=== PATIENT | male | born 1945 | race Caucasian/White ===

== ENCOUNTER 2016-09-13 19:21 | Inpatient (IN) ==
--- NOTE | 2016-09-13 19:37 | Emergency Department Report ---
General Adult HPI - General Chief complaint: Altered Mental Status Stated complaint: Decreased LOC Source: patient, family, EMS - History of Present Illness HPI narrative: Decreased LOC today. This appears to be consistent with patient's previous UTIs. Patient has an indwelling English catheter, and often gets this way with UTIs. Last visit month ago, patient had similar symptoms, but had UTI with service/ severe sepsis, elevated creatinine at 5.2, elevated troponin at 1.44, and was transferred [facility] with acute renal failure consistent with UTI/ sepsis. Currently patient has no complaints, specifically denies chest pain. Patient had EKG done in route due to decreased LOC, that showed ST segment elevation in V1 through V3, consistent with LVH/early repolarization only. Onset (ago): day(s) - Related Data Home Medications Medication Instructions Recorded Confirmed Multivit-Min/FA/Lycopen/Lutein 1 tab PO DAILY #0 07/22/14 09/13/16 [Centrum Silver Tablet] Nitroglycerin [Nitrostat] 0.4 mg SL Q5M PRN #0 07/22/14 09/13/16 Atorvastatin Calcium 20 mg PO HS #0 08/23/15 09/13/16 Insulin Aspart [Novolog Flexpen] 16 unit SQ WB #0 08/23/15 09/13/16 Insulin Aspart [Novolog Flexpen] 16 unit SQ BIDLS #0 03/16/16 09/13/16 Docusate Sodium 100 mg PO DAILY #0 03/17/16 09/13/16 Darbepoetin [Aranesp] 100 mcg IN 1 WEEK 09/13/16 09/13/16 Insulin Detemir [Levemir Flextouch] 50 units SQ HS 09/13/16 09/13/16 Magnesium Oxide [Magox 400] 400 mg PO BID 09/13/16 09/13/16 Metoclopramide [Reglan] 5 mg PO QID 09/13/16 09/13/16 Vit B2/Niacin/B-6/B-12/D-Panth 50,000 units PO DAILY 09/13/16 09/13/16 Allergies Allergy/AdvReac Type Severity Reaction Status Date / Time hydrocodone bit AdvReac Intermediate Uncoded 09/13/16 20:27 Review of Systems All systems: reviewed and negative except as stated Constitutional: Reports: weakness (with decreased level of consciousness/ confusion) PFS Patient Stated Medical History Cerebrovascular Accident Yes: 2004 Hearing Loss Yes Pulmonary Edema Yes Other Respiratory Yes: sirs 06/2016 Diabetes Mellitus Type 1 Yes Hx Benign Prostatic Yes Hyperplasia Other Yes: 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 Joint: knee Physical Exam - Limitations Limitations: altered mental status - General General appearance: alert, in no apparent distress (patient does appear mildly confused, but is able to contribute to his healthcare with answering one question at a time) - Normal Exams: Head:: Normocephalic without trauma Eyes:: Pupils are PERRLA w/ EOMI, No scleral icterus, irritation, or foreign bodies noted ENMT:: No facial trauma, nasal exudates, pharyngeal erythema, or exudates are noted Neck:: Full range of motion, without adenopathy, JVD, bruits or thyromegaly Chest/Respirations:: Clear all luong, with good airflow, and symmetry bilaterally Cardiovascular:: Regular rate and rhythm, without murmur or gallop, Pulses 2+ all extremities, capillary refill, <2 seconds all extremities Abdomen:: Bowel sounds positive, soft, non-tender, non-distended, no hepatosplenomegaly, masses or bruits noted Lymphatic:: No lymphadenopathy, or lymphedema noted Musculoskeletal:: No tenderness, or deformity noted, good range of motion, all extremities Integumentary:: No rashes, hives, or bruising noted, hair and nails, without abnormality Neurological:: Patient is alert, and oriented, cranial nerves, motor/sensory/ cerebellar, exams w/o gross deficits, to observation - Psychiatric Psychiatric exam: Present: flat affect. Absent: normal affect (lap affect), normal mood Course Course Narrative: Patient given 1 L normal saline IV fluid bolus Vital Signs Temperature 99.9 F 09/13/16 19:45 Temperature 99.9 F 09/13/16 19:45 Pulse Rate 96 09/13/16 20:30 Respiratory Rate 19 09/13/16 20:30 Blood Pressure 188/84 H 09/13/16 20:31 Pulse Oximetry 93 09/13/16 20:00 Medical Decision Making - MDM Narrative Medical decision making narrative: CBC is essentially normal, CMP shows significant abnormalities with BUN/ creatinine elevated, but much lower than previous visit. Minimally elevated at 0.144, much lower than previous admission Urine shows positive leukocyte esterase, red cells and white cells too numerous to count, multiple visible bacteria. Marques is discussed with Dr. Robb Martinez, patient will be for admission for dehydration and urinary tract infection, with no evidence of sepsis or Sirs at this time. Patient does have elevated troponin, this appears to be type II secondary to UTI at this time. - Lab Data Result diagrams: 09/13/16 19:50 09/13/16 19:50 Lab Results 09/13/16 09/13/16 09/13/16 Range/Units 19:50 19:50 19:50 WBC 9.5 (4.5-11.0) T/MM3 RBC 4.67 (4.50-5.90) M/MM3 Hgb 13.5 (13.5-17.5) GM/DL Hct 43.2 (41-53) % MCV 92.5 (80-100) UM3 MCH 28.9 (26-34) UUG MCHC 31.3 (31-37) GM/DL RDW Std Deviation 53.8 H (36.9-50.2) FL Plt Count 358 (130-400) T/MM3 MPV 12.0 (9.4-12.4) UM3 Immature Gran % (Auto) 0.2 (0.0-0.5) % Neut % (Auto) 69.3 H (33-66) % Lymph % (Auto) 19.7 L (23-45) % Hernando % (Auto) 8.7 (0-9.0) % Eos % (Auto) 1.7 (0-4) % Baso % (Auto) 0.4 (0-2) % Neut # 6.6 (1.8-7.7) T/MM3 Lymph # 1.9 (1-4.8) T/MM3 Hernando # 0.8 (0-0.8) T/MM3 Eos # 0.2 (0-0.5) T/MM3 Baso # 0.0 (0-0.2) T/MM3 Abs Immat Gran (auto) 0.02 (0.00-0.03) T/MM3 Turbidity 20 (0-20) Sodium 141 (134-144) MEQ/L Potassium 6.5 H* (3.6-5) MEQ/L Chloride 104 (98-107) MEQ/L Carbon Dioxide 23 (22-30) MEQ/L Anion Gap 14 (5-15) MEQ/L BUN 61.0 H* (9-20) MG/DL Creatinine 2.8 H (0.8-1.5) MG/DL GFR Calculation 22 BUN/Creatinine Ratio 22 (6-26) RATIO Glucose 299 H (75-110) MG/DL Calculated Osmolality 299 H (261-280) MOSM/KG Calcium 9.7 (8.4-10.2) MG/DL Total Bilirubin 0.50 (0.20-1.30) MG/DL Conjugated Bilirubin 0.00 (0.00-0.30) MG/DL Unconjugated Bilirubin 0.20 (0.00-11.10) MG/DL Icterus Index 2 (0-7) AST 20 (17-59) U/L ALT 23 (21-72) U/L Alkaline Phosphatase 123 (38-126) U/L Troponin I 0.147 H (0-0.12) ng/ml Total Protein 8.1 (6.3-8.2) G/DL Albumin 4.2 (3.5-5.0) G/DL Globulin 3.9 H (2.4-3.6) G/DL Albumin/Globulin Ratio 1.1 (1.1-2.2) RATIO Specimen Hemolysis 15 (0-25) Ur Collection Type Urine, english chronic Urine Color Yellow (YELLOW) Urine Clarity Turbid Urine pH 6.0 (5.0-8.0) Ur Specific [place] 1.025 (1.015-1.025) Urine Protein 3+ A (NEGATIVE) Urine Glucose (UA) 2+ A (NEGATIVE) Urine Ketones Negative (NEGATIVE) Urine Occult Blood 3+ A (NEGATIVE) Urine Nitrate Negative (NEGATIVE) Urine Bilirubin Negative (NEGATIVE) Urine Urobilinogen 0.2 (NORMAL) EU/DL Ur Leukocyte Esterase 3+ (NEGATIVE) Urine RBC Tntc (0-3) /HPF Urine WBC Tntc (0-5) /HPF Urine Bacteria 2+ H (NEGATIVE) Ur Culture Indicated? Cancelled Urinalysis Comment Cancelled Disposition Clinical Impression: Urinary tract infection [place] [facility] [place] Condition: Improved Prescriptions: No Action Multivit-Min/FA/Lycopen/Lutein [Centrum Silver Tablet] 1 tab PO DAILY #0 Insulin Aspart [Novolog Flexpen] 16 unit SQ WB #0 Metoclopramide [Reglan] 5 mg PO QID Magnesium Oxide [Magox 400] 400 mg PO BID Vit B2/Niacin/B-6/B-12/D-Panth 50,000 units PO DAILY Nitroglycerin [Nitrostat] 0.4 mg SL Q5M PRN #0 PRN Reason: CHEST TIGHTNESS Atorvastatin Calcium 20 mg PO HS #0 Insulin Aspart [Novolog Flexpen] 16 unit SQ BIDLS #0 Docusate Sodium 100 mg PO DAILY #0 Insulin Detemir [Levemir Flextouch] 50 units SQ HS Darbepoetin [Aranesp] 100 mcg IN 1 WEEK Referrals: Roel العراقي II, MD [Family Provider] - - Seen By: physician
[2016-09-13] MEDS ORDERED: ONDANSETRON 4 MG/2 ML INJECTION IVP PRN (21:13)
[2016-09-13] MEDS ORDERED: HYDROMORPHONE 2 MG/ML INJECTION IVP PRN (21:13)
[2016-09-13] MEDS ORDERED: NS 1,000 ML IV SCH (21:15)
[2016-09-13] MEDS ORDERED: NITROGLYCERIN 0.4 MG SUBLINGUAL TABLET SL PRN (21:29)
[2016-09-13] MEDS: NS 1,000 ML IV SCH (21:32)
[2016-09-13] MEDS ORDERED: CALCIUM GLUCONATE 1,000mg/10ml INJECTION IVP ONE (21:42)
[2016-09-13] MEDS ORDERED: SODIUM POLYSTYRENE SULFONATE 15 GM/60 ML BOTTLE PO ONE (23:18)
--- NOTE | 2016-09-13 23:24 | History & Physical Report ---
History of Present Illness Date: Chief complaint: weakness HPI: This is a 71 y/o chronically ill male who was recently evaluated in our ED and found to have acute kidney failure and UTI with severe sepsis. Due to the degree of renal failure the pateint was sent to [place] and spent time in their ICU and then in rehab hospital and then in a skilled setting and was just discharged home 2 weeks ago. Since discharge the pateint has had increasing weakness. He has been seen by agency x 3. The patient was noted to have a NSTEMI at the same time of initial presentation. The patient today was trying to get up to go to the bathroom and was unable to ambulate to the bathroom. The patient is brought to the ED where he is found to have hyperkalemia, acute kidney injury and a recurrent UTI. The pateint is a full code. The pateint is to be admitted for treatment of metabolic disorders and UTI. Review of Systems Review of systems: patient is unable to provide information an dasked his son to provide information, increased weakness, no fever, chills or sweats, no sore throat, no cough, no congestion, no chest pain, is short of breath chronically but maybe worse recently, no abdomen pain, no nausea or vomitng, no increased edema to legs. no new neurological deficits. This is the limit of information that can be provided at this time. PFSH CVA, CAD, dm2, cervical spine stenosis, ckd 4, bph Surgical History: Cardiac: cardiac bypass. Joint: knee. hand and foot. lumbar disc surgery Family History: unkown Smoking status: Never smoker Alcohol intake: never Housing: house Household members: family Current occupational status: retired Current occupational exposures/hazards: Yes Does patient use chewing tobacco?: No Medications Home Medications Medication Instructions Recorded Confirmed Type Multivit-Min/FA/Lycopen/Lutein 1 tab PO DAILY #0 07/22/14 09/13/16 History [Centrum Silver Tablet] Nitroglycerin [Nitrostat] 0.4 mg SL Q5M PRN #0 07/22/14 09/13/16 History Atorvastatin Calcium 20 mg PO HS #0 08/23/15 09/13/16 History Insulin Aspart [Novolog Flexpen] 16 unit SQ WB #0 08/23/15 09/13/16 History Insulin Aspart [Novolog Flexpen] 16 unit SQ BIDLS #0 03/16/16 09/13/16 History Docusate Sodium 100 mg PO DAILY #0 03/17/16 09/13/16 History Darbepoetin [Aranesp] 100 mcg IN 1 WEEK 09/13/16 09/13/16 History Insulin Detemir [Levemir Flextouch] 50 units SQ HS 09/13/16 09/13/16 History Magnesium Oxide [Magox 400] 400 mg PO BID 09/13/16 09/13/16 History Metoclopramide [Reglan] 5 mg PO QID 09/13/16 09/13/16 History Vit B2/Niacin/B-6/B-12/D-Panth 50,000 units PO DAILY 09/13/16 09/13/16 History Allergies Allergy/AdvReac Type Severity Reaction Status Date / Time hydrocodone bit AdvReac Intermediate Uncoded 09/13/16 20:27 Exam Vital Signs: Temp Pulse Resp BP Pulse Ox 99.5 F 86 20 146/71 H 96 09/13/16 22:57 09/13/16 22:57 09/13/16 22:57 09/13/16 22:57 09/13/16 22:57 Telemetry Rhythm: Sinus Rhythm Height: 1.85 m Weight: 127 kg Comments: well developed well nourished white male in mild distress alert but slow to respond to question, mild distress - Constitutional Present: mild distress, well nourished, well developed - Routine HEENT Exam Head: Present: normocephalic, atraumatic Eye: Present: EOMI, conjunctivae pink. Absent: scleral injection ENT: Present: mucous membranes dry - Routine Neck Exam Present: supple, full ROM - Routine Chest/Breast/Axilla Exam Chest wall: Absent: tenderness - Routine Respiratory Exam Present: CTA bilaterally. Absent: rales, rhonchi, stridor, wheezes - Routine Cardiovascular Exam Present: RRR. Absent: murmur - Routine Abdominal Exam Present: soft, normoactive bowel sounds, non tender, distended. Absent: tenderness Comments: per nursing - Routine Extremities Exam Present: edema, full ROM. Absent: cyanosis - Routine Skin Exam Present: intact, dry - Routine Neurological Exam Present: alert. Absent: oriented X3 - Routine Psychiatric Exam Present: cooperative. Absent: normal affect, normal thought process, good insight, good judgment Results - Labs CBC & Chem 7: 09/13/16 19:50 09/13/16 22:45 Labs: BMP 09/13/16 22:45 Sodium 140 Potassium 5.7 H Chloride 106 Carbon Dioxide 22 Creatinine 2.8 H Glucose 265 H Calcium 9.5 Assessment and Plan (1) Urinary tract infection Current visit: Yes Status: Acute This patient with recurrent UTI. need to access records and determine what has grown out in the past. rocephin overnight. Patient with chronic indwelling catheter. If recurrent might need to consider suprapubic catheter (2) Metabolic encephalopathy Current visit: Yes Status: Acute patient with increased confusion / weakness per son. patient chronically ill, patient with dehydration, patient with acute infection. no indicatino for PATIENT [employer]CIER[employer] infection at thist vladimir. IVF, Rocephin and reassess. No indication for acute neuroimaging tonight should improve with treatment provided. (3) Acute renal failure Current visit: Yes Status: Acute This pateint has worsening renal function again. Will hydrate and follow. urine sedament concerning for ATN. Patient is at risk and careful managment of fluids needed. (4) Elevated troponin Current visit: Yes Status: Acute patient with known history of CAD. previous had a NSTEMI when tx to [place]. no chest pain. ekg is quiet. cycle enzymes. possible that renal ds is ppt incrased troponin (5) Hyperkalemia Current visit: Yes Status: Acute pateint is signficantly hyperkalemic on presentation ivf, hco3 gtt, kayexylate , serial bmp. most likely reflection of kidney injury (6) DM type 2 (diabetes mellitus, type 2) Current visit: Yes Status: Acute correctional plan and adjust meds as indicated. with kidney disease must be careful, especially if any oral agents DVT Prophylaxis: SCD's Sepsis Assessment - Focused Exam Vital Signs Temp Pulse Resp BP Pulse Ox 09/13/16 22:57 99.5 F 86 20 146/71 H 96 09/13/16 22:35 82 16 164/74 H 95 09/13/16 22:00 162/74 H 09/13/16 21:45 92 19 09/13/16 21:31 147/70 H 09/13/16 21:30 94 12 94 09/13/16 21:15 96 32 H Hospital Course Summary Disclaimer: The visit summary below is not to be considered part of the above Progress Note.
[2016-09-13] MEDS: SODIUM BICARBONATE 100 MEQ in D5W 1,000 ML IV SCH (23:27)
[2016-09-13] MEDS: INSULIN REGULAR, HUMAN 100 UNIT/ML INJECTION SQ PRN (23:52)
[2016-09-14] MEDS: CEFTRIAXONE 1 G in NS 100 ML IV SCH ×2 (00:46→23:17)
[2016-09-14] MEDS: INSULIN REGULAR, HUMAN 100 UNIT/ML INJECTION SQ PRN ×4 (07:19→21:06)
[2016-09-14] MEDS: SODIUM BICARBONATE 100 MEQ in D5W 1,000 ML IV SCH (11:33)
[2016-09-14] MEDS: DOCUSATE SODIUM 100 MG CAPSULE PO SCH (11:34)
[2016-09-14] MEDS: INSULIN ASPART 100unit/ml INJECTION SQ SCH ×2 (13:05→17:10)
--- NOTE | 2016-09-14 14:49 | Progress Note ---
Subjective: Pt is alert but not a great hx and not able to provide much hx. Denies any cp, sob, n/v/d, f/c. Objective Vital signs: Temp Pulse Resp BP Pulse Ox 96.8 F 79 18 176/82 H 96 09/14/16 08:00 09/14/16 09:00 09/14/16 08:00 09/14/16 08:00 09/13/16 22:57 Weight: 124 kg - Constitutional Present: no acute distress, well nourished, well developed - Routine HEENT Exam Eye: Absent: conjunctival icterus, scleral injection - Routine Respiratory Exam Present: CTA bilaterally. Absent: wheezes - Routine Cardiovascular Exam Present: RRR, no murmur - Routine Abdominal Exam Present: soft, non tender - Routine Extremities Exam Absent: cyanosis, clubbing, edema - Routine Skin Exam Present: intact, dry - Routine Neurological Exam Present: alert Results - Labs CBC & Chem 7: 09/14/16 04:51 09/14/16 16:08 Labs: Short CBC 09/14/16 Range/Units 04:51 WBC 6.3 (4.5-11.0) T/MM3 Hgb 12.2 L (13.5-17.5) GM/DL Hct 40.4 L (41-53) % Plt Count 239 (130-400) T/MM3 BMP 09/13/16 09/14/16 22:45 04:51 Sodium 140 144 Potassium 5.7 H 4.5 D Chloride 106 104 Carbon Dioxide 22 24 BUN 59.0 H* 56.0 H* Creatinine 2.8 H 2.6 H D Glucose 265 H 296 H Calcium 9.5 9.0 Cardiac Enzymes 09/13/16 09/14/16 Range/Units 22:45 04:51 Troponin I 0.206 H 0.268 H (0-0.12) ng/ml Liver Function 09/14/16 Range/Units 04:51 Total Bilirubin 0.30 (0.20-1.30) MG/DL AST 16 L (17-59) U/L ALT 25 (21-72) U/L Alkaline Phosphatase 99 (38-126) U/L Albumin 3.5 (3.5-5.0) G/DL Assessment and Plan (1) Urinary tract infection Current visit: Yes Status: Acute (2) Acute renal failure Current visit: Yes Status: Acute (3) Metabolic encephalopathy Current visit: Yes Status: Acute (4) Elevated troponin Current visit: Yes Status: Acute (5) Hyperkalemia Current visit: Yes Status: Acute (6) DM type 2 (diabetes mellitus, type 2) Current visit: Yes Status: Acute Assessment and Plan: UTI? -Pt has chronic english and hx of UTI/pyelo and hx of ESBL per [facility] records -Unclear if UA taken appropriately from english as clinically pt doesn't seem to have signs of infection -While UA shows signs of infection, pt has no WBC count, no fever, vitals unremarkable other then HTN -On rocephin D2, but really should be on meropenem if concern for ESBL, since not high suspicion of infection will get clean catch UA and then decide on abx CHLOE on CKD -Per review [facility] notes, seems like baseline Cr around 2-2.2 -Currently Cr 2.6, CHLOE likely pre-renal 2/2 poor intake -Cont. IV fluids, will get renal US Hyperkalemia -Resolved -Likely 2/2 CHLOE on CKD Chronic Urinary Retention -Has chronic english -Will also change english since unclear how long before last change -Will try to figure out which urologist pt follows with Cognitive Impairment -Pt has hx of CVA and cognitive impairment afterwards -Unclear how close to baseline, will monitor DM -Home dose-->50u levemir qhs, 16U novolog TIDWM -Current reduced dose-->20U levemir qhs, 8U TIDWM Ppx - Sepsis Assessment - Evaluation Sepsis screening result: No Definite Risk - Focused Exam Vital Signs Temp Pulse Resp BP 09/14/16 09:00 79 09/14/16 08:00 96.8 F 74 18 176/82 H Respiratory exam: Present: CTA bilaterally. Absent: rales, rhonchi, stridor, wheezes Cardiovascular exam: Present: RRR. Absent: murmur Hospital Course Summary Disclaimer: The visit summary below is not to be considered part of the above Progress Note.
[2016-09-14] MEDS: INSULIN DETEMIR 100unit/ml INJECTION SQ SCH ×2 (15:04→21:09)
[2016-09-14] MEDS: NS 1,000 ML IV SCH ×4 (15:07→22:13)
--- NOTE | 2016-09-14 17:06 | Ultrasound Report ---
Indication: jelani PROCEDURE: US renal BI: Encounter: Initial Comparison: Renal ultrasound dated June 02, 2016 Technique: Grayscale and color Doppler sonographic imaging of both kidneys was performed. FINDINGS: Both kidneys are present with normal cortical thickness and echogenicity. No evidence for collecting system dilatation, contour deforming mass, nephrolithiasis, or abnormal perinephric fluid collection. The right kidney measures 13.7 cm in length, and the left kidney measures 13 cm in length. IMPRESSION: Normal renal sonogram. .
[2016-09-14] MEDS: MAGNESIUM OXIDE 400 MG TABLET PO SCH (21:04)
[2016-09-14] MEDS: ATORVASTATIN 20 MG TABLET PO SCH (21:04)
[2016-09-15] MEDS: NS 1,000 ML IV SCH ×4 (05:08→22:23)
[2016-09-15] MEDS: INSULIN REGULAR, HUMAN 100 UNIT/ML INJECTION SQ PRN ×3 (05:11→21:41)
[2016-09-15] MEDS: INSULIN ASPART 100unit/ml INJECTION SQ SCH ×3 (08:07→17:08)
[2016-09-15] MEDS: DOCUSATE SODIUM 100 MG CAPSULE PO SCH (08:08)
[2016-09-15] MEDS: MAGNESIUM OXIDE 400 MG TABLET PO SCH ×2 (08:08→22:17)
--- NOTE | 2016-09-15 10:35 | Progress Note ---
Subjective: Milan is laying in bed watching TV this morning. States that he is ready to go home. He has no c/o this morning. Is feeling good. Denies any SOA, n /v/, fever/chills, abdominal pain, or chest pain. <Tracie Sow - 09/15/16 10:47> Objective Vital signs: Temp Pulse Resp BP Pulse Ox 97.8 F 69 22 205/94 H 96 09/15/16 07:39 09/15/16 09:00 09/15/16 07:39 09/15/16 07:39 09/15/16 07:39 <Raquel Ramirez L - 09/15/16 15:07> Temp Pulse Resp BP Pulse Ox 97.8 F 69 22 205/94 H 96 09/15/16 07:39 09/15/16 09:00 09/15/16 07:39 09/15/16 07:39 09/15/16 07:39 <Tracie Sow Georgina - 09/15/16 10:47> Weight: 125.2 kg <Tracie Sow 09/15/16 10:47> - Constitutional Present: no acute distress, well nourished, well developed, obese <Tracie Sow 09/15/16 10:47> - Routine HEENT Exam Eye: Present: EOMI, PERRL <Tracie Sow 09/15/16 10:47> ENT: Present: mucous membranes moist, oropharynx clear, dentition normal, external ear normal <Tracie Sow 09/15/16 10:47> - Routine Respiratory Exam Present: CTA bilaterally <Tracie Sow 09/15/16 10:47> - Routine Cardiovascular Exam Present: RRR, S1, S2 <Tracie Sow 09/15/16 10:47> - Routine Abdominal Exam Present: soft, normoactive bowel sounds, non distended. Absent: tenderness < Tracie Sow 09/15/16 10:47> - Routine Extremities Exam Present: no edema, non tender, full ROM, pulses intact, normal capillary refill <Tracie Sow 09/15/16 10:47> - Routine Skin Exam Present: intact, dry, warm. Absent: rash <Tracie Sow - 09/15/16 10:47> - Routine Neurological Exam Present: alert, oriented X3 <Tracie Sow - 09/15/16 10:47> - Routine Lymphatic Exam Lymphatic: Absent: adenopathy <Tracie Sow - 09/15/16 10:47> - Routine Psychiatric Exam Present: normal affect <Tracie Sow - 09/15/16 10:47> Results - Labs CBC & Chem 7: 09/15/16 04:24 09/15/16 04:24 <Raquel Ramirez - 09/15/16 15:07> Labs: Short CBC 09/15/16 Range/Units 04:24 WBC 6.7 (4.5-11.0) T/MM3 Hgb 11.7 L (13.5-17.5) GM/DL Hct 38.8 L (41-53) % Plt Count 239 (130-400) T/MM3 BMP 09/14/16 09/15/16 16:08 04:24 Sodium 141 143 Potassium 4.3 4.4 Chloride 102 106 Carbon Dioxide 28 26 BUN 52.0 H* 44.0 H Creatinine 2.4 H D 2.2 H D Glucose 260 H 205 H Calcium 8.8 8.7 Cardiac Enzymes 09/14/16 Range/Units 16:08 Troponin I 0.213 H (0-0.12) ng/ml Liver Function 09/14/16 09/15/16 Range/Units 16:08 04:24 Albumin 3.6 3.5 (3.5-5.0) G/DL Urine 09/14/16 Range/Units 15:37 Urine Color Yellow (YELLOW) Urine Clarity Cloudy Urine pH 7.0 (5.0-8.0) Ur Specific [place] 1.010 L (1.015-1.025) Urine Protein 3+ A (NEGATIVE) Urine Glucose (UA) 3+ A (NEGATIVE) <Raquel Ramirez - 09/15/16 15:07> Short CBC 09/15/16 Range/Units 04:24 WBC 6.7 (4.5-11.0) T/MM3 Hgb 11.7 L (13.5-17.5) GM/DL Hct 38.8 L (41-53) % Plt Count 239 (130-400) T/MM3 BMP 09/14/16 09/15/16 16:08 04:24 Sodium 141 143 Potassium 4.3 4.4 Chloride 102 106 Carbon Dioxide 28 26 BUN 52.0 H* 44.0 H Creatinine 2.4 H D 2.2 H D Glucose 260 H 205 H Calcium 8.8 8.7 Cardiac Enzymes 09/14/16 Range/Units 16:08 Troponin I 0.213 H (0-0.12) ng/ml Liver Function 09/14/16 09/15/16 Range/Units 16:08 04:24 Albumin 3.6 3.5 (3.5-5.0) G/DL Urine 09/14/16 Range/Units 15:37 Urine Color Yellow (YELLOW) Urine Clarity Cloudy Urine pH 7.0 (5.0-8.0) Ur Specific [place] 1.010 L (1.015-1.025) Urine Protein 3+ A (NEGATIVE) Urine Glucose (UA) 3+ A (NEGATIVE) <Tracie Sow - 09/15/16 10:47> Assessment and Plan (1) Urinary tract infection Current visit: Yes Status: Ruled-out (2) Acute renal failure Current visit: Yes Status: Chronic (3) Metabolic encephalopathy Current visit: Yes Status: Resolved (4) Elevated troponin Current visit: Yes Status: Acute (5) Hyperkalemia Current visit: Yes Status: Resolved (6) DM type 2 (diabetes mellitus, type 2) Current visit: Yes Status: Chronic (7) CKD (chronic kidney disease) stage 4, GFR 15-29 ml/min Current visit: Yes Status: Acute 09/15/16 15:04 stage 3-4 (8) HTN (hypertension) Current visit: Yes Status: Acute <Raquel Ramirez - 09/15/16 15:07> (1) Urinary tract infection Current visit: Yes Status: Acute (2) Acute renal failure Current visit: Yes Status: Chronic (3) Metabolic encephalopathy Current visit: Yes Status: Resolved (4) Elevated troponin Current visit: Yes Status: Acute (5) Hyperkalemia Current visit: Yes Status: Resolved (6) DM type 2 (diabetes mellitus, type 2) Current visit: Yes Status: Chronic <Tracie Sow - 09/15/16 10:28> Assessment and Plan: I have independently evaluated and examined this patient. I reviewed the chart, the patient's history, and the [employer]'s documented findings as above. We discussed and formulated the assessment and plan as above with additions as below: Please note that assessment/plan appearing above the date of 09/15 carried over from yesterday. Mr. Padilla reports that he feels well today and wants to go home. The SCDs are bothering his legs which are hypersensitive. He denied impaired oral intake, nausea, or diarrhea prior to hospitalization and reports that he is eating and drinking well now. IV fluids continue 150 mL per hour. The patient is alert, abdomen is benign, respirations are nonlabored with clear breath sounds although breath sounds are diminished throughout. Potassium has normalized and creatinine is approaching baseline (2.0-2.1). PT evaluation obtained and reports patient is unsafe and recommended IRU. Will discuss further with patient/son. Discontinue Rocephin-data does not support active UTI (above should read UTI- ruled out) and patient is clinically stable without treatment of the organism identified. Urine is colonized but treatment will only lead to further antibiotic resistance. Decrease rate of IV fluids. Increase insulin slightly-30 units Levemir, 10 units 3 times a day NovoLog. Blood pressure elevated recent days and this a.m., metoprolol resumed yesterday evening and blood pressure improved this afternoon with reading of 133/85. Discussed with nursing, case management, and Dr. العراقي. Laboratory data and cultures reviewed. <Raquel Ramirez - 09/15/16 15:07> UTI? -Pt has chronic english and hx of UTI/pyelo and hx of ESBL per [facility] records -Unclear if UA taken appropriately from english as clinically pt doesn't seem to have signs of infection -While UA shows signs of infection, pt has no WBC count, no fever, vitals unremarkable other then HTN -On rocephin D2, but really should be on meropenem if concern for ESBL, since not high suspicion of infection will get clean catch UA and then decide on abx CHLOE on CKD -Per review [facility] notes, seems like baseline Cr around 2-2.2 -Currently Cr 2.6, CHLOE likely pre-renal 2/2 poor intake -Cont. IV fluids, will get renal US Hyperkalemia -Resolved -Likely 2/2 CHLOE on CKD Chronic Urinary Retention -Has chronic english -Will also change english since unclear how long before last change -Will try to figure out which urologist pt follows with Cognitive Impairment -Pt has hx of CVA and cognitive impairment afterwards -Unclear how close to baseline, will monitor DM -Home dose-->50u levemir qhs, 16U novolog TIDWM -Current reduced dose-->20U levemir qhs, 8U TIDWM Ppx - 09/15 UTI: culture report does show E. Coli. Has been on Rocephin IV (today is day 3) but sensitivities do now show as sensitive to Rocephin. Remain afebrile, clinically does not appear to be ill, and WBC is stable. This may be colonization vs UTI. CHLOE on CKD: Cr continues to improve, down to 2.2 today. Is very close to baseline Cr of 2.0. Continue to monitor and cont. IVF. Renal US was normal, no acute findings noted. Hyperkalemia: continues to be stable, K+ today is 4.4. DM: Continue with Levemir. Blood glucose are in low 200s. <Tracie Sow - 09/15/16 10:47> Sepsis Assessment - Evaluation Sepsis screening result: No Definite Risk <Tracie Sow - 09/15/16 10:47> - Focused Exam Vital Signs Temp Pulse Resp BP Pulse Ox 09/15/16 09:00 69 09/15/16 07:39 97.8 F 78 22 205/94 H 96 <Raquel Ramirez - 09/15/16 15:07> Vital Signs Temp Pulse Resp BP Pulse Ox 09/15/16 09:00 69 09/15/16 07:39 97.8 F 78 22 205/94 H 96 09/15/16 00:00 70 09/14/16 23:26 99 F 71 20 172/87 H 94 <Tracie Sow - 09/15/16 10:47> Respiratory exam: Present: CTA bilaterally. Absent: rales, rhonchi, stridor, wheezes <Tracie Sow - 09/15/16 10:47> Cardiovascular exam: Present: RRR. Absent: murmur <Tracie Sow - 09/15/16 10:47> Hospital Course Summary Disclaimer: The visit summary below is not to be considered part of the above Progress Note. <Raquel Ramirez - 09/15/16 15:07> The visit summary below is not to be considered part of the above Progress Note. <Tracie Sow - 09/15/16 10:47> Hospital Course: 09/15 UTI: culture report does show E. Coli. Has been on Rocephin IV (today is day 3) but sensitivities do now show as sensitive to Rocephin. Remain afebrile, clinically does not appear to be ill, and WBC is stable. This may be colonization vs UTI. CHLOE on CKD: Cr continues to improve, down to 2.2 today. Is very close to baseline Cr of 2.0. Continue to monitor and cont. IVF. Renal US was normal, no acute findings noted. Hyperkalemia: continues to be stable, K+ today is 4.4. DM: Continue with Levemir. Blood glucose are in low 200s. <Tracie Sow - 09/15/16 10:47>
[2016-09-15] MEDS ORDERED: INSULIN DETEMIR 100unit/ml INJECTION SQ SCH (14:46)
[2016-09-15] MEDS: HEPARIN SUB-Q 5,000 UNITS/0.5 ML INJECTION SQ SCH (17:08)
[2016-09-15] MEDS: ATORVASTATIN 20 MG TABLET PO SCH (22:17)
[2016-09-16] MEDS: HEPARIN SUB-Q 5,000 UNITS/0.5 ML INJECTION SQ SCH ×2 (01:08→09:10)
[2016-09-16] MEDS: INSULIN REGULAR, HUMAN 100 UNIT/ML INJECTION SQ PRN ×3 (06:08→15:44)
--- NOTE | 2016-09-16 08:42 | XRay Report ---
Indication: Left knee pain PROCEDURE: XR knee LT 3V: Encounter: Initial Comparison: None Findings: There is no acute fracture, dislocation or malalignment identified. Moderate medial compartment joint space narrowing. Small tricompartmental osteophytes. Old Kvng-Schlatter's disease noted. Arterial vascular calcifications. Possible small joint effusion. Impression: No acute osseous abnormality. Mild to moderate osteoarthritis. .
[2016-09-16] MEDS: INSULIN ASPART 100unit/ml INJECTION SQ SCH ×2 (09:09→12:22)
[2016-09-16] MEDS: DOCUSATE SODIUM 100 MG CAPSULE PO SCH (09:10)
[2016-09-16] MEDS: MAGNESIUM OXIDE 400 MG TABLET PO SCH (09:10)
[2016-09-16] MEDS: NS 1,000 ML IV SCH ×2 (09:11→12:05)
--- NOTE | 2016-09-16 14:47 | Discharge Summary ---
Discharge Plan - Med Rec/Dispo Referrals/Follow Up: Roel العراقي II, MD [Family Provider] - Estevan Walters MD [Physician] - Prescriptions: New Heparin [Heparin Sq] 5,000 units SQ Q8HR vial Insulin Detemir [Levemir] 30 unit SQ HS vial Metoprolol Tartrate [Lopressor] 50 mg PO BIDWM Ondansetron Inj [Zofran] 4 mg IVP Q6H PRN vial PRN Reason: Nausea &/Or Vomiting Insulin Aspart [NovoLOG] 10 unit SQ TIDWM vial Insulin Regular, Human [NovoLIN R] 0 unit SQ SS PRN vial PRN Reason: Hyperglycemia Continue Multivit-Min/FA/Lycopen/Lutein [Centrum Silver Tablet] 1 tab PO DAILY #0 Magnesium Oxide [Magox 400] 400 mg PO BID Vit B2/Niacin/B-6/B-12/D-Panth 50,000 units PO DAILY Nitroglycerin [Nitrostat] 0.4 mg SL Q5M PRN #0 PRN Reason: CHEST TIGHTNESS Atorvastatin Calcium 20 mg PO HS #0 Docusate Sodium 100 mg PO DAILY #0 Darbepoetin [Aranesp] 100 mcg IN 1 WEEK Discontinued Insulin Aspart [Novolog Flexpen] 16 unit SQ WB #0 Metoclopramide [Reglan] 5 mg PO QID Insulin Aspart [Novolog Flexpen] 16 unit SQ BIDLS #0 Insulin Detemir [Levemir Flextouch] 50 units SQ HS Metoprolol Tartrate [Lopressor] 25 mg PO BIDWM - Disposition 62 To [facility] [place] Re[place]
--- NOTE | 2016-09-16 15:14 | Discharge Summary ---
Discharge Information Date of admission: 09/13/16 21:13 Anticipated date of discharge: 09/16/16 Attending Physician: Raquel Ramirez MD Primary care physician: Roel العراقي II, MD Consults: 09/15/16 IRU Screening [Inpatient Rehab Screening] [CONS] Routine - Discharge Diagnosis (1) Acute renal failure Qualifiers: Acute renal failure type: unspecified Qualified Code(s): N17.9 - Acute kidney failure, unspecified Problem Details: Dehydration Status: Acute (2) Hyperkalemia Status: Resolved (3) Metabolic encephalopathy Status: Chronic (4) CKD (chronic kidney disease) stage 4, GFR 15-29 ml/min Problem Details: Stage 3-4 Status: Chronic (5) Elevated troponin Problem Details: Consistent with renal failure Status: Acute (6) DM type 2 (diabetes mellitus, type 2) Qualifiers: Diabetes mellitus complication status: with kidney complications Diabetes mellitus complication detail: with chronic kidney disease 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 Potassium 6.5, BUN 61, creatinine 2.8. Initial troponin 0.147 with peak troponin early the next morning at 0.268. Procalcitonin lactic acid 2.0 on admission. Urinalysis-+3 protein, +2 glucose, +3 occult blood, +2 bacteria, too numerous to count red cells/white cells - Microbiology 09/13/16 urine culture > 100,000 colonies ESBL Escherichia coli Microbiology 09/14/16 15:37 Urine, Clean Catch/Voided Urine Culture - Final Mixed Bacterial Saniya - Radiology Radiology: 3 views of the left knee on 09/15/16 demonstrated changes of old Kvng-Schlatter' s disease, arterial vascular calcifications, small joint effusion, mild- moderate osteoarthritis, but no acute abnormalities. History of Present Illness HPI: This is a 71 y/o chronically ill male who was recently evaluated in our ED and found to have acute kidney failure and UTI with severe sepsis. Due to the degree of renal failure the patient was sent to [place] and spent time in their ICU and then in rehab hospital and then in a skilled setting and was just discharged home 2 weeks ago. Since discharge the pateint has had increasing weakness. He has been seen by agency x 3. The patient was thought to have a NSTEMI at the same time of initial presentation. The patient today was trying to get up to go to the bathroom and was unable to ambulate to the bathroom. The patient is brought to the ED where he is found to have hyperkalemia, acute kidney injury and a recurrent UTI. The patient is a full code. The patient is to be admitted for treatment of metabolic disorders and UTI. 09/16/16 15:21 Hospital Course Hospital course: Mr. Padilla was hospitalized with recurrent urinary tract infection and reported increased confusion/weakness. He has had recurrent hospitalizations over the past 3 months with similar presentations. He was initially treated with IV ceftriaxone empirically with IV fluids initiated for worsening renal failure. Troponin elevation was attributed to chronic renal failure. Hyperkalemia was treated with fluids, bicarbonate infusion, Kayexalate. Potassium improved progressively with hydration as did renal function with discharge creatinine of 1.9. Initial urine culture was positive for ESBL Escherichia coli. The patient was clinically improved by the time culture results were known despite inadequate treatment for the identified organism. He's previously been identified as having ESBL in the urine during hospitalizations in [place] during which time he was asymptomatic and was felt decolonized with ESBL. Subsequently antibiotics were discontinued on 09/15 and colonization was felt to be present rather than active UTI. Diabetes management was continued with insulin throughout the hospital course with insulin doses reduced approximately 50% outpatient levels initially. There was persistent hyperglycemia with the initial insulin dosages and dosages were titrated upward on 09/15 and will continue to be titrated to improve control following transfer to IRU. On 09/15 the patient complained of knee pain initially indicating that this was subacute but later reporting that it has been present for prolonged period of time. X-rays demonstrated no acute pathology but some underlying degenerative changes and old Mcdaniel-Schlatter disease. The patient appears to have significant underlying cognitive dysfunction which the patient's son describes as present even prior to the stroke 10 years ago. The patient is unsteady standing and further strengthening was recommended by physical therapy before consideration of discharge home. The patient was stable for transfer to IRU on 09/16 following acceptance the prior day. This time he complains of no dyspnea, pain (other than mild knee pain when directly asked), or dizziness. Respirations are nonlabored with clear breath sounds although air flow is diminished throughout. Cardiac rhythm is regular and abdomen benign. There is mild erythema over bony prominence at the patellar insertion on the left with mild tenderness on palpation although less notable than yesterday. The patient will transfer to IRU for continued strengthening due to generalized debility and history of CVA. Plans have been discussed with his son who indicated his intent to be the patient's primary caregiver at home in the future. The patient will require follow-up with Dr. Walters regarding bladder wall thickening identified at [place] last month and to consider resuming aspirin /Plavix which have been on hold after several episodes of hematuria in recent 3 months (pending Dr. Walters's approval post cystoscopy). Blood pressure has been modestly elevated throughout the current hospitalization prompting increased dose metoprolol but it's noted that during prior hospitalization at [place] the patient was hypotensive on low-dose amlodipine and metoprolol at 100 mg twice a day. The patient will also require follow-up with Dr. Ruthie Healy regarding chronic renal disease post discharge. >30 minutes spent on patient care and discharge care coordination today on the date of discharge. -- DVT Prophylaxis: SQ Heparin Discharge Plan - Med Rec/Dispo Referrals/Follow Up: Roel العراقي II, MD [Family Provider] - Estevan Walters MD [Physician] - Prescriptions: New Heparin [Heparin Sq] 5,000 units SQ Q8HR vial Insulin Detemir [Levemir] 30 unit SQ HS vial Metoprolol Tartrate [Lopressor] 50 mg PO BIDWM Ondansetron Inj [Zofran] 4 mg IVP Q6H PRN vial PRN Reason: Nausea &/Or Vomiting Insulin Aspart [NovoLOG] 10 unit SQ TIDWM vial Insulin Regular, Human [NovoLIN R] 0 unit SQ SS PRN vial PRN Reason: Hyperglycemia Continue Multivit-Min/FA/Lycopen/Lutein [Centrum Silver Tablet] 1 tab PO DAILY #0 Magnesium Oxide [Magox 400] 400 mg PO BID Vit B2/Niacin/B-6/B-12/D-Panth 50,000 units PO DAILY Nitroglycerin [Nitrostat] 0.4 mg SL Q5M PRN #0 PRN Reason: CHEST TIGHTNESS Atorvastatin Calcium 20 mg PO HS #0 Docusate Sodium 100 mg PO DAILY #0 Darbepoetin [Aranesp] 100 mcg IN 1 WEEK Discontinued Insulin Aspart [Novolog Flexpen] 16 unit SQ WB #0 Metoclopramide [Reglan] 5 mg PO QID Insulin Aspart [Novolog Flexpen] 16 unit SQ BIDLS #0 Insulin Detemir [Levemir Flextouch] 50 units SQ HS Metoprolol Tartrate [Lopressor] 25 mg PO BIDWM - Disposition 62 To [facility] [place] [facility]
== END 2016-09-16 17:00 | DRG 682 ==
LOC: ED 19:21 → MED 21:13
PROVIDERS: ADMIT Internal Medicine; ATTEND Internal Medicine

== ENCOUNTER 2016-09-16 17:05 | Inpatient (IN) ==
[2016-09-16] MEDS ORDERED: ONDANSETRON 4 MG/2 ML INJECTION IVP PRN ×2 (18:18→21:16)
[2016-09-16] MEDS ORDERED: NITROGLYCERIN 0.4 MG SUBLINGUAL TABLET SL PRN ×2 (18:18→21:16)
[2016-09-16] MEDS ORDERED: INSULIN REGULAR, HUMAN 100 UNIT/ML INJECTION SQ PRN ×2 (18:18→21:16)
[2016-09-16] MEDS ORDERED: MAGNESIUM OXIDE 400 MG TABLET PO SCH (21:00)
[2016-09-16] MEDS ORDERED: ATORVASTATIN 20 MG TABLET PO SCH (22:00)
[2016-09-16] MEDS ORDERED: INSULIN DETEMIR 100unit/ml INJECTION SQ SCH (22:00)
[2016-09-16] MEDS: ATORVASTATIN 20 MG TABLET PO SCH (22:19)
[2016-09-16] MEDS: MAGNESIUM OXIDE 400 MG TABLET PO SCH (22:20)
[2016-09-16] MEDS: INSULIN DETEMIR 100unit/ml INJECTION SQ SCH (22:25)
[2016-09-17] MEDS ORDERED: HEPARIN SUB-Q 5,000 UNITS/0.5 ML INJECTION SQ SCH (01:00)
[2016-09-17] MEDS: HEPARIN SUB-Q 5,000 UNITS/0.5 ML INJECTION SQ SCH ×3 (02:03→17:42)
[2016-09-17] MEDS ORDERED: INSULIN ASPART 100unit/ml INJECTION SQ SCH ×2 (08:00)
[2016-09-17] MEDS: MAGNESIUM OXIDE 400 MG TABLET PO SCH ×2 (08:41→21:36)
[2016-09-17] MEDS ORDERED: DOCUSATE SODIUM 100 MG CAPSULE PO SCH (09:00)
--- NOTE | 2016-09-17 09:19 | Consult Note ---
<Ramya Cesar Lucrecia - Last Filed: 09/17/16 13:07> Consult Information - Data of Consult Patient: known to practice within the last 3 years Requesting Physician: Clive Hoffman MD Primary Care Provider: Roel العراقي II, MD Family Provider: Roel العراقي II, MD - Consult Narrative Reason for consult: CHLOE, encephalopathy History of present illness: Milan Padilla is a 71 y/o male seen in consultation from Dr. Hoffman for medical management of recent UTI, hyperkalemia, elevated troponin, and metabolic encephalopathy. He has had recurrent hospitalizations over the last 3 months, with similar acute medical conditions. He was admitted at [facility] on 09/13/16 and treated with IV Rocephin for UTI plus was given IV fluids for worsening renal failure (Creatinine was 2.8 on admission). His troponin was mildly elevated, but this was thought secondary to chronic renal failure. With IV fluids, bicarbonate infusion and Kayexalate, his hyperkalemia was reversed. By day of discharge, his creatinine had also improved to 1.9. Urine culture grew out ESBL positive Escherichia coli, but was asymptomatic, and therefore antibiotics were discontinued on 09/15/16. He has had ESBL positive Escherichia coli infections in the past, and this is more likely to be colonization rather than true infection. During his hospitalization, he exhibited cognitive dysfunction, which has been present for several years. Physical and occupational therapy worked with him, and ongoing strengthening was recommended for his weakness and acute myopathy. Therapy staff did not feel he was safe to go back home. After his 3 night stay on the medical unit, he was able to be transferred to IRU in stable medical condition. The patient was seen while working with therapy. His goal is to be able to return home. 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 Milan denies any new concerns or issues. Milan is motivated and eager to return home. Review of Systems All systems: reviewed and no additional remarkable complaints except as stated - Constitutional Constitutional: Absent: chills, headache(s) - EENMT Eyes: Absent: change in vision Mouth/Throat: Absent: sore throat - Cardiovascular Cardiovascular: Absent: chest pain Vascular: Present: pedal edema - Respiratory Respiratory: Absent: cough, dyspnea - Gastrointestinal Gastrointestinal: Absent: abdominal pain, constipation, diarrhea, vomiting - Musculoskeletal Musculoskeletal: Present: muscle weakness - Integumentary/Breasts Integumentary: Present: wounds (legs) - Neurological Neurological: Present: abnormal gait, memory loss, weakness - Psychiatric Psychiatric: Absent: depression - Hematologic/Lymphatic Hematologic/Lymphatic: Present: easy bruising PFS History of stroke (2004), with residual cognitive dysfunction. Coronary artery disease. Hypertension. Type 2 diabetes, insulin-dependent. Cervical spine stenosis. Chronic kidney disease stage IV. Baseline creatinine around 2-2.2. BPH. Chronic English with history of UTI and pyelonephritis, history of ESBL. Osteoarthritis. Surgical History: 07/01/15: Cystoscopy May and SP tube placement with cystoscopy and cystogram, Dr. Walters. Cholecystectomy. CABG. knee surgery. hand and foot. lumbar disc surgery Family History: Mother had a heart attack. Father of leukemia. Brother of CHF. 2 sisters, both . He's uncertain of their chronic conditions. - Social History Smoking status: Never smoker Substance use type: does not use Alcohol intake frequency: does not drink Current residence: Apartment/Private Home Medications Home Medications Medication Instructions Recorded Confirmed Type Multivit-Min/FA/Lycopen/Lutein 1 tab PO DAILY #0 07/22/14 09/16/16 History [Centrum Silver Tablet] Nitroglycerin [Nitrostat] 0.4 mg SL Q5M PRN #0 07/22/14 09/16/16 History Atorvastatin Calcium 20 mg PO HS #0 08/23/15 09/16/16 History Docusate Sodium 100 mg PO DAILY #0 03/17/16 09/16/16 History Darbepoetin [Aranesp] 100 mcg IN 1 WEEK 09/13/16 09/16/16 History Magnesium Oxide [Magox 400] 400 mg PO BID 09/13/16 09/16/16 History Vit B2/Niacin/B-6/B-12/D-Panth 50,000 units PO DAILY 09/13/16 09/16/16 History Allergies Allergy/AdvReac Type Severity Reaction Status Date / Time hydrocodone AdvReac Intermediate Verified 09/14/16 06:21 Exam Vital Signs: Temp Pulse Resp BP Pulse Ox 98.0 F 65 24 160/81 H 96 09/16/16 21:00 09/17/16 02:18 09/16/16 21:00 09/16/16 21:00 09/16/16 21:00 Height: 1.85 m Weight: 127.3 kg Body Mass Index: 37.0 - Constitutional Present: no acute distress, well nourished, well developed, morbidly obese - Routine HEENT Exam Eye: Present: PERRL. Absent: conjunctival icterus, scleral injection ENT: Present: mucous membranes moist - Routine Neck Exam Present: supple. Absent: lymphadenopathy, thyromegaly - Routine Respiratory Exam Present: CTA bilaterally - Routine Cardiovascular Exam Present: S1, S2 - Routine Abdominal Exam Present: soft, normoactive bowel sounds, non distended, non tender - Routine Extremities Exam Present: edema (1+ BLE), pulses intact, joint swelling (swelling and erythema over left tibial tuberosity - chronic per son) - Routine Skin Exam Present: warm, lesions (multiple abrasions to BLE) - Routine Neurological Exam Present: alert, oriented X3 Assessment and Plan (1) Metabolic encephalopathy Current visit: No Status: Acute (2) CKD (chronic kidney disease) stage 4, GFR 15-29 ml/min Problem details: Stage 3-4 Current visit: No Status: Chronic (3) DM type 2 (diabetes mellitus, type 2) Current visit: No Status: Chronic (4) HTN (hypertension) Current visit: No Status: Chronic Assessment and Plan: Generalized weakness and debility: agree with orders per Dr. Hoffman. HTN: Monitor blood pressure. He did have elevated blood pressure during his acute stay, which improved with resumption of metoprolol. May need to re- introduce amlodipine, which he's previously taken. Type 2 diabetes: Insulin was reduced during his acute stay and corresponding acute kidney injury. By time of discharge, he was receiving 30 units of Levemir and NovoLog 10 units 3 times a day. His baseline insulin is NovoLog 16 units with meals and Levemir 50 units HS. He has had some hyperglycemia so will increase mealtime insulin to 12 units. Continue routine SSI - at home he adds 2 units of insulin per 50 points above 150. Urinary retention and bladder wall thickening - will need to f/u with Dr. Walters; ASA/Plavix are on hold d/t hematuria over the last few months CKD stage IV: will need f/u with Dr. 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 Hospital Course: 09/17/16 13:22 Generalized weakness and debility: agree with orders per Dr. Hoffman. HTN: Monitor blood pressure. He did have elevated blood pressure during his acute stay, which improved with resumption of metoprolol. May need to re- introduce amlodipine, which he's previously taken. Type 2 diabetes: Insulin was reduced during his acute stay and corresponding acute kidney injury. By time of discharge, he was receiving 30 units of Levemir and NovoLog 10 units 3 times a day. His baseline insulin is NovoLog 16 units with meals and Levemir 50 units HS. He has had some hyperglycemia so will increase mealtime insulin to 12 units. Continue routine SSI - at home he adds 2 units of insulin per 50 points above 150. Urinary retention and bladder wall thickening - will need to f/u with Dr. Walters; ASA/Plavix are on hold d/t hematuria over the last few months CKD stage IV: will need f/u with Dr. 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 Sepsis Assessment - Evaluation Sepsis screening result: No Definite Risk - Focused Exam Vital Signs Pulse 09/17/16 02:18 65 <Raquel Ramirez - Last Filed: 09/17/16 23:30> Consult Information - Data of Consult Requesting Physician: Clive Hoffman MD Primary Care Provider: Roel العراقي II, MD Family Provider: Roel العراقي II, MD [facility] Patient Stated Medical History Cerebrovascular Accident Yes: 2004 Hearing Loss Yes Heart Murmur Yes: 2015 Isaac Hypertension Yes: TAKES MEDS Pulmonary Edema Yes Other Respiratory Yes: sirs 06/2016 Diabetes Mellitus Type 1 Yes Diabetes Mellitus Type 2 Yes Constipation No Hx Benign Prostatic Yes Hyperplasia Hx Incontinence No Hx Urinary Tract Infection Yes Other Yes: 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; chronic english use Osteoarthritis Yes: knees ankles hands Other Musculoskeletal Yes: 2016 neck stenosis; Sepsis Yes: sirs 06/2016 Other Behavioral Health Yes Exam Vital Signs: Temp Pulse Resp BP Pulse Ox 98.2 F 65 14 161/72 H 94 09/17/16 21:46 09/17/16 21:46 09/17/16 21:46 09/17/16 21:46 09/17/16 21:46 Height: 1.85 m Weight: 127.3 kg Assessment and Plan (1) Weakness generalized Current visit: Yes Status: Acute (2) History of stroke Current visit: Yes Status: Chronic (3) DM type 2 (diabetes mellitus, type 2) Current visit: No Status: Chronic (4) HTN (hypertension) Current visit: No Status: Chronic (5) CKD (chronic kidney disease) stage 4, GFR 15-29 ml/min Problem details: Stage 3-4 Current visit: No Status: Chronic 09/17/16 23:17 Stage 3-4 (6) PVD (peripheral vascular disease) Current visit: Yes Status: Acute 09/17/16 23:27 Stent right lower extremity, approximately April 2016 (7) Foot drop, right Current visit: Yes Status: Acute (8) Spinal stenosis in cervical region Current visit: Yes Status: Acute (9) Urinary retention Current visit: Yes Status: Chronic Assessment and Plan: I have independently evaluated and examined this patient. I reviewed the chart, the patient's history, and the [facility] PICKER's documented findings as above. We discussed and formulated the assessment and plan as above with additions as below: Patient known from recent acute hospital stay. When seen earlier this evening he reported walking with therapy earlier today and that he was worn out. He denied dyspnea or pain and did not mention left knee pain. Blood pressure remains modestly elevated with low-grade tachycardia and blood sugars modestly elevated although fasting was 152 this morning. On examination the patient is an obese male who was drowsy when seen. Respirations are nonlabored with decreased breath sounds throughout but no focal pulmonary findings. Cardiac exam regular. Abdomen soft and nontender. Metoprolol dose increased yesterday-monitor for 1-2 additional days before further modification. Previously hypotensive during [facility] hospitalization on 100 mg metoprolol twice a day and amlodipine 2.5 mg daily. Resume ASA-stent placed earlier this year right lower extremity per outpatient records. Last A1c March 2016-recheck. Hospital Course Summary Disclaimer: The visit summary below is not to be considered part of the above Progress Note. Sepsis Assessment - Focused Exam Vital Signs Temp Pulse Resp BP Pulse Ox 09/17/16 21:46 98.2 F 65 14 161/72 H 94 09/17/16 16:34 98.6 F 68 24 160/92 H 99
[2016-09-17] MEDS: DOCUSATE SODIUM 100 MG CAPSULE PO SCH (10:25)
[2016-09-17] MEDS: MULTI-VIT + MINERAL (Opti-gen) TABLET PO SCH (10:25)
[2016-09-17] MEDS: MULTI-VITAMIN + MINERAL TABLET PO SCH (10:26)
[2016-09-17] MEDS: INSULIN ASPART 100unit/ml INJECTION SQ SCH ×2 (12:39→17:42)
[2016-09-17] MEDS: INSULIN REGULAR, HUMAN 100 UNIT/ML INJECTION SQ PRN ×3 (12:43→21:45)
--- NOTE | 2016-09-17 15:21 | Wound Care Progress Note ---
Wound Management - Patient Status Premedicated Prior to Dressing Change: No - Wound Right Lateral Ankle Wound Type: Pressure Injury Wound Present on Admission?: Yes Wound Staging: Unstageable Length: 1 Width: 1 Depth: 0.1 Wound Bed Appearance: Necrotic Yue Wound Appearance: Shiny, Taut Tunneling: No Undermining: No Drainage Description: Serous Drainage Amount: Scant Drainage Odor: No Odor Dressing Status: Changed Primary Dressing: Silver Dressing Secondary Dressing: Foam Dressing Dressing Change Date: 09/17/16 Dressing Change Time: 15:00 Left Lateral Toe - 5th Digit Wound Type: Diabetic Foot Ulcer (5th lateral met head) Wound Present on Admission?: Yes Wound Staging: Unstageable Length: 0.4 Width: 0.4 Depth: 0.1 Wound Bed Appearance: Necrotic Yue Wound Appearance: Shiny, Taut Tunneling: No Undermining: No Drainage Description: Serous Drainage Amount: Scant Drainage Odor: No Odor Dressing Status: Changed Primary Dressing: Silver Dressing Secondary Dressing: Foam Dressing Dressing Change Date: 09/17/16 Dressing Change Time: 15:00 Dressing Change Patient Tolerance: Tolerated Well Left Lateral Ankle Wound Type: Pressure Injury (Left lateral malleolus) Wound Present on Admission?: Yes Wound Staging: Stage II Length: 5.5 Width: 7 Depth: 0.1 Wound Bed Appearance: [place], Shiny Yue Wound Appearance: Bright Red, Taut Tunneling: No Undermining: No Drainage Description: Serous Drainage Amount: Scant Drainage Odor: No Odor Dressing Status: Changed Secondary Dressing: Foam Dressing (Foam Mepliex for protection, also order Kathy boots bilaterally)
--- NOTE | 2016-09-17 16:58 | IRU History & Physical Report ---
[facility] IRU Date: [id number] yo male with hx off UTI and acute renal failure. He has had severall UTI and was most recently admitted on 09/13 for UTI with ARF and cret of 2.8. IVF and Rocephin were given during admission. He has improved to the point that PT and OT are ready to work more intensely with him, However destiny is still not stable for outpatient therapy due to continued elevation of creatinine nd weakness. He has beeen treated for hyperkalemia as well. He is unable to manage ADL adn is admitted to IRU. Chief complaint: weakness, uti Review of Systems All systems: reviewed and no additional remarkable complaints except as stated - Constitutional Constitutional: Absent: chills, headache(s) - EENMT Eyes: Absent: change in vision Mouth/Throat: Absent: sore throat - Cardiovascular Cardiovascular: Absent: chest pain Vascular: Present: pedal edema - Respiratory Respiratory: Absent: cough, dyspnea - Gastrointestinal Gastrointestinal: Absent: abdominal pain, constipation, diarrhea, vomiting - Musculoskeletal Musculoskeletal: Present: muscle weakness - Integumentary/Breasts Integumentary: Present: wounds (legs) - Neurological Neurological: Present: abnormal gait, memory loss, weakness - Psychiatric Psychiatric: Absent: depression - Hematologic/Lymphatic Hematologic/Lymphatic: Present: easy bruising PFSH Patient Stated Medical History Cerebrovascular Accident Yes: 2004 Hearing Loss Yes Heart Murmur Yes: 2015 Isaac Hypertension Yes: TAKES MEDS Pulmonary Edema Yes Other Respiratory Yes: sirs 06/2016 Diabetes Mellitus Type 1 Yes Diabetes Mellitus Type 2 Yes Constipation No Hx Benign Prostatic Yes Hyperplasia Hx Incontinence No Hx Urinary Tract Infection Yes Other Yes: 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 Walters. Cholecystectomy. CABG. knee surgery. hand and foot. lumbar disc surgery - Social History Current residence: Apartment/Private Home Medications Home Medications Medication Instructions Recorded Confirmed Type Multivit-Min/FA/Lycopen/Lutein 1 tab PO DAILY #0 07/22/14 09/16/16 History [Centrum Silver Tablet] Nitroglycerin [Nitrostat] 0.4 mg SL Q5M PRN #0 07/22/14 09/16/16 History Atorvastatin Calcium 20 mg PO HS #0 08/23/15 09/16/16 History Docusate Sodium 100 mg PO DAILY #0 03/17/16 09/16/16 History Darbepoetin [Aranesp] 100 mcg IN 1 WEEK 09/13/16 09/16/16 History Magnesium Oxide [Magox 400] 400 mg PO BID 09/13/16 09/16/16 History Vit B2/Niacin/B-6/B-12/D-Panth 50,000 units PO DAILY 09/13/16 09/16/16 History Allergies Allergy/AdvReac Type Severity Reaction Status Date / Time hydrocodone AdvReac Intermediate Verified 09/14/16 06:21 Results IRU - Labs Labs: Laboratory Results - last 24 hr 09/16/16 09/17/16 09/17/16 21:04 05:59 10:20 Glucometer 248 152 212 09/17/16 14:03 Glucometer 211 Exam Vital Signs: Temp Pulse Resp BP Pulse Ox 98.6 F 68 24 160/92 H 99 09/17/16 16:34 09/17/16 16:34 09/17/16 16:34 09/17/16 16:34 09/17/16 16:34 Height: 1.85 m Weight: 127.3 kg Body Mass Index: 37.0 - Constitutional Present: no acute distress, well nourished, well developed, morbidly obese - Routine Respiratory Exam Present: CTA bilaterally - Routine Cardiovascular Exam Present: RRR, no murmur - Routine Abdominal Exam Present: soft, non distended, non tender - Routine Extremities Exam Absent: cyanosis, clubbing, edema Sepsis Assessment - Evaluation Sepsis screening result: No Definite Risk - Focused Exam Vital Signs Temp Pulse Resp BP Pulse Ox 09/17/16 16:34 98.6 F 68 24 160/92 H 99 09/17/16 08:00 79 09/17/16 05:00 98.3 F 63 16 156/83 H 98 Respiratory exam: Present: CTA bilaterally Cardiovascular exam: Present: S1, S2 IRU A/P (1) Urinary tract infection Problem details: Chronic colonization Current visit: No Status: Ruled-out managed by medical (2) Acute renal failure Qualifiers: Acute renal failure type: unspecified Qualified Code(s): N17.9 - Acute kidney failure, unspecified Problem details: Dehydration Current visit: No Status: Acute Responding to IVF. Continued management by medical. (3) Metabolic encephalopathy Current visit: No Status: Acute PT and OT consulted for strengthening and improvement of stamina and coordination. May require speech (4) Hyperkalemia Current visit: No Status: Resolved Managed by medical. - Course Hospital Course: Clive Hoffman MD: - Interventions to Obtain Goals PT Treatment Plan: Functional Activities, Gait Training, Patient/Family Education, Therapeutic Exercise OT Treatment Plan: ADL (Basic Care), Balance Training, Pt./Family Education, Ther. Exercise for ADL, UE Functional Training
--- NOTE | 2016-09-17 17:03 | IRU 24Hr Post Admit Eval ---
24 Hr Post Admission Physical - Relevant Changes Reviewed: I have reviewed the patient's information and concur with the finding and results of the pre-admission screen. Certification: I certify the patient for rehabilitation. - Patient Condition (1) Urinary tract infection Status: Ruled-out Code(s): N39.0 - Urinary tract infection, site not specified (2) Acute renal failure Status: Acute Qualifiers: Acute renal failure type: unspecified Qualified Code(s): N17.9 - Acute kidney failure, unspecified Code(s): N17.9 - Acute kidney failure, unspecified (3) Metabolic encephalopathy Status: Acute Code(s): G93.41 - Metabolic encephalopathy (4) Hyperkalemia Status: Resolved Code(s): E87.5 - Hyperkalemia - Prior Functional Status Lives With: Alone Residence Type: Apartment/Private Home Assitive Devices: None Prior Functional Status: Indep. at home or school - Current Functional Status Failed Alternative Therapy: Arrived from Acute Care Patient Requirements: The patient requires oversight by rehabilitation physician to manage their rehabilitation treatment plan and multidisciplinary approach to care that can only be provided in an IRF and requires a multidisciplinary approach to care, provided by professional PTs, OTs, STs, dieticians, RTs, rehabilitation nurses and is not available in lesser levels of care. Limitiations Req: Mobility Impairment, ADL Impairment, Cognitive Impairment Speech Therapy Minutes: 90 Physical Therapy Minutes: 90 Therapy: The patient is to receive therapy at least 5 days a week. - Complications/Comorbidities Impact on Functional Outcomes: Delayed improvement due to weakness and encephalopathy. Barriers to Discharge: Weakness, Balance, Endurance, Comprehension - Plan to Avoid Complications Plan to Avoid Complications: The patient cannot receive this care in a lesser intensive setting such as Halfway or Outpatient Therapy due to the patient requiring the following direct nursing and medical supervision due to encephalopathy, uUTI, and ARF.
[2016-09-17] MEDS: ATORVASTATIN 20 MG TABLET PO SCH (21:36)
[2016-09-17] MEDS: INSULIN DETEMIR 100unit/ml INJECTION SQ SCH (21:37)
[2016-09-18] MEDS: HEPARIN SUB-Q 5,000 UNITS/0.5 ML INJECTION SQ SCH ×3 (01:07→17:12)
[2016-09-18] MEDS: INSULIN REGULAR, HUMAN 100 UNIT/ML INJECTION SQ PRN ×4 (06:06→21:32)
[2016-09-18] MEDS: INSULIN ASPART 100unit/ml INJECTION SQ SCH ×3 (08:00→17:28)
[2016-09-18] MEDS: MULTI-VIT + MINERAL (Opti-gen) TABLET PO SCH (08:18)
[2016-09-18] MEDS: ASPIRIN 81 MG CHEWABLE TABLET PO SCH (08:18)
[2016-09-18] MEDS: DOCUSATE SODIUM 100 MG CAPSULE PO SCH (08:18)
[2016-09-18] MEDS: MULTI-VITAMIN + MINERAL TABLET PO SCH (08:18)
[2016-09-18] MEDS: MAGNESIUM OXIDE 400 MG TABLET PO SCH ×2 (08:19→21:34)
[2016-09-18] MEDS: POLYETHYL GLYCOL 3350 17gm PACKET PO SCH (15:49)
[2016-09-18] MEDS: DARBEPOETIN ALFA 100 MCG/0.5 ML SQ SCH (15:49)
[2016-09-18] MEDS: INSULIN DETEMIR 100unit/ml INJECTION SQ SCH (21:33)
[2016-09-18] MEDS: ATORVASTATIN 20 MG TABLET PO SCH (21:34)
[2016-09-19] MEDS: HEPARIN SUB-Q 5,000 UNITS/0.5 ML INJECTION SQ SCH ×2 (01:45→10:43)
[2016-09-19] MEDS: INSULIN ASPART 100unit/ml INJECTION SQ SCH ×3 (08:16→17:57)
[2016-09-19] MEDS: ASPIRIN 81 MG CHEWABLE TABLET PO SCH (08:24)
[2016-09-19] MEDS: MULTI-VIT + MINERAL (Opti-gen) TABLET PO SCH (08:25)
[2016-09-19] MEDS: DOCUSATE SODIUM 100 MG CAPSULE PO SCH (08:25)
[2016-09-19] MEDS: MULTI-VITAMIN + MINERAL TABLET PO SCH (08:25)
[2016-09-19] MEDS: MAGNESIUM OXIDE 400 MG TABLET PO SCH ×2 (08:25→21:36)
[2016-09-19] MEDS: POLYETHYL GLYCOL 3350 17gm PACKET PO SCH (08:26)
[2016-09-19] MEDS: INSULIN REGULAR, HUMAN 100 UNIT/ML INJECTION SQ PRN ×3 (10:44→21:37)
[2016-09-19] MEDS: MICONAZOLE 2% POWDER 45gm TP SCH ×4 (10:44→21:38)
--- NOTE | 2016-09-19 11:17 | Progress Note ---
<Ramya Cesar - Last Filed: 09/19/16 11:14> Subjective: Milan was seen at the breakfast table. His only complaint is that he has been receiving frequent subcutaneous injections. He is still on heparin 3 times a day , including a dose at 1 AM for heparin injection. He denies any chest pain or shortness of breath, abdominal pain or GI complaints. Fasting blood sugar this morning was 120 per RN. Objective Vital signs: Temp Pulse Resp BP Pulse Ox 97.2 F 74 20 183/87 H 95 09/19/16 08:00 09/19/16 08:00 09/19/16 08:00 09/19/16 08:00 09/19/16 08:00 Body Mass Index: 37.0 - Constitutional Present: no acute distress, well nourished, well developed, morbidly obese - Routine HEENT Exam Head: Present: normocephalic ENT: Present: oropharynx clear - Routine Respiratory Exam Present: CTA bilaterally - Routine Cardiovascular Exam Present: S1, S2 - Routine Abdominal Exam Present: soft, non distended, non tender - Routine Extremities Exam Present: edema, pulses intact - Routine Musculoskeletal Exam Musculoskeletal: no erythera, joint swelling (swelling and erythema to left tibial tuberosity, unchanged from previous exam) - Routine Skin Exam Present: dry, warm, lesions (multiple abrasions and healing wounds to both lower extremities) - Routine Neurological Exam Present: alert, normal speech - Routine Psychiatric Exam Present: normal affect, normal thought process Results - Labs CBC & Chem 7: 09/18/16 04:46 Assessment and Plan (1) DM type 2 (diabetes mellitus, type 2) Current visit: No Status: Chronic (2) CKD (chronic kidney disease) stage 4, GFR 15-29 ml/min Problem details: Stage 3-4 Current visit: No Status: Chronic 09/17/16 23:17 Stage 3-4 (3) HTN (hypertension) Current visit: No Status: Chronic (4) Weakness generalized Current visit: Yes Status: Acute (5) History of stroke Current visit: Yes Status: Chronic (6) PVD (peripheral vascular disease) Current visit: Yes Status: Acute 09/17/16 23:27 Stent right lower extremity, approximately April 2016 (7) Foot drop, right Current visit: Yes Status: Acute (8) Spinal stenosis in cervical region Current visit: Yes Status: Acute (9) Urinary retention Current visit: Yes Status: Chronic DVT Prophylaxis: Lovenox Assessment and Plan: HTN: Metoprolol was increased but BP is still elevated. HR 60-70s. Will increase Metoprolol to 100 mg BID. DM2: hgb A1c 7%. Accuchecks persistently elevated - will increase mealtime insulin to home dose of 16U. Home dose of Levemir is 50 units - still on 30 here - monitor response to increased short-acting insulin before increasing Levemir CKD stage IV: creatinine 2.2 - baseline Urinary retention and bladder wall thickening - will need to f/u with Dr. Walters; ASA/Plavix are on hold d/t hematuria over the last few months - ASA was resumed. Since he has recent stents to right leg, he should be on Plavix. Will contact Dr. Walters tomorrow to see if it's ok to resume Plavix and to see when he would like to repeat cysto. Discussed with nursing and with Dr. Ramirez. Will stop heparin and start Lovenox 30 mg daily. Sepsis Assessment - Evaluation Sepsis screening result: No Definite Risk - Focused Exam Vital Signs Temp Pulse Resp BP Pulse Ox 09/19/16 08:00 97.2 F 74 20 183/87 H 95 Respiratory exam: Present: CTA bilaterally Cardiovascular exam: Present: S1, S2 Hospital Course Summary Disclaimer: The visit summary below is not to be considered part of the above Progress Note. Hospital Course: 09/17/16 13:22 Generalized weakness and debility: agree with orders per Dr. Hoffman. HTN: Monitor blood pressure. He did have elevated blood pressure during his acute stay, which improved with resumption of metoprolol. May need to re- introduce amlodipine, which he's previously taken. Type 2 diabetes: Insulin was reduced during his acute stay and corresponding acute kidney injury. By time of discharge, he was receiving 30 units of Levemir and NovoLog 10 units 3 times a day. His baseline insulin is NovoLog 16 units with meals and Levemir 50 units HS. He has had some hyperglycemia so will increase mealtime insulin to 12 units. Continue routine SSI - at home he adds 2 units of insulin per 50 points above 150. Urinary retention and bladder wall thickening - will need to f/u with Dr. Walters; ASA/Plavix are on hold d/t hematuria over the last few months CKD stage IV: will need f/u with Dr. 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 HR 60-70s. Will increase Metoprolol to 100 mg BID. DM2: hgb A1c 7%. Accuchecks persistently elevated - will increase mealtime insulin to home dose of 16U. Home dose of Levemir is 50 units - still on 30 here - monitor response to increased short-acting insulin before increasing Levemir CKD stage IV: creatinine 2.2 - baseline Urinary retention and bladder wall thickening - will need to f/u with Dr. Walters; ASA/Plavix are on hold d/t hematuria over the last few months - ASA was resumed. Since he has recent stents to right leg, he should be on Plavix. Will contact Dr. Walters tomorrow to see if it's ok to resume Plavix and to see when he would like to repeat cysto. Discussed with nursing and with Dr. Ramirez. Will stop heparin and start Lovenox 30 mg daily. <Raquel Ramirez - Last Filed: 09/19/16 20:35> Objective Vital signs: Temp Pulse Resp BP Pulse Ox 98.2 F 65 18 182/91 H 100 09/19/16 16:00 09/19/16 16:00 09/19/16 16:00 09/19/16 16:00 09/19/16 16:00 Results - Labs CBC & Chem 7: 09/18/16 04:46 Assessment and Plan (1) Weakness generalized Current visit: Yes Status: Acute (2) History of stroke Current visit: Yes Status: Chronic (3) DM type 2 (diabetes mellitus, type 2) Current visit: No Status: Chronic (4) HTN (hypertension) Current visit: No Status: Chronic (5) CKD (chronic kidney disease) stage 4, GFR 15-29 ml/min Problem details: Stage 3-4 Current visit: No Status: Chronic (6) PVD (peripheral vascular disease) Current visit: Yes Status: Acute (7) Foot drop, right Current visit: Yes Status: Acute (8) Spinal stenosis in cervical region Current visit: Yes Status: Acute (9) Urinary retention Current visit: Yes Status: Chronic Assessment and Plan: I have independently evaluated and examined this patient. I reviewed the chart, the patient's history, and the ASSISTANT PORTFOLIO MANAGER's documented findings as above. We discussed and formulated the assessment and plan as above with additions as below: Milan was seen resting in bed early this evening. He denied chest pain, headache , or other concerns except chronic left knee pain. Patient is in no distress when seen. Respirations are nonlabored Cardiac rhythm is regular with S1, S2, soft systolic murmur. Fasting blood sugar 173 yesterday, not recorded this morning. Suspect we'll need to increase Levemir reassess with changes made earlier today. Agree with further adjustment in metoprolol dose and anticipate resumption of amlodipine in the near future. Continue therapy for strengthening. Sepsis Assessment - Focused Exam Vital Signs Temp Pulse Resp BP Pulse Ox 09/19/16 16:00 98.2 F 65 18 182/91 H 100 Hospital Course Summary Disclaimer: The visit summary below is not to be considered part of the above Progress Note.
[2016-09-19] MEDS ORDERED: INSULIN ASPART 100unit/ml INJECTION SQ SCH (12:00)
[2016-09-19] MEDS: ATORVASTATIN 20 MG TABLET PO SCH (21:36)
[2016-09-19] MEDS: INSULIN DETEMIR 100unit/ml INJECTION SQ SCH (21:36)
[2016-09-19] MEDS: ACETAMINOPHEN 325 MG TABLET PO PRN (21:45)
[2016-09-20] MEDS: INSULIN REGULAR, HUMAN 100 UNIT/ML INJECTION SQ PRN ×3 (06:07→20:45)
[2016-09-20] MEDS: INSULIN ASPART 100unit/ml INJECTION SQ SCH ×3 (08:15→17:26)
[2016-09-20] MEDS: MICONAZOLE 2% POWDER 45gm TP SCH ×4 (08:19→20:27)
[2016-09-20] MEDS: ENOXAPARIN 30 MG/0.3 ML INJECTION SQ SCH (08:20)
[2016-09-20] MEDS: POLYETHYL GLYCOL 3350 17gm PACKET PO SCH (08:20)
[2016-09-20] MEDS: ASPIRIN 81 MG CHEWABLE TABLET PO SCH (08:22)
[2016-09-20] MEDS: MULTI-VITAMIN + MINERAL TABLET PO SCH (08:22)
[2016-09-20] MEDS: MAGNESIUM OXIDE 400 MG TABLET PO SCH ×2 (08:22→20:28)
[2016-09-20] MEDS: DOCUSATE SODIUM 100 MG CAPSULE PO SCH (08:23)
[2016-09-20] MEDS: MULTI-VIT + MINERAL (Opti-gen) TABLET PO SCH (10:20)
--- NOTE | 2016-09-20 17:45 | IRU Progress Note ---
- Subjective/Serverity of Illness Working with PT and OT, does get fatigued, but planning on finishing therapy. Exam Vital Signs: Temp Pulse Resp BP Pulse Ox 97.6 F 58 L 20 148/73 H 99 09/20/16 15:55 09/20/16 15:55 09/20/16 15:55 09/20/16 15:55 09/20/16 15:55 Height: 1.85 m Weight: 127.3 kg Body Mass Index: 37.0 - Constitutional Present: no acute distress, well nourished, well developed, morbidly obese - Routine Chest/Breast/Axilla Exam Chest wall: Absent: tenderness - Routine Respiratory Exam Present: CTA bilaterally. Absent: accessory muscle use - Routine Cardiovascular Exam Present: RRR. Absent: murmur Results - Labs CBC & Chem 7: 09/18/16 04:46 Sepsis Assessment - Evaluation Sepsis screening result: No Definite Risk - Focused Exam Vital Signs Temp Pulse Resp BP Pulse Ox 09/20/16 15:55 97.6 F 58 L 20 148/73 H 99 09/20/16 07:32 97.3 F 59 L 20 146/77 H 97 Respiratory exam: Present: CTA bilaterally Cardiovascular exam: Present: S1, S2 IRU A/P (1) Acute renal failure Qualifiers: Acute renal failure type: unspecified Qualified Code(s): N17.9 - Acute kidney failure, unspecified Problem details: Dehydration Current visit: No Status: Acute Managed by medical. (2) Metabolic encephalopathy Current visit: No Status: Acute PT and OT working with pt to increase strength and stamina as well as coordination. He is cooperating and showing improvement in FIM scores. Cont with current plan DVT Prophylaxis: Lovenox - Course Hospital Course: Clive Hoffman MD: - Interventions to Obtain Goals PT Treatment Plan: Functional Activities, Gait Training, Patient/Family Education, Therapeutic Exercise OT Treatment Plan: ADL (Basic Care), Balance Training, Pt./Family Education, Ther. Exercise for ADL, UE Functional Training
--- NOTE | 2016-09-20 17:50 | IRU Plan of Care ---
IRU Overall Plan of Care - Patient Impairments (1) Acute renal failure Qualifiers: Acute renal failure type: unspecified Qualified Code(s): N17.9 - Acute kidney failure, unspecified Code(s): N17.9 - Acute kidney failure, unspecified Status: Acute (2) Metabolic encephalopathy Code(s): G93.41 - Metabolic encephalopathy Status: Acute - Relevant Changes Relevant Changes: No Reviewed: I have reviewed the patient's information and concur with the finding and results of the pre-admission screen. Certification: I certify the patient for rehabilitation. - Medical Prognosis Medical Prognosis: Fair Vital Signs: Last Vital Signs Temp 97.6 F 09/20/16 15:55 Pulse 58 L 09/20/16 15:55 Resp 20 09/20/16 15:55 BP 148/73 H 09/20/16 15:55 Pulse Ox 99 09/20/16 15:55 Laboratory: Laboratory Results - last 48 hr 09/19/16 09/19/16 09/20/16 10:38 15:16 10:09 Glucometer 234 246 222 - Anticipated Interventions Anticipated Interventions: The patient requires inpatient IRF care for PT, OT, and/or ST for residuals remaining from [] resulting in muscular weakness and strength deficits. ROM Deficit: Right Lower Extremity Strength Deficits: Right Lower Extremity, Left Lower Extremity - FIM Ambulation Distance: 120 Wheelchair Propulsion Distance: 132 Toileting Adaptive Equipment: Raised Toilet Seat, Toilet Rails, Grab Bars Number of Incontinent Voids: 1 - Current Functional Status Failed Alternative Therapy: Yes Patient Requires: The patient requires oversight by rehabilitation physician to manage their rehabilitation treatment plan and multidisciplinary approach to care that can only be provided in an IRF and requires a multidisciplinary approach to care, provided by professional PTs, OTs, STs, dieticians, RTs, rehabilitation nurses and is not available in lesser levels of care. Physical Therapy Minutes: 90 Occupational Therapy Minutes: 90 Therapy: The patient is to receive therapy at least 5 days a week. - Anticipated LOS/Outcomes Anticipated Functional Outcome: return to pre illness status of function Anticipated DC Destination: Home Health Service Home Safety Plan: The patient will be provided with the development of a Home Safety Plan for return to a home or home-like environment and and to ensure safety post discharge. - Plan to Avoid Complications Barriers to Attaining Goals: Weakness, Balance, Endurance Plan to Avoid Complications: The patient cannot receive this care in a lesser intensive setting such as [facility] or Outpatient Therapy due to the patient requiring the following medical supervision due to previous CVA and current Renal Insufficiency/failure..
[2016-09-20] MEDS: ATORVASTATIN 20 MG TABLET PO SCH ×2 (20:45→21:59)
[2016-09-20] MEDS: INSULIN DETEMIR 100unit/ml INJECTION SQ SCH ×2 (20:46→21:57)
[2016-09-21] MEDS: INSULIN REGULAR, HUMAN 100 UNIT/ML INJECTION SQ PRN ×4 (06:01→21:16)
[2016-09-21] MEDS: MAGNESIUM OXIDE 400 MG TABLET PO SCH ×2 (08:47→21:16)
[2016-09-21] MEDS: ASPIRIN 81 MG CHEWABLE TABLET PO SCH (08:47)
[2016-09-21] MEDS: DOCUSATE SODIUM 100 MG CAPSULE PO SCH (08:47)
[2016-09-21] MEDS: MULTI-VITAMIN + MINERAL TABLET PO SCH (08:47)
[2016-09-21] MEDS: MULTI-VIT + MINERAL (Opti-gen) TABLET PO SCH (08:47)
[2016-09-21] MEDS: INSULIN ASPART 100unit/ml INJECTION SQ SCH ×3 (08:48→18:00)
[2016-09-21] MEDS: ENOXAPARIN 30 MG/0.3 ML INJECTION SQ SCH (08:48)
[2016-09-21] MEDS: MICONAZOLE 2% POWDER 45gm TP SCH ×4 (10:24→21:18)
[2016-09-21] MEDS: POLYETHYL GLYCOL 3350 17gm PACKET PO SCH (10:24)
[2016-09-21] MEDS: ATORVASTATIN 20 MG TABLET PO SCH (21:16)
[2016-09-21] MEDS: INSULIN DETEMIR 100unit/ml INJECTION SQ SCH (21:17)
[2016-09-22] MEDS: MICONAZOLE 2% POWDER 45gm TP SCH ×4 (08:26→21:40)
[2016-09-22] MEDS: MAGNESIUM OXIDE 400 MG TABLET PO SCH ×2 (08:27→21:39)
[2016-09-22] MEDS: MULTI-VITAMIN + MINERAL TABLET PO SCH (08:27)
[2016-09-22] MEDS: DOCUSATE SODIUM 100 MG CAPSULE PO SCH (08:27)
[2016-09-22] MEDS: ASPIRIN 81 MG CHEWABLE TABLET PO SCH (08:27)
[2016-09-22] MEDS: MULTI-VIT + MINERAL (Opti-gen) TABLET PO SCH (08:27)
[2016-09-22] MEDS: ENOXAPARIN 30 MG/0.3 ML INJECTION SQ SCH (08:28)
[2016-09-22] MEDS: INSULIN ASPART 100unit/ml INJECTION SQ SCH ×3 (08:28→17:31)
[2016-09-22] MEDS: POLYETHYL GLYCOL 3350 17gm PACKET PO SCH (08:28)
[2016-09-22] MEDS: INSULIN REGULAR, HUMAN 100 UNIT/ML INJECTION SQ PRN ×2 (10:29→14:54)
--- NOTE | 2016-09-22 13:06 | IRU Team Meeting ---
IRU Team Meeting - Nursing Vital Signs: Vital Signs - 24 hr 09/21/16 16:11 09/22/16 00:00 09/22/16 10:00 Temperature 98.5 F 98.7 F 98.1 F Pulse Rate 64 16 L 59 L Respiratory Rate 18 16 18 Blood Pressure 133/60 147/70 H 130/69 Pulse Oximetry 97 91 95 Current Medications: Acetaminophen (Tylenol) 325 - 650 mg PO Q5H PRN PRN Reason: Discomfort Last Admin: 09/19/16 21:45 Dose: 650 mg Aspirin (Asa) 81 mg PO DAILY [facility] Last Admin: 09/22/16 08:27 Dose: 81 mg Atorvastatin Calcium (Lipitor) 20 mg PO HS [facility] Last Admin: 09/21/16 21:16 Dose: 20 mg Darbepoetin Isai (Aranesp) 100 mcg SQ Q7D [facility] Last Admin: 09/18/16 15:49 Dose: 100 mcg Docusate Sodium (Colace) 100 mg PO DAILY [facility] Last Admin: 09/22/16 08:27 Dose: 100 mg Enoxaparin Sodium (Lovenox) 30 mg SQ DAILY [facility] Last Admin: 09/22/16 08:28 Dose: 30 mg Insulin Aspart (Novolog) 16 unit SQ TIDWM [facility] Last Admin: 09/22/16 12:01 Dose: 16 unit Insulin Detemir (Levemir) 35 unit SQ HS [facility] Last Admin: 09/21/16 21:17 Dose: 35 unit Insulin Human Regular (Novolin R) 0 unit SQ SS PRN PRN Reason: Hyperglycemia Last Admin: 09/22/16 10:29 Dose: 4 unit Magnesium Hydroxide (Mom) 30 ml PO DAILY PRN PRN Reason: Constipation Last Admin: 09/17/16 10:24 Dose: 30 ml Magnesium Oxide (Magox) 400 mg PO BID [facility] Last Admin: 09/22/16 08:27 Dose: 400 mg Metoprolol Tartrate (Lopressor) 100 mg PO BIDWM [facility] Last Admin: 09/22/16 08:27 Dose: 100 mg Miconazole Nitrate (Desenex) 1 applic TP QID [facility] Last Admin: 09/22/16 08:26 Dose: 1 applic Multivitamins/Minerals (Vision) 1 tab PO DAILY [facility] Last Admin: 09/22/16 08:27 Dose: 1 tab Multivitamins/Minerals (Therapeutic - M) 1 tab PO DAILY [facility] Last Admin: 09/22/16 08:27 Dose: 1 tab Nitroglycerin (Nitrostat) 0.4 mg SL Q5M PRN PRN Reason: Chest tightness Ondansetron HCl (Zofran) 4 mg IVP Q6H PRN PRN Reason: Nausea &/or vomiting Polyethylene Glycol (Miralax) 17 gm PO DAILY [facility] Last Admin: 09/22/16 08:28 Dose: 17 gm Comments: Requiring increased insulin to control bg. Vasquez cath changed on 09/20 Wound team visiting regardin coccyx and heel decubs. - Physical Therapy Sit to Supine Bed Mobility Ability: Maximal Assistance Sit to Stand Chair Transfer Ability: Maximal Assistance Sliding Board Placement Ability: Moderate Assistance Sliding Board Removal Ability: Maximal Assistance Comments: very inconcistent and requires sig encouragement. Foot drop in right foot. - Occupational Therapy Upper Body Dressing Ability: Contact Guard Assistance Lower Body Dressing Ability: Moderate Assistance Lower Body Dressing Comment: motivation is an issue. Pt at home has not been getting up to bathroom and fouls his pants and waits for someone to come home. - Care Plan Interventions/Goals: Pt is expecting family to care for him when he goes home, may need family meeting to inform him of need to care for self. Family meeting will be discussed with son to decide need for training of family to decrease facilitation of Pt's immobility. Barriers to dc: compliance, strength, safety
[2016-09-22] MEDS: ATORVASTATIN 20 MG TABLET PO SCH (21:38)
[2016-09-22] MEDS: INSULIN DETEMIR 100unit/ml INJECTION SQ SCH (21:39)
[2016-09-23] MEDS: ASPIRIN 81 MG CHEWABLE TABLET PO SCH (08:33)
[2016-09-23] MEDS: INSULIN ASPART 100unit/ml INJECTION SQ SCH ×3 (08:33→17:34)
[2016-09-23] MEDS: ENOXAPARIN 30 MG/0.3 ML INJECTION SQ SCH (08:34)
[2016-09-23] MEDS: MULTI-VIT + MINERAL (Opti-gen) TABLET PO SCH (08:34)
[2016-09-23] MEDS: MAGNESIUM OXIDE 400 MG TABLET PO SCH ×2 (08:34→20:48)
[2016-09-23] MEDS: DOCUSATE SODIUM 100 MG CAPSULE PO SCH (08:34)
[2016-09-23] MEDS: POLYETHYL GLYCOL 3350 17gm PACKET PO SCH (08:36)
--- NOTE | 2016-09-23 09:46 | Progress Note ---
<ArsenioRamya D - Last Filed: 09/23/16 10:59> Subjective: Milan was eating breakfast, and has no new complaints. His left knee is still causing him pain, but this isn't new. He denies any chest pain, dyspnea, abdominal pain or GI complaints. His son will be in later today to review home food choices. Milan states that his son will do all of the food prep. Milan also states that he feels like he's doing very well with therapy and is ready to go home. Objective Vital signs: Temp Pulse Resp BP Pulse Ox 98.4 F 62 20 156/85 H 94 09/23/16 08:00 09/23/16 08:00 09/23/16 08:00 09/23/16 08:00 09/23/16 08:00 Body Mass Index: 37.0 - Constitutional Present: no acute distress, well nourished, well developed, morbidly obese - Routine HEENT Exam ENT: Present: mucous membranes moist - Routine Respiratory Exam Present: CTA bilaterally - Routine Cardiovascular Exam Present: S1, S2, murmur - Routine Abdominal Exam Present: soft, normoactive bowel sounds, non distended, non tender - Routine Exam Comments: Vasquez to DD - urine is very cloudy - Routine Extremities Exam Present: edema (b/l) - Routine Musculoskeletal Exam Musculoskeletal: joint swelling (swelling left knee (over the tibal tuberosity - chronic)) - Routine Skin Exam Present: dry, warm - Routine Neurological Exam Present: alert, oriented X3 - Routine Psychiatric Exam Present: normal affect, normal thought process Results - Labs CBC & Chem 7: 09/18/16 04:46 Assessment and Plan (1) Acute renal failure Problem details: Dehydration Current visit: No Status: Acute (2) Metabolic encephalopathy Current visit: No Status: Acute (3) CKD (chronic kidney disease) stage 4, GFR 15-29 ml/min Problem details: Stage 3-4 Current visit: No Status: Chronic 09/17/16 23:17 Stage 3-4 (4) DM type 2 (diabetes mellitus, type 2) Current visit: No Status: Chronic (5) HTN (hypertension) Current visit: No Status: Chronic Assessment and Plan: DM2 - blood sugars improved since both Levemir and NovoLog were increased. Fasting yesterday and today were 137 and 125. 2 hour PP BGMs are improving. HTN - BP improved since metoprolol was increased. Will also add home Norvasc. CKD - will recheck BMP this am. Urinary retention and bladder wall thickening - discussed with Dr. Walters. He feels that bladder wall thickening is from urinary retention and at this time is not planning a repeat cystoscopy. He would prefer not to restart blood thinners but knows that with the recent stents he needs them. He gave approval to resume Plavix, but if he starts bleeding again we will have to stop it. Will stop Lovenox since he will be on dual-antiplatelet therapy and is at higher risk of bleeding. Sepsis Assessment - Evaluation Sepsis screening result: No Definite Risk - Focused Exam Vital Signs Temp Pulse Resp BP Pulse Ox 09/23/16 08:00 98.4 F 62 20 156/85 H 94 Respiratory exam: Present: CTA bilaterally Cardiovascular exam: Present: S1, S2 Hospital Course Summary Disclaimer: The visit summary below is not to be considered part of the above Progress Note. Hospital Course: 09/17/16 13:22 Generalized weakness and debility: agree with orders per Dr. Hoffman. HTN: Monitor blood pressure. He did have elevated blood pressure during his acute stay, which improved with resumption of metoprolol. May need to re- introduce amlodipine, which he's previously taken. Type 2 diabetes: Insulin was reduced during his acute stay and corresponding acute kidney injury. By time of discharge, he was receiving 30 units of Levemir and NovoLog 10 units 3 times a day. His baseline insulin is NovoLog 16 units with meals and Levemir 50 units HS. He has had some hyperglycemia so will increase mealtime insulin to 12 units. Continue routine SSI - at home he adds 2 units of insulin per 50 points above 150. Urinary retention and bladder wall thickening - will need to f/u with Dr. Walters; ASA/Plavix are on hold d/t hematuria over the last few months CKD stage IV: will need f/u with Dr. 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 HR 60-70s. Will increase Metoprolol to 100 mg BID. DM2: hgb A1c 7%. Accuchecks persistently elevated - will increase mealtime insulin to home dose of 16U. Home dose of Levemir is 50 units - still on 30 here - monitor response to increased short-acting insulin before increasing Levemir CKD stage IV: creatinine 2.2 - baseline Urinary retention and bladder wall thickening - will need to f/u with Dr. Walters; ASA/Plavix are on hold d/t hematuria over the last few months - ASA was resumed. Since he has recent stents to right leg, he should be on Plavix. Will contact Dr. Walters tomorrow to see if it's ok to resume Plavix and to see when he would like to repeat cysto. Discussed with nursing and with Dr. Ramirez. Will stop heparin and start Lovenox 30 mg daily. 09/23/16 11:01 DM2 - blood sugars improved since both Levemir and NovoLog were increased. Fasting yesterday and today were 137 and 125. 2 hour PP BGMs are improving. HTN - BP improved since metoprolol was increased. Will also add home Norvasc. CKD - will recheck BMP this am. Urinary retention and bladder wall thickening - discussed with Dr. Walters. He feels that bladder wall thickening is from urinary retention and at this time is not planning a repeat cystoscopy. He would prefer not to restart blood thinners but knows that with the recent stents he needs them. He gave approval to resume Plavix, but if he starts bleeding again we will have to stop it. Will stop Lovenox since he will be on dual-antiplatelet therapy and is at higher risk of bleeding. <Raquel Ramirez - Last Filed: 09/23/16 17:05> Objective Vital signs: Temp Pulse Resp BP Pulse Ox 98.0 F 69 16 163/77 H 97 09/23/16 16:00 09/23/16 16:00 09/23/16 16:00 09/23/16 16:00 09/23/16 16:00 Results - Labs CBC & Chem 7: 09/23/16 11:22 09/23/16 11:22 Assessment and Plan (1) Acute renal failure Problem details: Dehydration Current visit: No Status: Acute (2) Metabolic encephalopathy Current visit: No Status: Acute (3) DM type 2 (diabetes mellitus, type 2) Current visit: No Status: Chronic (4) CKD (chronic kidney disease) stage 4, GFR 15-29 ml/min Problem details: Stage 3-4 Current visit: No Status: Chronic (5) HTN (hypertension) Current visit: No Status: Chronic Assessment and Plan: I have independently evaluated and examined this patient. I reviewed the chart, the patient's history, and the SENIOR PL SQL DEVELOPER's documented findings as above. We discussed and formulated the assessment and plan as above with additions as below: Milan reports he is walking with a walker and feels steadier than he did prior to hospitalization. He denied dyspnea, nausea, dizziness, or pain. As usual he asked if he could go home. Respirations are nonlabored with clear breath sounds. Regular cardiac rhythm, S1-S2 Abdomen is soft, obese, and nontender. Fasting blood sugars are clearly improving, there tends to be significant jump after breakfast with better control later in the day. Increase NovoLog with breakfast to 18 units, continue 16 units with lunch and dinner. Agree with resumption of amlodipine to improve blood pressure control. Sepsis Assessment - Focused Exam Vital Signs Temp Pulse Resp BP Pulse Ox 09/23/16 16:00 98.0 F 69 16 163/77 H 97 09/23/16 08:00 98.4 F 62 20 156/85 H 94 Hospital Course Summary Disclaimer: The visit summary below is not to be considered part of the above Progress Note.
[2016-09-23] MEDS: MULTI-VITAMIN + MINERAL TABLET PO SCH (09:48)
[2016-09-23] MEDS: INSULIN REGULAR, HUMAN 100 UNIT/ML INJECTION SQ PRN ×3 (10:16→20:48)
[2016-09-23] MEDS: MICONAZOLE 2% POWDER 45gm TP SCH ×3 (11:59→20:48)
[2016-09-23] MEDS: AMLODIPINE 5 MG TABLET PO SCH (12:07)
[2016-09-23] MEDS: ATORVASTATIN 20 MG TABLET PO SCH ×2 (20:49→22:00)
[2016-09-23] MEDS: INSULIN DETEMIR 100unit/ml INJECTION SQ SCH ×2 (20:49→22:00)
[2016-09-24] MEDS: MULTI-VITAMIN + MINERAL TABLET PO SCH (08:24)
[2016-09-24] MEDS: MULTI-VIT + MINERAL (Opti-gen) TABLET PO SCH (08:25)
[2016-09-24] MEDS: AMLODIPINE 5 MG TABLET PO SCH (08:25)
[2016-09-24] MEDS: ASPIRIN 81 MG CHEWABLE TABLET PO SCH (08:25)
[2016-09-24] MEDS: DOCUSATE SODIUM 100 MG CAPSULE PO SCH (08:25)
[2016-09-24] MEDS: MAGNESIUM OXIDE 400 MG TABLET PO SCH ×2 (08:25→21:30)
[2016-09-24] MEDS: CLOPIDOGREL 75 MG TABLET PO SCH (08:25)
[2016-09-24] MEDS: POLYETHYL GLYCOL 3350 17gm PACKET PO SCH ×2 (08:26→09:43)
[2016-09-24] MEDS: INSULIN ASPART 100unit/ml INJECTION SQ SCH ×3 (08:26→17:25)
[2016-09-24] MEDS: INSULIN REGULAR, HUMAN 100 UNIT/ML INJECTION SQ PRN ×3 (11:26→21:29)
[2016-09-24] MEDS: MICONAZOLE 2% POWDER 45gm TP SCH ×5 (13:48→21:28)
[2016-09-24] MEDS: INSULIN DETEMIR 100unit/ml INJECTION SQ SCH (21:29)
[2016-09-24] MEDS: ATORVASTATIN 20 MG TABLET PO SCH (21:29)
[2016-09-25] MEDS: MICONAZOLE 2% POWDER 45gm TP SCH ×4 (09:05→21:03)
[2016-09-25] MEDS: CLOPIDOGREL 75 MG TABLET PO SCH (09:06)
[2016-09-25] MEDS: MAGNESIUM OXIDE 400 MG TABLET PO SCH ×2 (09:06→21:02)
[2016-09-25] MEDS: ASPIRIN 81 MG CHEWABLE TABLET PO SCH (09:06)
[2016-09-25] MEDS: AMLODIPINE 5 MG TABLET PO SCH (09:06)
[2016-09-25] MEDS: INSULIN ASPART 100unit/ml INJECTION SQ SCH ×3 (09:06→17:54)
[2016-09-25] MEDS: DOCUSATE SODIUM 100 MG CAPSULE PO SCH (09:06)
[2016-09-25] MEDS: MULTI-VIT + MINERAL (Opti-gen) TABLET PO SCH (09:06)
[2016-09-25] MEDS: MULTI-VITAMIN + MINERAL TABLET PO SCH (09:06)
[2016-09-25] MEDS: POLYETHYL GLYCOL 3350 17gm PACKET PO SCH (09:08)
[2016-09-25] MEDS: DARBEPOETIN ALFA 100 MCG/0.5 ML SQ SCH (14:23)
[2016-09-25] MEDS: INSULIN REGULAR, HUMAN 100 UNIT/ML INJECTION SQ PRN ×2 (14:23→21:02)
[2016-09-25] MEDS: INSULIN DETEMIR 100unit/ml INJECTION SQ SCH (21:01)
[2016-09-25] MEDS: ATORVASTATIN 20 MG TABLET PO SCH (21:02)
[2016-09-26] MEDS: AMLODIPINE 5 MG TABLET PO SCH ×2 (08:42→21:37)
[2016-09-26] MEDS: ASPIRIN 81 MG CHEWABLE TABLET PO SCH (08:42)
[2016-09-26] MEDS: MULTI-VIT + MINERAL (Opti-gen) TABLET PO SCH (08:42)
[2016-09-26] MEDS: MAGNESIUM OXIDE 400 MG TABLET PO SCH ×2 (08:42→21:37)
[2016-09-26] MEDS: DOCUSATE SODIUM 100 MG CAPSULE PO SCH (08:42)
[2016-09-26] MEDS: MULTI-VITAMIN + MINERAL TABLET PO SCH (08:42)
[2016-09-26] MEDS: INSULIN ASPART 100unit/ml INJECTION SQ SCH ×3 (08:43→17:47)
[2016-09-26] MEDS: CLOPIDOGREL 75 MG TABLET PO SCH (08:44)
[2016-09-26] MEDS: POLYETHYL GLYCOL 3350 17gm PACKET PO SCH (08:44)
[2016-09-26] MEDS: MICONAZOLE 2% POWDER 45gm TP SCH ×4 (08:45→22:03)
--- NOTE | 2016-09-26 13:57 | Progress Note ---
Subjective: Milan is seen today in follow up. Up in dining room. Reports doing well- no c/o. Chart is reviewed for collateral information. Objective Vital signs: Temp Pulse Resp BP Pulse Ox 98.2 F 57 L 16 180/79 H 96 09/26/16 08:12 09/26/16 08:12 09/26/16 08:12 09/26/16 08:12 09/26/16 08:12 Weight: 125.5 kg - Constitutional Present: no acute distress, well nourished, well developed, morbidly obese - Routine HEENT Exam Head: Present: normocephalic, atraumatic Eye: Present: PERRL - Routine Respiratory Exam Present: decreased breath sounds (Bases due to body habitus), CTA bilaterally. Absent: rales, rhonchi, wheezes, crackles - Routine Cardiovascular Exam Present: RRR, S1, S2. Absent: murmur - Routine Abdominal Exam Present: soft, normoactive bowel sounds, non distended - Routine Extremities Exam Present: normal capillary refill. Absent: cyanosis, clubbing - Routine Musculoskeletal Exam Musculoskeletal: moving extremities well, limited range of motion - Routine Skin Exam Present: intact, dry, warm - Routine Neurological Exam Present: alert, oriented X3 - Routine Psychiatric Exam Present: normal affect, normal thought process, good insight, good judgment Results - Labs CBC & Chem 7: 09/23/16 11:22 09/25/16 05:58 Assessment and Plan (1) Acute renal failure Problem details: Dehydration Current visit: No Status: Acute (2) Metabolic encephalopathy Current visit: No Status: Acute (3) DM type 2 (diabetes mellitus, type 2) Current visit: No Status: Chronic (4) CKD (chronic kidney disease) stage 4, GFR 15-29 ml/min Problem details: Stage 3-4 Current visit: No Status: Chronic 09/17/16 23:17 Stage 3-4 (5) HTN (hypertension) Current visit: No Status: Chronic (6) Weakness generalized Current visit: Yes Status: Acute (7) Urinary retention Current visit: Yes Status: Chronic 09/26/16 13:[address] Walters- some concern with bladder thickening. To follow with him as an outpatient. Monitor for bleeding on dual anti-platelet therapy. Assessment and Plan: 09/26/16- *Generalized weakness- Continue current therapy per IRU team. *CKD, baseline ~ 2.2 Continue supportive care. Avoid nephrotoxic agents. To follow up with Dr. Walters re: bladder thickening. Renal sono is fairly unremarkable. *HTN- Continue metoprolol, norvasc. Increase Norvasc to BID. Mildly bradycardic- monitor on beta-rashad. No NILAY/ARB given CKD. *Uncontrolled DM2 with secondary complications- BG is much better controlled. Continue current. Last A1c ~ 10. *CAD- continue plavix/ASA, statin, beta-rashad. Continue supportive care. Repeat labs in AM. Sepsis Assessment - Evaluation Sepsis screening result: No Definite Risk - Focused Exam Vital Signs Temp Pulse Resp BP Pulse Ox 09/26/16 08:12 98.2 F 57 L 16 180/79 H 96 Respiratory exam: Present: CTA bilaterally Cardiovascular exam: Present: S1, S2 Hospital Course Summary Disclaimer: The visit summary below is not to be considered part of the above Progress Note. Hospital Course: 09/17/16 13:22 Generalized weakness and debility: agree with orders per Dr. Hoffman. HTN: Monitor blood pressure. He did have elevated blood pressure during his acute stay, which improved with resumption of metoprolol. May need to re- introduce amlodipine, which he's previously taken. Type 2 diabetes: Insulin was reduced during his acute stay and corresponding acute kidney injury. By time of discharge, he was receiving 30 units of Levemir and NovoLog 10 units 3 times a day. His baseline insulin is NovoLog 16 units with meals and Levemir 50 units HS. He has had some hyperglycemia so will increase mealtime insulin to 12 units. Continue routine SSI - at home he adds 2 units of insulin per 50 points above 150. Urinary retention and bladder wall thickening - will need to f/u with Dr. Walters; ASA/Plavix are on hold d/t hematuria over the last few months CKD stage IV: will need f/u with Dr. 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 HR 60-70s. Will increase Metoprolol to 100 mg BID. DM2: hgb A1c 7%. Accuchecks persistently elevated - will increase mealtime insulin to home dose of 16U. Home dose of Levemir is 50 units - still on 30 here - monitor response to increased short-acting insulin before increasing Levemir CKD stage IV: creatinine 2.2 - baseline Urinary retention and bladder wall thickening - will need to f/u with Dr. Walters; ASA/Plavix are on hold d/t hematuria over the last few months - ASA was resumed. Since he has recent stents to right leg, he should be on Plavix. Will contact Dr. Walters tomorrow to see if it's ok to resume Plavix and to see when he would like to repeat cysto. Discussed with nursing and with Dr. Ramirez. Will stop heparin and start Lovenox 30 mg daily. 09/23/16 11:01 DM2 - blood sugars improved since both Levemir and NovoLog were increased. Fasting yesterday and today were 137 and 125. 2 hour PP BGMs are improving. HTN - BP improved since metoprolol was increased. Will also add home Norvasc. CKD - will recheck BMP this am. Urinary retention and bladder wall thickening - discussed with Dr. Walters. He feels that bladder wall thickening is from urinary retention and at this time is not planning a repeat cystoscopy. He would prefer not to restart blood thinners but knows that with the recent stents he needs them. He gave approval to resume Plavix, but if he starts bleeding again we will have to stop it. Will stop Lovenox since he will be on dual-antiplatelet therapy and is at higher risk of bleeding. 09/26/16 14:02 *Generalized weakness- Continue current therapy per IRU team. *CKD, baseline ~ 2.2 Continue supportive care. Avoid nephrotoxic agents. To follow up with Dr. Walters re: bladder thickening. Renal sono is fairly unremarkable. *HTN- Continue metoprolol, norvasc. Increase Norvasc to BID. Mildly bradycardic- monitor on beta-rashad. No NILAY/ARB given CKD. *Uncontrolled DM2 with secondary complications- BG is much better controlled. Continue current. Last A1c ~ 10. *CAD- continue plavix/ASA, statin, beta-rashad. Continue supportive care. Repeat labs in AM.
[2016-09-26] MEDS: INSULIN REGULAR, HUMAN 100 UNIT/ML INJECTION SQ PRN ×2 (15:02→21:38)
[2016-09-26] MEDS: INSULIN DETEMIR 100unit/ml INJECTION SQ SCH (21:37)
[2016-09-26] MEDS: ATORVASTATIN 20 MG TABLET PO SCH (21:37)
[2016-09-27] MEDS: INSULIN ASPART 100unit/ml INJECTION SQ SCH ×3 (08:48→17:23)
[2016-09-27] MEDS: ASPIRIN 81 MG CHEWABLE TABLET PO SCH (08:48)
[2016-09-27] MEDS: MULTI-VIT + MINERAL (Opti-gen) TABLET PO SCH (08:49)
[2016-09-27] MEDS: MULTI-VITAMIN + MINERAL TABLET PO SCH (08:49)
[2016-09-27] MEDS: CLOPIDOGREL 75 MG TABLET PO SCH (08:49)
[2016-09-27] MEDS: MAGNESIUM OXIDE 400 MG TABLET PO SCH ×2 (08:49→22:02)
[2016-09-27] MEDS: POLYETHYL GLYCOL 3350 17gm PACKET PO SCH (08:50)
[2016-09-27] MEDS: DOCUSATE SODIUM 100 MG CAPSULE PO SCH (08:50)
--- NOTE | 2016-09-27 09:00 | IRU Progress Note ---
- Subjective/Serverity of Illness Pt working with PT adn OT, requiring encouragement. Exam Vital Signs: Temp Pulse Resp BP Pulse Ox 98.7 F 62 16 158/70 H 95 09/27/16 07:19 09/27/16 07:19 09/27/16 07:19 09/27/16 07:19 09/27/16 07:19 Height: 1.85 m Weight: 125.5 kg Body Mass Index: 37.0 - Constitutional Present: no acute distress, well nourished, well developed, morbidly obese - Routine Respiratory Exam Present: CTA bilaterally. Absent: rales, rhonchi - Routine Cardiovascular Exam Present: RRR, no murmur Results - Labs CBC & Chem 7: 09/27/16 04:44 09/27/16 04:44 Sepsis Assessment - Evaluation Sepsis screening result: No Definite Risk - Focused Exam Vital Signs Temp Pulse Resp BP Pulse Ox 09/27/16 07:19 98.7 F 62 16 158/70 H 95 Respiratory exam: Present: CTA bilaterally Cardiovascular exam: Present: S1, S2 IRU A/P (1) Acute renal failure Qualifiers: Acute renal failure type: unspecified Qualified Code(s): N17.9 - Acute kidney failure, unspecified Problem details: Dehydration Current visit: No Status: Acute Medical managing. (2) Metabolic encephalopathy Current visit: No Status: Acute Improvement in status, medical following. Pt is working with staff. PT and OT to continue to work to increase stamina and strength. DVT Prophylaxis: Lovenox - Course Hospital Course: Clive Hoffman MD: - Interventions to Obtain Goals PT Treatment Plan: Functional Activities, Gait Training, Patient/Family Education, Therapeutic Exercise OT Treatment Plan: ADL (Basic Care), Balance Training, Pt./Family Education, Ther. Exercise for ADL, UE Functional Training
[2016-09-27] MEDS: AMLODIPINE 5 MG TABLET PO SCH ×3 (10:13→22:02)
[2016-09-27] MEDS: MICONAZOLE 2% POWDER 45gm TP SCH ×5 (10:15→22:07)
[2016-09-27] MEDS: INSULIN REGULAR, HUMAN 100 UNIT/ML INJECTION SQ PRN ×2 (10:50→22:02)
[2016-09-27] MEDS: ATORVASTATIN 20 MG TABLET PO SCH (22:01)
[2016-09-27] MEDS: INSULIN DETEMIR 100unit/ml INJECTION SQ SCH (22:03)
[2016-09-28] MEDS: MICONAZOLE 2% POWDER 45gm TP SCH ×3 (08:00→22:12)
[2016-09-28] MEDS: ASPIRIN 81 MG CHEWABLE TABLET PO SCH (08:30)
[2016-09-28] MEDS: MULTI-VITAMIN + MINERAL TABLET PO SCH (08:31)
[2016-09-28] MEDS: DOCUSATE SODIUM 100 MG CAPSULE PO SCH (08:32)
[2016-09-28] MEDS: MULTI-VIT + MINERAL (Opti-gen) TABLET PO SCH (08:32)
[2016-09-28] MEDS: AMLODIPINE 5 MG TABLET PO SCH ×3 (08:32→22:12)
[2016-09-28] MEDS: MAGNESIUM OXIDE 400 MG TABLET PO SCH ×2 (08:32→22:12)
[2016-09-28] MEDS: CLOPIDOGREL 75 MG TABLET PO SCH (08:33)
[2016-09-28] MEDS: INSULIN ASPART 100unit/ml INJECTION SQ SCH ×3 (08:33→17:50)
[2016-09-28] MEDS: POLYETHYL GLYCOL 3350 17gm PACKET PO SCH (08:33)
[2016-09-28] MEDS ORDERED: SODIUM POLYSTYRENE SULFONATE 15 GM/60 ML BOTTLE PO ONE (11:45)
[2016-09-28] MEDS ORDERED: NS 1,000 ML IV ONE (11:59)
[2016-09-28] MEDS ORDERED: NS 1,000 ML IV SCH (12:00)
--- NOTE | 2016-09-28 13:09 | IRU Team Meeting ---
IRU Team Meeting - Nursing Vital Signs: Vital Signs - 24 hr 09/27/16 16:00 09/27/16 16:11 09/27/16 19:35 Temperature 97.6 F 98.1 F Pulse Rate 60 57 L Respiratory Rate 20 16 Blood Pressure 143/71 H 143/71 H 128/68 Pulse Oximetry 98 97 09/28/16 08:00 Temperature 98.0 F Pulse Rate 59 L Respiratory Rate 20 Blood Pressure 157/80 H Pulse Oximetry 97 Current Medications: Acetaminophen (Tylenol) 325 - 650 mg PO Q5H PRN PRN Reason: Discomfort Last Admin: 09/19/16 21:45 Dose: 650 mg Amlodipine Besylate (Norvasc) 5 mg PO BID [facility] Last Admin: 09/28/16 08:32 Dose: 5 mg Aspirin (Asa) 81 mg PO DAILY [facility] Last Admin: 09/28/16 08:30 Dose: 81 mg Atorvastatin Calcium (Lipitor) 20 mg PO HS [facility] Last Admin: 09/27/16 22:01 Dose: 20 mg Clopidogrel Bisulfate (Plavix) 75 mg PO DAILY [facility] Last Admin: 09/28/16 08:33 Dose: 75 mg Darbepoetin Isai (Aranesp) 100 mcg SQ Q7D [facility] Last Admin: 09/25/16 14:23 Dose: 100 mcg Docusate Sodium (Colace) 100 mg PO DAILY [facility] Last Admin: 09/28/16 08:32 Dose: 100 mg Sodium Chloride (Normal Saline) 1,000 mls @ 333 mls/hr IV .Q3H1M ONE Stop: 09/28/16 14:59 Insulin Aspart (Novolog) 16 unit SQ BIDLS [facility] Last Admin: 09/28/16 12:22 Dose: 16 unit Insulin Aspart (Novolog) 18 unit SQ WB [facility] Last Admin: 09/28/16 08:33 Dose: 18 unit Insulin Detemir (Levemir) 35 unit SQ HS [facility] Last Admin: 09/27/16 22:03 Dose: 35 unit Insulin Human Regular (Novolin R) 0 unit SQ SS PRN PRN Reason: Hyperglycemia Last Admin: 09/27/16 22:02 Dose: 2 unit Magnesium Hydroxide (Mom) 30 ml PO DAILY PRN PRN Reason: Constipation Last Admin: 09/17/16 10:24 Dose: 30 ml Magnesium Oxide (Magox) 400 mg PO BID [facility] Last Admin: 09/28/16 08:32 Dose: 400 mg Metoprolol Tartrate (Lopressor) 100 mg PO BIDWM [facility] Last Admin: 09/28/16 08:30 Dose: 100 mg Miconazole Nitrate (Desenex) 1 applic TP QID [facility] Last Admin: 09/28/16 08:00 Dose: 1 applic Multivitamins/Minerals (Vision) 1 tab PO DAILY [facility] Last Admin: 09/28/16 08:32 Dose: 1 tab Multivitamins/Minerals (Therapeutic - M) 1 tab PO DAILY [facility] Last Admin: 09/28/16 08:31 Dose: 1 tab Nitroglycerin (Nitrostat) 0.4 mg SL Q5M PRN PRN Reason: Chest tightness Ondansetron HCl (Zofran) 4 mg IVP Q6H PRN PRN Reason: Nausea &/or vomiting Polyethylene Glycol (Miralax) 17 gm PO DAILY [facility] Last Admin: 09/28/16 08:33 Dose: Not Given - Physical Therapy Comments: Mod I to Mod assist. Stairs limited. Car is difficult due to his size and our small sedan. - Occupational Therapy Lower Body Dressing Comment: lower body max assist, others mod to min. - Care Plan Interventions/Goals: D/c Plan home with home health and transported wheel chair. Look to d/c tomorrow. barriers to d/c: weakness, willingness to do activity, inconsistency Goals : successful home d/c, consistency with transfers
[2016-09-28] MEDS: INSULIN REGULAR, HUMAN 100 UNIT/ML INJECTION SQ PRN ×2 (14:40→22:13)
--- NOTE | 2016-09-28 14:46 | Progress Note ---
Subjective: Milan was resting in bed, but awake. He denied any concerns at the moment - no chest pain, dyspnea, weakness, fatigue, dizziness. He hasn't had any abdominal pain or GI complaints. Urine in [place] has been very cloudy and malodorous. Objective Vital signs: Temp Pulse Resp BP Pulse Ox 98.0 F 59 L 20 157/80 H 97 09/28/16 08:00 09/28/16 08:00 09/28/16 08:00 09/28/16 08:00 09/28/16 08:00 Weight: 122.9 kg - Constitutional Present: no acute distress, well nourished, well developed, morbidly obese - Routine HEENT Exam ENT: Present: oropharynx clear - Routine Respiratory Exam Present: CTA bilaterally - Routine Cardiovascular Exam Present: RRR, S1, S2, murmur - Routine Abdominal Exam Present: soft, normoactive bowel sounds, non distended, non tender - Routine Exam Comments: Vasquez to DD - Routine Extremities Exam Present: no edema, pulses intact, normal capillary refill - Routine Musculoskeletal Exam Musculoskeletal: moving extremities well - Routine Skin Exam Present: intact (multiple healing abrasions to legs), dry, warm - Routine Neurological Exam Present: alert - Routine Psychiatric Exam Present: normal affect, normal thought process Results - Labs CBC & Chem 7: 09/27/16 04:44 09/28/16 10:13 Assessment and Plan (1) Acute renal failure Problem details: Dehydration Current visit: No Status: Acute (2) Metabolic encephalopathy Current visit: No Status: Acute (3) DM type 2 (diabetes mellitus, type 2) Current visit: No Status: Chronic (4) CKD (chronic kidney disease) stage 4, GFR 15-29 ml/min Problem details: Stage 3-4 Current visit: No Status: Chronic 09/17/16 23:17 Stage 3-4 (5) HTN (hypertension) Current visit: No Status: Chronic (6) Weakness generalized Current visit: Yes Status: Acute (7) Urinary retention Current visit: Yes Status: Chronic 09/26/16 13:[address] Walters- some concern with bladder thickening. To follow with him as an outpatient. Monitor for bleeding on dual anti-platelet therapy. Assessment and Plan: CHLOE superimposed on CKD stage IV -BUN and creatinine climbing over the last few days - now 42 and 2.6 -hyperkalemia at 5.6, minimally improved to 5.8 -will give 1L NS, repeat labs tonight and tomorrow am Cloudy urine -replace Vasquez and recheck UA -repeat UA was positive for UTI, but he's afebrile and last WBC yesterday was normal. -send for cx and repeat CBC in am. HTN -BP still moderately elevated most of the time -HR slightly bradycardic since BB was increased -Norvasc was increased 2-3 days ago -may need to add another antiHTN DM2 -last 2 days has had elevated readings 2 hours after breakfast and after supper -increase breakfast insulin to 18U -will wait on making further increasing until renal status improves CAD -continue plavix/ASA, statin, beta-rashad. D/W Dr. Tucker. Sepsis Assessment - Evaluation Sepsis screening result: No Definite Risk Hospital Course Summary Disclaimer: The visit summary below is not to be considered part of the above Progress Note. Hospital Course: 09/17/16 13:22 Generalized weakness and debility: agree with orders per Dr. Hoffman. HTN: Monitor blood pressure. He did have elevated blood pressure during his acute stay, which improved with resumption of metoprolol. May need to re- introduce amlodipine, which he's previously taken. Type 2 diabetes: Insulin was reduced during his acute stay and corresponding acute kidney injury. By time of discharge, he was receiving 30 units of Levemir and NovoLog 10 units 3 times a day. His baseline insulin is NovoLog 16 units with meals and Levemir 50 units HS. He has had some hyperglycemia so will increase mealtime insulin to 12 units. Continue routine SSI - at home he adds 2 units of insulin per 50 points above 150. Urinary retention and bladder wall thickening - will need to f/u with Dr. Walters; ASA/Plavix are on hold d/t hematuria over the last few months CKD stage IV: will need f/u with Dr. Ruthie Healy post-IRU discharge Discharge planning: hopeful to return home with his son (Milan Gordon) as primary merchandising consultant 09/19/16 11:36 HTN: Metoprolol was increased but BP is still elevated. HR 60-70s. Will increase Metoprolol to 100 mg BID. DM2: hgb A1c 7%. Accuchecks persistently elevated - will increase mealtime insulin to home dose of 16U. Home dose of Levemir is 50 units - still on 30 here - monitor response to increased short-acting insulin before increasing Levemir CKD stage IV: creatinine 2.2 - baseline Urinary retention and bladder wall thickening - will need to f/u with Dr. Walters; ASA/Plavix are on hold d/t hematuria over the last few months - ASA was resumed. Since he has recent stents to right leg, he should be on Plavix. Will contact Dr. Walters tomorrow to see if it's ok to resume Plavix and to see when he would like to repeat cysto. Discussed with nursing and with Dr. Ramirez. Will stop heparin and start Lovenox 30 mg daily. 09/23/16 11:01 DM2 - blood sugars improved since both Levemir and NovoLog were increased. Fasting yesterday and today were 137 and 125. 2 hour PP BGMs are improving. HTN - BP improved since metoprolol was increased. Will also add home Norvasc. CKD - will recheck BMP this am. Urinary retention and bladder wall thickening - discussed with Dr. Walters. He feels that bladder wall thickening is from urinary retention and at this time is not planning a repeat cystoscopy. He would prefer not to restart blood thinners but knows that with the recent stents he needs them. He gave approval to resume Plavix, but if he starts bleeding again we will have to stop it. Will stop Lovenox since he will be on dual-antiplatelet therapy and is at higher risk of bleeding. 09/26/16 14:02 *Generalized weakness- Continue current therapy per IRU team. *CKD, baseline ~ 2.2 Continue supportive care. Avoid nephrotoxic agents. To follow up with Dr. Walters re: bladder thickening. Renal sono is fairly unremarkable. *HTN- Continue metoprolol, norvasc. Increase Norvasc to BID. Mildly bradycardic- monitor on beta-rashad. No NILAY/ARB given CKD. *Uncontrolled DM2 with secondary complications- BG is much better controlled. Continue current. Last A1c ~ 10. *CAD- continue plavix/ASA, statin, beta-rashad. Continue supportive care. Repeat labs in AM. 09/28/16 15:00 CHLOE superimposed on CKD stage IV -BUN and creatinine climbing over the last few days - now 42 and 2.6 -hyperkalemia at 5.6, minimally improved to 5.8 -will give 1L NS, repeat labs tonight and tomorrow am Cloudy urine -replace Vasquez and recheck UA HTN -BP still moderately elevated most of the time -HR slightly bradycardic since BB was increased -Norvasc was increased 2-3 days ago -may need to add another antiHTN DM2 -last 2 days has had elevated readings 2 hours after breakfast and after supper -increase breakfast insulin to 18U -will wait on making further increasing until renal status improves CAD -continue plavix/ASA, statin, beta-rashad. 09/28/16 16:11 CHLOE superimposed on CKD stage IV -BUN and creatinine climbing over the last few days - now 42 and 2.6 -hyperkalemia at 5.6, minimally improved to 5.8 -will give 1L NS, repeat labs tonight and tomorrow am Cloudy urine -replace Vasquez and recheck UA -repeat UA was positive for UTI, but he's afebrile and last WBC yesterday was normal. -send for cx and repeat CBC in am. HTN -BP still moderately elevated most of the time -HR slightly bradycardic since BB was increased -Norvasc was increased 2-3 days ago -may need to add another antiHTN DM2 -last 2 days has had elevated readings 2 hours after breakfast and after supper -increase breakfast insulin to 18U -will wait on making further increasing until renal status improves CAD -continue plavix/ASA, statin, beta-rashad.
[2016-09-28] MEDS: SALINE FLUSH 10ml SYRINGE IVF PRN ×2 (18:26→22:16)
[2016-09-28] MEDS: ATORVASTATIN 20 MG TABLET PO SCH (22:13)
[2016-09-28] MEDS: INSULIN DETEMIR 100unit/ml INJECTION SQ SCH (22:13)
[2016-09-29] MEDS: INSULIN ASPART 100unit/ml INJECTION SQ SCH ×3 (08:30→17:24)
[2016-09-29] MEDS: ASPIRIN 81 MG CHEWABLE TABLET PO SCH (08:32)
[2016-09-29] MEDS: DOCUSATE SODIUM 100 MG CAPSULE PO SCH (08:32)
[2016-09-29] MEDS: POLYETHYL GLYCOL 3350 17gm PACKET PO SCH (08:33)
[2016-09-29] MEDS: MAGNESIUM OXIDE 400 MG TABLET PO SCH ×2 (08:33→21:30)
[2016-09-29] MEDS: AMLODIPINE 5 MG TABLET PO SCH ×2 (08:34→21:30)
[2016-09-29] MEDS: MULTI-VITAMIN + MINERAL TABLET PO SCH (08:34)
[2016-09-29] MEDS: CLOPIDOGREL 75 MG TABLET PO SCH (08:34)
[2016-09-29] MEDS: MULTI-VIT + MINERAL (Opti-gen) TABLET PO SCH (08:34)
[2016-09-29] MEDS: ACETAMINOPHEN 325 MG TABLET PO PRN ×2 (09:29→21:30)
[2016-09-29] MEDS ORDERED: NS 1,000 ML IV SCH (10:15)
[2016-09-29] MEDS: INSULIN REGULAR, HUMAN 100 UNIT/ML INJECTION SQ PRN (10:16)
[2016-09-29] MEDS: MICONAZOLE 2% POWDER 45gm TP SCH ×3 (11:07→16:07)
[2016-09-29] MEDS: PHENAZOPYRIDINE 95 MG TABLET PO PRN ×2 (12:15→21:32)
--- NOTE | 2016-09-29 13:36 | Progress Note ---
<Gracia Chin V - Last Filed: 09/29/16 13:31> Subjective: Milan is a 71yr old male who is seen in follow up today. He is feeling good and verbalizes that he is hopeful to be discharged soon. His Vasquez catheter was replaced yesterday and he initially has no complaints of dysuria, however, later in the morning. He does report to nursing of having some urethral irritation. He denies abdominal pain, nausea or shortness of breath. He continues to be afebrile. Objective Vital signs: Temp Pulse Resp BP Pulse Ox 98.2 F 57 L 16 135/67 96 09/29/16 07:56 09/29/16 07:56 09/29/16 07:56 09/29/16 07:56 09/29/16 07:56 Weight: 124.8 kg - Constitutional Present: no acute distress, well nourished, well developed, morbidly obese - Routine HEENT Exam Eye: Present: EOMI, PERRL - Routine Respiratory Exam Present: CTA bilaterally - Routine Cardiovascular Exam Present: RRR, S1, S2 - Routine Abdominal Exam Present: soft, normoactive bowel sounds - Routine Exam Comments: Vasquez cath intact - Routine Back/Spine/Pelvis Exam Back/Spine: Present: full ROM - Routine Musculoskeletal Exam Musculoskeletal: no tenderness - Routine Skin Exam Present: intact - Routine Neurological Exam Present: alert, oriented X3, CN II-XII intact - Routine Psychiatric Exam Present: normal affect, normal thought process Results - Labs CBC & Chem 7: 09/29/16 05:28 09/29/16 05:28 Assessment and Plan (1) Acute renal failure Problem details: Dehydration Current visit: No Status: Acute (2) Metabolic encephalopathy Current visit: No Status: Acute (3) DM type 2 (diabetes mellitus, type 2) Current visit: No Status: Chronic (4) CKD (chronic kidney disease) stage 4, GFR 15-29 ml/min Problem details: Stage 3-4 Current visit: No Status: Chronic 09/17/16 23:17 Stage 3-4 (5) HTN (hypertension) Current visit: No Status: Chronic (6) Weakness generalized Current visit: Yes Status: Acute (7) Urinary retention Current visit: Yes Status: Chronic 09/26/16 13:[address] Walters- some concern with bladder thickening. To follow with him as an outpatient. Monitor for bleeding on dual anti-platelet therapy. Assessment and Plan: 09/29/16 CHLOE superimposed on CKD stage IV -BUN and creatinine continue to remain chronically elevated. Continue to monitor. -Continued hyperkalemia, potassium today 5.3 -will give 1L NS now 4 hours, repeat labs tomorrow am Vasquez catheter was replaced yesterday, urinalysis did reveal 2+ protein, trace glucose, 3+ blood, positive nitrates, 5-10 RBC, TNTC WBCs. Patient remains afebrile and white count is normal. At this point will forego antibiotic treatment has culture is pending. Urine culture does reveal gram-negative rods. Bacteria may be secondary to chronic Vasquez. Add Pyridium as needed for bladder spasms HTN -Continue to monitor blood pressure. Well-controlled this morning 135/67. Pulse 57. Will continue to monitor -Norvasc was increased 3 days ago DM2 -. Fasting blood sugar this morning was 102. -NovoLog with breakfast is increased to 18 units, as well as 16 units with lunch and supper. Continue with Levemir 35 units at at bedtime CAD -continue plavix/ASA, statin, beta-rashad. Will reevaluate laboratory studies tomorrow. Did discuss plan of care with attending Dr Hsu as well as Dr Hoffman and CM Hopeful for discharge in the next several days. Sepsis Assessment - Evaluation Sepsis screening result: No Definite Risk Hospital Course Summary Disclaimer: The visit summary below is not to be considered part of the above Progress Note. Hospital Course: 09/17/16 13:22 Generalized weakness and debility: agree with orders per Dr. Hoffman. HTN: Monitor blood pressure. He did have elevated blood pressure during his acute stay, which improved with resumption of metoprolol. May need to re- introduce amlodipine, which he's previously taken. Type 2 diabetes: Insulin was reduced during his acute stay and corresponding acute kidney injury. By time of discharge, he was receiving 30 units of Levemir and NovoLog 10 units 3 times a day. His baseline insulin is NovoLog 16 units with meals and Levemir 50 units HS. He has had some hyperglycemia so will increase mealtime insulin to 12 units. Continue routine SSI - at home he adds 2 units of insulin per 50 points above 150. Urinary retention and bladder wall thickening - will need to f/u with Dr. Walters; ASA/Plavix are on hold d/t hematuria over the last few months CKD stage IV: will need f/u with Dr. 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 HR 60-70s. Will increase Metoprolol to 100 mg BID. DM2: hgb A1c 7%. Accuchecks persistently elevated - will increase mealtime insulin to home dose of 16U. Home dose of Levemir is 50 units - still on 30 here - monitor response to increased short-acting insulin before increasing Levemir CKD stage IV: creatinine 2.2 - baseline Urinary retention and bladder wall thickening - will need to f/u with Dr. Walters; ASA/Plavix are on hold d/t hematuria over the last few months - ASA was resumed. Since he has recent stents to right leg, he should be on Plavix. Will contact Dr. Walters tomorrow to see if it's ok to resume Plavix and to see when he would like to repeat cysto. Discussed with nursing and with Dr. Ramirez. Will stop heparin and start Lovenox 30 mg daily. 09/23/16 11:01 DM2 - blood sugars improved since both Levemir and NovoLog were increased. Fasting yesterday and today were 137 and 125. 2 hour PP BGMs are improving. HTN - BP improved since metoprolol was increased. Will also add home Norvasc. CKD - will recheck BMP this am. Urinary retention and bladder wall thickening - discussed with Dr. Walters. He feels that bladder wall thickening is from urinary retention and at this time is not planning a repeat cystoscopy. He would prefer not to restart blood thinners but knows that with the recent stents he needs them. He gave approval to resume Plavix, but if he starts bleeding again we will have to stop it. Will stop Lovenox since he will be on dual-antiplatelet therapy and is at higher risk of bleeding. 09/26/16 14:02 *Generalized weakness- Continue current therapy per IRU team. *CKD, baseline ~ 2.2 Continue supportive care. Avoid nephrotoxic agents. To follow up with Dr. Cho re: bladder thickening. Renal sono is fairly unremarkable. *HTN- Continue metoprolol, norvasc. Increase Norvasc to BID. Mildly bradycardic- monitor on beta-rashad. No NILAY/ARB given CKD. *Uncontrolled DM2 with secondary complications- BG is much better controlled. Continue current. Last A1c ~ 10. *CAD- continue plavix/ASA, statin, beta-rashad. Continue supportive care. Repeat labs in AM. 09/28/16 15:00 CHLOE superimposed on CKD stage IV -BUN and creatinine climbing over the last few days - now 42 and 2.6 -hyperkalemia at 5.6, minimally improved to 5.8 -will give 1L NS, repeat labs tonight and tomorrow am Cloudy urine -replace Vasquez and recheck UA HTN -BP still moderately elevated most of the time -HR slightly bradycardic since BB was increased -Norvasc was increased 2-3 days ago -may need to add another antiHTN DM2 -last 2 days has had elevated readings 2 hours after breakfast and after supper -increase breakfast insulin to 18U -will wait on making further increasing until renal status improves CAD -continue plavix/ASA, statin, beta-rashad. 09/28/16 16:11 CHLOE superimposed on CKD stage IV -BUN and creatinine climbing over the last few days - now 42 and 2.6 -hyperkalemia at 5.6, minimally improved to 5.8 -will give 1L NS, repeat labs tonight and tomorrow am Cloudy urine -replace Vasquez and recheck UA -repeat UA was positive for UTI, but he's afebrile and last WBC yesterday was normal. -send for cx and repeat CBC in am. HTN -BP still moderately elevated most of the time -HR slightly bradycardic since BB was increased -Norvasc was increased 2-3 days ago -may need to add another antiHTN DM2 -last 2 days has had elevated readings 2 hours after breakfast and after supper -increase breakfast insulin to 18U -will wait on making further increasing until renal status improves CAD -continue plavix/ASA, statin, beta-rashad. <Felix Hsu - Last Filed: 09/29/16 18:07> Objective Vital signs: Temp Pulse Resp BP Pulse Ox 98.2 F 56 L 20 136/69 97 09/29/16 16:00 09/29/16 16:00 09/29/16 16:00 09/29/16 16:00 09/29/16 16:00 Results - Labs CBC & Chem 7: 09/29/16 05:28 09/29/16 05:28 Assessment and Plan (1) Acute renal failure Problem details: Dehydration Current visit: No Status: Acute (2) Metabolic encephalopathy Current visit: No Status: Acute (3) DM type 2 (diabetes mellitus, type 2) Current visit: No Status: Chronic (4) CKD (chronic kidney disease) stage 4, GFR 15-29 ml/min Problem details: Stage 3-4 Current visit: No Status: Chronic (5) HTN (hypertension) Current visit: No Status: Chronic (6) Weakness generalized Current visit: Yes Status: Acute (7) Urinary retention Current visit: Yes Status: Chronic Assessment and Plan: I have seen pt independently and agreed with the above. Pt denies any chills or fevers, or any malaise. Preliminary Urine culture is positive for gram negative organisms but pt has a Vasquez and this could be colonization alone. Will wait for final culture and adress the question if pt needs antibiotics or not ( Probably not as he has no symptoms at present). Hospital Course Summary Disclaimer: The visit summary below is not to be considered part of the above Progress Note. Addendum entered and electronically signed by Gracia Chin APRN 09/29/16 13 :47: Did review acute hospital stay and urine culture was positive for ESBL Escherichia coli due to chronic colonization. Antibiotics were discontinued on
[2016-09-29] MEDS: INSULIN DETEMIR 100unit/ml INJECTION SQ SCH (21:31)
[2016-09-29] MEDS: ATORVASTATIN 20 MG TABLET PO SCH (21:31)
[2016-09-30] MEDS: MICONAZOLE 2% POWDER 45gm TP SCH ×3 (01:24→09:35)
[2016-09-30] MEDS: MAGNESIUM OXIDE 400 MG TABLET PO SCH (08:32)
[2016-09-30] MEDS: AMLODIPINE 5 MG TABLET PO SCH (08:32)
[2016-09-30] MEDS: DOCUSATE SODIUM 100 MG CAPSULE PO SCH (08:32)
[2016-09-30] MEDS: POLYETHYL GLYCOL 3350 17gm PACKET PO SCH (08:32)
[2016-09-30] MEDS: MULTI-VIT + MINERAL (Opti-gen) TABLET PO SCH (08:33)
[2016-09-30] MEDS: CLOPIDOGREL 75 MG TABLET PO SCH (08:33)
[2016-09-30] MEDS: MULTI-VITAMIN + MINERAL TABLET PO SCH (08:33)
[2016-09-30] MEDS: ASPIRIN 81 MG CHEWABLE TABLET PO SCH (08:48)
[2016-09-30] MEDS: INSULIN ASPART 100unit/ml INJECTION SQ SCH ×2 (08:49→12:15)
--- NOTE | 2016-09-30 09:55 | Discharge Summary ---
Discharge Plan - Med Rec/Dispo Referrals/Follow Up: Estevan Walters MD [Physician] - (Urology follow-up on 10/06/16 at 10:15 am. [facility] [address] [place] [address]. .) Roel العراقي II, MD [Family Provider] - (Hosp. follow-up on 10/05/16 at 11: [address] Dela Cruz [address] [place] [address]. . Will Need CBC and BMP at that time.) Additional Instructions: Stop Statin medication at time of discharge to see if this helps weakness All blood counts are stable. Will stop Aranesp injections. Will need to follow up and discuss this further with Dr العراقي. Continue with all other home meds Monitor blood sugars regularly Home health Follow up with Dr العراقي next week and get CBC and BMP Labs at that time. Prescriptions: New Acetaminophen [Tylenol] 325 - 650 mg PO Q5H PRN PRN Reason: Discomfort Metoprolol Tartrate [Lopressor] 100 mg PO BIDWM Insulin Aspart [NovoLOG] 18 unit SQ WB vial Insulin Detemir [Levemir] 35 unit SQ HS vial Ondansetron Inj [Zofran] 4 mg IVP Q6H PRN vial PRN Reason: Nausea &/Or Vomiting Milk of Magnesia [Mom] 30 ml PO DAILY PRN PRN Reason: Constipation Miconazole Nitrate [Desenex] 1 applic TP QID Clopidogrel [Plavix] 75 mg PO DAILY Insulin Aspart [NovoLOG] 16 unit SQ BIDLS vial Multi-Vitamin + Mineral [Therapeutic - M] 1 tab PO DAILY Magnesium Oxide [Magox] 400 mg PO BID Continue Multivit-Min/FA/Lycopen/Lutein [Centrum Silver Tablet] 1 tab PO DAILY #0 Magnesium Oxide [Magox 400] 400 mg PO BID Vit B2/Niacin/B-6/B-12/D-Panth 50,000 units PO DAILY Nitroglycerin [Nitrostat] 0.4 mg SL Q5M PRN #0 PRN Reason: CHEST TIGHTNESS Docusate Sodium 100 mg PO DAILY #0 Discontinued Heparin [Heparin Sq] 5,000 units SQ Q8HR vial Insulin Detemir [Levemir] 30 unit SQ HS vial Metoprolol Tartrate [Lopressor] 50 mg PO BIDWM Ondansetron Inj [Zofran] 4 mg IVP Q6H PRN vial PRN Reason: Nausea &/Or Vomiting Atorvastatin Calcium 20 mg PO HS #0 Darbepoetin [Aranesp] 100 mcg IN 1 WEEK Insulin Aspart [NovoLOG] 10 unit SQ TIDWM vial No Action Insulin Regular, Human [NovoLIN R] 0 unit SQ SS PRN vial PRN Reason: Hyperglycemia - Disposition 01 Discharged Home, Self-Care
--- NOTE | 2016-09-30 10:30 | Discharge Summary ---
Discharge Plan - Med Rec/Dispo Referrals/Follow Up: Roel العراقي II, MD [Family Provider] - (Hosp. follow-up on 10/05/16 at 11: [address] [place] [address]. . Will Need CBC and BMP at that time.) Estevan Walters MD [Physician] - (Urology follow-up on 10/06/16 at 10:15 am. [facility] [address] [place] [address]. .) Additional Instructions: Stop Statin medication at time of discharge to see if this helps weakness All blood counts are stable. Will stop Aranesp injections. Will need to follow up and discuss this further with Dr العراقي. Continue with all other home meds Monitor blood sugars regularly Home health Follow up with Dr العراقي next week and get CBC and BMP Labs at that time. Prescriptions: New Acetaminophen [Tylenol] 325 - 650 mg PO Q5H PRN PRN Reason: Discomfort Metoprolol Tartrate [Lopressor] 100 mg PO BIDWM Insulin Aspart [NovoLOG] 18 unit SQ WB vial Insulin Detemir [Levemir] 35 unit SQ HS vial Ondansetron Inj [Zofran] 4 mg IVP Q6H PRN vial PRN Reason: Nausea &/Or Vomiting Milk of Magnesia [Mom] 30 ml PO DAILY PRN PRN Reason: Constipation Miconazole Nitrate [Desenex] 1 applic TP QID Clopidogrel [Plavix] 75 mg PO DAILY Insulin Aspart [NovoLOG] 16 unit SQ BIDLS vial Multi-Vitamin + Mineral [Therapeutic - M] 1 tab PO DAILY Magnesium Oxide [Magox] 400 mg PO BID Continue Multivit-Min/FA/Lycopen/Lutein [Centrum Silver Tablet] 1 tab PO DAILY #0 Magnesium Oxide [Magox 400] 400 mg PO BID Vit B2/Niacin/B-6/B-12/D-Panth 50,000 units PO DAILY Nitroglycerin [Nitrostat] 0.4 mg SL Q5M PRN #0 PRN Reason: CHEST TIGHTNESS Docusate Sodium 100 mg PO DAILY #0 Discontinued Heparin [Heparin Sq] 5,000 units SQ Q8HR vial Insulin Detemir [Levemir] 30 unit SQ HS vial Metoprolol Tartrate [Lopressor] 50 mg PO BIDWM Ondansetron Inj [Zofran] 4 mg IVP Q6H PRN vial PRN Reason: Nausea &/Or Vomiting Atorvastatin Calcium 20 mg PO HS #0 Darbepoetin [Aranesp] 100 mcg IN 1 WEEK Insulin Aspart [NovoLOG] 10 unit SQ TIDWM vial No Action Insulin Regular, Human [NovoLIN R] 0 unit SQ SS PRN vial PRN Reason: Hyperglycemia Discharge Instructions/Outpatient Orders: Final Provider Discharge Instructions Location: Determined By Patient - Disposition 01 Discharged Home, Self-Care
--- NOTE | 2016-09-30 10:35 | Progress Note ---
Subjective: Milan is seen today in follow up. He is without complaints on examination. Denies having pain, shortness of breath, GI complaints or dysuria. Vasquez catheter is draining without difficulty. He remains afebrile, vital signs normal without leukocytosis. Objective Vital signs: Temp Pulse Resp BP Pulse Ox 98.3 F 61 20 158/83 H 95 09/30/16 08:00 09/30/16 08:00 09/30/16 08:00 09/30/16 08:00 09/30/16 08:00 Weight: 124.8 kg - Constitutional Present: no acute distress, well nourished, well developed, morbidly obese - Routine HEENT Exam Eye: Present: EOMI, PERRL - Routine Respiratory Exam Present: CTA bilaterally - Routine Cardiovascular Exam Present: RRR, S1, S2 - Routine Abdominal Exam Present: soft, normoactive bowel sounds - Routine Skin Exam Present: intact, warm - Routine Neurological Exam Present: alert, oriented X3, CN II-XII intact - Routine Psychiatric Exam Present: normal affect, normal thought process Results - Labs CBC & Chem 7: 09/30/16 04:41 09/30/16 04:41 Assessment and Plan (1) Acute renal failure Problem details: Dehydration Current visit: No Status: Acute (2) Metabolic encephalopathy Current visit: No Status: Acute (3) DM type 2 (diabetes mellitus, type 2) Current visit: No Status: Chronic (4) CKD (chronic kidney disease) stage 4, GFR 15-29 ml/min Problem details: Stage 3-4 Current visit: No Status: Chronic 09/17/16 23:17 Stage 3-4 (5) HTN (hypertension) Current visit: No Status: Chronic (6) Weakness generalized Current visit: Yes Status: Acute (7) Urinary retention Current visit: Yes Status: Chronic 09/26/16 13:[address] Walters- some concern with bladder thickening. To follow with him as an outpatient. Monitor for bleeding on dual anti-platelet therapy. Assessment and Plan: 09/30/16 Medically appears stable. Did check with CK this morning and this was low at 44. Did discuss plan of care with attending, Dr. Tucker Will discontinue statin time of discharge. Her urinary symptoms. Did review urine culture as this is positive for Escherichia coli, however, has been ESBL on previous cultures. Patient is asymptomatic without evidence of acute infectious process. Will forego treatment at this time. All blood counts have remained stable. Will discontinue Aranesp injections. Patient will need to follow with primary care provider, Dr. العراقي. Appointment is set up for Tuesday, 10/05. He will need CBC and BMP at that time. Can discuss if further injections of Aranesp are needed at that time. Discharge orders and plan discussed with Dr Tucker and Dr Hoffman Sepsis Assessment - Evaluation Sepsis screening result: No Definite Risk Hospital Course Summary Disclaimer: The visit summary below is not to be considered part of the above Progress Note. Hospital Course: 09/17/16 13:22 Generalized weakness and debility: agree with orders per Dr. Hoffman. HTN: Monitor blood pressure. He did have elevated blood pressure during his acute stay, which improved with resumption of metoprolol. May need to re- introduce amlodipine, which he's previously taken. Type 2 diabetes: Insulin was reduced during his acute stay and corresponding acute kidney injury. By time of discharge, he was receiving 30 units of Levemir and NovoLog 10 units 3 times a day. His baseline insulin is NovoLog 16 units with meals and Levemir 50 units HS. He has had some hyperglycemia so will increase mealtime insulin to 12 units. Continue routine SSI - at home he adds 2 units of insulin per 50 points above 150. Urinary retention and bladder wall thickening - will need to f/u with Dr. Walters; ASA/Plavix are on hold d/t hematuria over the last few months CKD stage IV: will need f/u with Dr. 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 HR 60-70s. Will increase Metoprolol to 100 mg BID. DM2: hgb A1c 7%. Accuchecks persistently elevated - will increase mealtime insulin to home dose of 16U. Home dose of Levemir is 50 units - still on 30 here - monitor response to increased short-acting insulin before increasing Levemir CKD stage IV: creatinine 2.2 - baseline Urinary retention and bladder wall thickening - will need to f/u with Dr. Walters; ASA/Plavix are on hold d/t hematuria over the last few months - ASA was resumed. Since he has recent stents to right leg, he should be on Plavix. Will contact Dr. Walters tomorrow to see if it's ok to resume Plavix and to see when he would like to repeat cysto. Discussed with nursing and with Dr. Ramirez. Will stop heparin and start Lovenox 30 mg daily. 09/23/16 11:01 DM2 - blood sugars improved since both Levemir and NovoLog were increased. Fasting yesterday and today were 137 and 125. 2 hour PP BGMs are improving. HTN - BP improved since metoprolol was increased. Will also add home Norvasc. CKD - will recheck BMP this am. Urinary retention and bladder wall thickening - discussed with Dr. Walters. He feels that bladder wall thickening is from urinary retention and at this time is not planning a repeat cystoscopy. He would prefer not to restart blood thinners but knows that with the recent stents he needs them. He gave approval to resume Plavix, but if he starts bleeding again we will have to stop it. Will stop Lovenox since he will be on dual-antiplatelet therapy and is at higher risk of bleeding. 09/26/16 14:02 *Generalized weakness- Continue current therapy per IRU team. *CKD, baseline ~ 2.2 Continue supportive care. Avoid nephrotoxic agents. To follow up with Dr. Walters re: bladder thickening. Renal sono is fairly unremarkable. *HTN- Continue metoprolol, norvasc. Increase Norvasc to BID. Mildly bradycardic- monitor on beta-rashad. No NILAY/ARB given CKD. *Uncontrolled DM2 with secondary complications- BG is much better controlled. Continue current. Last A1c ~ 10. *CAD- continue plavix/ASA, statin, beta-rashad. Continue supportive care. Repeat labs in AM. 09/28/16 15:00 CHLOE superimposed on CKD stage IV -BUN and creatinine climbing over the last few days - now 42 and 2.6 -hyperkalemia at 5.6, minimally improved to 5.8 -will give 1L NS, repeat labs tonight and tomorrow am Cloudy urine -replace Vasquez and recheck UA HTN -BP still moderately elevated most of the time -HR slightly bradycardic since BB was increased -Norvasc was increased 2-3 days ago -may need to add another antiHTN DM2 -last 2 days has had elevated readings 2 hours after breakfast and after supper -increase breakfast insulin to 18U -will wait on making further increasing until renal status improves CAD -continue plavix/ASA, statin, beta-rashad. 09/28/16 16:11 CHLOE superimposed on CKD stage IV -BUN and creatinine climbing over the last few days - now 42 and 2.6 -hyperkalemia at 5.6, minimally improved to 5.8 -will give 1L NS, repeat labs tonight and tomorrow am Cloudy urine -replace Vasquez and recheck UA -repeat UA was positive for UTI, but he's afebrile and last WBC yesterday was normal. -send for cx and repeat CBC in am. HTN -BP still moderately elevated most of the time -HR slightly bradycardic since BB was increased -Norvasc was increased 2-3 days ago -may need to add another antiHTN DM2 -last 2 days has had elevated readings 2 hours after breakfast and after supper -increase breakfast insulin to 18U -will wait on making further increasing until renal status improves CAD -continue plavix/ASA, statin, beta-rashad.
[2016-09-30] MEDS: INSULIN REGULAR, HUMAN 100 UNIT/ML INJECTION SQ PRN (12:14)
--- NOTE | 2016-10-02 07:46 | Right on Track Program ---
Right on Track Program Date of Discharge: 09/30/16 Home Medications: Home Medications Medication Instructions Recorded Confirmed Multivit-Min/FA/Lycopen/Lutein 1 tab PO DAILY #0 07/22/14 09/16/16 [Centrum Silver Tablet] Nitroglycerin [Nitrostat] 0.4 mg SL Q5M PRN #0 07/22/14 09/16/16 Docusate Sodium 100 mg PO DAILY #0 03/17/16 09/16/16 Magnesium Oxide [Magox 400] 400 mg PO BID 09/13/16 09/16/16 Vit B2/Niacin/B-6/B-12/D-Panth 50,000 units PO DAILY 09/13/16 09/16/16 Previous Rx's Medication Instructions Recorded Acetaminophen [Tylenol] 325 - 650 mg PO Q5H PRN 09/30/16 Amlodipine [Norvasc] 5 mg PO BID 09/30/16 Aspirin Chewable [ASA] 81 mg PO DAILY 09/30/16 Clopidogrel [Plavix] 75 mg PO DAILY 09/30/16 Insulin Aspart [NovoLOG] 16 unit SQ BIDLS vial 09/30/16 Insulin Aspart [NovoLOG] 18 unit SQ WB vial 09/30/16 Insulin Detemir [Levemir] 35 unit SQ HS vial 09/30/16 Magnesium Oxide [Magox] 400 mg PO BID 09/30/16 Metoprolol Tartrate [Lopressor] 100 mg PO BIDWM 09/30/16 Miconazole Nitrate [Desenex] 1 applic TP QID 09/30/16 Milk of Magnesia [Mom] 30 ml PO DAILY PRN 09/30/16 Multi-Vitamin + Mineral 1 tab PO DAILY 09/30/16 [Therapeutic - M] PEG 3350 17gm PACKET [Miralax] 17 gm PO DAILY packet 09/30/16 - Right on Track Program PHONE CALL #1 Date: 10/06/16 Right on Track Program: 24 Hour Follow-Up Discharge Summary Received: Yes Care Plan Received: Yes Follow Up: Follow Up Appointment Scheduled (WITH DR. DSOUZA AND DR. WALTERS) Education: Diagnosis Education Reviewed, Education Provided To Caregiver Community Paramedicine Fall Intervention: No Referral: Social Work, Primary Care Physician, Home Health Comments: I spoke with Jr. Milan on 10/01/16. Overall, his father is doing well - in fact, when I called he was just getting ready to start exercising on the stationery bike. He denied any questions on the discharge instructions/care plan. He had a question on his med rec (wasn't sure what docusate was) but the home health RN clarified that for him. His blood sugars were 130 and 167 for the day so far. VS were also stable. He was concerned b/c the urine in the Vasquez appeared "milky " - we discussed that his Vasquez was just recently changed out, the idea of bacterial colonization, and s/s of UTI. He didn't have other questions at this time. Discussed With Patient and Caregiver: Yes Recommendations For Follow-up: 1. F/U with Dr. Dsozua and Dr. Walters as planned 2. Home Health 3. [id number] visit on 10/06/16 at 1 pm - he has an appt with Dr. Walters that morning so if he needs to reschedule I gave Milan Knott my contact information at the hospital [id number] VISIT Date: 10/06/16 Right on Track Program: 7-14 Day [id number] Discharge Summary Received: Yes Care Plan Received: Yes Follow Up: Follow Up Appointment Scheduled Education: Diagnosis Education Reviewed Community Paramedicine Fall Intervention: No Referral: Home Health Comments: I visited Milan at his home on 10/06/16. Unfortunately, his son was unable to be there. Further Milan was taking a nap, and I woke him up by knocking on the door. His answers were short and to the point, and he told me he'd like to go back to sleep. He did report that he feels like he's doing fairly well. He denies any pain. He sometimes exercises by riding on the stationary bike. I reviewed his blood sugars: overall, well controlled. His son has been doing all the cooking. He states that home health has been out to visit, and that's going well. He states that he saw Dr. Walters this morning and was told to increase his water intake to "flush out his system". Transportation: his son drives him to and from appointments. Medication reconciliation: Milan does not have a good understanding of his medications but denied any questions. His son organizes his medications for him. Self monitoring: His son checks his blood sugars for him and organizes his medications. Home Health checks vitals. Resources: His son has took a department sales manager instead of a maritime officer job to care for his father. Home Health is involved. Quality of life: He rates as "Excellent". Health Literacy: He relies on his son for reading and interpretation of all healthcare-related materials. PHQ-2: Negative Nutritional screen: he is "at risk for malnutrition" based on recent stress of illness; mobility; and dementia. Fall screen: he scored 6/10 on [facility] 10, indicating that he is at risk of falling. ADLs/IADLs: He is independent in ADLs but requires assistance for IADLs. Exam: Gen: A&O, NAD Lungs: clear CV: 4/6 systolic murmur, RRR Abd: benign Ext: bandage to right knee overlying tibial tuberosity; abrasions are healing to LLE, RLE. No edema. Recommendations For Follow-up: 1. Continue HH; encourage supervised exercise. 2. F/U with PCP - Dr. Dsouza 3. I will call early next week to talk with his son. - Problems (1) Acute renal failure Qualifiers: Acute renal failure type: unspecified Qualified Code(s): N17.9 - Acute kidney failure, unspecified Code(s): N17.9 - Acute kidney failure, unspecified Status: Acute (2) Metabolic encephalopathy Code(s): G93.41 - Metabolic encephalopathy Status: Acute (3) DM type 2 (diabetes mellitus, type 2) Qualifiers: Diabetes mellitus complication status: with kidney complications Diabetes mellitus complication detail: with chronic kidney disease Diabetes mellitus long term care pharmacist insulin use: with snf use Chronic kidney disease stage: stage 3 (moderate) Qualified Code(s): E11.22 - Type 2 diabetes mellitus with diabetic chronic kidney disease; N18.3 - Chronic kidney disease, stage 3 ( moderate); Z79.4 - terminal operations manager (current) use of insulin Code(s): E11.9 - Type 2 diabetes mellitus without complications Status: Chronic (4) CKD (chronic kidney disease) stage 4, GFR 15-29 ml/min Code(s): N18.4 - Chronic kidney disease, stage 4 (severe) Status: Chronic (5) HTN (hypertension) Code(s): I10 - Essential (primary) hypertension Status: Chronic (6) Weakness generalized Code(s): R53.1 - Weakness Status: Acute (7) Urinary retention Code(s): R33.9 - Retention of urine, unspecified Status: Chronic
== END 2016-09-30 16:37 | disposition home health service (06) | DRG 92 ==
PROVIDERS: ADMIT Family Medicine; ATTEND Family Medicine

== ENCOUNTER 2016-10-07 10:39 | Observation (INO) ==
[2016-10-07] MEDS ORDERED: NS 1,000 ML IV ONE (12:21)
[2016-10-07] MEDS ORDERED: CALCIUM GLUCONATE 1,000 MG in NS 50 ML IV ONE (12:22)
[2016-10-07] MEDS ORDERED: SODIUM POLYSTYRENE SULFONATE 15 GM/60 ML BOTTLE PO ONE (12:27)
[2016-10-07] MEDS ORDERED: DEXTROSE 50% INJECTION 50ml VIAL IV ONE (12:30)
--- NOTE | 2016-10-07 14:54 | Emergency Department Report ---
General Adult HPI - General Chief complaint: Urogenital-Male Stated complaint: penile pain Time Seen by Provider: 10/07/16 11:12 - History of Present Illness HPI narrative: 71-year-old gentleman presents with penile pain. He is brought in by EMS. He is home bound and has a English catheter in place, but has been having pain on the tip of his penis. He saw urology yesterday and had the catheter replaced. There are some medications to be placed on the glans, and the pharmacy will have them in stock this afternoon. Patient developed enough pain this morning and his son was unable to get him back and forth to the bathroom due to increased weakness and EMS was called. Patient's son is quit his job and moved in for the short- term to help care for his father and encourage him to ambulate. Yesterday the patient was able to walk in and out of the doctor's office and around the house as needed. This morning attempt to rest stops to get them from his chair to the bedroom. No fever, no vomiting, no diarrhea. - Related Data Home Medications Medication Instructions Recorded Confirmed Multivit-Min/FA/Lycopen/Lutein 1 tab PO DAILY #0 07/22/14 10/07/16 [Centrum Silver Tablet] Nitroglycerin [Nitrostat] 0.4 mg SL Q5M PRN #0 07/22/14 10/07/16 Docusate Sodium 100 mg PO DAILY #0 03/17/16 10/07/16 Magnesium Oxide [Magox 400] 400 mg PO BID 10/07/16 10/07/16 Previous Rx's Medication Instructions Recorded Acetaminophen [Tylenol] 325 - 650 mg PO Q5H PRN 09/30/16 Amlodipine [Norvasc] 5 mg PO BID 09/30/16 Aspirin Chewable [ASA] 81 mg PO DAILY 09/30/16 Clopidogrel [Plavix] 75 mg PO DAILY 09/30/16 Insulin Aspart [NovoLOG] 16 unit SQ BIDLS vial 09/30/16 Insulin Aspart [NovoLOG] 18 unit SQ WB vial 09/30/16 Insulin Detemir [Levemir] 35 unit SQ HS vial 09/30/16 Metoprolol Tartrate [Lopressor] 100 mg PO BIDWM 09/30/16 Miconazole Nitrate [Desenex] 1 applic TP QID 09/30/16 Milk of Magnesia [Mom] 30 ml PO DAILY PRN 09/30/16 Multi-Vitamin + Mineral 1 tab PO DAILY 09/30/16 [Therapeutic - M] PEG 3350 17gm PACKET [Miralax] 17 gm PO DAILY packet 09/30/16 Allergies Allergy/AdvReac Type Severity Reaction Status Date / Time hydrocodone AdvReac Intermediate Verified 09/14/16 06:21 Review of Systems All systems: reviewed and negative except as stated Genitourinary: Reports: as per HPI Musculoskeletal: Reports: as per HPI PFSH Patient Stated Medical History Cerebrovascular Accident Yes: 2004 Hearing Loss Yes Heart Murmur Yes: 2015 Isaac Hypertension Yes: TAKES MEDS Pulmonary Edema Yes Other Respiratory Yes: sirs 06/2016 Diabetes Mellitus Type 1 Yes Diabetes Mellitus Type 2 Yes Constipation No Hx Benign Prostatic Yes Hyperplasia Hx Incontinence No Hx Urinary Tract Infection Yes Other Yes: 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 Walters. Cholecystectomy. CABG. knee surgery. hand and foot. lumbar disc surgery - Social History Smoking status: Never smoker Physical Exam - Limitations Limitations: no limitations - General General appearance: lethargic - Normal Exams: Head:: Normocephalic without trauma Eyes:: Pupils are PERRLA w/ EOMI, No scleral icterus, irritation, or foreign bodies noted Chest/Respirations:: Clear all luong, and symmetry bilaterally (, patient does have somewhat diminished breath sounds.) Cardiovascular:: Regular rate and rhythm, without murmur or gallop, Pulses 2+ all extremities, capillary refill, <2 seconds all extremities Abdomen:: Bowel sounds positive, non-distended (obese) Genitourinary:: Penis without lesions (however patient has significant tenderness at the meatus. Penile exam shows moist skin, no acute cellulitis noted.), testicles normal size, and orientation, without tenderness Course Vital Signs Temperature 98.0 F 10/07/16 10:44 Pulse Rate 56 L 10/07/16 10:44 Respiratory Rate 15 10/07/16 10:44 Blood Pressure 160/73 H 10/07/16 10:44 Pulse Oximetry 98 10/07/16 10:44 Temperature 98.0 F 10/07/16 14:48 Pulse Rate 57 L 10/07/16 14:48 Respiratory Rate 18 10/07/16 14:48 Blood Pressure 147/67 H 10/07/16 14:48 Pulse Oximetry 98 10/07/16 14:48 Medical Decision Making - MDM Narrative Medical decision making narrative: ED plan is to check urine and check labs to make sure that there are no acute abnormalities which need treated and will try to account for the increased weakness. Patient was noted to have elevated potassium of 6.5 and BUNs of 59. Urine has 3+ hemoglobin and 2+ bacteria. This is a catheter specimen from a fresh indwelling catheter. Hyperkalemia was noted and treated with 1 amp of D50, 1 amp of calcium gluconate , 1 L of normal saline and 30 ML's of Kayexalate. Potassium rechecked one hour later and was 5.6. Spoke with Dr. Tse is the hospitalist consumer affairs director. He agreed to admit the patient with dehydration and hyperkalemia. The concern is going to be placement on discharge. We will consult social work for this. - Lab Data Result diagrams: 10/07/16 11:40 10/07/16 14:23 Lab Results 10/07/16 10/07/16 10/07/16 Range/Units 11:32 11:40 11:40 WBC 6.6 (4.5-11.0) T/MM3 RBC 4.57 (4.50-5.90) M/MM3 Hgb 12.6 L (13.5-17.5) GM/DL Hct 42.0 (41-53) % MCV 91.9 (80-100) UM3 MCH 27.6 (26-34) UUG MCHC 30.0 L (31-37) GM/DL RDW Std Deviation 54.3 H (36.9-50.2) FL Plt Count 297 (130-400) T/MM3 MPV 9.8 (9.4-12.4) UM3 Immature Gran % (Auto) 0.2 (0.0-0.5) % Neut % (Auto) 70.2 H (33-66) % Lymph % (Auto) 18.1 L (23-45) % Pender % (Auto) 7.7 (0-9.0) % Eos % (Auto) 3.5 (0-4) % Baso % (Auto) 0.3 (0-2) % Neut # 4.7 (1.8-7.7) T/MM3 Lymph # 1.2 (1-4.8) T/MM3 Pender # 0.5 (0-0.8) T/MM3 Eos # 0.2 (0-0.5) T/MM3 Baso # 0.0 (0-0.2) T/MM3 Abs Immat Gran (auto) 0.01 (0.00-0.03) T/MM3 Turbidity < 20 (0-20) Sodium 137 (134-144) MEQ/L Potassium 6.4 H* (3.6-5) MEQ/L Chloride 105 (98-107) MEQ/L Carbon Dioxide 23 (22-30) MEQ/L Anion Gap 9 (5-15) MEQ/L BUN 59.0 H* (9-20) MG/DL Creatinine 2.4 H (0.8-1.5) MG/DL GFR Calculation 27 BUN/Creatinine Ratio 25 (6-26) RATIO Glucose 188 H (75-110) MG/DL Calculated Osmolality 286 H (261-280) MOSM/KG Calcium 10.0 (8.4-10.2) MG/DL Total Bilirubin 0.40 (0.20-1.30) MG/DL Icterus Index < 2 (0-7) AST 21 (17-59) U/L ALT 38 (21-72) U/L Alkaline Phosphatase 112 (38-126) U/L Total Protein 7.9 (6.3-8.2) G/DL Albumin 4.0 (3.5-5.0) G/DL Globulin 3.9 H (2.4-3.6) G/DL Albumin/Globulin Ratio 1.0 L (1.1-2.2) RATIO Specimen Hemolysis < 15 (0-25) Ur Collection Type Urine, english chronic Urine Color Yellow (YELLOW) Urine Clarity Cloudy Urine pH 6.0 (5.0-8.0) Ur Specific [place] 1.020 (1.015-1.025) Urine Protein 2+ A (NEGATIVE) Urine Glucose (UA) Trace A (NEGATIVE) Urine Ketones Negative (NEGATIVE) Urine Occult Blood 3+ A (NEGATIVE) Urine Nitrate Negative (NEGATIVE) Urine Bilirubin Negative (NEGATIVE) Urine Urobilinogen 0.2 (NORMAL) EU/DL Ur Leukocyte Esterase 3+ (NEGATIVE) Urine RBC Tntc (0-3) /HPF Urine WBC Tntc (0-5) /HPF Urine Bacteria 2+ H (NEGATIVE) Ur Culture Indicated? Cult reflexed &setup 10/07/16 Range/Units 14:23 WBC (4.5-11.0) T/MM3 RBC (4.50-5.90) M/MM3 Hgb (13.5-17.5) GM/DL Hct (41-53) % MCV (80-100) UM3 MCH (26-34) UUG MCHC (31-37) GM/DL RDW Std Deviation (36.9-50.2) FL Plt Count (130-400) T/MM3 MPV (9.4-12.4) UM3 Immature Gran % (Auto) (0.0-0.5) % Neut % (Auto) (33-66) % Lymph % (Auto) (23-45) % Pender % (Auto) (0-9.0) % Eos % (Auto) (0-4) % Baso % (Auto) (0-2) % Neut # (1.8-7.7) T/MM3 Lymph # (1-4.8) T/MM3 Pender # (0-0.8) T/MM3 Eos # (0-0.5) T/MM3 Baso # (0-0.2) T/MM3 Abs Immat Gran (auto) (0.00-0.03) T/MM3 Turbidity < 20 (0-20) Sodium 138 (134-144) MEQ/L Potassium 5.6 H (3.6-5) MEQ/L Chloride 108 H (98-107) MEQ/L Carbon Dioxide 22 (22-30) MEQ/L Anion Gap 8 (5-15) MEQ/L BUN 56.0 H* (9-20) MG/DL Creatinine 2.3 H (0.8-1.5) MG/DL GFR Calculation 28 BUN/Creatinine Ratio 24 (6-26) RATIO Glucose 217 H (75-110) MG/DL Calculated Osmolality 289 H (261-280) MOSM/KG Calcium 9.6 (8.4-10.2) MG/DL Total Bilirubin 0.30 (0.20-1.30) MG/DL Icterus Index < 2 (0-7) AST 19 (17-59) U/L ALT 29 (21-72) U/L Alkaline Phosphatase 104 (38-126) U/L Total Protein 7.4 (6.3-8.2) G/DL Albumin 3.8 (3.5-5.0) G/DL Globulin 3.6 (2.4-3.6) G/DL Albumin/Globulin Ratio 1.1 (1.1-2.2) RATIO Specimen Hemolysis < 15 (0-25) Ur Collection Type Urine Color (YELLOW) Urine Clarity Urine pH (5.0-8.0) Ur Specific [place] (1.015-1.025) Urine Protein (NEGATIVE) Urine Glucose (UA) (NEGATIVE) Urine Ketones (NEGATIVE) Urine Occult Blood (NEGATIVE) Urine Nitrate (NEGATIVE) Urine Bilirubin (NEGATIVE) Urine Urobilinogen (NORMAL) EU/DL Ur Leukocyte Esterase (NEGATIVE) Urine RBC (0-3) /HPF Urine WBC (0-5) /HPF Urine Bacteria (NEGATIVE) Ur Culture Indicated? Disposition Clinical Impression: Hyperkalemia, Dehydration Disposition: 02 To OBS [facility] [place] Condition: Stable Prescriptions: No Action Multivit-Min/FA/Lycopen/Lutein [Centrum Silver Tablet] 1 tab PO DAILY #0 Acetaminophen [Tylenol] 325 - 650 mg PO Q5H PRN PRN Reason: Discomfort Metoprolol Tartrate [Lopressor] 100 mg PO BIDWM Insulin Aspart [NovoLOG] 18 unit SQ WB vial Insulin Detemir [Levemir] 35 unit SQ HS vial Milk of Magnesia [Mom] 30 ml PO DAILY PRN PRN Reason: Constipation Miconazole Nitrate [Desenex] 1 applic TP QID Amlodipine [Norvasc] 5 mg PO BID PEG 3350 17gm PACKET [Miralax] 17 gm PO DAILY packet Nitroglycerin [Nitrostat] 0.4 mg SL Q5M PRN #0 PRN Reason: CHEST TIGHTNESS Docusate Sodium 100 mg PO DAILY #0 Clopidogrel [Plavix] 75 mg PO DAILY Insulin Aspart [NovoLOG] 16 unit SQ BIDLS vial Multi-Vitamin + Mineral [Therapeutic - M] 1 tab PO DAILY Aspirin Chewable [ASA] 81 mg PO DAILY Magnesium Oxide [Magox 400] 400 mg PO BID Referrals: Roel العراقي II, MD [Family Provider] - Time of Disposition: 15:01 - Seen By: physician
--- NOTE | 2016-10-07 16:05 | History & Physical Report ---
<Corina Gibbs - Last Filed: 10/07/16 16:00> History of Present Illness Date: 10/07/16 Chief complaint: hyperkalemia, weakness HPI: Milan Padilla is a 71 y/o male who presented to [facility] today, 10/07/16, for evaluation of progressive weakness. He has had recurrent hospitalizations over the last 3 months, with similar acute medical conditions. He was admitted at [facility] on 09/13/16 and treated with IV Rocephin for UTI plus was given IV fluids for worsening renal failure (Creatinine was 2.8 on admission). His troponin was mildly elevated, but this was thought to be secondary to chronic renal failure. With IV fluids, bicarbonate infusion and Kayexalate, his hyperkalemia was reversed. By day of discharge to IRU, his creatinine had also improved to 1.9. Urine culture grew out ESBL positive Escherichia coli, but was asymptomatic, and therefore antibiotics were discontinued on 09/15/16. He has had ESBL positive Escherichia coli infections in the past, and this is more likely to be colonization rather than true infection. During his hospitalization, he exhibited cognitive dysfunction, which has been present for several years. Physical and occupational therapy worked with him, and ongoing strengthening was recommended for his weakness and acute myopathy. Therapy staff did not feel he was safe to go back home. After his 3 night stay on the medical unit, he was able to be transferred to IRU in stable medical condition. He was discharged home with his son from IRU on 10/01/16. After returning home, he appeared to be doing well. Ramya Cesar with [facility] [employer], followed up with him and his son on 10/01 via phone and had a [id number] visit with him in his home on 10/06. During his visit with Ramya yesterday, he explained that he had seen Dr. Walters in the morning and had his English catheter replaced and felt he was doing well. He also stated that he had continued to exercise periodically on the stationary bike. Blood sugar log was reviewed and found his sugars well controlled. He had been receiving home health and felt it was going well. Unfortunately, today , Mr. Padilla developed increasing pain to the tip of his penis. His son also reports that he was unable to ambulate with assistance back and forth from the bathroom due to increasing weakness. EMS was called and the patient was transported to [facility] for further evaluation. He denies any recent fevers, vomiting, diarrhea, chest pain or shortness of breath. Upon arrival in the ED, Mr. Padilla was noted to be afebrile at 98.0, bradycardic at 56, respiratory rate 15, blood pressure 160/73 and pulse ox 98% on room air. Labs were obtained and revealed WBC 6.6, anemia with hemoglobin at 12.6, platelets 297, sodium 138, hyperkalemia with potassium 6.4, elevated BUN 59 and SCr 2.4. Hyperglycemia with glucose 188. He has a known history of renal insufficiency and diabetes. UA showed TNTC RBC and WBC and 2+ bacteria with culture pending. He was given D50 1 amp, Calcium gluconate 1 amp, 1L NS and 30 ml of kayexalte. Recheck BMP showed improved labs with sodium 138, potassium 5.6, BUN 56 and SCr 2.3. Due to his progressive weakness, hyperkalemia and renal failure, Dr. Tse was consulted and he was admitted into observation status for further evaluation, close cardiac and renal monitoring, IV hydration and electrolyte correction. Review of Systems All systems: reviewed and no additional remarkable complaints except as stated Review of systems: limited due to patient being poor historian. - Constitutional Constitutional: Present: weakness. Absent: chills, fever(s), increased appetite - EEWVT Eyes: Absent: blurry vision, change in vision Nose: Absent: nosebleeds Mouth/Throat: Present: dry mouth - Cardiovascular Cardiovascular: Present: heart murmur. Absent: chest pain, palpitations, syncope Vascular: Absent: pallor of an extermity - Respiratory Respiratory: Absent: cough, dyspnea, wheezing, pain on inspiration - Gastrointestinal Gastrointestinal: Present: constipation. Absent: abdominal pain, diarrhea, nausea, vomiting - Genitourinary Genitourinary: Present: genital pain - Musculoskeletal Musculoskeletal: Present: muscle weakness - Integumentary/Breasts Integumentary: Absent: erythema, jaundice - Neurological Neurological: Present: memory loss, weakness. Absent: convulsions, dizziness - Psychiatric Psychiatric: Absent: behavioral changes, depression - Endocrine Endocrine: Absent: excessive sweating, palpitations - Hematologic/Lymphatic Hematologic/Lymphatic: Absent: easy bleeding PFSH Diabetes, type 2. Chronic kidney disease, stage 4. Hypertension. Generalized weakness. Recurrent UTI, history of ESBL. Urinary retention secondary to atonic bladder. History of CVA - 2004. BPH. Osteoarthritis. Surgical History: Cystoscopy and SP tube placement; cystogram - Dr. Walters. Cholecystectomy. CABG. Knee surgery. Hand and foot. Lumbar disc surgery - Social History Smoking status: Never smoker Substance use type: does not use Alcohol intake frequency: does not drink Housing: house Household members: family Does patient use chewing tobacco?: No Current residence: Apartment/Private Home Social history: PCP - Dr. العراقي. Medications Home Medications Medication Instructions Recorded Confirmed Type Multivit-Min/FA/Lycopen/Lutein 1 tab PO DAILY #0 07/22/14 10/07/16 History [Centrum Silver Tablet] Nitroglycerin [Nitrostat] 0.4 mg SL Q5M PRN #0 07/22/14 10/07/16 History Docusate Sodium 100 mg PO DAILY #0 03/17/16 10/07/16 History Magnesium Oxide [Magox 400] 400 mg PO BID 10/07/16 10/07/16 History Allergies Allergy/AdvReac Type Severity Reaction Status Date / Time hydrocodone AdvReac Intermediate Verified 09/14/16 06:21 Exam Vital Signs: Temperature 96.2 F L 10/07/16 15:53 Pulse Rate 63 10/07/16 15:53 Respiratory Rate 18 10/07/16 15:53 Blood Pressure 159/77 H 10/07/16 15:53 Pulse Oximetry 98 10/07/16 15:53 Oxygen Delivery Method Room Air Height: 6 ft 1 in Weight: 267 lb 10.259 oz Body Mass Index: 35.3 - Constitutional Present: no acute distress, well nourished, well developed, cooperative - Routine HEENT Exam Head: Present: normocephalic, atraumatic Eye: Absent: conjunctival icterus, scleral injection ENT: Present: mucous membranes dry - Routine Neck Exam Present: supple, trachea midline - Routine Chest/Breast/Axilla Exam Chest wall: Absent: tenderness - Routine Respiratory Exam Present: CTA bilaterally. Absent: accessory muscle use, dyspnea, rales, respiratory distress, rhonchi, stridor, wheezes - Routine Cardiovascular Exam Present: RRR, S1, S2, murmur, bradycardia - Routine Abdominal Exam Present: soft, normoactive bowel sounds, non tender. Absent: rebound, guarding , firm - Routine Exam Comments: english present. No obvious discharge or lesion noted to glans. English actively draining cloudy, yellow-white urine. - Routine Extremities Exam Present: pulses intact. Absent: cyanosis, calf tenderness Comments: foot drop - left. SCDs in place. - Routine Back/Spine/Pelvis Exam Back/Spine: Absent: vertebral tenderness, erythema - Routine Skin Exam Present: intact, dry, warm. Absent: erythema, jaundice - Routine Neurological Exam Present: alert, hearing grossly intact, normal speech - Routine Psychiatric Exam Present: cooperative Results - Labs CBC & Chem 7: 10/07/16 11:40 10/07/16 14:23 Assessment and Plan (1) Acute renal failure Problem details: Dehydration Current visit: No Status: Acute (2) Hyperkalemia Current visit: No Status: Acute (3) Weakness generalized Current visit: No Status: Acute (4) DM type 2 (diabetes mellitus, type 2) Current visit: No Status: Chronic (5) CKD (chronic kidney disease) stage 4, GFR 15-29 ml/min Problem details: Stage 3-4 Current visit: No Status: Chronic (6) HTN (hypertension) Current visit: No Status: Chronic (7) PVD (peripheral vascular disease) Current visit: No Status: Acute (8) Urinary retention Current visit: No Status: Chronic DVT Prophylaxis: SCD's Assessment and Plan: -Acute Kidney Injury with history of chronic kidney disease (stage 4). .Admit to observation status under the care of hospitalist service and Dr. Tse. .While in ED, patient received 1L NS. Continue IVF with NS at 100cc/hr. Monitor closely for fluid overload and check daily weights. .Consult case management for discharge planning. .Incentive spironmetry for pulmonary toileting. -Hyperkalemia, acute. .While in the ED, patient received kayexalate, glucogon and bicarb. Potassium improved slightly from 6.6 to 5.6. Continue to monitor closely with repeat labs. .Monitor cardiac function closely on telemetry. .Continue NS at 100cc/hr. -Progressive, generalized weakness, acute on chronic. .Consult PT/OT for evaluation and treatment recommendations. -Diabetes, type II, chronic. .Monitor BGMs closely. Continue home insulin regimen. -Hypertension, chronic. .Continue home Norvasc, ASA, Plavix and metoprolol. Monitor blood pressure closely. .Monitor closely for fluid overload. -Urinary retention with English placement. .Bladder scan as needed. .English changed as outpatient by Dr. Walters on 10/06. Consider consultation to Dr. Walters. .UA on admission showed TNTC WBC and RBC with 2+ bacteria. History of ESBL pyuria believed to be secondary to colonzation. Cultures pending. Will discuss antibiotic treatment with Dr. Tse. Upon discharge, patient's care will be returned to his PCP, Dr. العراقي. Sepsis Assessment - Evaluation Sepsis screening result: No Definite Risk Hospital Course Summary Disclaimer: The visit summary below is not to be considered part of the above Progress Note. Hospital Course: 10/07/16 16:44 -Acute Kidney Injury with history of chronic kidney disease (stage 4). .Admit to observation status under the care of hospitalist service and Dr. Tse. .While in ED, patient received 1L NS. Continue IVF with NS at 100cc/hr. Monitor closely for fluid overload and check daily weights. .Consult case management for discharge planning. .Incentive spironmetry for pulmonary toileting. -Hyperkalemia, acute. .While in the ED, patient received kayexalate, glucogon and bicarb. Potassium improved slightly from 6.6 to 5.6. Continue to monitor closely with repeat labs. .Monitor cardiac function closely on telemetry. .Continue NS at 100cc/hr. -Progressive, generalized weakness, acute on chronic. .Consult PT/OT for evaluation and treatment recommendations. -Diabetes, type II, chronic. .Monitor BGMs closely. Continue home insulin regimen. -Hypertension, chronic. .Continue home Norvasc, ASA, Plavix and metoprolol. Monitor blood pressure closely. .Monitor closely for fluid overload. -Urinary retention with English placement. .Bladder scan as needed. .English changed as outpatient by Dr. Walters on 10/06. Consider consultation to Dr. Walters. .UA on admission showed TNTC WBC and RBC with 2+ bacteria. History of ESBL pyuria believed to be secondary to colonzation. Cultures pending. Will discuss antibiotic treatment with Dr. Tse. Upon discharge, patient's care will be returned to his PCP, Dr. العراقي. <Jun Tse D - Last Filed: 10/07/16 18:55> History of Present Illness Date: 10/07/16 [facility] Patient Stated Medical History Cerebrovascular Accident Yes: 2004 Hypertension Yes: TAKES MEDS Pulmonary Edema Yes Other Respiratory Yes: sirs 06/2016 Diabetes Mellitus Type 2 Yes Hx Benign Prostatic Yes Hyperplasia Hx Incontinence No Hx Urinary Tract Infection Yes Other Yes: 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; chronic english use Other Musculoskeletal Yes: 2016 neck stenosis; Sepsis Yes: sirs 06/2016 Other Behavioral Health Yes Exam Vital Signs: Temperature 96.2 F L 10/07/16 15:53 Pulse Rate 63 10/07/16 16:26 Respiratory Rate 18 10/07/16 15:53 Blood Pressure 159/77 H 10/07/16 15:53 Pulse Oximetry 98 10/07/16 15:53 Oxygen Delivery Method Room Air Height: 1.85 m Weight: 121.4 kg Results - Labs CBC & Chem 7: 10/07/16 11:40 10/07/16 14:23 Assessment and Plan (1) Hyperkalemia Problem details: POA Current visit: No Status: Acute (2) Acute renal failure Problem details: Dehydration Current visit: No Status: Acute (3) CKD (chronic kidney disease) stage 4, GFR 15-29 ml/min Problem details: Stage 3-4 Current visit: No Status: Chronic (4) DM type 2 (diabetes mellitus, type 2) Current visit: No Status: Chronic (5) HTN (hypertension) Current visit: No Status: Chronic (6) Weakness generalized Current visit: No Status: Acute (7) PVD (peripheral vascular disease) Current visit: No Status: Acute (8) Urinary retention Current visit: No Status: Chronic Assessment and Plan: Have independently interviewed and examined pt. Chart reviewed. Case discussed with ED physician,CM, and my PA. Care plan developed with my supervision; agree with above. Presents to ED due to Penile pain and weakness. Had english changed yesterday by Dr WALTERS-penile sore since. Burning discomfort. Very bothersome. With the pain he has become much more weak today. Since discharge from IRU has been doing well at home with his sons help (has found this very beneficial). Denies other acute problems. Breathing well-no SOA, cough or congestion. Not having chest pressure or pain. Appetite stable. No nausea or ab pain. Stools stable. No f/c. Lungs; decreased, no distress CV: regular AB; soft nt/nd MSE: awake alert Plan: OBS due to hyperkalemia. IVF. Hold magnesium as mag level elevated (not surprising with CKD). PT/OT to help weakness. Suspect bladder colonized with urine-not seeing systemic indications of infection. Recheck BMP and CBC in am. Hospital Course Summary Disclaimer: The visit summary below is not to be considered part of the above Progress Note.
[2016-10-07] MEDS ORDERED: NITROGLYCERIN 0.4 MG SUBLINGUAL TABLET SL PRN ×2 (16:07→16:34)
[2016-10-07] MEDS ORDERED: ONDANSETRON 4 MG/2 ML INJECTION IVP PRN (16:32)
[2016-10-07] MEDS ORDERED: ACETAMINOPHEN 325 MG TABLET PO PRN (16:34)
[2016-10-07] MEDS: NS 1,000 ML IV SCH (17:26)
[2016-10-07] MEDS: MICONAZOLE 2% POWDER 45gm TP SCH ×2 (17:35→21:18)
[2016-10-07] MEDS: INSULIN ASPART 100unit/ml INJECTION SQ SCH (17:36)
[2016-10-07] MEDS ORDERED: AMLODIPINE 5 MG TABLET PO SCH (21:00)
[2016-10-07] MEDS ORDERED: MAGNESIUM OXIDE 400 MG TABLET PO SCH (21:00)
[2016-10-07] MEDS: AMLODIPINE 5 MG TABLET PO SCH (21:17)
[2016-10-07] MEDS ORDERED: INSULIN DETEMIR 100unit/ml INJECTION SQ SCH ×2 (22:00)
[2016-10-08] MEDS: NS 1,000 ML IV SCH ×2 (02:58→13:16)
[2016-10-08] MEDS ORDERED: INSULIN ASPART 100unit/ml INJECTION SQ SCH (08:00)
[2016-10-08] MEDS ORDERED: POLYETHYL GLYCOL 3350 17gm PACKET PO SCH ×2 (09:00)
[2016-10-08] MEDS ORDERED: MULTI-VITAMIN + MINERAL TABLET PO SCH (09:00)
[2016-10-08] MEDS ORDERED: CLOPIDOGREL 75 MG TABLET PO SCH ×2 (09:00)
[2016-10-08] MEDS ORDERED: DOCUSATE SODIUM 100 MG CAPSULE PO SCH ×2 (09:00)
[2016-10-08] MEDS ORDERED: ASPIRIN 81 MG CHEWABLE TABLET PO SCH ×2 (09:00)
[2016-10-08] MEDS: AMLODIPINE 5 MG TABLET PO SCH (09:03)
[2016-10-08] MEDS: MICONAZOLE 2% POWDER 45gm TP SCH ×3 (09:03→16:48)
[2016-10-08] MEDS: INSULIN ASPART 100unit/ml INJECTION SQ SCH ×2 (12:35→17:43)
[2016-10-08 12:44] VITALS: BMI 35.1
--- NOTE | 2016-10-08 15:25 | Wound Care Progress Note ---
Wound Management - Patient Status Premedicated Prior to Dressing Change: No - Wound Left Foot Wound Type: Diabetic Foot Ulcer (Left foot 5th met head) Wound Present on Admission?: Yes Length: 0.5 Width: 0.4 Depth: 0.1 Wound Bed Appearance: Eschar Yue Wound Appearance: Edges Rolled Tunneling: No Undermining: No Drainage Description: Serous Drainage Amount: None Drainage Odor: No Odor Dressing Status: Dry & Intact, Changed Primary Dressing: Mepilex (Spoke with egg caser to have pt call [facility] on Tuesday for an appointment) Dressing Change Date: 10/08/16 Dressing Change Time: 15:24 Dressing Change Patient Tolerance: Tolerated Well
--- NOTE | 2016-10-08 15:26 | Wound Care Progress Note ---
Wound Management - Patient Status Premedicated Prior to Dressing Change: No - Wound Right Ankle Wound Type: Pressure Injury (Right lateral Malleolus) Wound Present on Admission?: Yes Length: 0.8 Width: 0.8 Depth: 0.1 Wound Bed Appearance: Slough, Necrotic Yue Wound Appearance: Bright Red Tunneling: No Undermining: No Drainage Description: Sanguineous Drainage Amount: Small Drainage Odor: No Odor Dressing Status: Changed Primary Dressing: Silver Dressing Secondary Dressing: Foam Dressing Dressing Change Date: 10/08/16 Dressing Change Time: 15:26 Dressing Change Patient Tolerance: Tolerated Well
[2016-10-08 15:31] VITALS: BP 139/73; PULSE 65; RESP 18; TEMP 99; O2SAT 95
[2016-10-08] MEDS ORDERED: NEOMYCIN/POLYMYXIN/BACITRACIN OINT PACKET TP ONE (16:19)
--- NOTE | 2016-10-08 16:21 | Discharge Summary ---
Discharge Information Date of admission: 10/07/16 15:30 Anticipated date of discharge: 10/08/16 Attending Physician: Jun Tse MD Primary care physician: Roel العراقي II, MD Consults: 10/07/16 16:37 Case Management Consult [CONS] Routine Reason For Exam: discharge planning 10/08/16 15:03 [facility] Consult [CONS] Routine - Discharge Diagnosis (1) Hyperkalemia Problem Details: POA Status: Resolved (2) Acute renal failure Qualifiers: Acute renal failure type: unspecified Qualified Code(s): N17.9 - Acute kidney failure, unspecified Problem Details: Dehydration Status: Resolved (3) CKD (chronic kidney disease) stage 4, GFR 15-29 ml/min Problem Details: Stage 3-4 Status: Chronic (4) DM type 2 (diabetes mellitus, type 2) Qualifiers: Diabetes mellitus complication status: with kidney complications Diabetes mellitus complication detail: with chronic kidney disease 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 Chronic kidney disease stage: stage 3 (moderate) Qualified Code(s): E11.22 - Type 2 diabetes mellitus with diabetic chronic kidney disease; N18.3 - Chronic kidney disease, stage 3 ( moderate); Z79.4 - intermediate (current) use of insulin Status: Chronic (5) HTN (hypertension) Qualifiers: Hypertension type: essential hypertension Qualified Code(s): I10 - Essential (primary) hypertension Status: Chronic (6) Weakness generalized Status: Acute (7) PVD (peripheral vascular disease) Status: Chronic (8) Urinary retention Status: Chronic - Laboratory Labs: 10/08/16 04:17 10/08/16 04:17 History of Present Illness HPI: Milan Padilla is a 71 y/o male who presented to [facility] today, 10/07/16, for evaluation of progressive weakness. He has had recurrent hospitalizations over the last 3 months, with similar acute medical conditions. He was admitted at [facility] on 09/13/16 and treated with IV Rocephin for UTI plus was given IV fluids for worsening renal failure (Creatinine was 2.8 on admission). His troponin was mildly elevated, but this was thought to be secondary to chronic renal failure. With IV fluids, bicarbonate infusion and Kayexalate, his hyperkalemia was reversed. By day of discharge to IRU, his creatinine had also improved to 1.9. Urine culture grew out ESBL positive Escherichia coli, but was asymptomatic, and therefore antibiotics were discontinued on 09/15/16. He has had ESBL positive Escherichia coli infections in the past, and this is more likely to be colonization rather than true infection. During his hospitalization, he exhibited cognitive dysfunction, which has been present for several years. Physical and occupational therapy worked with him, and ongoing strengthening was recommended for his weakness and acute myopathy. Therapy staff did not feel he was safe to go back home. After his 3 night stay on the medical unit, he was able to be transferred to IRU in stable medical condition. He was discharged home with his son from IRU on 10/01/16. After returning home, he appeared to be doing well. Ramya Arsenio with [facility] [employer], followed up with him and his son on 10/01 via phone and had a [id number] visit with him in his home on 10/06. During his visit with Ramya yesterday, he explained that he had seen Dr. Walters in the morning and had his Vasquez catheter replaced and felt he was doing well. He also stated that he had continued to exercise periodically on the stationary bike. Blood sugar log was reviewed and found his sugars well controlled. He had been receiving home health and felt it was going well. Unfortunately, today , Mr. Padilla developed increasing pain to the tip of his penis. His son also reports that he was unable to ambulate with assistance back and forth from the bathroom due to increasing weakness. EMS was called and the patient was transported to [facility] for further evaluation. He denies any recent fevers, vomiting, diarrhea, chest pain or shortness of breath. Upon arrival in the ED, Mr. Padilla was noted to be afebrile at 98.0, bradycardic at 56, respiratory rate 15, blood pressure 160/73 and pulse ox 98% on room air. Labs were obtained and revealed WBC 6.6, anemia with hemoglobin at 12.6, platelets 297, sodium 138, hyperkalemia with potassium 6.4, elevated BUN 59 and SCr 2.4. Hyperglycemia with glucose 188. He has a known history of renal insufficiency and diabetes. UA showed TNTC RBC and WBC and 2+ bacteria with culture pending. He was given D50 1 amp, Calcium gluconate 1 amp, 1L NS and 30 ml of kayexalte. Recheck BMP showed improved labs with sodium 138, potassium 5.6, BUN 56 and SCr 2.3. Due to his progressive weakness, hyperkalemia and renal failure, Dr. Tse was consulted and he was admitted into observation status for further evaluation, close cardiac and renal monitoring, IV hydration and electrolyte correction. For complete details of the H&P refer to the medical records. Objective Vital signs: Temperature 99.0 F 10/08/16 15:30 Pulse Rate 65 10/08/16 15:30 Respiratory Rate 18 10/08/16 15:30 Blood Pressure 139/73 10/08/16 15:30 Pulse Oximetry 95 10/08/16 15:30 Oxygen Delivery Method Room Air Height: 1.85 m Weight: 120.656 kg Body Mass Index: 35.1 - Constitutional Present: no acute distress, obese - Routine HEENT Exam Head: Present: normocephalic, atraumatic Eye: Present: EOMI, PERRL ENT: Present: mucous membranes moist - Routine Respiratory Exam Present: distant breath sounds, diminished air movement. Absent: accessory muscle use, respiratory distress, wheezes - Routine Cardiovascular Exam Present: RRR - Routine Abdominal Exam Present: soft, normoactive bowel sounds, non distended, non tender - Routine Exam Comments: Vasquez present. - Routine Extremities Exam Present: edema (Trace ). Absent: cyanosis, clubbing - Routine Musculoskeletal Exam Musculoskeletal: Present: no clubbing or cyanosis - Routine Skin Exam Present: dry, warm - Routine Neurological Exam Present: alert, CN II-XII intact, vision grossly intact, hearing grossly intact. Absent: motor deficit - Routine Psychiatric Exam Present: normal affect. Absent: anxious, agitated Hospital Course This is a general summary of the patient's hospital course. For more details refer to the complete medical record. Hospital course: 10/07/16 -Acute Kidney Injury with history of chronic kidney disease (stage 4). .Admit to observation status under the care of hospitalist service and Dr. Tse. .While in ED, patient received 1L NS. Continue IVF with NS at 100cc/hr. Monitor closely for fluid overload and check daily weights. .Consult case management for discharge planning. .Incentive spironmetry for pulmonary toileting. -Hyperkalemia, acute. .While in the ED, patient received kayexalate, glucogon and bicarb. Potassium improved slightly from 6.6 to 5.6. Continue to monitor closely with repeat labs. .Monitor cardiac function closely on telemetry. .Continue NS at 100cc/hr. -Progressive, generalized weakness, acute on chronic. .Consult PT/OT for evaluation and treatment recommendations. -Diabetes, type II, chronic. .Monitor BGMs closely. Continue home insulin regimen. -Hypertension, chronic. .Continue home Norvasc, ASA, Plavix and metoprolol. Monitor blood pressure closely. .Monitor closely for fluid overload. -Urinary retention with Vasquez placement. .Bladder scan as needed. .Vasquez changed as outpatient by Dr. Walters on 10/06. Consider consultation to Dr. Walters. .UA on admission showed TNTC WBC and RBC with 2+ bacteria. History of ESBL pyuria believed to be secondary to colonzation. Cultures pending. Most likely colonization - no systemic indication of infection. Upon discharge, patient's care will be returned to his PCP, Dr. العراقي. 10/08/16 Doing well this afternoon. Less penile pain. Breathing doing well-not feeling increased SOA or congested. No chest pain. Eating well without nausea. Lab improved: Potassium decreased to 4.8. Creatinine 2.2. WBC normal. No signs of systemic infection. Pt feeling ready for discharge to home with the help of his son. Son agreeable. Will discharge to home in stable condition. Encourage fluid intake. Avoid potassium. Pt to f/u with Dr العراقي on October 18 as scheduled post discharge from IRU. Check BMP and Mg at that time. Magnesium stopped due to hypermagnesemia and CKD. Continue home health care. See orders for details. Time spent with patient: 25 - 35 minutes DVT Prophylaxis: SCD's Discharge Plan - Med Rec/Dispo Referrals/Follow Up: Roel العراقي II, MD [Family Provider] - (October 18 as scheduled previously. Check BMP) Estevan Walters MD [Physician] - (as needed/previously scheduled for urological care.) Prescriptions: Continue Multivit-Min/FA/Lycopen/Lutein [Centrum Silver Tablet] 1 tab PO DAILY #0 Acetaminophen [Tylenol] 325 - 650 mg PO Q5H PRN PRN Reason: Discomfort Metoprolol Tartrate [Lopressor] 100 mg PO BIDWM Insulin Aspart [NovoLOG] 18 unit SQ WB vial Insulin Detemir [Levemir] 35 unit SQ HS vial Milk of Magnesia [Mom] 30 ml PO DAILY PRN PRN Reason: Constipation Miconazole Nitrate [Desenex] 1 applic TP QID Amlodipine [Norvasc] 5 mg PO BID PEG 3350 17gm PACKET [Miralax] 17 gm PO DAILY packet Nitroglycerin [Nitrostat] 0.4 mg SL Q5M PRN #0 PRN Reason: CHEST TIGHTNESS Docusate Sodium 100 mg PO DAILY #0 Clopidogrel [Plavix] 75 mg PO DAILY Insulin Aspart [NovoLOG] 16 unit SQ BIDLS vial Multi-Vitamin + Mineral [Therapeutic - M] 1 tab PO DAILY Aspirin Chewable [ASA] 81 mg PO DAILY Discontinued Magnesium Oxide [Magox 400] 400 mg PO BID Discharge Instructions/Outpatient Orders: Final Provider Discharge Instructions Location: Determined By Patient - Disposition 01 Discharged Home, Self-Care
== END 2016-10-08 17:55 | disposition home health service (06) ==
LOC: MED 10:39 → ED 10:39 → MED 12:19
PROVIDERS: ADMIT Hospitalist; ATTEND Hospitalist

== ENCOUNTER 2017-01-17 19:23 | Inpatient (IN) ==
[2017-01-17] MEDS ORDERED: LIDOCAINE 2% JELLY (Urojet) 20ml MM ONE (19:39)
--- NOTE | 2017-01-17 19:41 | Emergency Department Report ---
Male Urogenital HPI - General Stated complaint: pain with cath- no output Time Seen by Provider: 01/17/17 19:35 Source: patient Mode of arrival: ambulatory Limitations: no limitations - History of Present Illness HPI Narrative: Patient has an indwelling English catheter, and after doctor's visit today he has not had any drainage from the catheter. Catheter was placed greater than 30 days ago. - Related Data Home Medications Medication Instructions Recorded Confirmed Methylcellulose (with Sugar) 1 dose PO BID 10/23/16 01/17/17 [Fiber Therapy Powder] Multivitamin [One Daily 1 tab PO DAILY 10/23/16 01/17/17 Multivitamin] Amlodipine [Norvasc] 2.5 mg PO BID 10/29/16 01/17/17 Insulin Aspart [NovoLOG] 10 - 20 unit SQ TIDWM 10/29/16 01/17/17 Insulin Detemir [Levemir Flextouch] 40 unit SQ HS 01/17/17 01/17/17 Previous Rx's Medication Instructions Recorded Aspirin Chewable [ASA] 81 mg PO DAILY 09/30/16 Clopidogrel [Plavix] 75 mg PO DAILY 09/30/16 Metoprolol Tartrate [Lopressor] 100 mg PO BIDWM 09/30/16 Allergies Allergy/AdvReac Type Severity Reaction Status Date / Time hydrocodone AdvReac Intermediate Verified 01/17/17 20:11 Review of Systems All systems: reviewed and negative except as stated PFSH Patient Stated Medical History Cerebrovascular Accident Yes: 2004 Hearing Loss Yes Heart Murmur Yes: 2015 Hypertension Yes: TAKES MEDS Pulmonary Edema Yes Other Respiratory Yes: sirs 06/2016 Diabetes Mellitus Type 1 Yes Diabetes Mellitus Type 2 Yes Constipation No Hx Benign Prostatic Yes Hyperplasia Hx Incontinence No Hx Renal Disease Yes Hx Urinary Tract Infection Yes Other Yes: 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 Walters. Cholecystectomy. CABG. Knee surgery. Hand and foot. Lumbar disc surgery - Social History Smoking status: Never smoker Substance use type: does not use Alcohol intake frequency: does not drink Physical Exam - Limitations Limitations: no limitations - General General appearance: alert - Normal Exams: Head:: Normocephalic without trauma Eyes:: Pupils are PERRLA w/ EOMI, No scleral icterus, irritation, or foreign bodies noted ENMT:: No facial trauma, nasal exudates, pharyngeal erythema, or exudates are noted Neck:: Full range of motion, without adenopathy, JVD, bruits or thyromegaly Chest/Respirations:: Clear all luong, with good airflow, and symmetry bilaterally Cardiovascular:: Regular rate and rhythm, without murmur or gallop, Pulses 2+ all extremities, capillary refill, <2 seconds all extremities Lymphatic:: No lymphadenopathy, or lymphedema noted Musculoskeletal:: No tenderness, or deformity noted, good range of motion, all extremities Integumentary:: No rashes, hives, or bruising noted, hair and nails, without abnormality Neurological:: Patient is alert, and oriented, cranial nerves, motor/sensory/ cerebellar, exams w/o gross deficits, to observation Psychiatric:: Patient exhibits, appropriate attention, emotion and affect - Abdominal Exam Abdominal exam: Present: soft, distention (distended suprapubic, bladder scanner shows greater than 800 cc in the bladder), tenderness. Absent: guarding , rebound, trauma, incision, psoas sign, obturator sign, Velez's sign, Rovsing' s sign, tenderness at McBurney's Point, mass, bruit, pulsatile mass, hernia Course Vital Signs Temperature 98.7 F 01/17/17 19:23 Pulse Rate 72 01/17/17 19:23 Respiratory Rate 19 01/17/17 19:23 Blood Pressure 187/85 H 01/17/17 19:23 Pulse Oximetry 95 01/17/17 19:23 Temperature 98.4 F 01/17/17 21:57 Pulse Rate 74 01/17/17 21:00 Respiratory Rate 18 01/17/17 21:00 Blood Pressure 213/92 H 01/17/17 21:00 Pulse Oximetry 98 01/17/17 21:00 Urogenital-Male - MDM Narrative Medical decision making narrative: Using [employer], patient had English catheter exchanged and replaced -English replaced , but immediately clotted off from blood. English number to replaced with three- way catheter, and CBI 2 L with persistent significant bleeding from the bladder. Discussed with Dr. Zarco, who would like the patient admitted to the hospitalist, kept nothing by mouth, for OR for cystoscopy with probable ablation in the morning, requested basic lab and CT of the abdomen/pelvis be done through the ER so that he may review them first thing in the morning. Case discussed with Dr. Martinez - Will admit - Lab Data Lab Results 01/17/17 Range/Units 21:02 Ur Collection Type Urine, english chronic Urine Color Brown (YELLOW) Urine Clarity Turbid Urine pH 6.5 (5.0-8.0) Ur Specific [place] 1.020 (1.015-1.025) Urine Protein 3+ A (NEGATIVE) Urine Glucose (UA) 1+ A (NEGATIVE) Urine Ketones Negative (NEGATIVE) Urine Occult Blood 3+ A (NEGATIVE) Urine Nitrate Positive A (NEGATIVE) Urine Bilirubin Negative (NEGATIVE) Urine Urobilinogen 0.2 (NORMAL) EU/DL Ur Leukocyte Esterase Trace A (NEGATIVE) Urine RBC Tntc (0-3) /HPF Urine WBC 1-3 (0-5) /HPF Ur Squamous Epith Cells None seen Urine Bacteria Trace H (NEGATIVE) Ur Culture Indicated? Cult reflexed &setup Disposition Clinical Impression: Hematuria Qualifiers: Hematuria type: gross Qualified Code(s): R31.0 - Gross hematuria Disposition: 02 To [facility] Acute Care Condition: Stable Prescriptions: No Action Metoprolol Tartrate [Lopressor] 100 mg PO BIDWM Methylcellulose (with Sugar) [Fiber Therapy Powder] 1 dose PO BID Multivitamin [One Daily Multivitamin] 1 tab PO DAILY Insulin Aspart [NovoLOG] 10 - 20 unit SQ TIDWM Amlodipine [Norvasc] 2.5 mg PO BID Insulin Detemir [Levemir Flextouch] 40 unit SQ HS Clopidogrel [Plavix] 75 mg PO DAILY Aspirin Chewable [ASA] 81 mg PO DAILY Referrals: Roel العراقي II, MD [Family Provider] - - Seen By: physician
[2017-01-17] MEDS ORDERED: LEVOFLOXACIN 500 MG TABLET PO ONE (21:35)
[2017-01-17] MEDS ORDERED: SALINE FLUSH 10ml SYRINGE IVF PRN (22:12)
[2017-01-17] MEDS ORDERED: MORPHINE SULFATE 4mg INJECTION IVP PRN (23:47)
[2017-01-17] MEDS ORDERED: HYDROCODONE/APAP 7.5 MG/325 MG TABLET PO PRN (23:47)
[2017-01-18 00:08] VITALS: BMI 35.4
[2017-01-18] MEDS: NS 1,000 ML IV SCH ×2 (00:24→10:57)
--- NOTE | 2017-01-18 00:24 | History & Physical Report ---
<Robb Martinez - Last Filed: 01/18/17 00:20> History of Present Illness Date: 01/18/17 Chief complaint: hematuria and pain at end of penis HPI: This is a 71 y/o male with a history of chronic bladder outlet obstruction with chronic indwelling english catheter. The patient has a history of recurrent bladder infections. He is scheduled to see urology for the first time in 2 weeks to evaluate for suprapubic catheter. The patient had onset of hematuria todaywith pain at the end of his penis . He presents to the ED and ultimately a 3 way catheter is placed with CBI initiated. Urology is contacted and r/c admissio and npo and he will be seen in the am for a probable cystoscopy. He is on plavix and asa for previous CAD. Review of Systems Review of systems: no headache, no change in vision, no hearing troubles, no difficulty swallowing , no fever, chills or sweats, no cough, no congestion, no heart palpitations, no chest pain, no pnd, no orthopena, patient with no abdomen pain, gu complaints as noted above, no focal neuro complaints, no edema, no skin changes 12 point ROS otherwise neg x for outlined above. 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 Walters. Cholecystectomy. CABG. Knee surgery. Hand and foot. Lumbar disc surgery - Social History Smoking status: Never smoker Medications Home Medications Medication Instructions Recorded Confirmed Type Methylcellulose (with Sugar) 1 dose PO BID 10/23/16 01/17/17 History [Fiber Therapy Powder] Multivitamin [One Daily 1 tab PO DAILY 10/23/16 01/17/17 History Multivitamin] Amlodipine [Norvasc] 2.5 mg PO BID 10/29/16 01/17/17 History Insulin Aspart [NovoLOG] 10 - 20 unit SQ TIDWM 10/29/16 01/17/17 History Insulin Detemir [Levemir Flextouch] 40 unit SQ HS 01/17/17 01/17/17 History Allergies Allergy/AdvReac Type Severity Reaction Status Date / Time hydrocodone AdvReac Intermediate Verified 01/17/17 20:11 Exam Vital Signs: Temperature 98.4 F 01/17/17 21:57 Pulse Rate 74 01/17/17 21:00 Respiratory Rate 18 01/17/17 21:00 Blood Pressure 213/92 H 01/17/17 21:00 Pulse Oximetry 98 01/17/17 21:00 Height/Weight/BMI: Height 1.85 m Weight 122 kg Body Mass Index 35.4 - Constitutional Present: mild distress, well nourished, obese, cooperative - Routine HEENT Exam Head: Present: normocephalic, atraumatic Eye: Present: PERRL, conjunctivae pink ENT: Present: mucous membranes moist - Routine Neck Exam Present: supple, full ROM - Routine Respiratory Exam Present: CTA bilaterally - Routine Cardiovascular Exam Comments: rrr no obvious s3, severino 2/6 - Routine Abdominal Exam Present: soft, normoactive bowel sounds, non distended, non tender - Routine Rectal Exam Comments: catheter in penis - Routine Back/Spine/Pelvis Exam Back/Spine: Present: full ROM - Routine Skin Exam Present: intact, dry - Routine Neurological Exam Present: alert, oriented X3, CN II-XII intact. Absent: sensory deficit, motor deficit - Routine Psychiatric Exam Present: normal affect Results - Labs CBC & Chem 7: 01/17/17 22:54 01/17/17 22:54 - Imaging and Cardiology CT scan - abdomen Additional comments: official report pending, no obvious hydronephrosis, no stones, stranding fat padd around both kidneys, english in bladder Assessment and Plan (1) Hematuria Current visit: Yes Status: Acute 01/18/17 00:27 patient presents with hematuria. not a usual problem for patient. CT non concerning. (await radiology read). CBI with [address] cath. urology to see in am. npo for possible cystoscopy, hold plavix and aspirin overnight. only way to reverse would be platelets and absolutely not indicated currently. obviously need to exclude tumor or other process in bladder ppt bleeding. patient with mild UTI so could be hemorrhagic cystitis. Followup lab in the am. (2) Cystitis Current visit: Yes Status: Acute 01/18/17 00:29 either colonized or active infection. cover with levaquin per r/c of urology, adjust based on culture results (3) DM type 2 (diabetes mellitus, type 2) Current visit: No Status: Chronic 01/18/17 00:30 correctional plan. (4) Coronary artery disease Current visit: Yes Status: Acute 01/18/17 00:31 patient with previous stents. on cardiac meds currently, continue. patient was scheduled for nuc stress tomorrow. will need to be rescheduled. currently no chest pain, acute cardiac workup not indicated, as far as surgery tomorrow recommend b rashad pre op DVT Prophylaxis: SCD's Resuscitation Status: Full Code Hospital Course Summary Disclaimer: The visit summary below is not to be considered part of the above Progress Note. <Raquel Ramirez - Last Filed: 01/18/17 11:50> History of Present Illness Date: 01/18/17 Exam Vital Signs: Temperature 97.8 F 01/18/17 07:44 Pulse Rate 74 01/18/17 07:44 Respiratory Rate 16 01/18/17 07:44 Blood Pressure 147/77 H 01/18/17 07:44 Pulse Oximetry 95 01/18/17 07:44 Height/Weight/BMI: Height 1.85 m Weight 122 kg Body Mass Index 35.4 Results - Labs CBC & Chem 7: 01/18/17 04:10 01/18/17 04:10 Assessment and Plan (1) Hematuria Current visit: Yes Status: Acute (2) Cystitis Current visit: Yes Status: Acute (3) Coronary artery disease Current visit: Yes Status: Acute Assessment and Plan: Dr. Martinez's note reviewed. Mr. Padilla interviewed and examined. CC: Hematuria HPI: Mr. Padilla is a 71 y/o male with a history of chronic bladder outlet obstruction with chronic indwelling english catheter. The patient has a history of recurrent bladder infections with ESBL Escherichia coli. He is scheduled to see urology for the first time in 2 weeks to evaluate for suprapubic catheter. The patient had onset of hematuria yesterday pain at the end of his penis. He presents to the ED and ultimately a 3 way catheter is placed with CBI initiated. Patient denies fevers, chills, flank/groin pain, or feeling ill. Urology was contacted and requested admission and that patient be npo indicating plans for a probable cystoscopy. He is on plavix and asa for previous CAD. Patient has a long-term English catheter for years for atonic bladder. PH/SH/FH: agree with that recorded above with additions of known coronary artery disease with prior CABG and stent, right TKA, hand surgery was for Dupuytren's contracture release, and foot surgery was for calluses on his heel he believes. Family history notable for mother dying of coronary disease and father dying of leukemia. He had 3 siblings all of whom are although he is unsure of what. PCP is Dr. Kevin العراقي, patient is a full code, and his son Milan Padilla Jr is his alternate decision maker. ROS: 10 point review as reported by Dr. Martinez EXAM: General-NAD, alert, fluent speech HEENT-PERRL, EOMI without nystagmus, conjunctiva clear, sclera anicteric, conjugate gaze, facial structures symmetric, oropharynx clear, neck supple and without adenopathy Lungs-respirations nonlabored, good airflow, breath sounds clear Cardiac-regular rhythm, S1-S2, 2/6 systolic ejection murmur greatest at the upper sternal borders Abd-soft, nontender, obese, diminished bowel sounds Ext-without edema Skin-without rash or evidence of wounds Neuro-cranial nerves 3-12 intact, patient describes recognition of light touch 4 extremities, power grossly intact, no drift of the upper extremities Psych-calm, cooperative DATA: White count on admission 11.3 dropping to 9.0 this morning, hemoglobin 13.8, INR 0.95. Electrolytes unremarkable, BUN/creatinine 40/2.3-baseline. UA +3 protein, +1 ketones, +3 occult blood, positive nitrate, trace leukocyte esterase, TNTC RBC, 1-3 WBC. Urine culture pending. Renal CT reviewed by myself demonstrating bladder wall thickening and bilateral hydroureter/mild hydronephrosis reported by radiology to be improved from prior study in October. Slight perinephric stranding bilaterally. No kidney stones reported. A/P: Hematuria Cystitis versus chronic colonization with ESBL Escherichia coli Diabetes mellitus, A1c 7.0 on 09/18/16 CKD, stage IV, long-term insulin use Diabetic nephropathy Hypertension CAD History CVA Cystoscopy planned earlier this afternoon by Dr. Renae. Continue IV fluids and continuous bladder irrigation. Multiple recent urine cultures reviewed. Patient received one dose of Levaquin last night in the emergency room but urine cultures over the past 4 months consistently resistant to Levaquin and sensitive to ertapenem. Single dose of ertapenem to be given preoperatively. Postoperatively will resume usual antihypertensive regimen and home diabetes regimen when diet resumed. Metoprolol continued overnight for cardiac protection. Old records reviewed. Full code, will return to the care of Dr. العراقي following hospitalization. Hospital Course Summary Disclaimer: The visit summary below is not to be considered part of the above Progress Note. Hospital Course: 01/18/17 Admitted with hematuria and mild penile discomfort. Chronic indwelling English catheter due to atonic bladder. Cystoscopy planned earlier this afternoon by Dr. Renae. Continue IV fluids and continuous bladder irrigation. Multiple recent urine cultures reviewed. Patient received one dose of Levaquin last night in the emergency room but urine cultures over the past 4 months consistently resistant to Levaquin and sensitive to ertapenem. Single dose of ertapenem to be given preoperatively. Postoperatively will resume usual antihypertensive regimen and home diabetes regimen when diet resumed. Metoprolol continued overnight for cardiac protection. Will return to the care of Dr. العراقي following hospitalization.
[2017-01-18] MEDS ORDERED: BELLADONNA-OPIUM 16.2 MG/60 MG SUPPOSITORY PR ONE ×2 (05:04→08:03)
[2017-01-18] MEDS: INSULIN REGULAR, HUMAN 100 UNIT/ML INJECTION SQ PRN ×2 (05:46→10:39)
--- NOTE | 2017-01-18 08:07 | CT Scan Report ---
Indication: persistent hematuria PROCEDURE: CT renal wo con (stone aditya): Encounter: Initial Comparison: October 23, 2016 Technique: Axial CT images were performed through the abdomen and pelvis without intravenous contrast. Coronal and sagittal two-dimensional reformats. Automated Exposure Control and Iterative Reconstruction dose reducing techniques were utilized. Findings: Chronic right pleural effusion with pleural calcifications and lower lobe scarring. The unenhanced contours of the liver are unremarkable. Gallbladder is surgically absent. The spleen, pancreas and adrenal glands are within normal limits. Slight perinephric stranding on both kidneys, similar to the prior study. Persistent left hydronephrosis and hydroureter seen to the level of the bladder without obstructing stone. Thick-walled reconstructed bladder which is decompressed by a Vasquez catheter and contains gas. Moderate right hydroureter as well. Prostate and rectum are unremarkable. No free fluid or free air. No evidence of a bowel obstruction. Bone windows show no acute findings. Impression: Persistent neobladder thickening with bilateral hydroureter and mild hydronephrosis which is overall improved since October 23. There is a preliminary report by [facility]. .
[2017-01-18] MEDS: AMLODIPINE 5 MG TABLET PO SCH ×2 (09:06→20:56)
[2017-01-18] MEDS: LR 1,000 ML IV SCH ×2 (10:56→11:46)
[2017-01-18] MEDS ORDERED: INSULIN ASPART 100unit/ml INJECTION SQ PRN (11:53)
--- NOTE | 2017-01-18 12:27 | Anesthesia Preoperative Report ---
Anesthesia Preoperative Record - Date and Time Date: 01/18/17 Preoperative Diagnosis: hematuria Proposed Procedure: cystoscopy evacuation of blood clots NPO Since Date: 01/17/17 NPO Since Time: 22:00 Allergies/Adverse Reactions: Allergies Allergy/AdvReac Type Severity Reaction Status Date / Time hydrocodone AdvReac Intermediate Verified 01/17/17 20:11 - Vital Signs Vital Signs: Temperature 97.8 F 01/18/17 11:46 Pulse Rate 55 L 01/18/17 11:46 Respiratory Rate 14 01/18/17 11:46 Blood Pressure 138/70 01/18/17 11:46 Pulse Oximetry 96 01/18/17 11:46 Height and Weight: Height 1.85 m Weight 122 kg Body Mass Index 35.4 - Medications Inpatient Medications: Current Medications Hydrocodone Bitart/Acetaminophen ([place] 7.5/325) 1 tab PO Q6H PRN PRN Reason: Pain Amlodipine Besylate (Norvasc) 2.5 mg PO BID [facility] Last Admin: 01/18/17 09:06 Dose: 2.5 mg Sodium Chloride (Normal Saline) 1,000 mls @ 100 mls/hr IV .Q10H [facility] Last Infusion: 01/18/17 10:57 Dose: Infused Lactated Ringer's (Lactated Ringers) 1,000 mls @ 100 mls/hr IV .Q10H [facility] Last Admin: 01/18/17 11:46 Dose: 100 mls/hr Ertapenem 1 g/ Sodium Chloride 100 mls @ 200 mls/hr IV DAILY [facility] Insulin Aspart (Novolog) 0 unit SQ SS PRN; Protocol PRN Reason: Hyperglycemia Metoprolol Tartrate (Lopressor) 100 mg PO BIDWM [facility] Last Admin: 01/18/17 08:57 Dose: 100 mg Morphine Sulfate (Morphine Sulfate Inj) 2 - 4 mg IVP Q2H PRN PRN Reason: Pain Sodium Chloride (Iv Flush) 10 - 80 ml IVF PRN PRN PRN Reason: [place] Home Medications: Home Medications Medication Instructions Recorded Confirmed Type Methylcellulose (with Sugar) 1 dose PO BID 10/23/16 01/17/17 History [Fiber Therapy Powder] Multivitamin [One Daily 1 tab PO DAILY 10/23/16 01/17/17 History Multivitamin] Amlodipine [Norvasc] 2.5 mg PO BID 10/29/16 01/17/17 History Insulin Aspart [NovoLOG] 10 - 20 unit SQ TIDWM 10/29/16 01/17/17 History Insulin Detemir [Levemir Flextouch] 40 unit SQ HS 01/17/17 01/17/17 History Is Patient on Beta Ngozi?: No - Medical History Respiratory: Reports: Sleep Apnea Cardiovascular: Reports: Abnormal EKG, Arrhythmia, Congestive Heart Failure, Coronary Artery Disease, Heart Murmur, Hypertension, Myocardial Infarction, Valvular Heart Disease Renal/Endocrine: Reports: Diabetes Mellitus Type 1, Renal Failure - Surgical History Cardiac Surgeries/Treatments: Reports: Cardiac Catheterization (w/ stent in 2014 ), Coronary Artery Bypass Graft (x3 in 2005) Respiratory Surgery/Treatments: Reports: Chest Surgery (bypass) GI Surgery/Treatments: Reports: Cholecystectomy Musculoskeletal Surgery/Tx: Reports: Orthopedic Surgery (BACK-DISCECTOMY), Total Knee Replacement (RT knee), Other (RT hand per history) - Social History Smoking Status: Never smoker Substance Use Type: does not use Alcohol Intake Frequency: does not drink - Pertinent Findings Laboratory: CBC and BMP 01/18/17 04:10 01/18/17 04:10 BMP 01/18/17 04:10 Sodium 145 H Potassium 4.5 Chloride 111 H Carbon Dioxide 24 BUN 40.0 H Creatinine 2.3 H Glucose 198 H Calcium 9.0 EKG: Sinus Rhythm - Physical Exam Respiratory Exam: Present: lungs clear Cardiovascular Exam: Present: regular rate and rhythm, systolic murmur - Airway Assessment Mallampati Score: II TMD: 3 Fingerbreadths Neck Extension: good Teeth: chipped teeth/crowns Overall Assessment: may be difficult mask vent - ASA ASA Score: 3 - Plan Anesthesia: General TIVA - Discussion Discussion: Discussed risks/options/alternatives of anesthesia and questions answered. Patient consents. Nursing pain assessment noted. Present for Discussion: family member Attestation Statement: Prior to the delivery of any anesthetic medication, I examined the patient, developed the plan, obtained the patient's consent and discussed the risk and benefits of the procedure with the patient/guardian. - Additional Information Seen by Anesthesia: Yes
[2017-01-18] MEDS ORDERED: PROPOFOL 500 MG/50 ML VIAL IV ONE (12:40)
[2017-01-18] MEDS ORDERED: LIDOCAINE 2% JELLY Tube 30ml ONE (12:42)
[2017-01-18] MEDS ORDERED: EPHEDRINE 50mg/ml INJECTION ONE (12:43)
[2017-01-18] MEDS ORDERED: SALINE FLUSH 10ml SYRINGE ONE (12:43)
[2017-01-18] MEDS ORDERED: ROCURONIUM 50 MG/5 ML INJECTION IVP ONE (12:44)
[2017-01-18] MEDS ORDERED: SUGAMMADEX 200mg/2ml INJECTION IVP ONE (12:59)
[2017-01-18] MEDS ORDERED: FentaNYL 100 MCG/2 ML INJECTION ONE (13:08)
[2017-01-18] MEDS ORDERED: PROPOFOL 20 ML ONE (13:13)
[2017-01-18] MEDS: ERTAPENEM 1 G in NS 100 ML IV SCH (13:36)
--- NOTE | 2017-01-18 13:59 | Anesthesia Postoperative Note ---
- Date and Time Date: 01/18/17 Time: 13:59 - Status Patient Participated in Evaluation: Patient Participated in Person Vital Signs: Temperature 97.8 F 01/18/17 11:46 Pulse Rate 55 L 01/18/17 11:46 Respiratory Rate 14 01/18/17 11:46 Blood Pressure 138/70 01/18/17 11:46 Pulse Oximetry 96 01/18/17 11:46 Respiratory Function: Airway Patent Cardiovascular Function: Regular Pulse EKG: Sinus Rhythm Mental Status: Alert and Oriented Pain Intensity: 2 Hydration: IV Infusing Complications During Recover: None Apparent - Follow-Up Instructions Instructions: Per Surgeon
--- NOTE | 2017-01-18 19:15 | Operative Note ---
DATE OF SURGERY 01/18/2017 PREOPERATIVE DIAGNOSES 1. Hematuria with clot retention. 2. Atonic bladder. POSTOPERATIVE DIAGNOSIS 1. Hematuria with clot retention. 2. Atonic bladder. PROCEDURES PERFORMED 1. Cystoscopy with clot evacuation. 2. Fulguration of bladder and prostate. PRIMARY SURGEON Dru Renae MD COMPLICATIONS None. DRAINS 24-Fr 3-way hematuria catheter. FINDINGS Large organized clot in the bladder. Bleeding was coming from the prostatic urethra and trigone of the bladder. No suspicious lesions noted. INDICATIONS FOR PROCEDURE This is a 71-year-old male with history of atonic bladder and chronic urinary retention managed with an indwelling Vasquez catheter. The patient was seen at the urology clinic and was scheduled to undergo suprapubic tube placement because of urethral erosion caused by the chronic Vasquez. However, in the interim he developed hematuria with clot retention. This required admission to the hospital last night and he was started on CBI. His urine remained bloody despite CBI. CT scan was done and showed a large organized clot in the bladder. After discussion of the options he elected to go to the OR for clot evacuation and fulguration. DESCRIPTION OF PROCEDURE The patient was identified in the preoperative holding area. The procedure was explained to him and he agreed to proceed. He was taken back to the operating room where he was placed supine on the operating table. General anesthesia was induced. He was then placed in dorsal lithotomy position. His genitalia were prepped and draped in the usual fashion. His old catheter was removed. At this time a formal timeout was done - all persons in the room were in agreement. We started the procedure by introducing a resectoscope inside the bladder. The patient had some bleeding coming from his prostatic urethra and a small blood clot in his prostate. He had an obstructing prostate with a high bladder neck. In the bladder the patient had a large organized clot. The two UO's were identified and were static in position. The patient had large-size urethral orifices probably secondary to chronic reflux. Using an Tor evacuator, I evacuated the blood clot from the bladder, actually breaking it into several small pieces. Once all the blood clots were removed I introduced my resecting loop and fulgurated the bleeding areas in the prostatic urethra. I then turned my attention to the bladder. In the area of the trigone the patient had some erythema and oozing. This was also fulgurated with a resecting loop. Once adequate hemostasis was achieved I removed the resectoscope and placed a 24-Fr 3 -way hematuria catheter and started CBI. Urine was clear on CBI. The balloon was inflated to 20 cc of water. This concluded the procedure. The patient was awakened from anesthesia. DISPOSITION The patient will be transferred back to his room. He can probably discharge home tomorrow if his urine is clear off CBI. We will plan on placement of suprapubic tube next week if the urine remains clear and if he is still off Plavix. Also, will double-check with his chili maker that he is cleared for the procedure. ALEYDA
[2017-01-18] MEDS: PSYLLIUM PACKET PO SCH (20:56)
[2017-01-18] MEDS ORDERED: INSULIN DETEMIR 100unit/ml INJECTION SQ SCH (21:00)
[2017-01-18] MEDS: INSULIN ASPART 100unit/ml INJECTION SQ SCH (22:55)
[2017-01-19] MEDS: LR 1,000 ML IV SCH ×2 (02:59→08:36)
[2017-01-19 07:54] VITALS: PULSE 57
[2017-01-19] MEDS: AMLODIPINE 5 MG TABLET PO SCH (09:11)
[2017-01-19] MEDS: INSULIN ASPART 100unit/ml INJECTION SQ SCH ×2 (09:11→12:53)
[2017-01-19] MEDS: ERTAPENEM 1 G in NS 100 ML IV SCH (09:12)
[2017-01-19] MEDS: PSYLLIUM PACKET PO SCH (09:12)
--- NOTE | 2017-01-19 10:40 | Discharge Summary ---
<ArsenioRamya venegas Lucrecia - Last Filed: 01/19/17 13:02> Discharge Information Date of admission: 01/17/17 23:35 Anticipated date of discharge: 01/19/17 Attending Physician: Raquel Ramirez MD Primary care physician: Roel العراقي II, MD Consults: Dr. Dru Renae - Discharge Diagnosis (1) Hematuria Status: Acute (2) Cystitis Status: Acute - Procedures Procedures: 01/18/17 1. Cystoscopy with clot evacuation. 2. Fulguration of bladder and prostate. - Laboratory Labs: 01/19/17 03:59 01/19/17 03:59 - Radiology Radiology: 01/17/[address] Findings: Chronic right pleural effusion with pleural calcifications and lower lobe scarring. The unenhanced contours of the liver are unremarkable. Gallbladder is surgically absent. The spleen, pancreas and adrenal glands are within normal limits. Slight perinephric stranding on both kidneys, similar to the prior study. Persistent left hydronephrosis and hydroureter seen to the level of the bladder without obstructing stone. Thick-walled reconstructed bladder which is decompressed by a Vasquez catheter and contains gas. Moderate right hydroureter as well. Prostate and rectum are unremarkable. No free fluid or free air. No evidence of a bowel obstruction. Bone windows show no acute findings. Impression: Persistent neobladder thickening with bilateral hydroureter and mild hydronephrosis which is overall improved since October 23. 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 The patient has a history of recurrent bladder infections. He is scheduled to see urology for the first time in 2 weeks to evaluate for suprapubic catheter. The patient had onset of hematuria today with pain at the end of his penis. He presents to the ED and ultimately a 3 way catheter is placed with CBI initiated. Dr. Renae was contacted and recommended admission and npo and probable cystoscopy. He is on Plavix and ASA for previous CAD. He received 1 dose of Levaquin in the ED which was dc'd on admit because of of consistently resistant organisms on recent urine cultures. Objective Vital signs: Temperature 97.7 F 01/19/17 07:53 Pulse Rate 57 L 01/19/17 07:53 Respiratory Rate 16 01/19/17 07:53 Blood Pressure 151/71 H 01/19/17 07:53 Pulse Oximetry 95 01/19/17 07:53 Height/Weight/BMI: Height 1.85 m Weight 122 kg Body Mass Index 35.4 - Constitutional Present: no acute distress, well nourished, well developed - Routine HEENT Exam ENT: Present: mucous membranes moist - Routine Respiratory Exam Present: CTA bilaterally - Routine Cardiovascular Exam Present: RRR, S1, S2, murmur (harsh 4/6 systolic murmur) - Routine Abdominal Exam Present: soft, normoactive bowel sounds, non tender - Routine Exam Comments: Vasquez to DD - Routine Skin Exam Present: intact, dry, warm - Routine Neurological Exam Present: alert, oriented X3 - Routine Psychiatric Exam Present: normal affect, normal thought process Hospital Course This is a general summary of the patient's hospital course. For more details refer to the complete medical record. 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 CBI was initiated. He underwent cystoscopy with fulguration of bladder and prostate by Dr. Renae on 01/18/17. After 1 dose of Levaquin he received preop ertapenem due to long- standing hx of Levaquin-resistant organisms. Hs hematuria significantly improved postop and he remained medically stable. CBI was discontinued in the morning of discharge without any evidence of further hematuria. BG remained under good control. Hgb was 11.6 on discharge & chemistries were stable. He will have a suprapubic catheter placed next week, so Plavix will be held (ASA continued). He will also need clearance from cardiology (Dr. Gray) before surgery. Recommend F/U with Dr. العراقي before suprapubic catheter placement - check BMP and CBC on 01/24/17. Discharge Plan - Med Rec/Dispo Referrals/Follow Up: Kevin Gray MD [Physician] - 3 Days Dru Renae MD [Physician] - 1 Week Roel العراقي II, MD [Family Provider] - 3 Days Drake [place] [facility] [place] TURBT and TURP Additional Instructions: HOLD PLAVIX due to upcoming surgery. Ask Dr. Renae about when to stop ASPIRIN and when to restart Plavix and Aspirin. Have CBC and BMP rechecked on 01/24/17 to f/u on hgb levels (D64.9) and renal function preop (N18). Prescriptions: Continue Metoprolol Tartrate [Lopressor] 100 mg PO BIDWM Methylcellulose (with Sugar) [Fiber Therapy Powder] 1 dose PO BID Multivitamin [One Daily Multivitamin] 1 tab PO DAILY Insulin Aspart [NovoLOG] 10 - 20 unit SQ TIDWM Amlodipine [Norvasc] 2.5 mg PO BID Insulin Detemir [Levemir Flextouch] 40 unit SQ HS Aspirin Chewable [ASA] 81 mg PO DAILY Discontinued Clopidogrel [Plavix] 75 mg PO DAILY Discharge Instructions/Outpatient Orders: BMP - Basic Metabolic [place] [facility] [place] Determined By Patient CBC w Auto [id number]-[id number] Time Frame: 5 Days, Location: Determined By Patient - Disposition 01 Discharged Home, Self-Care <Raquel Ramirez - Last Filed: 01/19/17 16:07> Discharge Information - Discharge Diagnosis (1) Hematuria Status: Acute (2) Cystitis Status: Acute - Laboratory Labs: 01/19/17 03:59 01/19/17 03:59 Objective Vital signs: Temperature 97.3 F 01/19/17 12:00 Pulse Rate 57 L 01/19/17 12:00 Respiratory Rate 18 01/19/17 12:00 Blood Pressure 149/74 H 01/19/17 12:00 Pulse Oximetry 99 01/19/17 12:00 Height/Weight/BMI: Height 1.85 m Weight 122 kg Body Mass Index 35.4 Hospital Course This is a general summary of the patient's hospital course. For more details refer to the complete medical record. Hospital course: I have independently evaluated and examined this patient. I reviewed the chart, the patient's history, and the [employer]/PA's documented findings as above. We discussed and formulated the assessment and plan as above with additions as below: Mr. Padilla was doing well today indicating no abdominal discomfort or dyspnea. He reports that his appetite is good. Bladder irrigation was discontinued and urine remained clear several hours later. Case was reviewed with Dr. Renae who requested that patient remain off Plavix and see him next week for suprapubic Vasquez placement. He is otherwise stable for discharge at this time. On examination the patient is alert, in no distress, respirations are nonlabored and abdomen is benign. Creatinine is stable, minor drop in hemoglobin. Follow-up plans as noted above. Time spent with patient: discharge greater than 30 minutes
[2017-01-19 12:01] VITALS: BP 149/74; RESP 18; TEMP 97.3; O2SAT 99
== END 2017-01-19 13:43 | disposition home or self-care (01) | DRG 663 ==
LOC: ED 19:23 → SRG 23:35
PROVIDERS: ADMIT Emergency Medicine; ATTEND Internal Medicine

== ENCOUNTER 2017-06-30 11:30 | Observation (INO) ==
[2017-06-30] MEDS ORDERED: SALINE FLUSH 10ml SYRINGE IVF PRN (12:07)
--- NOTE | 2017-06-30 12:09 | Emergency Department Report ---
General Adult HPI - General Chief complaint: Syncope Stated complaint: syncope Time Seen by Provider: 06/30/17 12:07 Source: patient, family, EMS Mode of arrival: EMS Limitations: no limitations - History of Present Illness HPI narrative: 72-year-old male presents to the emergency department with a chief complaint of a syncopal episode while on the toilet attempting to have a bowel movement. Patient states that he was straining when the incident occurred. He did not suffer any injury or trauma and remained on the toilet during the episode. The episode was fleeting. Denies any pain or discomfort. He has no complaints upon arrival to the emergency department. He was noted to be hypotensive by EMS upon their arrival. Incident occurred at home. Symptoms have been improving since onset. - Related Data Home Medications Medication Instructions Recorded Confirmed Multivitamin [One Daily 1 tab PO DAILY 10/23/16 06/30/17 Multivitamin] Amlodipine [Norvasc] 5 mg PO DAILY 10/29/16 06/30/17 Insulin Aspart [NovoLOG] 5 - 15 unit SQ TIDWM 10/29/16 06/30/17 Insulin Detemir [Levemir Flextouch] 40 unit SQ HS 01/17/17 06/30/17 Allopurinol [Zyloprim] 100 mg PO DAILY 01/26/17 06/30/17 Clopidogrel Bisulfate [Clopidogrel] 75 mg PO DAILY 06/30/17 06/30/17 Docusate Sodium [Stool Softener] 200 mg PO DAILY 06/30/17 06/30/17 Magnesium Hydroxide [Milk of 30 ml PO DAILY PRN 06/30/17 06/30/17 Magnesia] Metoprolol Tartrate [Lopressor] 25 mg PO BID 06/30/17 06/30/17 Rosuvastatin Calcium [Rosuvastatin 40 mg PO HS 06/30/17 06/30/17 Calcium] Previous Rx's Medication Instructions Recorded Aspirin Chewable [ASA] 81 mg PO DAILY 09/30/16 Allergies Allergy/AdvReac Type Severity Reaction Status Date / Time hydrocodone AdvReac Intermediate Verified 06/30/17 11:37 Review of Systems Constitutional: Denies: fever, chills Eyes: Denies: eye pain, vision change ENT: Denies: ear pain, throat pain Cardiovascular: Denies: chest pain, palpitations Respiratory: Denies: cough, dyspnea Gastrointestinal: Denies: abdominal pain, nausea, vomiting, diarrhea Genitourinary: Denies: urgency, dysuria Musculoskeletal: Denies: back pain, arthralgia Integumentary: Denies: erythema, rash Neurological: Denies: headache, numbness, paresthesias Psychiatric: Denies: anxiety, depression Endocrine: Denies: polydipsia, polyuria Hematological/Lymphatic: Denies: easy bruising, lymphadenopathy Allergic/Immunologic: Denies: facial swelling, urticaria PFSH Patient Stated Medical History Cerebrovascular Accident Yes: loss memory Hearing Loss Yes Cardiac Arrhythmia Yes Congestive Heart Failure Yes Coronary Artery Disease Yes Heart Murmur Yes Hypertension Yes Myocardial Infarction Yes: s/p CABG x 3 Valvular Heart Disease Yes Pulmonary Edema Yes Sleep Apnea No Other Respiratory Yes: sirs 06/2016 Diabetes Mellitus Type 1 Yes Diabetes Mellitus Type 2 Yes Constipation No Hx Benign Prostatic Yes Hyperplasia Hx Incontinence No Hx Renal Disease Yes Hx Urinary Tract Infection Yes Other Yes: 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; chronic english use Anemia Yes: NO LONGER A PROBLEM Osteoarthritis Yes: knees ankles hands Other Musculoskeletal Yes: 2017 neck stenosis; gout Cellulitis Yes: rt leg Sepsis Yes: sirs 06/2016 Other Behavioral Health Yes Surgical History: Cystoscopy and SP tube placement; cystogram - Dr. Walters. Cholecystectomy. CABG. Knee surgery. Hand and foot. Lumbar disc surgery Family History: Reviewed and Noncontributory. - Social History Smoking status: Never smoker second hand exposure: No Substance use type: does not use Alcohol intake: never Alcohol intake frequency: does not drink Housing: house Household members: family Current occupational status: retired Current occupational exposures/hazards: Yes Does patient use chewing tobacco?: No Current residence: Apartment/Private Home Physical Exam - Limitations Limitations: no limitations - General General appearance: alert, in no apparent distress - Normal Exams: Head:: Normocephalic without trauma Eyes:: Pupils are PERRLA w/ EOMI, No scleral icterus, irritation, or foreign bodies noted ENMT:: No facial trauma, nasal exudates, pharyngeal erythema, or exudates are noted Dental: No fractured, loose, or missing teeth noted Neck:: Full range of motion, without adenopathy, JVD, bruits or thyromegaly Chest/Respirations:: Clear all luong, with good airflow, and symmetry bilaterally Cardiovascular:: Regular rate and rhythm, without murmur or gallop, Pulses 2+ all extremities, capillary refill, <2 seconds all extremities Abdomen:: Bowel sounds positive, soft, non-tender, non-distended, no hepatosplenomegaly, masses or bruits noted Lymphatic:: No lymphadenopathy, or lymphedema noted Musculoskeletal:: No tenderness, or deformity noted, good range of motion, all extremities Integumentary:: No rashes, hives, or bruising noted, hair and nails, without abnormality Neurological:: Patient is alert, and oriented, cranial nerves, motor/sensory/ cerebellar, exams w/o gross deficits, to observation Psychiatric:: Patient exhibits, appropriate attention, emotion and affect Course Vital Signs Temperature 97.9 F 06/30/17 11:37 Pulse Rate 81 06/30/17 11:37 Respiratory Rate 19 06/30/17 11:37 Blood Pressure 125/75 06/30/17 11:37 Pulse Oximetry 96 06/30/17 11:37 Temperature 98.2 F 07/01/17 07:00 Pulse Rate 81 07/01/17 07:00 Respiratory Rate 18 07/01/17 07:00 Blood Pressure 144/75 H 07/01/17 07:00 Pulse Oximetry 95 07/01/17 07:00 Medical Decision Making - MDM Narrative Medical decision making narrative: Labs / imaging were discussed in detail with the patient and questions are answered. Patient is discussed with his cost accountant Dr. Jamin Gray who is in the emergency department, his EKG is unchanged from prior. The patient has significant comorbidities including severe aortic stenosis and cardiovascular disease. Dr. Gray recommendation is to keep the patient for observation overnight. Patient is given gentle IV hydration. He is admitted to the service of the hospitalist Dr. Welch in improved condition for further evaluation and treatment. Patient and family are in agreement with the current plan of management. No further orders from accepting or consulting physicians who were in agreement with the current plan of management. There was a delay in obtaining the patient's laboratory results due to the patient being a difficult stick as well as a malfunction with laboratory equipment. - Differential Diagnosis syncope, dehydration, UTI, metabolic process - Lab Data Result diagrams: 07/01/17 04:19 07/01/17 04:19 Lab Results 06/30/17 06/30/17 Range/Units 13:26 13:26 WBC 16.3 H (4.5-11.0) T/MM3 RBC 5.92 H (4.50-5.90) M/MM3 Hgb 16.5 (13.5-17.5) GM/DL Hct 50.6 (41-53) % MCV 85.5 (80-100) UM3 MCH 27.9 (26-34) UUG MCHC 32.6 (31-37) GM/DL RDW Std Deviation 48.8 (36.9-50.2) FL Plt Count 202 (130-400) T/MM3 MPV 11.3 (9.4-12.4) UM3 Immature Gran % (Auto) Not performed Neut % (Auto) Not performed Lymph % (Auto) Not performed Murray % (Auto) Not performed Eos % (Auto) Not performed Baso % (Auto) Not performed Neut # (Auto) Not performed Lymph # (Auto) Not performed Murray # (Auto) Not performed Eos # (Auto) Not performed Baso # (Auto) Not performed Abs Immat Gran (auto) Not performed Neutrophils % (Manual) 82.0 H (33-66) % Band Neutrophils % 2.0 (0-6) % Lymphocytes % (Manual) 7.0 L (23-45) % Monocytes % (Manual) 8.0 (0-9.0) % Basophils % (Manual) 1.0 (0-2) % Neutrophils # (Manual) 13.4 H (1.8-7.7) T/MM3 Band Neutrophils # 0.3 T/MM3 Lymphocytes # (Manual) 1.1 (1-4.8) T/MM3 Monocytes # (Manual) 1.3 H (0-0.8) T/MM3 Basophils # (Manual) 0.2 (0-0.2) T/MM3 RBC Morph Comment Normal Turbidity (0-20) Sodium 142 (134-144) MEQ/L Potassium 5.4 H (3.6-5) MEQ/L Chloride 104 (98-107) MEQ/L Carbon Dioxide 25 (22-30) MEQ/L Anion Gap 13 (5-15) MEQ/L BUN 42.0 H (9-20) MG/DL Creatinine 2.5 H (0.8-1.5) mg/dL GFR Calculation 26 BUN/Creatinine Ratio 17 (6-26) RATIO Glucose 296 H (75-110) MG/DL Calculated Osmolality 295 H (261-280) MOSM/KG Calcium 9.4 (8.4-10.2) MG/DL Total Bilirubin 0.40 (0.20-1.30) MG/DL Icterus Index (0-7) AST 20 (17-59) U/L ALT 18 (1-50) U/L Alkaline Phosphatase 139 H (38-126) U/L Troponin I 0.031 (0-0.12) ng/ml Total Protein 7.8 (6.3-8.2) g/dL Albumin 3.9 (3.5-5.0) g/dL Globulin 3.9 H (2.4-3.6) G/DL Albumin/Globulin Ratio 1.0 L (1.1-2.2) RATIO Specimen Hemolysis (0-25) - Radiology Data CXR - No acute processes. - EKG Data EKG #1 EKG results narrative: Sinus rhythm. 81 bpm. No STEMI. Unchanged from 06/23/16. Disposition Clinical Impression: Vasovagal syncope Disposition: 02 To [facility] [place] Acute Care Condition: Stable Time of Disposition: 14:45 (admit. dr. brown) - Seen By: physician
--- NOTE | 2017-06-30 12:40 | XRay Report ---
Indication: syncope PROCEDURE: XR chest 1V: Encounter: Initial Comparison: October 23, 2016 Findings: The lungs are stable in appearance without new focal airspace consolidation. There is no pleural effusion or pneumothorax. The heart size, pulmonary vascularity and mediastinal contours are unchanged. Prior sternotomy. IMPRESSION: Stable appearance of the chest without acute cardiopulmonary disease. .
--- NOTE | 2017-06-30 17:13 | Cardiology Consult Note ---
History of Present Illness Consult reason: known to you, aortic stenosis History of present illness: Mr. Padilla is a complex 72-year-old male well-known to me he was brought in emergency room today by his son after calling 911 for a near syncopal episode. Evaluation in ER showed elevated BUN and creatinine and white count .Due to his complex cardiovascular and general medical disease was decided to admit him. Milan has known coronary artery disease, ischemic cardiomyopathy congestive heart failure previous CABG and significant aortic valve stenosis previously poorly healing chronic diabetic ulcer. His cardiac disease has been managed conservatively being a poor operative candidate with chronic active infection. Fairly recently underwent a PUMP TECHNICIAN and stent of the right lower extremity by Dr. Mike Candelaria which helped healing his diabetic ankle ulcer according to son. Milan was trying to have a bowel movements and tolerated today he had a near syncopal episode he has no recollection of the episode. His son found him poorly responsive and was unable to get him off the toilet so decided to call 911. Said he had to get disimpacted rectally multiple times in the past. He's been doing very well recently without any chest pain dyspnea lower extremity edema palpitations no syncope today but he had lost consciousness in the past with similar episodes. They tend to happen while sitting on the toilet after straining. He typically goes 3-4 days without having bowel movements and they tend to be hard. He is a taking a stool softener 2 tablets every morning. His appetite has been very good lately . Denies fever chills or night sweats and symptoms no nausea vomiting or diarrhea. He has an indwelling suprapubic catheter placed last year for atonic neurogenic bladder. Patient has a poor functional capacity due to sequela of an old stroke. He has a severe weakness in the right leg gets tired from standing. He can walk up to 1 -200 feet using his walker according the son who is his also his caregiver. Last time he did that was over a week ago going to doctors appointment from the parking lot to the office. I Have requested office records regarding his previous cardiac testing and they' re pending at this time. He has had an abnormal stress nuclear scan the past 12 months without angina or change in clinical status and an echocardiogram that showed significant .In discussion with the patient and his son, his cardiac disease has been treated medically due to multiple comorbidities ,especially elevated creatinine ,chronic infection and poor functional status putting him at increased risk of acute renal failure and other complications. His symptoms had remained stable cardiac-le without any angina or change in his chronic CHF. This past November he did have an elevated troponin treated as a non-STEMI/type II AK in setting of urosepsis and respiratory and multiorgan failure and was critically ill for quite some time at [facility], and has done well on medical therapy for my cardiac standpoint, and subsequently pulled out his critical illness at that time.That was the reason for his subsequent stress nuclear scan. Patient denies any exertional dizziness and lightheadedness or exertional syncope. Review of Systems All systems PM: 10-point ROS was reviewed, no additional remarkable complaints except PFSH Patient Stated Medical History Cerebrovascular Accident Yes: loss memory Cardiac Arrhythmia Yes Congestive Heart Failure Yes Coronary Artery Disease Yes Heart Murmur Yes Hypertension Yes Myocardial Infarction Yes: s/p CABG x 3 Valvular Heart Disease Yes Pulmonary Edema Yes Other Respiratory Yes: sirs 06/2016 Diabetes Mellitus Type 1 Yes Diabetes Mellitus Type 2 Yes Hx Benign Prostatic Yes Hyperplasia Hx Renal Disease Yes Hx Urinary Tract Infection Yes Other Yes: 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; chronic english use Anemia Yes: NO LONGER A PROBLEM Osteoarthritis Yes: knees ankles hands Other Musculoskeletal Yes: 2017 neck stenosis; gout Cellulitis Yes: rt leg Sepsis Yes: sirs 06/2016 Other Behavioral Health Yes AK Pulmonary edema Surgical History: Cystoscopy and SP tube placement; cystogram - Dr. Walters. Cholecystectomy. CABG. Coronary stent in setting of acute inferior AK [address] [facility]. Knee surgery. Hand and foot. Lumbar disc surgery Family History: reviewed - Social History Smoking status: Never smoker second hand exposure: No Substance use type: does not use Alcohol intake: never Alcohol intake frequency: does not drink Housing: house Household members: family Current occupational status: retired Current occupational exposures/hazards: Yes Does patient use chewing tobacco?: No Current residence: Apartment/Private Home (lives with son) Medications Home Medications Medication Instructions Recorded Confirmed Type Aspirin Chewable [ASA] 81 mg PO DAILY 09/30/16 06/30/17 Rx Multivitamin [One Daily 1 tab PO DAILY 10/23/16 06/30/17 History Multivitamin] Amlodipine [Norvasc] 5 mg PO DAILY 10/29/16 06/30/17 History Insulin Aspart [NovoLOG] 5 - 15 unit SQ TIDWM 10/29/16 06/30/17 History Insulin Detemir [Levemir Flextouch] 40 unit SQ HS 01/17/17 06/30/17 History Allopurinol [Zyloprim] 100 mg PO DAILY 01/26/17 06/30/17 History Clopidogrel Bisulfate [Clopidogrel] 75 mg PO DAILY 06/30/17 06/30/17 History Docusate Sodium [Stool Softener] 200 mg PO DAILY 06/30/17 06/30/17 History Metoprolol Tartrate [Lopressor] 25 mg PO BID 06/30/17 06/30/17 History Rosuvastatin Calcium 40 mg PO HS 06/30/17 06/30/17 History Lactulose Oral Liq [Lactulose] 20 gm PO BID PRN #300 solution 07/01/17 Rx PEG 3350 17gm PACKET [Miralax] 17 gm PO DAILY #1 bottle 07/01/17 Rx Sennosides [Senna Lax] 17.2 mg PO HS tab 07/01/17 Rx Allergies Allergy/AdvReac Type Severity Reaction Status Date / Time hydrocodone AdvReac Intermediate Verified 06/30/17 11:37 Exam Vital signs: Temperature 97.8 F 06/30/17 16:25 Pulse Rate 84 06/30/17 16:25 Respiratory Rate 16 06/30/17 16:25 Blood Pressure 152/80 H 06/30/17 16:25 Pulse Oximetry 95 06/30/17 16:25 - Constitutional no acute distress, well developed, obese, other (a chronically ill) - Routine HEENT Exam Head: Present: normocephalic, atraumatic Eye: Present: EOMI, PERRL. Absent: nystagmus ENT: Present: mucous membranes moist Nose: moist mucous membranes - Routine Neck Exam Present: supple, normal carotid upstroke. Absent: JVD, carotid bruit, lymphadenopathy, thyromegaly - Routine Respiratory Exam Present: CTA bilaterally - Routine Cardiovascular Exam Present: RRR, murmur (3/6 murmur with audible A2). Absent: bradycardia, tachycardia, JVD - Routine Abdominal Exam Present: soft, non distended, non tender. Absent: normoactive bowel sounds ( decreased but audible) - Routine Extremities Exam Present: no edema, extremity cold to touch (right foot relatively cool to touch compared to the left capillary refill is sluggish and relatively pale no acute signs of ischemia). Absent: cyanosis, clubbing, pulses intact (decreased pedal pulses bilaterally right worse than left), normal capillary refill - Routine Skin Exam Present: dry, pallor, lesions (slight superficial ulcer over the right ankle). Absent: cyanosis, erythema - Routine Neurological Exam Present: alert, oriented X3, CN II-XII intact, motor deficit (right lower extremity very weak minimal movement against gravity. 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 Old inferior AK LVH with a repolarization abnormality and no acute ST depression or elevation) Assessment and Plan - Assessment and Plan Recurrent Syncope/presyncope likely vasovagal associated with constipation and straining, no exertional dizziness or syncope to incriminate his aortic stenosis. Significant aortic stenosis Coronary artery disease status post CABG and status post old AK and coronary stent Congestive heart failure diastolic and systolic chronic compensated Chronic kidney disease PAD status post recent PUMP TECHNICIAN of the right lower extremity Old stroke significant sequela/residual poor functional capacity Diabetes mellitus type 2 Overall I think it is reasonable to admit the patient for 23 hour observation to rule out arrhythmia ,rule out AK , monitor signs and repeat labs. Increase or add a stool softener/stimulant as his constipation appears to be a neurogenic problem in association with neurogenic bladder . moderate increase of his water and fiber intake, adequately treat his constipation may help him avoid straining that may prevent syncope. plan on seeing the patient office for follow-up . please contact me should arrhythmia or cardiac concerns arise this admission. Would resume his usual cardiac meds I discussed with Dr. Raiza Welch hospitalist. Thank you for consultation Hospital Course Summary Disclaimer: The visit summary below is not to be considered part of the above Progress Note.
--- NOTE | 2017-06-30 17:30 | History & Physical Report ---
History of Present Illness Date: 06/30/17 Chief complaint: Pre-syncopal episode while straining on toilet. Constipation. HPI: Patient is a 72-year-old male who presents to the emergency room by EMS due to a presyncopal episode that occurred while on the toilet at home while he was straining with a bowel movement. His son gives most of the history and reports patient has had this happen in the past. Patient does have a history of aortic valve stenosis and sees Dr. Gray for this. Son thinks this was truly just a vasovagal episode and is not concerned about that, but wanted him to come in to get his constipation taking care of. He's gone about 10 days without a bowel movement. It is not uncommon for him to go 4-5 days without a bowel movement. His son gave him some MiraLAX last night. He's had some smearing in his shorts this morning and on admission, but no actual bowel movement. He starting have some discomfort in his abdomen, but no nausea or vomiting. He complains of pain in the rectal area because he feels like he needs to have a bowel movement. His son has been treating a "sore" near the rectum, but this appears to be healing. Son reports overall patient has been doing well up until this episode. Patient lives with his son. Son reports that he does have to help him with dressing and makes food for him. He is able to get around the house with a walker. Son has to wipe him after bowel movements. Reminds him to take his medicines and checks his blood sugars. Reports he had significant weakness in the right leg today which is worse than it ever has been in the past. No change in cognition. Son reports he typically doesn't know what time or what day it is without checking his phone. Patient does not wander off and is always oriented to self and family. He has a suprapubic catheter due to a "distended bladder" per son. He had recurrent UTI with Vasquez catheter, thus, suprapubic catheter has been placed. Son reports he thinks it has pulled out some b/c the tube is much longer than it normally is. Review of Systems All systems PM: 10-point ROS was reviewed, no additional remarkable complaints except (abdominal fullness, constipation, rectal pain) Past Medical History Medical History History of CVA CHF Aortic stenosis Coronary artery disease Hypertension Diabetes type 2 Diabetic nephropathy BPH Cervical stenosis Gout Chronic kidney disease (stage IV) Surgical History: SP tube placement - January 2017. Cholecystectomy. CABG. Coronary stent in setting of acute inferior [place] [facility]. Knee surgery. Hand and foot. Lumbar disc surgery Family History: Father- of leukemia Mother- of coronary artery disease Family History Updates: updated - Social History Smoking status: Never smoker Substance use type: does not use Alcohol intake frequency: does not drink Household members: children (son and son's nephew) Current occupational status: retired Does patient use chewing tobacco?: No Current residence: Apartment/Private Home (lives with son) Social history: PCP-Dr. 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 Gray Surgical Specialist-Dr. Healy Medications Home Medications Medication Instructions Recorded Confirmed Type Aspirin Chewable [ASA] 81 mg PO DAILY 09/30/16 06/30/17 Rx Multivitamin [One Daily 1 tab PO DAILY 10/23/16 06/30/17 History Multivitamin] Amlodipine [Norvasc] 5 mg PO DAILY 10/29/16 06/30/17 History Insulin Aspart [NovoLOG] 5 - 15 unit SQ TIDWM 10/29/16 06/30/17 History Insulin Detemir [Levemir Flextouch] 40 unit SQ HS 01/17/17 06/30/17 History Allopurinol [Zyloprim] 100 mg PO DAILY 01/26/17 06/30/17 History Clopidogrel Bisulfate [Clopidogrel] 75 mg PO DAILY 06/30/17 06/30/17 History Docusate Sodium [Stool Softener] 200 mg PO DAILY 06/30/17 06/30/17 History Magnesium Hydroxide [Milk of 30 ml PO DAILY PRN 06/30/17 06/30/17 History Magnesia] Metoprolol Tartrate [Lopressor] 25 mg PO BID 06/30/17 06/30/17 History Rosuvastatin Calcium [Rosuvastatin 40 mg PO HS 06/30/17 06/30/17 History Calcium] Allergies Allergy/AdvReac Type Severity Reaction Status Date / Time hydrocodone AdvReac Intermediate Verified 06/30/17 11:37 Exam Vital Signs: Temperature 97.8 F 06/30/17 16:25 Pulse Rate 84 03/22/18 16:25 Respiratory Rate 16 06/30/17 16:25 Blood Pressure 152/80 H 06/30/17 16:25 Pulse Oximetry 95 06/30/17 16:25 Height/Weight/BMI: Height 1.85 m Weight 117.9 kg Body Mass Index 34.2 - Constitutional Present: no acute distress, well nourished, well developed, obese - Routine HEENT Exam Head: Present: normocephalic, atraumatic Eye: Present: EOMI, PERRL ENT: Present: mucous membranes moist, oropharynx clear - Routine Neck Exam Present: supple. Absent: lymphadenopathy, thyromegaly - Routine Respiratory Exam Present: CTA bilaterally. Absent: wheezes - Routine Cardiovascular Exam Present: RRR, murmur (3/6) - Routine Abdominal Exam Present: normoactive bowel sounds, non tender, firm. Absent: rebound, guarding , mass Comments: SP catheter - Routine Extremities Exam Present: no edema, pallor, extremity cold to touch Comments: scaling/calloused skin on feet - Routine Skin Exam Present: dry - Routine Neurological Exam Present: alert, moving all extremities, normal speech. Absent: altered mental status RLE weakness. R recycler slightly decreased compared to L - Routine Psychiatric Exam Present: normal affect, cooperative Results - Labs CBC & Chem 7: 06/30/17 13:26 06/30/17 13:26 Labs: Laboratory Tests 06/30/17 13:26 AST 20 ALT 18 Alkaline Phosphatase 139 H Troponin I 0.031 - Imaging and Cardiology Chest x-ray Additional comments: Date of Exam: 06/30/17 Indication: syncope PROCEDURE: XR chest 1V: Findings: The lungs are stable in appearance without new focal airspace consolidation. There is no pleural effusion or pneumothorax. The heart size, pulmonary vascularity and mediastinal contours are unchanged. Prior sternotomy. IMPRESSION: Stable appearance of the chest without acute cardiopulmonary disease. Assessment and Plan (1) Vasovagal syncope Current visit: Yes Status: Acute Assessment and Plan: Assessment Presyncope- vasovagal Constipation Hyperkalemia - POA Leukocytosis - POA Chronic/Associated Conditions History of CVA CHF PAD - s/p stent RLE (Dr. Candelaria) Aortic stenosis Coronary artery disease Hypertension Diabetes type 2 Diabetic nephropathy BPH Cervical stenosis Gout Chronic kidney disease (stage IV) Plan Admit, OBS KUB shows no obstruction. Start lactulose, give enema, senna and Miralax. Repeat BMP in am. Cardiology consult - Dr. Gray recommends Telemetry and serial troponins. Spoke with Dr. Bowles who okayed changing out his SP tube. Check UA. Accuchecks AC & HS. Continue home meds. SCD's for DVT PPx. Code status: DNR Care to return to Dr. العراقي on DC. Case discussed with Dr. Jarvis. DVT Prophylaxis: SCD's Resuscitation Status: Do Not Resuscitate - Physician Narrative Narrative: Date: 06/30/17 Time: 1718 I have independently evaluated and examined this patient. I reviewed the chart, the patient's history, and the SENIOR BUSINESS BROKER/PA's documented findings as above. We discussed and formulated the assessment and plan as above with additions as below. The patient reports his last colonoscopy was in [address] Faith. At that time he had polyps. The son is not sure when he needs a repeat colonoscopy, but will follow up. Discussed with Dr. Rosales, Will observe overnight and check serial troponins as well monitor on telemetry. We'll try to come up with a outpatient bowel regimen to treat his constipation which seems to be the trigger for what sounds like a vasovagal response. In general, the patient is alert and oriented 3, cooperative with exam, and in no respiratory distress. HEENT: Head is atraumatic, normocephalic, no conjunctival petechiae, no oral thrush, mucous membranes are moist and pink. Lungs: Clear to auscultation without wheezes, crackles or rhonchi CV: Regular rate and rhythm 3/6 murmur Abdomen: Soft, nontender, bowel sounds are present, there is no guarding no rebound. Suprapubic catheter is present was recently changed. Extremities: No clubbing, no cyanosis, no edema. Multiple excoriations from trauma Skin: Warm and dry, no sign of rash Neuro: Patient is alert, is noted to have right-sided weakness right leg more than right arm Hospital Course Summary Disclaimer: The visit summary below is not to be considered part of the above Progress Note. Hospital Course: 06/30/17 Admit, OBS KUB shows no obstruction. Start lactulose, give enema, senna and Miralax. Repeat BMP in am. Cardiology consult - Dr. Gray recommends Telemetry and serial troponins. Spoke with Dr. Bowles who okayed changing out his SP tube. Check UA. Accuchecks AC & HS. Continue home meds. SCD's for DVT PPx. Code status: DNR Care to return to Dr. العراقي on DC. Case discussed with Dr. Jarvis.
[2017-06-30] MEDS ORDERED: ACETAMINOPHEN 325 MG TABLET PO PRN (18:36)
[2017-06-30] MEDS: LACTULOSE 20 GM/30 ML ORAL LIQUID PO SCH (20:40)
[2017-06-30] MEDS ORDERED: ROSUVASTATIN 20 MG PO SCH (21:00)
[2017-06-30] MEDS ORDERED: SENNOSIDES 8.6 MG TABLET PO SCH (21:00)
[2017-07-01 05:10] VITALS: RESP 18
[2017-07-01 07:39] VITALS: O2SAT 95
[2017-07-01] MEDS ORDERED: METOPROLOL TARTRATE 25mg TAB - PT OWN PO SCH (08:00)
[2017-07-01] MEDS: LACTULOSE 20 GM/30 ML ORAL LIQUID PO SCH (08:26)
[2017-07-01] MEDS: INSULIN ASPART 100 UNIT/ML SQ SCH ×2 (08:33→12:28)
--- NOTE | 2017-07-01 08:47 | XRay Report ---
Indication: CONSTIPATION PROCEDURE: XR KUB: Encounter: Initial Comparison: Renal CT dated January 17, 2017 Findings: The visualized lung bases are clear. There is no free air on the upright view. The bowel gas pattern is nonobstructive and nonspecific. Gas is seen in nondilated small and large bowel to the level of the rectum. Minimal stool is seen in the colon. Cholecystectomy clips. Multiple overlying leads. Impression: Nonobstructive nonspecific bowel gas pattern. Minimal colonic stool burden. .
[2017-07-01] MEDS ORDERED: AMLODIPINE 5 MG TAB - PT OWN PO SCH (09:00)
[2017-07-01] MEDS ORDERED: CLOPIDOGREL 75 MG PO SCH (09:00)
[2017-07-01] MEDS ORDERED: MULTI VITAMIN PLAIN PO SCH (09:00)
[2017-07-01] MEDS ORDERED: ALLOPURINOL 100 MG PO SCH (09:00)
[2017-07-01] MEDS ORDERED: ASPIRIN 81 MG PO SCH (09:00)
[2017-07-01] MEDS ORDERED: DOCUSATE SODIUM 100 MG CAP - PT OWN PO SCH (09:00)
[2017-07-01] MEDS ORDERED: POLYETHYL GLYCOL 3350 17gm PACKET PO SCH (09:00)
--- NOTE | 2017-07-01 15:07 | Wound Care Progress Note ---
Wound Center Progress Note: Pt seen for wound consultation r/t intergluteal buttock wound. Pt lying in bed, rates buttock pain 5/10. Reports his bottom has been hurting for about a week. Intergluteal cleft: fissure associated with moisture, denudation, no drainage on brief. Periwound: blanchable, dark purple. Wound dressings: barrier cream daily and PRN. Off load with regular repositioning.
--- NOTE | 2017-07-01 15:14 | Progress Note ---
- Date 07/01/17 Subjective: F/U: Presyncope- vasovagal, constipation Doing okay today. Bowel function greatly increased-passing multiple stools. Nursing reports starting to move hard/solid stool. Denies ab pain or nausea. Breathing well. No chest pressure or pain. Not feeling dizzy/unsteady with positional changes. Feels strength at baseline. Objective Vital signs: Temperature 98.2 F 07/01/17 07:00 Pulse Rate 81 07/01/17 07:00 Respiratory Rate 18 07/01/17 07:00 Blood Pressure 144/75 H 07/01/17 07:00 Pulse Oximetry 95 07/01/17 07:00 Height/Weight/BMI: Height 1.85 m Weight 120.1 kg Body Mass Index 34.2 - Constitutional Present: well nourished, well developed, obese, cooperative - Routine HEENT Exam Head: Present: normocephalic, atraumatic Eye: Present: EOMI, PERRL ENT: Present: mucous membranes moist - Routine Respiratory Exam Present: CTA bilaterally. Absent: rales, respiratory distress, rhonchi, wheezes , crackles - Routine Cardiovascular Exam Present: RRR, murmur - Routine Abdominal Exam Present: soft, normoactive bowel sounds, non distended, non tender. Absent: guarding - Routine Extremities Exam Present: no edema, pulses intact. Absent: cyanosis, clubbing - Routine Musculoskeletal Exam Musculoskeletal: Present: no clubbing or cyanosis - Routine Neurological Exam Present: alert, CN II-XII intact, moving all extremities, vision grossly intact , hearing grossly intact, normal speech. Absent: motor deficit, altered mental status - Routine Psychiatric Exam Present: normal affect, normal thought process, cooperative Results - Labs CBC & Chem 7: 07/01/17 04:19 07/01/17 04:19 Microbiology Results: Microbiology 06/30/17 18:11 Urine, Suprapubic Urine Culture - Preliminary Assessment and Plan (1) Vasovagal syncope Current visit: Yes Status: Acute Assessment and Plan: Assessment Presyncope- vasovagal Constipation Hyperkalemia - POA Leukocytosis - POA Chronic/Associated Conditions History of CVA CHF PAD - S/P stent RLE (Dr. Candelaria) Aortic stenosis Coronary artery disease Hypertension Diabetes type 2 Diabetic nephropathy BPH Cervical stenosis Gout Chronic kidney disease (stage IV) Plan No further syncopal events. Bowel function improving. Breathing stable. Troponin without elevation. No cardiopulmonary symptoms. Will discharge to home. Continue with routine Miralax daily with Senna at night. Lactulose if not having sufficient stool after [address] Gray would like patient to f/u in clinic in 1 month secondary to his . F/U with العراقي in 1 week. See orders for details. Case discussed with CM and Dr Gray. Time spent with patient care and discharge greater than 30 minutes. DVT Prophylaxis: SCD's Resuscitation Status: Do Not Resuscitate - Physician Narrative Physician: Jun Tse MD Narrative: Date: 07/01/17 Time: 1511 Hospital Course Summary Disclaimer: The visit summary below is not to be considered part of the above Progress Note. Hospital Course: 06/30/17 Admit, OBS KUB shows no obstruction. Start lactulose, give enema, senna and Miralax. Repeat BMP in am. Cardiology consult - Dr. Gray recommends Telemetry and serial troponins. Spoke with Dr. Bowles who okayed changing out his SP tube. Check UA. Accuchecks AC & HS. Continue home meds. SCD's for DVT PPx. Code status: DNR Care to return to Dr. العراقي on DC. 07/01/17 No further syncopal events. Bowel function improving. Breathing stable. Troponin without elevation. No cardiopulmonary symptoms. Will discharge to home. Continue with routine Miralax daily with Senna at night. Lactulose if not having sufficient stool after [address] Gray would like patient to f/u in clinic in 1 month secondary to his . F/U with العراقي in 1 week. See orders for details.
--- NOTE | 2017-07-01 15:42 | Discharge Summary ---
Discharge Information Date of admission: 06/30/17 15:37 Anticipated date of discharge: 07/01/17 Attending Physician: Jun Tse MD Primary care physician: Roel العراقي II, MD Consults: [facility] Consult Reason for consultation: BUTTOCK SORE, HEALING RIGHT ANKLE ULCER. Physician Consult: Kevin Gray Reason For Exam: syncope - Discharge Diagnosis (1) Vasovagal syncope Status: Acute Discharge diagnosis Presyncope- vasovagal Associated conditions and complications Constipation Hyperkalemia - POA Leukocytosis - POA History of CVA CHF PAD - S/P stent RLE (Dr. Candelaria) Aortic stenosis Coronary artery disease Hypertension Diabetes type 2 Diabetic nephropathy BPH Cervical stenosis Gout Chronic kidney disease (stage IV) Obesity with BMI 34.9 - Laboratory Labs: Admit Lab 06/30/17 13:26 WBC 16.3 H Hgb 16.5 Hct 50.6 MCV 85.5 Plt Count 202 Neutrophils % (Manual) 82.0 H Band Neutrophils % 2.0 Lymphocytes % (Manual) 7.0 L Monocytes % (Manual) 8.0 Basophils % (Manual) 1.0 Admit Lab 06/30/17 13:26 Sodium 142 Potassium 5.4 H Chloride 104 Carbon Dioxide 25 Anion Gap 13 BUN 42.0 H Creatinine 2.5 H GFR Calculation 26 BUN/Creatinine Ratio 17 Glucose 296 H Calculated Osmolality 295 H Calcium 9.4 Total Bilirubin 0.40 AST 20 ALT 18 Alkaline Phosphatase 139 H Troponin I 0.031 Total Protein 7.8 Albumin 3.9 Globulin 3.9 H Albumin/Globulin Ratio 1.0 L Admit UA Tests 06/30/17 18:11 Ur Collection Type Urine, suprapubic Urine Color Yellow Urine Clarity Cloudy Urine pH 6.0 Ur Specific [place] 1.025 Urine Protein 3+ A Urine Glucose (UA) 3+ A Urine Ketones Negative Urine Occult Blood 3+ A Urine Nitrate Negative Urine Bilirubin Negative Urine Urobilinogen 0.2 Ur Leukocyte Esterase 1+ A Urine RBC 30-50 H Urine WBC 20-30 H Amorphous Sediment Few Urine Bacteria 2+ H 07/01/17 04:19 07/01/17 04:19 - Microbiology Microbiology 06/30/17 18:11 Urine, Suprapubic Urine Culture - Preliminary - Radiology Radiology: Date of Exam: 06/30/17 Type of Exam: XR chest 1V Findings: The lungs are stable in appearance without new focal airspace consolidation. There is no pleural effusion or pneumothorax. The heart size, pulmonary vascularity and mediastinal contours are unchanged. Prior sternotomy. IMPRESSION: Stable appearance of the chest without acute cardiopulmonary disease. ------ Date of Exam: 06/30/17 Type of Exam: XR KUB Findings: The visualized lung bases are clear. There is no free air on the upright view. The bowel gas pattern is nonobstructive and nonspecific. Gas is seen in nondilated small and large bowel to the level of the rectum. Minimal stool is seen in the colon. Cholecystectomy clips. Multiple overlying leads. Impression: Nonobstructive nonspecific bowel gas pattern. Minimal colonic stool burden. History of Present Illness HPI: Patient is a 72-year-old male who presents to the emergency room by EMS due to a presyncopal episode that occurred while on the toilet at home while he was straining with a bowel movement. His son gives most of the history and reports patient has had this happen in the past. Patient does have a history of aortic valve stenosis and sees Dr. Gray for this. Son thinks this was truly just a vasovagal episode and is not concerned about that, but wanted him to come in to get his constipation taking care of. He's gone about 10 days without a bowel movement. It is not uncommon for him to go 4-5 days without a bowel movement. His son gave him some MiraLAX last night. He's had some smearing in his shorts this morning and on admission, but no actual bowel movement. He starting have some discomfort in his abdomen, but no nausea or vomiting. He complains of pain in the rectal area because he feels like he needs to have a bowel movement. His son has been treating a "sore" near the rectum, but this appears to be healing. Son reports overall patient has been doing well up until this episode. Patient lives with his son. Son reports that he does have to help him with dressing and makes food for him. He is able to get around the house with a walker. Son has to wipe him after bowel movements. Reminds him to take his medicines and checks his blood sugars. Reports he had significant weakness in the right leg today which is worse than it ever has been in the past. No change in cognition. Son reports he typically doesn't know what time or what day it is without checking his phone. Patient does not wander off and is always oriented to self and family. He has a suprapubic catheter due to a "distended bladder" per son. He had recurrent UTI with Vasquez catheter, thus, suprapubic catheter has been placed. Son reports he thinks it has pulled out some b/c the tube is much longer than it normally is. For complete details of the H&P refer to that document. Objective Vital signs: Temperature 98.2 F 07/01/17 07:00 Pulse Rate 81 07/01/17 07:00 Respiratory Rate 18 07/01/17 07:00 Blood Pressure 144/75 H 07/01/17 07:00 Pulse Oximetry 95 07/01/17 07:00 Height/Weight/BMI: Height 1.85 m Weight 120.1 kg Body Mass Index 34.2 Hospital Course This is a general summary of the patient's hospital course. For more details refer to the complete medical record. Hospital course: 06/30/17 Admit, OBS KUB shows no obstruction. Start lactulose, give enema, senna and Miralax. Repeat BMP in am. Cardiology consult - Dr. Gray recommends Telemetry and serial troponins. Spoke with Dr. Bowles who okayed changing out his SP tube. Check UA. Accuchecks AC & HS. Continue home meds. SCD's for DVT PPx. Code status: DNR Care to return to Dr. العراقي on DC. 07/01/17 No further syncopal events. Bowel function improving. Breathing stable. Troponin without elevation. No cardiopulmonary symptoms. Will discharge to home. Continue with routine Miralax daily with Senna at night. Lactulose if not having sufficient stool after 3 days. Will have patient stop Milk of Magnesia (MOM) secondary to his stage 4 CKD to decrease risk of hypermagnesemia. Dr Gray would like patient to f/u in clinic in 1 month secondary to his . F/U with Dulce Maria in 1 week. See orders for details. Time spent with patient: discharge greater than 30 minutes Resuscitation Status: Do Not Resuscitate Discharge Plan - Discharge Disposition Discharge Date: 07/01/17 Disposition: 01 Discharged Home, Self-Care *Condition: Stable Reason For Visit (Visit label in EMR): syncope - Discharge Medications *Discharge Medications: New PEG 3350 17gm PACKET [Miralax] 17 gm PO DAILY #1 bottle Sennosides [Senna Lax] 17.2 mg PO HS tab Lactulose Oral Liq [Lactulose] 20 gm PO BID PRN #300 solution PRN Reason: Constipation Continue Multivitamin [One Daily Multivitamin] 1 tab PO DAILY Insulin Aspart [NovoLOG] 5 - 15 unit SQ TIDWM Amlodipine [Norvasc] 5 mg PO DAILY Insulin Detemir [Levemir Flextouch] 40 unit SQ HS Allopurinol [Zyloprim] 100 mg PO DAILY Metoprolol Tartrate [Lopressor] 25 mg PO BID Clopidogrel Bisulfate [Clopidogrel] 75 mg PO DAILY Docusate Sodium [Stool Softener] 200 mg PO DAILY Aspirin Chewable [ASA] 81 mg PO DAILY Rosuvastatin Calcium 40 mg PO HS Discontinued Magnesium Hydroxide [Milk of Magnesia] 30 ml PO DAILY PRN PRN Reason: Constipation - Discharge Packet/Instructions *Diet: 2000 KCAL ADA low sodium *Activity: As tolerated *Pain Management/Treatment: Continue prior home pain medications *Wound Care: Intergluteal buttock wound: Use barrier cream daily and PRN. Off load with regular repositioning. Additional Instructions: Milk of Magnesia (MOM) should be stopped secondary to your kidney status. *Expected Signs/Symptoms: Inprovement of bowel funciton. *Notify Physician if: Temp >100.4. Chest pain/heaviness. Difficulty with bowel function. *During Business Hours Contact: Dr العراقي *After Business Hours Contact: Call [facility] and have your car provider contacted. *Pending Lab/Results: Follow up w/your PCP (Urine culture pending at time of discharge.) - Referrals/Follow Up *Referrals/Follow Up: Kevin Gray MD [Physician] - 1 Month (Hospital follow up for . ) Roel العراقي II, MD [Family Provider] - 1 Week (Hospital follow up for syncope and constipation. ) - Patient Handouts Patient Handouts: Syncope (GEN) - Dismissal Complete Discharge Instructions are:: Complete Physician Narrative - Narrative Physician: Jun Tse MD Attestation Narrative: Date: 07/01/17 Time: 1533 I have independently interviewed and examined patient prior to discharge. See my progress noted from today for details. Medically stable for discharge to home.
[2017-07-01 15:52] VITALS: BP 151/70; PULSE 90; TEMP 99.1
[2017-07-01 15:58] VITALS: BMI 34.9
== END 2017-07-01 18:35 | disposition home health service (06) ==
LOC: ED 11:30 → MED 11:30 → SUATTDRO 15:37 → MED 16:14
PROVIDERS: ADMIT Internal Medicine Infectious Disease; ATTEND Hospitalist

== ENCOUNTER 2017-10-27 08:33 | Inpatient (IN) ==
[2017-10-27] MEDS ORDERED: CEFTRIAXONE (ER USE ONLY) 1 GM in NS 100 ML IV ONE (08:39)
[2017-10-27] MEDS ORDERED: NS 1,000 ML IV ONE (08:39)
--- NOTE | 2017-10-27 08:44 | Emergency Department Report ---
Fever HPI - General Chief Complaint: Fever Stated Complaint: DECREASE LOC, UNCONTROLLABLE SHAKING, FEVER Time Seen by Provider: 10/27/17 08:39 - History of Present Illness HPI Narrative: 72-year-old male presents with fever, chills, confusion. He is brought in by EMS. Patient has history of urinary retention, spinal stenosis, poorly managed diabetes type 2 and renal insufficiency. He is currently receiving daptomycin every other day through the infusion services for an infected toe. He recently developed cellulitis on the left arm at the site of the PICC line insertion. He developed a fever this morning of 100.8 at home, EMS also verified that temperature when they picked him up. IV fluids were started and he received 300 cc during transport. He has been nauseated, began vomiting on arrival to the ED. He is reported to have had confusion at home with decreased level of consciousness. - Related Data Home Medications Medication Instructions Recorded Confirmed Multivitamin [One Daily 1 tab PO DAILY 10/23/16 10/27/17 Multivitamin] Amlodipine [Norvasc] 5 mg PO DAILY 10/29/16 10/27/17 Insulin Aspart [NovoLOG] 10 unit SQ TIDWM 10/29/16 10/27/17 Insulin Detemir [Levemir Flextouch] 40 unit SQ HS 01/17/17 10/27/17 Allopurinol [Zyloprim] 100 mg PO DAILY 01/26/17 10/27/17 Clopidogrel Bisulfate [Clopidogrel] 75 mg PO DAILY 06/30/17 10/27/17 Docusate Sodium [Stool Softener] 200 mg PO DAILY 06/30/17 10/27/17 Metoprolol Tartrate [Lopressor] 25 mg PO BID 06/30/17 10/27/17 Chlorthalidone 12.5 - 25 mg PO DAILY 10/09/17 10/27/17 Cholecalciferol (Vitamin D3) 1,000 unit PO DAILY 10/27/17 10/27/17 [Vitamin D3] Cyanocobalamin (Vitamin B-12) 1,500 mcg PO DAILY 10/27/17 10/27/17 [B-12] Insulin Aspart [Novolog] 20 unit SQ AM 10/27/17 10/27/17 Previous Rx's Medication Instructions Recorded Aspirin Chewable [ASA] 81 mg PO DAILY 09/30/16 Allergies Allergy/AdvReac Type Severity Reaction Status Date / Time hydrocodone AdvReac Intermediate Verified 10/27/17 09:25 Review of Systems All systems: reviewed and negative except as stated PFSH Patient Stated Medical History Cerebrovascular Accident Yes: loss memory Hearing Loss Yes Cardiac Arrhythmia Yes Congestive Heart Failure Yes Coronary Artery Disease Yes Heart Murmur Yes Hypertension Yes Myocardial Infarction Yes: s/p CABG x 3 Valvular Heart Disease Yes Pulmonary Edema Yes Sleep Apnea No Other Respiratory Yes: sirs 06/2016 Diabetes Mellitus Type 1 Yes Diabetes Mellitus Type 2 Yes Constipation No Hx Benign Prostatic Yes Hyperplasia Hx Incontinence No Hx Renal Disease Yes Hx Urinary Tract Infection Yes Other Yes: 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 Walters. Cholecystectomy. CABG. Knee surgery. Hand and foot. Lumbar disc surgery Family History Updates: updated - Social History Smoking status: Never smoker second hand exposure: No Substance use type: does not use Alcohol intake: never Alcohol intake frequency: does not drink Housing: house Household members: family Current occupational status: retired Current occupational exposures/hazards: Yes Does patient use chewing tobacco?: No Current residence: Apartment/Private Home (lives with son) Physical Exam - Limitations Limitations: no limitations - Normal Exams: Head:: Normocephalic without trauma Chest/Respirations:: Clear all luong, with good airflow, and symmetry bilaterally Cardiovascular:: Regular rate and rhythm, without murmur or gallop, Pulses 2+ all extremities, capillary refill, <2 seconds all extremities Abdomen:: Bowel sounds positive, soft, non-tender, non-distended, no hepatosplenomegaly, masses or bruits noted Neurological:: Patient is alert, and oriented, cranial nerves - Skin Skin exam: Present: other (right first toe bandaged with open ulceration. Left forearm has red rash with some necrotic center.) - Neurological Exam Neurological exam: Present: alert, oriented X3, CN II-XII intact. Absent: normal gait Course Vital Signs Temperature 99.9 F 10/27/17 08:31 Pulse Rate 105 H 10/27/17 08:31 Respiratory Rate 22 10/27/17 08:31 Blood Pressure 146/71 H 10/27/17 08:31 Pulse Oximetry 97 07/19/18 08:31 Temperature 99.9 F 10/27/17 08:31 Pulse Rate 101 H 10/27/17 10:30 Respiratory Rate 22 10/27/17 08:31 Blood Pressure 147/75 H 10/27/17 11:00 Pulse Oximetry 93 10/27/17 10:30 Fever - MDM Narrative Medical decision making narrative: Peripheral IV placed with 1 L normal saline bolus. Patient met sepsis criteria based on heart rate, temperature and history of wound with antibiotic treatment. White count greater than 18 with lactate 3.2. Patient does have elevated temperature as well. Initial confusion improved with IV fluids. CT head was obtained and was negative. Lung x-ray is negative. UA is still pending. Patient does have indwelling catheter with likely colonization. Blood cultures and urine cultures ordered, IV Rocephin given 1. Hospitalist consult for sepsis and patient admitted inpatient with continued IV antibiotics. Patient is have chronic renal insufficiency and hospitalist is aware. - Medical Records Attestation: I reviewed the patient's medical records. - Lab Data Attestation: I reviewed the patient's lab results. Result diagrams: 10/27/17 09:07 10/27/17 09:07 Lab Results 10/27/17 10/27/17 Range/Units 09:07 09:07 WBC 18.6 H (4.5-11.0) T/MM3 RBC 5.51 (4.50-5.90) M/MM3 Hgb 15.5 (13.5-17.5) GM/DL Hct 48.7 (41-53) % MCV 88.4 (80-100) UM3 MCH 28.1 (26-34) UUG MCHC 31.8 (31-37) GM/DL RDW Std Deviation 49.4 (36.9-50.2) FL Plt Count 186 (130-400) T/MM3 MPV 11.4 (9.4-12.4) UM3 Immature Gran % (Auto) Not performed Neut % (Auto) Not performed Lymph % (Auto) Not performed [place] % (Auto) Not performed Eos % (Auto) Not performed Baso % (Auto) Not performed Neut # (Auto) Not performed Lymph # (Auto) Not performed [place] # (Auto) Not performed Eos # (Auto) Not performed Baso # (Auto) Not performed Abs Immat Gran (auto) Not performed Neutrophils % (Manual) 77.0 H (33-66) % Band Neutrophils % 7.0 H (0-6) % Lymphocytes % (Manual) 12.0 L (23-45) % Monocytes % (Manual) 4.0 (0-9.0) % Neutrophils # (Manual) 14.3 H (1.8-7.7) T/MM3 Band Neutrophils # 1.3 T/MM3 Lymphocytes # (Manual) 2.2 (1-4.8) T/MM3 Monocytes # (Manual) 0.7 (0-0.8) T/MM3 RBC Morph Comment Normal Turbidity < 20 (0-20) Sodium 144 (136-146) MEQ/L Potassium 4.4 (3.6-5) MEQ/L Chloride 106 (98-107) MEQ/L Carbon Dioxide 25 (22-30) MEQ/L Anion Gap 13 (5-15) meq/L BUN 48.0 H (9-20) MG/DL Creatinine 3.2 H (0.8-1.5) mg/dL GFR Calculation 19 BUN/Creatinine Ratio 15 (6-26) RATIO Glucose 266 H (75-110) MG/DL Calculated Osmolality 299 H (261-280) MOSM/KG Calcium 9.7 (8.4-10.2) MG/DL Total Bilirubin 0.70 (0.20-1.30) MG/DL Icterus Index < 2 (0-7) AST 21 (17-59) U/L ALT 24 (1-50) U/L Alkaline Phosphatase 122 (38-126) U/L C-Reactive Protein 88.4 H D (0-9) mg/L Total Protein 7.8 (6.3-8.2) g/dL Albumin 4.3 (3.5-5.0) g/dL Globulin 3.5 (2.4-3.6) G/DL Albumin/Globulin Ratio 1.2 (1.1-2.2) RATIO Plasma Lactate 3.2 H (0.6-2.2) MMOL/L Specimen Hemolysis < 15 (0-25) - Radiology Data Attestation: I reviewed the patient's radiology results. Disposition Clinical Impression: Sepsis Condition: Stable Prescriptions: No Action Multivitamin [One Daily Multivitamin] 1 tab PO DAILY Insulin Aspart [NovoLOG] 10 unit SQ TIDWM Amlodipine [Norvasc] 5 mg PO DAILY Insulin Detemir [Levemir Flextouch] 40 unit SQ HS Allopurinol [Zyloprim] 100 mg PO DAILY Metoprolol Tartrate [Lopressor] 25 mg PO BID Clopidogrel Bisulfate [Clopidogrel] 75 mg PO DAILY Docusate Sodium [Stool Softener] 200 mg PO DAILY Chlorthalidone 12.5 - 25 mg PO DAILY Insulin Aspart [Novolog] 20 unit SQ AM Cyanocobalamin (Vitamin B-12) [B-12] 1,500 mcg PO DAILY Cholecalciferol (Vitamin D3) [Vitamin D3] 1,000 unit PO DAILY Aspirin Chewable [ASA] 81 mg PO DAILY Referrals: Roel العراقي II, MD [Primary Care Provider] - Time of Disposition: 11:37 - Seen By: physician
--- OUTSIDE RECORDS SUMMARY | 2017-10-27 08:46 | External Medical Summary | Referral Summary ---
:1945 Author Organization [facility] Address [address] [place] [address] Care Team Providers Name Role Phone Roel العراقي II Primary Care Physician Encounter [facility] [id number] Date(s): 03/07/17 - 03/07/17 [facility] [address] [place] [address] Discharge Disposition: 01-Home or Self Care Attending Physician: Mike Candelaria MD Problem List Condition Effective Dates Status Health Status Informant Acute pain(Confirmed) Active Coronary artery disease(Confirmed) Active patient At risk of pressure sore(Confirmed) Active Beta lactam resistant bacterial Active infection(Confirmed)1 Bowel dysfunction(Confirmed)2 Active Chronic kidney disease(Confirmed) Active patient Diabetes mellitus(Confirmed) Active patient Dyslipidemia(Confirmed) Active patient ESBL(Confirmed)3, 4 Active Hypertension(Confirmed) Active patient Impaired mobility(Confirmed)5 07/02/16 Active Impaired skin integrity(Confirmed)6 Active Benign prostatic Active patient hypertrophy(Confirmed) Self -care deficit(Confirmed)7 Active Urinary retention(Confirmed)8 Active 1Urine from NOT FOUND collected 07/11/16 16:11:00 [id number] added automatically by system based on initiation of Bowel Dysfunction Plan of [id number] from NOT FOUND collected 07/21/16 5:03:00 [id number] from NOT FOUND collected 07/11/16 16:11:00 [id number] added by Discern [id number] added automatically by system based on initiation of Impaired Skin Integrity Plan of [id number] added automatically by system based on initiation of Self Care Deficit Plan of [id number] added automatically by system based on initiation of Urinary Retention Plan of Care Allergies, Adverse Reactions, Alerts Substance Reaction Severity Status acetaminophen didn't respond Severe Active HYDROcodone didn't respond Severe Active HYDROcodone Bitartrate1 Active 1didn't respond Medications acetaminophen 325 mg oral tablet 650 mg 2 tabs, Oral, q4hr, as needed for pain, 0 Refill(s) Start Date: 07/21/16 Status: Orderedatorvastatin 20 mg oral tablet 20 mg 1 tabs, Oral, Bedtime (once a day), # 30 tabs, 0 Refill(s) Start Date: 07/02/16 Status: Orderedbisacodyl 10 mg rectal suppository 10 mg 1 supp, Rectal, Daily, Constipation, 0 Refill(s) Start Date: 07/16/16 Status: Ordereddocusate sodium 100 mg oral capsule 100 mg 1 caps, Oral, Daily, # 20 caps, 0 Refill(s) Start Date: 07/02/16 Status: OrderedGlutose 15 oral gel 15 g, Oral, Once, BLOOD SUGAR, 0 Refill(s) Start Date: 07/21/16 Status: OrderedLevemir 100 units/mL subcutaneous solution 35 units, SubCutaneous, Bedtime (once a day), # 10 mL, 0 Refill(s), other reason (Rx) Start Date: 07/26/16 Status: Orderedmagnesium oxide 400 mg (241.3 mg elemental magnesium) oral tablet 400 mg 1 tabs, Oral, BID, 0 Refill(s) Start Date: 07/16/16 Status: OrderedMetamucil [place] Smooth Texture Sugar Free 3.4 g/5.8 g oral powder for reconstitution 3.4 g, Oral, BID, # 300 g, 0 Refill(s) Start Date: 07/02/16 Status: Orderedmiconazole 2% topical powder 1 enrique, Topical, BID, 0 Refill(s) Start Date: 07/16/16 Status: OrderedMilk of Magnesia 30 mL, Oral, Daily, as needed for constipation, 0 Refill(s) Start Date: 07/02/16 Status: Orderednitroglycerin 0.4 mg sublingual tablet 0.4 mg 1 tabs, SubLingual, q5min, as needed for chest pain, # 100 tabs, 0 Refill (s) Start Date: 07/02/16 Status: OrderedNovoLOG 100 units/mL subcutaneous solution 11 units, SubCutaneous, TIDAC, not new medication, only dose change, # 10 mL, 0 Refill(s), other reason (Rx) Start Date: 07/26/16 Status: OrderedoxyCODONE-acetaminophen 5 mg-325 mg oral tablet 2 tabs, Oral, q6hr, as needed for pain, 1-2, 0 Refill(s) Start Date: 07/02/16 Status: Orderedpolyethylene glycol 3350 oral powder for reconstitution 17 g, Oral, Daily, dissolve in water before taking, # 255 g, 0 Refill(s) Start Date: 07/02/16 Status: OrderedThera M 1 tabs, Oral, Daily, 0 Refill(s) Start Date: 07/21/16 Status: OrderedTums 500 mg oral tablet, chewable 500 mg 1 tabs, Oral, q4hr, GERD/Heartburn, 0 Refill(s) Start Date: 07/16/16 Status: OrderedZofran 4 mg oral tablet 4 mg 1 tabs, Oral, q6hr, Nausea, 0 Refill(s) Start Date: 07/16/16 Status: Ordered Procedures Procedure Date Related Diagnosis Body Site Stented coronary artery1 07/02/14 Arthroplasty of knee Arthroscopic knee operation2 CABG - Coronary artery bypass graft Cholecystectomy Foot joint operations3 Hand surgery service 1Stents placed in 2014 Not sure of the exact month and [id number] foot Social History Social History Type Response Smoking Status Never smoker entered on: 01/30/16
--- OUTSIDE RECORDS SUMMARY | 2017-10-27 08:46 | External Medical Summary | Referral Summary ---
:1945 Author Organization [facility] Address [address] [place] [address] Care Team Providers Name Role Phone Roel العراقي II Primary Care Physician Encounter VC Date(s): 03/18/17 - 03/19/17 [facility] [address] [place] [address] [place] [phone] Discharge Disposition: 01-Home or Self Care Attending Physician: Mike Candelaria MD Admitting Physician: Mike Candelaria MD Vital Signs Most recent to oldest [Reference Range]: 1 Temperature Oral [35.8-37.3 degC] 36.4 degC (03/19/17 4:04 PM) Temperature Skin [36-37 degC] 35.9 degC *LOW* (03/18/17 9:00 AM) Temperature Temporal Artery [36.3-37.8 degC] 36.5 degC (03/18/17 1:45 PM) Peripheral Pulse Rate [60-100 bpm] 66 bpm (03/19/17 4:04 PM) Heart Rate Monitored [60-100 bpm] 66 bpm (03/18/17 3:45 PM) Respiratory Rate [14-20 br/min] 18 br/min (03/19/17 4:04 PM) Blood Pressure [90-140/60-90 mmHg] 164/83 mmHg *HI* (03/19/17 4:04 PM) Mean Arterial Pressure, Cuff 91 mmHg (03/19/17 4:29 AM) SpO2 95 % (03/19/17 4:04 PM) Problem List Condition Effective Dates Status Health Status Informant Acute pain(Confirmed) Resolved Coronary artery disease(Confirmed) Active patient At risk of pressure sore(Confirmed) Resolved Beta lactam resistant bacterial Active infection(Confirmed)1 Bowel dysfunction(Confirmed)2 Active Chronic kidney disease(Confirmed) Active patient Diabetes mellitus(Confirmed) Active patient Dyslipidemia(Confirmed) Active patient ESBL(Confirmed)3, 4 Active Hypertension(Confirmed) Active patient Impaired mobility(Confirmed)5 07/02/16 Resolved Impaired skin integrity(Confirmed)6 Resolved Benign prostatic Active patient hypertrophy(Confirmed) Self -care deficit(Confirmed)7 Resolved Tissue perfusion Resolved alteration(Confirmed)8 Urinary retention(Confirmed)9 Resolved 1Urine from NOT FOUND collected 07/11/16 16:11:00 [id number] added automatically by system based on initiation of Bowel Dysfunction Plan of [id number] from NOT FOUND collected 07/21/16 5:03:00 [id number] from NOT FOUND collected 07/11/16 16:11:00 [id number] added by Discern [id number] added automatically by system based on initiation of Impaired Skin Integrity Plan of Wayi0Hshtrul added automatically by system based on initiation of Self Care Deficit Plan of [id number] added automatically by system based on initiation of Tissue Perfusion Cerebral Plan of [id number] added automatically by system based on initiation of Urinary Retention Plan of Care Allergies, Adverse Reactions, Alerts Substance Reaction Severity Status acetaminophen didn't respond Severe Active HYDROcodone didn't respond Severe Active HYDROcodone Bitartrate1 Active 1didn't respond Medications allopurinol 100 mg oral tablet 100 mg 1 tabs, Oral, Daily, 0 Refill(s) Start Date: 03/18/17 Status: OrderedamLODIPine 5 mg oral tablet 5 mg 1 tabs, Oral, Daily, 0 Refill(s) Start Date: 03/18/17 Status: Orderedbisacodyl 10 mg rectal suppository 10 mg 1 supp, Rectal, Daily, Constipation, 0 Refill(s) Start Date: 07/16/16 Status: Ordereddocusate sodium 100 mg oral capsule 200 mg 2 caps, Oral, Daily, # 20 caps, 0 Refill(s) Start Date: 07/02/16 Status: OrderedLevemir 100 units/mL subcutaneous solution 40 units, SubCutaneous, Bedtime (once a day), 0 Refill(s) Start Date: 03/18/17 Status: OrderedMetamucil [place] Smooth Texture Sugar Free 3.4 g/5.8 g oral powder for reconstitution 3.4 g, Oral, BID, # 300 g, 0 Refill(s) Start Date: 07/02/16 Status: OrderedMetoprolol Tartrate 25 mg, Oral, BID, 0 Refill(s) Start Date: 03/18/17 Status: Orderedmiconazole 2% topical powder 1 enrique, Topical, BID, 0 Refill(s) Start Date: 07/16/16 Status: OrderedNovoLOG 100 units/mL subcutaneous solution 11 units, SubCutaneous, TIDAC, not new medication, only dose change, # 10 mL, 0 Refill(s), other reason (Rx) Start Date: 07/26/16 Status: OrderedPlavix 75 mg oral tablet 75 mg 1 tabs, Oral, Daily, 0 Refill(s) Start Date: 03/18/17 Status: Orderedrosuvastatin 40 mg oral tablet 40 mg 1 tabs, Oral, Bedtime (once a day), 0 Refill(s) Start Date: 03/18/17 Status: OrderedThera M 1 tabs, Oral, Daily, 0 Refill(s) Start Date: 07/21/16 Status: Ordered Results Hematology Most recent to oldest [Reference Range]: 1 WBC [4.8-10.8 10*3/uL] 6.3 10*3/uL (03/19/17 7:06 AM) RBC [4.60-6.20] 4.44 *LOW* (03/19/17 7:06 AM) Hgb [14.0-18.0 gm/dL] 12.5 gm/dL *LOW* (03/19/17 7:06 AM) Hct [42.0-52.0 %] 38.2 % *LOW* (03/19/17 7:06 AM) MCV [82.0-99.0 fL] 86.0 fL (03/19/17 7:06 AM) MCH [27.0-32.0 pg] 28.2 pg (03/19/17 7:06 AM) MCHC [32.0-36.0 gm/dL] 32.7 gm/dL (03/19/17 7:06 AM) RDW [11.5-14.5 %] 15.9 % *HI* (03/19/17 7:06 AM) Platelet [150-400 10*3/uL] 182 10*3/uL (03/19/17 7:06 AM) MPV [9.4-12.3 fL] 10.5 fL (03/19/17:06 AM) Immature Granulocytes [0.0-1.0 %] 0.2 % (03/19/17 7:06 AM) Neutrophils [51-75 %] 73 % (03/19/17 7:06 AM) Lymphocytes [20-46 %] 13 % *LOW* (03/19/17 AM) Monocytes [4-11 %] 8 % (03/19/17 7:06 AM) Eosinophils [0-4 %] 6 % *HI* (03/19/17 AM) Basophils [0-2 %] 0 % (03/19/17: AM) Neutro Absolute [1.90-7.00] 4.61 (03/19/17:06 AM) Lymph Absolute [0.80-3.30] 0.79 *LOW* (03/19/17: AM) [place] Absolute [0.30-1.00] 0.53 (03/19/17 7:06 AM) Eos Absolute [0.00-0.50] 0.36 (03/19/17 7:06 AM) Baso Absolute [0.00-0.20] 0.02 (03/19/17: AM) Nucleated RBC Automated [0 /100 WBC] 0.0 /100 WBC (03/19/17:06 AM) Chemistry Most recent to oldest [Reference Range]: 1 Sodium Lvl [136-144 mEq/L] 139 mEq/L (03/19/17 7:06 AM) Potassium Lvl [3.6-5.1 mEq/L] 4.5 mEq/L (03/19/17 7:06 AM) Chloride [99-109 mEq/L] 104 mEq/L (03/19/17 7:06 AM) CO2 [22-32 mEq/L] 23 mEq/L (03/19/17:06 AM) AGAP [3-20 mEq/L] 12 mEq/L (03/19/17 7:06 AM) BUN [4-20 mg/dL] 39 mg/dL *HI* (03/19/17 AM) Glucose Lvl [70-100 mg/dL] 157 mg/dL *HI* (03/19/17 7:06 AM) Creatinine Lvl [0.64-1.27 mg/dL] 2.53 mg/dL *HI* (03/19/17 7:06 AM) eGFR [>60 mL/min] 25 mL/min 1 *ABN* (03/19/17 7:06 AM) Calcium Lvl [8.6-10.0 mg/dL] 8.5 mg/dL *LOW* (03/19/17 7:06 AM) Magnesium Lvl [1.8-2.5 mg/dL] 1.8 mg/dL (03/19/17 7:06 AM) Blood Glucose, Capillary [70-100 mg/dL] 173 mg/dL *HI* (03/19/17 12:47 PM) 1Result Comment: Multiply eGFR results by 1.21 for race. Procedures Procedure Date Related Diagnosis Body Site Angiogram Peripheral1 03/18/17 Stented coronary artery2 07/02/14 Arthroplasty of knee Arthroscopic knee operation3 CABG - Coronary artery bypass graft Cholecystectomy Discectomy Foot joint operations4 Hand surgery service 1auto-populated from documented surgical [id number] placed in 2014 Not sure of the exact month and [id number] [id number] foot Social History Social History Type Response Smoking Status Never smoker entered on: 01/30/16
--- OUTSIDE RECORDS SUMMARY | 2017-10-27 08:47 | External Medical Summary | Referral Summary ---
:1945 Author Organization [facility] Address [address] [place] [address] Care Team Providers Name Role Phone Roel العراقي II Primary Care Physician Encounter [facility] [id number] Date(s): 07/21/16 - 07/26/16 [facility] [address] [place] [address] [phone] Discharge Disposition: 03-[facility] Facility Attending Physician: Eloina Piña MD Admitting Physician: Serena Reyes MD Vital Signs Most recent to oldest [Reference Range]: 1 Temperature Oral [35.8-37.3 degC] 37.1 degC (07/26/16 1:08 PM) Temperature Temporal Artery [36.3-37.8 degC] 36.5 degC (07/25/16 1:00 PM) Peripheral Pulse Rate [60-100 bpm] 89 bpm (07/26/16 1:08 PM) Heart Rate Monitored [60-100 bpm] 82 bpm (07/25/16 3:00 PM) Respiratory Rate [14-20 br/min] 20 br/min (07/26/16 1:08 PM) Blood Pressure [90-140/60-90 mmHg] 137/76 mmHg (07/26/16 1:08 PM) Mean Arterial Pressure, Cuff 83 mmHg (07/25/16 3:00 PM) SpO2 95 % (07/26/16 1:08 PM) Remote Telemetry Ongoing (07/26/16 8:00 AM) Problem List Condition Effective Dates Status Health [...] 1Urine from NOT FOUND collected 07/11/16 16:11:00 [id number] added automatically by system based on initiation of Bowel Dysfunction Plan of [id number] from NOT FOUND collected 07/21/16 5:03:00 [id number] from NOT FOUND collected 07/11/16 16:11:00 [id number] added by Discern [id number] added automatically by system based on initiation of Impaired Skin Integrity Plan of [id number] added automatically by system based on initiation of Self Care Deficit Plan of Tnuc2Vpkrpfo added automatically by system based on initiation [...] Constipation, 0 Refill(s) Start Date: 07/16/16 Status: Ordereddarbepoetin new 100 mcg/0.5 mL injectable solution 100 mcg 0.5 mL, SubCutaneous, q7day, # 4 Each, 0 Refill(s), other reason (Rx) Start Date: 07/26/16 Stop Date: 08/23/16 Status: Ordereddocusate sodium 100 mg oral capsule [...] BID, 0 Refill(s) Start Date: 07/16/16 Status: OrderedMerrem 500 mg intravenous injection 500 mg, IV, q12hr, stop on 07/29/16., X 3 days, # 6 Each, 0 Refill(s), other reason (Rx) Start Date: 07/26/16 Stop Date: 07/29/16 Status: OrderedMetamucil [place] Smooth Texture Sugar Free 3.4 g/5.8 g [...] g, 0 Refill(s) Start Date: 07/02/16 Status: OrderedReglan 5 mg oral tablet 5 mg 1 tabs, Oral, QIDACHS, # 120 tabs, 0 Refill(s), other reason (Rx) Start Date: 07/26/16 Stop Date: 08/16/16 Status: OrderedThera M 1 tabs, Oral, Daily, 0 Refill(s) Start Date: 07/21/16 Status: OrderedTums 500 mg oral tablet, chewable 500 mg 1 tabs, Oral, q4hr, GERD/Heartburn, 0 Refill(s) Start Date: 07/16/16 Status: OrderedZofran 4 mg oral tablet 4 mg 1 tabs, Oral, q6hr, Nausea, 0 Refill(s) Start Date: 07/16/16 Status: Ordered Results Blood Gases Most recent to oldest [Reference Range]: 1 pH [7.35-7.45] 7.44 (07/24/16 9:16 PM) pCO2 Art [35-45 mmHg] 42 mmHg (07/24/16 9:16 PM) Bicarbonate [22-26 mEq/L] 28 mEq/L *HI* (07/24/16 9:16 PM) Base Excess Art [0-2] 4 *HI* (07/24/16 9:16 PM) O2 Sat Art [90.0-97.0 %] 93.4 % (07/24/16 9:16 PM) pO2 Art [80-100 mmHg] 64 mmHg *LOW* (07/24/16 9:16 PM) O2 Panel RA 21% (07/24/16 9:16 PM) Spec Site A. radialis r. (07/24/16 9:16 PM) Hematology Most recent to oldest [Reference Range]: 1 WBC [4.8-10.8 10*3/uL] 6.5 10*3/uL (07/26/16 5:49 AM) RBC [4.60-6.20] 3.10 *LOW* (07/26/16 5:49 AM) Hgb [14.0-18.0 gm/dL] 8.6 gm/dL *LOW* (07/26/16 5:49 AM) Hct [42.0-52.0 %] 28.4 % *LOW* (07/26/16 5:49 AM) MCV [82.0-99.0 fL] 91.6 fL (07/26/16 5:49 AM) MCH [27.0-32.0 pg] 27.7 pg (07/26/16 5:49 AM) MCHC [32.0-36.0 gm/dL] 30.3 gm/dL *LOW* (07/26/16 5:49 AM) RDW [11.5-14.5 %] 15.3 % *HI* (07/26/16 5:49 AM) Platelet [150-400 10*3/uL] 281 10*3/uL (07/26/16 5:49 AM) MPV [9.4-12.3 fL] 9.1 fL *LOW* (07/26/16 5:49 AM) Immature Granulocytes [0.0-1.0 %] 1.4 % *HI* (07/26/16 5:49 AM) Neutrophils [51-75 %] 65 % (07/26/16 5:49 AM) Lymphocytes [20-46 %] 16 % *LOW* (07/26/16 5:49 AM) Monocytes [4-11 %] 10 % (07/26/16 5:49 AM) Eosinophils [0-4 %] 7 % *HI* (07/26/16 5:49 AM) Basophils [0-2 %] 1 % (07/26/16 5:49 AM) Neutro Absolute [1.90-7.00] 4.20 (07/26/16 5:49 AM) Lymph Absolute [0.80-3.30] 1.05 (07/26/16 5:49 AM) [place] Absolute [0.30-1.00] 0.67 (07/26/16 5:49 AM) Eos Absolute [0.00-0.50] 0.46 (07/26/16 5:49 AM) Baso Absolute [0.00-0.20] 0.03 (07/26/16 5:49 AM) Nucleated RBC Automated [0 /100 WBC] 0.0 /100 WBC (07/26/16 5:49 AM) Reticulocyte [0.6-2.5 %] 2.4 % (07/23/16 3:44 AM) Coagulation Most recent to oldest [Reference Range]: 1 INR [0.9-1.2] 1.0 (07/21/16 5:03 AM) PTT [25.0-35.0 seconds] 29.1 seconds (07/21/16 5:03 AM) Chemistry Most recent to oldest [Reference Range]: 1 Sodium Lvl [136-144 mEq/L] 140 mEq/L (07/26/16 5:49 AM) Potassium Lvl [3.6-5.1 mEq/L] 4.6 mEq/L (07/26/16 5:49 AM) Chloride [99-109 mEq/L] 103 mEq/L (07/26/16 5:49 AM) CO2 [22-32 mEq/L] 28 mEq/L (07/26/16 5:49 AM) AGAP [3-20 mEq/L] 9 mEq/L (07/26/16 5:49 AM) BUN [4-20 mg/dL] 23 mg/dL *HI* (07/26/16 5:49 AM) Glucose Lvl [70-100 mg/dL] 101 mg/dL *HI* (07/26/16 5:49 AM) Creatinine Lvl [0.64-1.27 mg/dL] 1.97 mg/dL *HI* (07/26/16 5:49 AM) eGFR [>60 mL/min] 34 mL/min 1 *ABN* (07/26/16 5:49 AM) Calcium Lvl [8.6-10.0 mg/dL] 8.7 mg/dL (07/26/16 5:49 AM) Albumin Lvl [3.5-4.8 gm/dL] 2.1 gm/dL *LOW* (07/26/16 5:49 AM) Total Protein [6.1-7.9 gm/dL] 6.7 gm/dL (07/22/16 3:50 PM) Iron [65-175 mcg/dL] 20 mcg/dL *LOW* (07/23/16 3:44 AM) TIBC [268-490 mcg/dL] 137 mcg/dL *LOW* (07/23/16 3:44 AM) Iron Sat [11-46 %] 15 % (07/23/16 3:44 AM) Transferrin [180-329 mg/dL] 92 mg/dL *LOW* (07/23/16 3:44 AM) Ferritin Lvl [24-340 ng/mL] 462 ng/mL *HI* (07/23/16 3:44 AM) Magnesium Lvl [1.8-2.5 mg/dL] 1.7 mg/dL *LOW* (07/26/16 5:49 AM) Uric Acid [4.8-8.7 mg/dL] 6.9 mg/dL (07/21/16 5:03 AM) Phosphorus [2.4-4.7 mg/dL] 3.1 mg/dL 2 (07/26/16 5:49 AM) Calcium Ionized [1.19-1.41 mmol/L] 1.23 mmol/L (07/26/16 5:49 AM) Total CK [49-397 U/L] 44 U/L *LOW* (07/21/16 5:03 AM) Vitamin B12 Lvl [213-816 pg/mL] 841 pg/mL *HI* (07/23/16 3:44 AM) Folate Lvl [7.0-31.4 ng/mL] 7.0 ng/mL (07/23/16 3:44 AM) Blood Glucose, Capillary [70-100 mg/dL] 138 mg/dL *HI* (07/26/16 10:56 AM) Hep A IgM Negative (07/22/16 3:50 PM) Hep Bs Ag Negative (07/22/16 3:50 PM) Hep C Ab Negative (07/22/16 3:50 PM) Hep B Core IgM Negative (07/22/16 3:50 PM) [place] Light Chains-Linch 18.4 mg/dL 3 *HI* (07/22/16 3:50 PM) Lambda FLC-Linch 8.04 mg/dL 4 *HI* (07/22/16 3:50 PM) Elena/Cha Ratio-Linch 2.29 5 *HI* (07/22/16 3:50 PM) 1Result Comment: Multiply eGFR results by 1.21 for race.2Result Comment: High dosages of liposomal Amphotericin B (AmBisome) therapy or other drug preparations that use a liposomal envelope to facilitate drug delivery may cause falsely elevated results for phosphorus.3Result Comment: Reference Range: 0.3300-1.944Result Comment: Reference Range: 0.5700-2.635Result Comment: Reference Range: 0.2600-1.65 Test Performed by: [facility] [address] [id number] Most recent to oldest [Reference Range]: 1 UA Color Blue (07/21/16 5:03 AM) UA Appear Turbid *ABN* (07/21/16 5:03 AM) UA pH [5.0-8.0] 7.0 (07/21/16 5:03 AM) UA Leuk Est [Negative] Trace *ABN* (07/21/16 5:03 AM) UA Nitrite [Negative] Negative (07/21/16 5:03 AM) UA Protein [Negative] Pos 2+ *ABN* (07/21/16 5:03 AM) UA Glucose [Negative] Pos 1+ *ABN* (07/21/16 5:03 AM) UA Ketones [Negative] Negative (07/21/16 5:03 AM) UA Urobilinogen [<1.0] Negative (07/21/16 5:03 AM) UA Bili [Negative] Negative (07/21/16 5:03 AM) UA Blood [Negative] Pos 3+ *ABN* (07/21/16 5:03 AM) UA Spec Grav [1.003-1.030] 1.015 (07/21/16 5:03 AM) Type Clean Catch (07/21/16 5:03 AM) UA WBC [0-4] 10-20 *ABN* (07/21/16 5:03 AM) UA RBC [0-2 /HPF] >50 /HPF *ABN* (07/21/16 5:03 AM) Epithelial Cells None Seen (07/21/16 5:03 AM) UA Bacteria Rare (07/21/16 5:03 AM) Microbiology Reports TEST:Urine Culture STATUS:Auth (Verified) BODY SITE: SOURCE:Urine COLLECTED DATE/TIME:07/21/16 5:03 AMUrine Culture- - - - - - - Positive urine culture (even if >100,000 cfu/ml) without presence of symptoms does not require antibiotic treatment unless the patient is or undergoing urinary surgery. Please document as bacteriuria. Escherichia coli 50-100,000 cfu/ml This strain produces extended spectrum beta lactamase (ESBL). This is a multidrug-resistant organism (MDRO), consider seeking ID Pharmacist or ID Physician evaluation. ORGANISM:Escherichia coli Immunizations No data available for this section Procedures Procedure Date Related Diagnosis Body Site Arterial puncture, withdrawal of blood for 07/24/16 diagnosis Arterial puncture, withdrawal of blood for 07/21/16 diagnosis Insertion of temporary indwelling bladder 07/21/16 catheter; simple (eg, Vasquez).. Stented coronary artery1 07/02/14 Arthroplasty of knee Arthroscopic knee operation2 CABG - Coronary artery bypass graft Cholecystectomy Foot joint operations3 Hand surgery service 1Stents placed in 2014 Not sure of the exact month and gdt2Ptnm ulje2Foeno foot Social History Social History Type Response Smoking Status Never smoker Assessment and Plan No data available for this section
--- OUTSIDE RECORDS SUMMARY | 2017-10-27 08:47 | External Medical Summary | Summary of Care ---
:1945 Author Name Estevan Walters M.D. Address [address] [place] [address] [place] [address] Care Team Providers Name Role Phone Estevan Walters M.D. Unavailable Unavailable Roel العراقي II Unavailable Unavailable Unavailable Unavailable Unavailable Functional Status Functional Status Health Issues Name Dates Details Functional status health issues are not documented Status: Cognitive Status Health Issues Name Dates Details Cognitive status health issues are not documented Status: Problems Name Dates Details Urinary catheter (Vasquez) change required (V53.6, Z46.6) Status: Active Urine retention (788.20, R33.9) Status: Active Presence of indwelling urinary catheter (V45.89, Z96.0) Status: Active Catheter cystitis (996.64, T83.511A) Status: Active Atonic bladder (596.4, N31.2) Status: Active Medications Name Dates Details NovoLOG Mix 70/30 (70-30) 100 UNIT/ML Subcutaneous Suspension Refills: 0 Start 24-Jan-2015 Active Nitrostat 0.4 MG Sublingual Tablet Sublingual Refills: 0 Start 24-Jan-2015 Active Multiple Vitamin TABS TAKE 1 TABLET DAILY. Refills: 0 Start 24-Jan-2015 Active Lantus 100 UNIT/ML Subcutaneous Solution INJECT SUBCUTANEOUSLY DIRECTED. Refills: 0 Start 24-Jan-2015 Active Atorvastatin Calcium 40 MG Oral Tablet TAKE 1 TABLET DAILY. Refills: 0 Start 24-Jan-2015 Active Aspirin 81 MG TABS TAKE 1 TABLET DAILY. Refills: 0 Start 24-Jan-2015 Active FLUoxetine HCl - 10 MG Oral Tablet TAKE 1 TABLET DAILY. Refills: 0 Start 24-Jan-2015 Active Norvasc 5 MG Oral Tablet TAKE 1 TABLET DAILY. Refills: 0 Start 24-Jan-2015 Active Metoprolol Succinate ER 100 MG Oral Tablet Extended Release 24 Hour Refills: 0 Start 24-Jan-2015 Active HydroCHLOROthiazide 25 MG Oral Tablet Refills: 0 Start 24-Jan-2015 Active Plavix 75 MG Oral Tablet TAKE 1 TABLET DAILY. Refills: 0 Start 24-Jan-2015 Active Colestid 1 GM Oral Tablet TAKE 1 TABLET TWICE DAILY. Refills: 0 Start 24-Jan-2015 Active Chlorthalidone 25 MG Oral Tablet TAKE 1 TABLET DAILY. Refills: 0 Start 24-Jan-2015 Active Lisinopril 40 MG Oral Tablet TAKE 1 TABLET DAILY. Refills: 0 Estevan Walters M.D. Start 13-Aug-2015 Active Metoprolol Tartrate 100 MG Oral Tablet TAKE 1 TABLET TWICE DAILY. Refills: 0 Start 13-Aug-2015 Active SM Cran-Max Super Strength CAPS TAKE DIRECTED. Refills: 0 Start 13-Aug-2015 Active Colace 100 MG Oral Capsule TAKE 1 CAPSULE DAILY. Refills: 0 Start 13-Aug-2015 Active Allergies and Adverse Reactions Name Dates Details hydrocodone (Allergy) Status: Active Past Medical History Name Dates Details History of BPH (benign prostatic hyperplasia) (600.00, N40.0) Status: Resolved History of Chronic renal insufficiency (585.9, N18.9) Status: Resolved History of Coronary artery disease (414.00, I25.10) Status: Resolved History of diabetes mellitus (V12.29, Z86.39) Status: Resolved History of Dyslipidemia (272.4, E78.5) Status: Resolved History of Encounter for care or replacement of suprapubic tube (V55.5, Z43.5) Status: Resolved History of Encounter for postoperative care (V58.49, Z48.89) Status: Resolved History of hypertension (V12.59, Z86.79) Status: Resolved History of pulmonary edema (V12.69, Z87.09) Status: Resolved History of shortness of breath (V13.89, Z87.898) Status: Resolved History of urinary tract infection (V13.02, Z87.440) Status: Resolved Procedures Procedure Dates Details History of CABG History of Knee Surgery History of Cholecystectomy Laparoscopic Procedures not documented Immunization Name Dates Details Immunizations not documented Family History Unknown Family Member Name Dates Details Family history of CAD (coronary artery disease) (414.00, I25.10) Comments: Family History Status: Active Mother Name Dates Details No pertinent family history Status: Active Social History Name Dates Details - Status: Smoking Status Name Dates Details Never smoker Vital Signs Date Test Result Details No Known Vitals to report Results Date Description Value Details Results not documented Plan of Care Name Dates Details Planned Observations Planned Goals not documented Instructions Name Dates Details Instructions not documented Encounters Appointment; Estevan Walters M.D. On 28-Jul-2016 Encounter Diagnosis: Problem not documented 13:45 Appointment; Estevan Walters M.D. On 02-Jun-2016 Encounter Diagnosis: Problem not documented 15:00 Appointment; Estevan Walters M.D. On 28-Apr-2016 Encounter Diagnosis: Problem not documented 15:30 Appointment; Estevan Walters M.D. On 25-Feb-2016 Encounter Diagnosis: Problem not documented 10:45 Appointment; Estevan Walters M.D. On 26-Nov-2015 Encounter Diagnosis: Problem not documented 11:00 Appointment; Estevan Walters M.D. On Encounter Diagnosis: Problem not documented 09:00 Appointment; Estevan Walters M.D. On Encounter Diagnosis: Problem not documented 10:30 Appointment; Estevan Walters M.D. On 27-Aug-2015 Encounter Diagnosis: Problem not documented 10:00 Appointment; Estevan Walters M.D. On 13-Aug-2015 Encounter Diagnosis: Problem not documented 13:00 Appointment; Estevan Walters M.D. On 11-Jul-2015 Encounter Diagnosis: Problem not documented 10:15 Appointment; Estevan Walters M.D. On 02-Jul-2015 Encounter Diagnosis: Problem not documented 15:00 Appointment; Estevan Walters M.D. On 30-May-2015 Encounter Diagnosis: Problem not documented 13:15 Appointment; Estevan Walters M.D. On 25-Apr-2015 Encounter Diagnosis: Problem not documented 16:15 Appointment; Estevan Walters M.D. On 19-Mar-2015 Encounter Diagnosis: Problem not documented 14:45 Appointment; Estevan Walters M.D. On 12-Mar-2015 Encounter Diagnosis: Problem not documented 14:30 Appointment; Estevan Walters M.D. On 05-Feb-2015 Encounter Diagnosis: Problem not documented 14:30
--- OUTSIDE RECORDS SUMMARY | 2017-10-27 08:47 | External Medical Summary | Summary of Care ---
:1945 Author Name Estevan Walters M.D. Address [address] [place] [address] [place] [address] Care Team Providers Name Role Phone Estevan Walters M.D. Unavailable Unavailable Roel العراقي II Unavailable Unavailable Unavailable Unavailable Unavailable Functional Status Functional Status Health Issues Name Dates Details Functional status health issues are not documented Status: Cognitive Status Health Issues Name Dates Details Cognitive status health issues are not documented Status: Problems Name Dates Details Catheter cystitis (996.64, T83.511A) Status: Active Atonic bladder (596.4, N31.2) Status: Active Penile pain (607.9, N48.89) Status: Active Urine retention (788.20, R33.9) Status: Active Presence of indwelling urinary catheter (V45.89, Z96.0) Status: Active Urinary catheter (Vasquez) change required (V53.6, Z46.6) Status: Active Medications Name Dates Details NovoLOG [...] TABLET DAILY. Refills: 0 Start 24-Jan-2015 Active HydroCHLOROthiazide 25 [...] CAPSULE DAILY. Refills: 0 Start 13-Aug-2015 Active Lidocaine-Prilocaine 2.5-2.5 % External Cream APPLY HOURLY NEEDED FOR PENILE PAIN Quantity: 45 Refills: 0 Estevan Walters M.D. Start Active Acetic Acid 0.25 % Irrigation Solution ONCE DAILY, INSTILL 50-60ML INTO THE BLADDER THROUGH THE CATHETER, CLAMP CATHETER TUBING FOR 30 MINUTES THEN DRAIN. Quantity: 2000 Refills: 11 Estevan Walters M.D. Start Active Syringes 60 mL catheter tip syringe. Use one daily for acetic acid flushes Quantity: 30 Refills: 11 Romeo Garner, Estevan Start Active Allergies and Adverse Reactions Name Dates [...] Details Planned Observations Planned Goals not documented Interventions Provided Medication ChangesAcetic Acid 0.25 % Irrigation Solution - StartSyringes - Start Instructions Name Dates Details Instructions not documented Encounters Appointment; Estevan Walters M.D. On 08-Sep-2016 Encounter Diagnosis: Problem not documented 07:45 Appointment; Estevan Walters M.D. On 03-Aug-2016 Encounter Diagnosis: Problem not documented 13:15 Appointment; Estevan Walters M.D. On 28-Jul-2016 Encounter [...]
[2017-10-27] MEDS ORDERED: PROCHLORPERAZINE 10 MG/2 ML INJECTION IVP ONE (08:53)
[2017-10-27] MEDS ORDERED: ONDANSETRON 4 MG/2 ML INJECTION IVP ONE (08:53)
[2017-10-27] MEDS: SALINE FLUSH 10ml SYRINGE IVF PRN (09:00)
--- NOTE | 2017-10-27 10:22 | CT Scan Report ---
Indication: fell down flight of stairs PROCEDURE: CT head/brain wo con: Encounter: Initial Comparison: June 23, 2016 Technique: Axial CT images through the head were performed without contrast. Iterative Reconstruction dose reducing technique was utilized. FINDINGS: Mild atrophy. Small old right occipital lobe infarct. The ventricles are stable. There is no evidence of acute intracranial hemorrhage, midline displacement, or mass effect. There are scattered areas of low attenuation in the white matter which most likely represent changes of chronic microvascular ischemia. The CT attenuation of the brain parenchyma is otherwise normal within the cerebellum, brain stem, and cerebral hemispheres. The tympanic cavities and mastoid air cells are free of appreciable disease. There are no definite fractures of the skull base, calvarium, or visualized portion of the midface. IMPRESSION: No CT evidence of acute traumatic intracranial injury. .
--- NOTE | 2017-10-27 10:25 | XRay Report ---
INDICATION: fever PROCEDURE: CHEST 2-VIEWS UPRIGHT (PA & LAT) Encounter: Initial Comparison: June 30, 2017 Findings: Patient is rotated towards the right. The lungs are stable in appearance without new focal airspace consolidation. There is no pleural effusion or pneumothorax. The heart size, pulmonary vascularity and mediastinal contours are unchanged. Prior CABG. Old left clavicular fracture. IMPRESSION: Stable appearance of the chest without acute cardiopulmonary disease. .
--- NOTE | 2017-10-27 11:42 | History & Physical Report ---
History of Present Illness Date: 10/27/17 Chief complaint: AMS, shaking/chills HPI: Patient is a 72-year-old male who presents to ED with shaking chills and altered mental status which started this morning at 4 AM. Patient lives with his son and his son reports that last night when he gave his medications at 11 PM, patient was in his normal state of health. Patient's son does note that when he emptied his dad's catheter bag there was pus and" brown chunks" that isn 't typical for him. He states he previously had recurrent urinary tract infections, but since placement of the suprapubic catheter this has not been an issue. Patient does have dementia at baseline, but this morning was more confused. He is currently on outpatient daptomycin IV 700 mg every 48 hours for osteomyelitis of the left fourth toe. The patient is following with Dr. Fox through wound clinic. He most recently underwent debridement on for a Preciado grade 3 ulceration on the left lateral fifth metatarsal head, Preciado grade 3 ulcer located on the right distal second toe, and Preciado grade 3 ulcer on the left fourth dorsal toe. Patient is due to see Dr. Zarate in follow- up on 11/02/17. Patient had most recent dapto infusion yesterday. Son reports he was having a rash/redness around the site of the midline, so this was removed and a PICC line was placed further up on the L arm. Patient admitted to hospitalist service, IP status. Stay expected to exceed two midnights given pt's sepsis (elevated WBC, tachycardia - probably urinary source of infection) and comorbidities. Review of Systems ROS unobtainable: due to mental status All systems PM: 10-point ROS was reviewed, no additional remarkable complaints except (pt's son reports shaking chills, AMS, change in urine (pus/sediment)) Past Medical History Medical History Updates: History of CVA. CHF. Aortic stenosis. Coronary artery disease. Hypertension. Diabetes type 2. Diabetic nephropathy. BPH. Cervical stenosis. Gout. Chronic kidney disease (stage IV) Surgical History: Cystoscopy and SP tube placement; cystogram - Dr. Walters. Cholecystectomy. CABG - (coronary stent placed in setting of acute inferior GA at [facility]). Knee surgery. Hand and foot. 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 Mike Simon. Lumbar disc surgery Family History: Father- of leukemia Mother- of coronary artery disease Family History: As Above - Social History Smoking status: Never smoker Substance use type: does not use Alcohol intake frequency: does not drink Household members: children (lives with his son. His son provides full care of the patient.) Current occupational status: retired Does patient use chewing tobacco?: No Current residence: Apartment/Private Home (lives with son) Social history: PCP-Dr. 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 Bowles Book Reviewer-Dr. Gray Machine Technician-Dr. Healy Medications Home Medications Medication Instructions Recorded Confirmed Type Aspirin Chewable [ASA] 81 mg PO DAILY 09/30/16 10/27/17 Rx Multivitamin [One Daily 1 tab PO DAILY 10/23/16 10/27/17 History Multivitamin] Amlodipine [Norvasc] 5 mg PO DAILY 10/29/16 10/27/17 History Insulin Aspart [NovoLOG] 10 unit SQ TIDWM 10/29/16 10/27/17 History Insulin Detemir [Levemir Flextouch] 40 unit SQ HS 01/17/17 10/27/17 History Allopurinol [Zyloprim] 100 mg PO DAILY 01/26/17 10/27/17 History Clopidogrel Bisulfate [Clopidogrel] 75 mg PO DAILY 06/30/17 10/27/17 History Docusate Sodium [Stool Softener] 200 mg PO DAILY 06/30/17 10/27/17 History Metoprolol Tartrate [Lopressor] 25 mg PO BID 06/30/17 10/27/17 History Chlorthalidone 12.5 - 25 mg PO DAILY 10/09/17 10/27/17 History Cholecalciferol (Vitamin D3) 1,000 unit PO DAILY 10/27/17 10/27/17 History [Vitamin D3] Cyanocobalamin (Vitamin B-12) 1,500 mcg PO DAILY 10/27/17 10/27/17 History [B-12] Insulin Aspart [Novolog] 20 unit SQ AM 10/27/17 10/27/17 History Allergies Allergy/AdvReac Type Severity Reaction Status Date / Time hydrocodone AdvReac Intermediate Verified 10/27/17 09:25 Exam Vital Signs: Temperature 99.9 F 10/27/17 08:31 Pulse Rate 101 H 10/27/17 10:30 Respiratory Rate 22 10/27/17 08:31 Blood Pressure 147/75 H 10/27/17 11:00 Pulse Oximetry 93 10/27/17 10:30 Height/Weight/BMI: Height 1.85 m Weight 120.6 kg - Constitutional Present: no acute distress, well nourished, well developed, obese - Routine HEENT Exam Head: Present: normocephalic, atraumatic Eye: Present: PERRL ENT: Present: mucous membranes moist, oropharynx clear - Routine Neck Exam Present: supple. Absent: lymphadenopathy, thyromegaly - Routine Respiratory Exam Present: decreased breath sounds, CTA bilaterally (auscultated anteriorly). Absent: wheezes - Routine Cardiovascular Exam Present: RRR, murmur (grade 3/6) - Routine Abdominal Exam Present: soft, normoactive bowel sounds. Absent: tenderness, distended Comments: Has some diffuse areas of induration likely related to chronic insulin injections Suprapubic catheter - Routine Extremities Exam Present: edema (trace pitting edema right ankle (chronic patient)), no edema, normal capillary refill - Routine Skin Exam Present: dry, warm Comments: Area of erythema with honey colored crusting centrally to the left mid forearm location of previous midline. No evidence of a significant cellulitis, but consistent with impetigo. He currently has dressings on the right second toe, left fourth toe and the lateral aspect of the fifth metatarsal head. Will evaluate these at time of nursing evaluation. - Routine Neurological Exam Present: altered mental status. Absent: alert, oriented X3 (patient is unable to tell me why he is here. At baseline, patient's son reports he typically does not know what day it is and has very poor short-term memory.) - Routine Psychiatric Exam Present: cooperative, unable to assess Results - Labs CBC & Chem 7: 10/27/17 09:07 10/27/17 09:07 Microbiology Results: Microbiology 10/27/17 09:12 Peripheral/Iv Start Blood Culture - Preliminary Culture Initiated - Results Pending 10/27/17 09:05 Peripheral/Iv Start Blood Culture - Preliminary Culture Initiated - Results Pending - Imaging and Cardiology Chest x-ray Additional comments: Findings: Patient is rotated towards the right. The lungs are stable in appearance without new focal airspace consolidation. There is no pleural effusion or pneumothorax. The heart size, pulmonary vascularity and mediastinal contours are unchanged. Prior CABG. Old left clavicular fracture. IMPRESSION: Stable appearance of the chest without acute cardiopulmonary disease. CT scan - head Additional comments: FINDINGS: Mild atrophy. Small old right occipital lobe infarct. The ventricles are stable. There is no evidence of acute intracranial hemorrhage, midline displacement, or mass effect. There are scattered areas of low attenuation in the white matter which most likely represent changes of chronic microvascular ischemia. The CT attenuation of the brain parenchyma is otherwise normal within the cerebellum, brain stem, and cerebral hemispheres. The tympanic cavities and mastoid air cells are free of appreciable disease. There are no definite fractures of the skull base, calvarium, or visualized portion of the midface. IMPRESSION: No CT evidence of acute traumatic intracranial injury. Assessment and Plan Assessment and Plan: Assessment Severe sepsis (SIRS: leukocytosis, tachycardia. Source: suspect urinary - UA not yet collected on admission. Lactate >2) Acute encephalopathy CHLOE - creatinine 3.2 on admission History of CVA CHF PAD - s/p stent RLE (Dr. Candelaria) Aortic stenosis Coronary artery disease Hypertension Diabetes type 2 (A1C 7.0 on 09/18/16) Diabetic nephropathy Chronic kidney disease (stage IV) BPH Cervical stenosis Gout - on chronic allopurinol Plan Admit, IP Ceftriaxone and 1L NS given in ER. Labs and imaging reviewed. Neg head CT and reviewed. Repeat lactate ordered. Zosyn for presumed UTI at this point. Previous urine cultures reviewed showing sensitivity to Zosyn consistently. Will narrow atbx once urine culture is resulted. Pharm to renal dose Zosyn. Continue dapto for osteomyelitis. Accuchecks. Continue home insulin. Adjust insulin PRN. Continue IVF's at 100/hr for CHLOE - watch for fluid overload given his CHF and aortic stenosis. Hold home chlorthalidone given CHLOE. Nursing unable to obtain urine for specimen. Recommend bladder scan and change out the suprapubic catheter. Wound consult for his chronic foot ulcerations. Repeat CBC anc BMP in a.m. to follow leukocytosis and renal function. Check magnesium with repeat lactate. SCDs and Lovenox for VTE prophylaxis. Full code. Dr. العراقي-PCP. DVT Prophylaxis: SCD's Resuscitation Status: Full Code - Physician Narrative Physician: Raquel Ramirez MD Narrative: Date: 10/27/17 Time: 1949 I have independently evaluated and examined this patient. I reviewed the chart, the patient's history, and the DIRECTOR HEDIS/PA's documented findings as above. We discussed and formulated the assessment and plan as above with additions as below: Mr. Padilla was seen earlier this afternoon at which time he was sleeping and did not arouse to voice or exam. History as described above and per report of emergency room. Patient did occasionally mumble but did not provide coherent information. Respirations nonlabored, breath sounds clear posteriorly and upper anterior luong Abdomen soft, mild tenderness to palpation in the upper abdomen without guarding , diminished bowel sounds Patch of erythema on the left forearm as described above; small wound under the fifth metatarsal head with slough but no surrounding erythema or drainage, small wound over the left fourth PIP with slough but no erythema or drainage either. WBC 18.6 with left shift, CRP 88.4 compared to 12.2 on 10/21, lactic acid 3.2- 2.2. Creatinine 3.2 versus 3. although it appears a sinus closer to 2.8 in recent months. Chest x-ray reviewed by myself-lungs clear, cardiomegaly present. CT head without acute pathology. Sepsis due to UTI likely-wounds on his foot do not appear to be acutely inflamed and forearm inflammation is localized and unlikely to be source of sepsis. Abdomen is moderately tender-if persists will require CT imaging without contrast. Continue daptomycin 700 mg every 48 hours for lower extremity osteomyelitis- left fourth toe; Zosyn initiated for urosepsis based on prior cultures. Discussed with Dr. Hoffman prior to admission; old records reviewed. Dr. Sims' s certified ophthalmic surgical assistant appreciated. Hospital Course Summary Disclaimer: The visit summary below is not to be considered part of the above Progress Note. Hospital Course: 10/27/17 Admit, IP Ceftriaxone and 1L NS given in ER. Labs reviewed. Repeat lactate ordered. Zosyn for presumed UTI at this point. Previous urine cultures reviewed showing sensitivity to Zosyn consistently. Will narrow atbx once urine culture is resulted. Pharm to renal dose Zosyn. Continue dapto for osteomyelitis. Accuchecks. Continue home insulin. Adjust insulin PRN. Continue IVF's at 100/hr for CHLOE - watch for fluid overload given his CHF and aortic stenosis. Hold home chlorthalidone given CHLOE. Nursing unable to obtain urine for specimen. Recommend bladder scan and change out the suprapubic catheter. Wound consult for his chronic foot ulcerations. Repeat CBC anc BMP in a.m. to follow leukocytosis and renal function. Check magnesium with repeat lactate. SCDs and Lovenox for VTE prophylaxis. Full code. Dr. العراقي-PCP. Addendum entered and electronically signed by ESTHER Webb 10/27/17 16:36 : Wounds evaluated with wound team. Grade 3 ulcerations to R 5th metatarsal head and R 4th toe. Scabbing to distal R 2nd toe but no ulceration. Small fissure in gluteal crease.
[2017-10-27] MEDS ORDERED: PIPERACILLIN/TAZOBACTAM 2.25 GM in NS 100 ML IV SCH (12:30)
[2017-10-27] MEDS ORDERED: INSULIN ASPART 100unit/ml INJECTION SQ SCH (13:00)
[2017-10-27] MEDS: NS 1,000 ML IV SCH (15:11)
--- NOTE | 2017-10-27 15:40 | Wound Care Progress Note ---
Wound Center Progress Note: Pt seen for wound consultation r/t multiple DM FU to bilateral toes. Pt is regularly seen at [facility] by Dr. Fox. Pt was last seen at the clinic 10/19/17 for wound debridement. TX plan for DM FU at clinic is Sara to wound base, covered with Mepilex, and changed q 3 days. Pt is lying in bed asleep, no complaints of pain. Nursing staff reports a new wound to L medial buttock/intergluteal cleft. Intergluteal cleft: Fissure -associated with moisture. No active drainage. Periwound: blanchable erythema, macerated. L medial buttock: blanchable erythema, moisture associated skin damage, no drainage, skin is moist and flaky. L 4th dorsal toe: DM FU. Wound bed has 50% slough 50% pink non-granulating tissue, no drainage. Periwound: blanchable erythema. L lateral 5th met head: DM FU. Wound bed has 50% slough 50% pink non- granulating tissue. Periwound: blanchable erythema. R distal 2nd toe: DM FU: Wound bed has dried bloody crust, no drainage. Periwound: blanchable erythema. Pt was seen in the infusion center earlier this week to consult for a rash on pt 's L forearm at the site of the midline. Pt's son states the area has been getting red and sweaty. Upon assessment L forearm rash appears to be associated with moisture with perhaps an element of obed. Pt reports the area has been pruritic. Midline removed by nursing staff, advised to keep area EVP STRATEGY and apply antifungal cream PRN. On todays assessment, L forearm is improved-area is dried and flaky. Wound tx plan: To DM FU L 4th dorsal toe/L lateral 5th met head/R distal 2nd toe - Apply saline moistened Sara to wound bed, cover with Mepilex, change dressing q 3 days. To intergluteal fissure/L buttock: Apply barrier cream daily and PRN, off load with regular repositioning. To L forearm: Apply A&D ointment daily and PRN.
[2017-10-27] MEDS: INSULIN ASPART 100unit/ml INJECTION SQ SCH (18:33)
[2017-10-27] MEDS: INSULIN DETEMIR 100unit/ml INJECTION SQ SCH (21:22)
[2017-10-27] MEDS: PIPERACILLIN/TAZOBACTAM 2.25 GM in NS 100 ML IV SCH (21:23)
[2017-10-27] MEDS: DAPTOMYCIN IVP SCH (22:07)
[2017-10-27] MEDS: NS IVP SCH (22:07)
[2017-10-28] MEDS: NS 1,000 ML IV SCH ×2 (02:05→13:01)
[2017-10-28] MEDS: SALINE FLUSH 10ml SYRINGE IVF PRN ×3 (02:07→21:50)
[2017-10-28] MEDS: PIPERACILLIN/TAZOBACTAM 2.25 GM in NS 100 ML IV SCH ×4 (03:46→21:48)
[2017-10-28] MEDS ORDERED: DOCUSATE SODIUM 100 MG CAPSULE PO SCH (09:00)
[2017-10-28] MEDS: ASPIRIN 81 MG CHEWABLE TABLET PO SCH (09:16)
[2017-10-28] MEDS: CLOPIDOGREL 75 MG TABLET PO SCH (09:17)
[2017-10-28] MEDS: ALLOPURINOL 100 MG TABLET PO SCH (09:17)
[2017-10-28] MEDS: AMLODIPINE 5 MG TABLET PO SCH (09:17)
[2017-10-28] MEDS: INSULIN ASPART 100unit/ml INJECTION SQ SCH ×3 (09:18→18:03)
[2017-10-28] MEDS: ENOXAPARIN 30 MG/0.3 ML INJECTION SQ SCH (09:18)
[2017-10-28] MEDS ORDERED: Bisacodyl EC TAB 5 MG TABLET PO ONE (13:59)
[2017-10-28] MEDS: SENNA + DOCUSATE TABLET PO SCH ×2 (14:42→21:49)
--- NOTE | 2017-10-28 16:29 | Progress Note ---
- Date 10/28/17 Subjective: Patient seen this afternoon napping. He arouses to his name. He reports he is doing well, is just tired. No pain. No fever, SOA. Needs to have a BM, just took laxative prior to my visit. Denies abd pain. Objective Vital signs: Temperature 98.1 F 10/28/17 15:09 Pulse Rate 84 10/28/17 15:09 Respiratory Rate 18 10/28/17 15:09 Blood Pressure 135/66 10/28/17 15:09 Pulse Oximetry 96 10/28/17 15:09 Height/Weight/BMI: Height 1.85 m Weight 124 kg - Constitutional Present: no acute distress, well nourished, well developed - Routine HEENT Exam Head: Present: normocephalic, atraumatic - Routine Respiratory Exam Present: decreased breath sounds, CTA bilaterally. Absent: wheezes - Routine Cardiovascular Exam Present: RRR, murmur - Routine Abdominal Exam Present: soft, non distended, non tender - Routine Extremities Exam Present: edema (RLE (chronic for pt)), no edema, normal capillary refill - Routine Skin Exam Present: dry, warm - Routine Neurological Exam Present: normal speech answers questions appropriately. - Routine Lymphatic Exam Lymphatic: Absent: adenopathy - Routine Psychiatric Exam Present: normal affect, cooperative Results - Labs CBC & Chem 7: 10/28/17 04:37 10/28/17 04:37 Microbiology Results: Microbiology 10/27/17 09:05 Peripheral/Iv Start Blood Culture - Preliminary No Growth After 1 Day 10/27/17 09:12 Peripheral/Iv Start Blood Culture - Preliminary No Growth After 1 Day 10/27/17 13:10 Urine, Cath Vasquez, Chronic Urine Culture - Final Mixed Bacterial Lukasz Assessment and Plan (1) Sepsis Current visit: Yes Status: Acute Assessment and Plan: Assessment Severe sepsis (SIRS: leukocytosis, tachycardia. Source: suspect urinary - UA not yet collected on admission. Lactate >2) Acute encephalopathy CHLOE - creatinine 3.2 on admission Osteomyelitis - 4th L toe - currently on Daptomycin. History of CVA CHF PAD - s/p stent RLE (Dr. Candelaria) Aortic stenosis Coronary artery disease Hypertension Diabetes type 2 (A1C 7.0 on 09/18/16) Diabetic nephropathy Chronic kidney disease (stage IV) BPH Cervical stenosis Gout - on chronic allopurinol Plan Urine culture showed mixed bacterial lukasz >100,000cfu/ml. Have asked micro to please perform ID and sensitivities as the urine is the most likely cause of his sepsis. WBC remains elevated 18.6-->17.6. Repeat CBC in am. Continue Zosyn (Day2) and ongoing daptomycin for osteomyelitis. Pt is eating well. Wt up 4 kg since admission. DC IV fluids. Repeat BMP in am to follow creatinine. Is on renal dosing for atbx. DVT Prophylaxis: Lovenox Resuscitation Status: Full Code - Physician Narrative Physician: Raquel Ramirez MD Narrative: Date: 10/28/17 Time: 2099 I have independently evaluated and examined this patient. I reviewed the chart, the patient's history, and the COLD ROLLING MACHINE SETTER/PA's documented findings as above. We discussed and formulated the assessment and plan as above with additions as below: Mr. Padilla was much more alert when seen today. His only concern was of constipation; he denied any urinary symptoms or leakage around his suprapubic catheter prior to hospitalization. He denied bladder spasms or abdominal pain. NAD, alert although seems to have some degree of confusion which I suspect is chronic Respirations nonlabored, good airflow, breath sounds clear Abdomen soft, obese, completely nontender today White count slightly improved but persistent left shift with 19% bands Results of urine culture noted-greater than 100,000 colonies mixed bacterial lukasz Patient is clearly improved following addition of Zosyn due to clinical suspicion of urosepsis; urine clearing. Continue same. MiraLAX/Senokot scheduled; Dulcolax tablet given earlier today for constipation without relief. Lactulose can be added if needed. MOM should be avoided due to CKD. Blood sugars 202-338 today; basal insulin increased slightly, corrective insulin added-adjust meal insulins after pattern established if hyperglycemia persists with additional treatment of infection. A1C with morning labs Hospital Course Summary Disclaimer: The visit summary below is not to be considered part of the above Progress Note. Hospital Course: 10/27/17 Admit, IP Ceftriaxone and 1L NS given in ER. Labs reviewed. Repeat lactate ordered. Zosyn for presumed UTI at this point. Previous urine cultures reviewed showing sensitivity to Zosyn consistently. Will narrow atbx once urine culture is resulted. Pharm to renal dose Zosyn. Continue dapto for osteomyelitis. Accuchecks. Continue home insulin. Adjust insulin PRN. Continue IVF's at 100/hr for CHLOE - watch for fluid overload given his CHF and aortic stenosis. Hold home chlorthalidone given CHLOE. Nursing unable to obtain urine for specimen. Recommend bladder scan and change out the suprapubic catheter. Wound consult for his chronic foot ulcerations. Repeat CBC anc BMP in a.m. to follow leukocytosis and renal function. Check magnesium with repeat lactate. SCDs and Lovenox for VTE prophylaxis. Full code. Dr. العراقي-PCP. 10/28/17 Urine culture showed mixed bacterial lukasz >100,000cfu/ml. Have asked micro to please perform ID and sensitivities as the urine is the most likely cause of his sepsis. WBC remains elevated 18.6-->17.6. Repeat CBC in am. Continue Zosyn (Day2) and ongoing daptomycin for osteomyelitis. Pt is eating well. Wt up 4 kg since admission. DC IV fluids. Repeat BMP in am to follow creatinine. Is on renal dosing for atbx.
[2017-10-28] MEDS ORDERED: BISACODYL 10 MG SUPPOSITORY RECTALLY PRN (18:32)
[2017-10-28] MEDS ORDERED: LACTULOSE 20 GM/30 ML ORAL LIQUID PO PRN (21:06)
[2017-10-28] MEDS: INSULIN ASPART 100unit/ml INJECTION SQ PRN (21:48)
[2017-10-29] MEDS: PIPERACILLIN/TAZOBACTAM 2.25 GM in NS 100 ML IV SCH ×4 (06:02→22:22)
[2017-10-29] MEDS: INSULIN ASPART 100unit/ml INJECTION SQ PRN ×3 (06:43→22:30)
[2017-10-29] MEDS: INSULIN DETEMIR 100unit/ml INJECTION SQ SCH ×2 (06:58→22:23)
[2017-10-29] MEDS: POLYETHYL GLYCOL 3350 17gm PACKET PO SCH (08:45)
[2017-10-29] MEDS: ENOXAPARIN 30 MG/0.3 ML INJECTION SQ SCH (08:45)
[2017-10-29] MEDS: SENNA + DOCUSATE TABLET PO SCH ×2 (08:46→22:24)
[2017-10-29] MEDS: AMLODIPINE 5 MG TABLET PO SCH (08:46)
[2017-10-29] MEDS: ALLOPURINOL 100 MG TABLET PO SCH (08:46)
[2017-10-29] MEDS: CLOPIDOGREL 75 MG TABLET PO SCH (08:46)
[2017-10-29] MEDS: ASPIRIN 81 MG CHEWABLE TABLET PO SCH (08:46)
[2017-10-29] MEDS: INSULIN ASPART 100unit/ml INJECTION SQ SCH ×3 (08:46→17:34)
[2017-10-29] MEDS ORDERED: NS FLUSH BAG 500ml IV PRN (08:50)
[2017-10-29] MEDS: SALINE FLUSH 10ml SYRINGE IVF PRN ×2 (08:52→12:42)
--- NOTE | 2017-10-29 12:09 | Progress Note ---
- Date 10/29/17 Subjective: Patient was seen this morning sitting up in his chair. He is much more alert today and, in general, looks much better. He is conversant and the nurse tells me that he remembered her from yesterday by name. He asks when he can go home. He reports he has been eating well. No chest pain or shortness of breath. No nausea or vomiting. No chills or fever. Objective Vital signs: Temperature 96.4 F L 10/29/17 07:43 Pulse Rate 72 10/29/17 07:43 Respiratory Rate 16 10/29/17 07:43 Blood Pressure 135/85 10/29/17 07:43 Pulse Oximetry 96 10/29/17 07:43 Height/Weight/BMI: Height 1.85 m Weight 125.3 kg - Constitutional Present: no acute distress, well nourished, well developed - Routine HEENT Exam Head: Present: normocephalic, atraumatic - Routine Respiratory Exam Present: CTA bilaterally. Absent: wheezes - Routine Cardiovascular Exam Present: RRR, murmur - Routine Abdominal Exam Present: soft, non distended, non tender Comments: Suprapubic catheter - Routine Extremities Exam Present: no edema, normal capillary refill - Routine Skin Exam Present: dry, warm - Routine Neurological Exam Present: alert Remembers nurses name from yesterday, aware he is in [facility] - Routine Lymphatic Exam Lymphatic: Absent: adenopathy - Routine Psychiatric Exam Present: normal affect, cooperative Results - Labs CBC & Chem 7: 10/29/17 04:24 10/29/17 04:24 Microbiology Results: Microbiology 10/27/17 13:10 Urine, Cath Vasquez, Chronic Urine Culture - Final Mixed Bacterial Lukasz 10/27/17 09:05 Peripheral/Iv Start Blood Culture - Preliminary No Growth After 2 Days 10/27/17 09:12 Peripheral/Iv Start Blood Culture - Preliminary No Growth After 2 Days Assessment and Plan (1) Sepsis Current visit: Yes Status: Acute Assessment and Plan: Assessment Severe sepsis (SIRS: leukocytosis, tachycardia. Source: suspect urinary - UA not yet collected on admission. Lactate >2) Acute encephalopathy HCLOE - creatinine 3.2 on admission Osteomyelitis - 4th L toe - currently on Daptomycin. History of CVA CHF PAD - s/p stent RLE (Dr. Candelaria) Aortic stenosis Coronary artery disease Hypertension Diabetes type 2 (A1C 7.0 on 09/18/16) Diabetic nephropathy Chronic kidney disease (stage IV) BPH Cervical stenosis Gout - on chronic allopurinol Plan White count continues to improve. Creatinine worsening 3.2--3.5--4.0. Check urine sodium and creatinine. Start NS at 125cc/hr. Urine culture showed mixed bacterial lukasz >100,000cfu/ml. Have asked micro to please perform ID and sensitivities as the urine is the most likely cause of his sepsis. Continue Zosyn (Day 3) and ongoing daptomycin for osteomyelitis. DVT Prophylaxis: Lovenox Resuscitation Status: Full Code - Physician Narrative Physician: Raquel Ramirez MD Narrative: Date: 10/29/17 Time: 2039 I have independently evaluated and examined this patient. I reviewed the chart, the patient's history, and the OIL G[employer] PIPE TESTER/PA's documented findings as above. We discussed and formulated the assessment and plan as above with additions as below: Milan was resting comfortably when seen. He denied dyspnea or pain. Nursing reports no concerns. Zosyn dose was adjusted for renal function earlier today by pharmacy. NAD, alert, respirations nonlabored with good airflow Abdomen soft, nontender. Clinically improving although no organism identified in the urine and may not be. May be left treating empirically for 5 days. Recheck procalcitonin in AM. Urine sodium 65, urine creatinine 65.7, fractional excretion sodium 2.85-may have component of ATN associated with presenting sepsis. Hospital Course Summary Disclaimer: The visit summary below is not to be considered part of the above Progress Note. Hospital Course: 10/27/17 Admit, IP Ceftriaxone and 1L NS given in ER. Labs reviewed. Repeat lactate ordered. Zosyn for presumed UTI at this point. Previous urine cultures reviewed showing sensitivity to Zosyn consistently. Will narrow atbx once urine culture is resulted. Pharm to renal dose Zosyn. Continue dapto for osteomyelitis. Accuchecks. Continue home insulin. Adjust insulin PRN. Continue IVF's at 100/hr for CHLOE - watch for fluid overload given his CHF and aortic stenosis. Hold home chlorthalidone given CHLOE. Nursing unable to obtain urine for specimen. Recommend bladder scan and change out the suprapubic catheter. Wound consult for his chronic foot ulcerations. Repeat CBC anc BMP in a.m. to follow leukocytosis and renal function. Check magnesium with repeat lactate. SCDs and Lovenox for VTE prophylaxis. Full code. Dr. العراقي-PCP. 10/28/17 Urine culture showed mixed bacterial lukasz >100,000cfu/ml. Have asked micro to please perform ID and sensitivities as the urine is the most likely cause of his sepsis. WBC remains elevated 18.6-->17.6. Repeat CBC in am. Continue Zosyn (Day2) and ongoing daptomycin for osteomyelitis. Pt is eating well. Wt up 4 kg since admission. DC IV fluids. Repeat BMP in am to follow creatinine. Is on renal dosing for atbx. 10/29/17 White count continues to improve. Creatinine worsening 3.2--3.5--4.0. Check urine sodium and creatinine. Start NS at 125cc/hr. Urine sodium 65, urine creatinine 65.7, fractional excretion sodium 2.85-may have component of ATN associated with presenting sepsis. Urine culture showed mixed bacterial lukasz >100,000cfu/ml. Have asked micro to please perform ID and sensitivities as the urine is the most likely cause of his sepsis. Continue Zosyn (Day 3) and ongoing daptomycin for osteomyelitis.
[2017-10-29] MEDS: NS 1,000 ML IV SCH ×2 (12:43→21:24)
--- NOTE | 2017-10-29 13:10 | Pharmacy Consult- Renal Dosing ---
Pharamcy Consul-Renal Dosing - Laboratory Information 10/27/17 10/28/17 10/29/17 09:07 04:37 04:24 BUN 48.0 H 49.0 H 49.0 H Creatinine 3.2 H 3.5 H D 4.0 H D - Consult Information RENAL DOSING: Today's SCr = 4.0 mg/dl. Calculated CrCl = 23.15 ml/min. The meds have be reduce Pharmacy Renal Monioring and Adjustment Program. Today they are still appropriate for the current renal function. The pharmacy will continue to monitor and adjust the medications as needed. Thanks, Adam Joseph, Pharmacist
[2017-10-29] MEDS: NS IVP SCH (19:49)
[2017-10-29] MEDS: DAPTOMYCIN IVP SCH (19:49)
[2017-10-30] MEDS: PIPERACILLIN/TAZOBACTAM 2.25 GM in NS 100 ML IV SCH ×4 (03:01→20:00)
[2017-10-30] MEDS: NS 1,000 ML IV SCH ×2 (06:23→17:16)
[2017-10-30] MEDS: INSULIN ASPART 100unit/ml INJECTION SQ PRN ×3 (06:28→20:57)
[2017-10-30] MEDS: POLYETHYL GLYCOL 3350 17gm PACKET PO SCH (08:58)
[2017-10-30] MEDS: SENNA + DOCUSATE TABLET PO SCH ×2 (08:58→20:01)
[2017-10-30] MEDS: INSULIN ASPART 100unit/ml INJECTION SQ SCH ×3 (08:58→17:15)
[2017-10-30] MEDS: ASPIRIN 81 MG CHEWABLE TABLET PO SCH (08:58)
[2017-10-30] MEDS: AMLODIPINE 5 MG TABLET PO SCH (08:59)
[2017-10-30] MEDS: CLOPIDOGREL 75 MG TABLET PO SCH (08:59)
[2017-10-30] MEDS: ALLOPURINOL 100 MG TABLET PO SCH (08:59)
[2017-10-30] MEDS: ENOXAPARIN 30 MG/0.3 ML INJECTION SQ SCH (08:59)
--- NOTE | 2017-10-30 10:43 | Pharmacy Consult- Renal Dosing ---
Michelle Consul-Renal Dosing - Laboratory Information 10/27/17 10/28/17 10/29/17 09:07 04:37 04:24 BUN 48.0 H 49.0 H 49.0 H Creatinine 3.2 H 3.5 H D 4.0 H D 10/30/17 04:05 BUN 45.0 H Creatinine 3.6 H D - Consult Information Renal Monitoring and Adjustment Review: Day 2 Dr. Ramirez asked the pharmacy to review the renal function and adjust accordingly. Date SCr CrCl Action 10/29 4.0 mg/dL 23 mL/min No action needed 10/30 3.6 " " 26 " " No action needed The meds have already been reduced per Pharmacy Renal Monitoring and Adjustment Program. Today they are still appropriate for the currentl renal function. The pharmacy will continue to monitor and adjust the medications as needed. Thanks, Adam Joseph, Pharmacist.
--- NOTE | 2017-10-30 11:31 | Progress Note ---
- Date 10/30/17 Subjective: Milan was lying in bed, watching tv. He has no complaints other than when he can go home. He feels well and denies SOA, chest pain, abd pain, leg/foot pain, n/ v. He reports that he's been eating/drinking well. He hasn't been out of bed yet today. Objective Vital signs: Temperature 96.6 F L 10/30/17 07:13 Pulse Rate 74 10/30/17 07:13 Respiratory Rate 16 10/30/17 07:13 Blood Pressure 152/84 H 10/30/17 07:13 Pulse Oximetry 95 10/30/17 07:13 Height/Weight/BMI: Height 1.85 m Weight 127.7 kg - Constitutional Present: no acute distress, well nourished, well developed, obese - Routine HEENT Exam Head: Present: normocephalic Eye: Present: PERRL. Absent: conjunctival icterus, scleral injection ENT: Present: mucous membranes moist - Routine Respiratory Exam Present: CTA bilaterally - Routine Cardiovascular Exam Present: RRR, S1, S2, murmur - Routine Abdominal Exam Present: soft, normoactive bowel sounds, non distended, non tender - Routine Extremities Exam Present: edema (BLE) - Routine Skin Exam Present: dry, pallor, warm, wounds (toes) - Routine Neurological Exam Present: alert, normal speech. Absent: facial asymmetry - Routine Psychiatric Exam Present: normal thought process, cooperative Results - Labs CBC & Chem 7: 10/30/17 04:05 10/30/17 04:05 Microbiology Results: Microbiology 10/27/17 09:12 Peripheral/Iv Start Blood Culture - Preliminary No Growth After 3 Days 10/27/17 09:05 Peripheral/Iv Start Blood Culture - Preliminary No Growth After 3 Days 10/27/17 13:10 Urine, Cath Vasquez, Chronic Urine Culture - Preliminary Klebsiella pneumoniae Gram Negative Devin Assessment and Plan (1) Sepsis Current visit: Yes Status: Acute Assessment and Plan: Assessment Severe sepsis (SIRS: leukocytosis, tachycardia. Lactate >2) UTI with klebsiella pneumoniae Acute encephalopathy CHLOE - creatinine 3.2 on admission, peaked at 4.0; possible ATN Osteomyelitis - 4th L toe - currently on Daptomycin. History of CVA CHF PAD - s/p stent RLE (Dr. Candelaria) Aortic stenosis Coronary artery disease Hypertension Diabetes type 2 (A1C 7.0 on 09/18/16) Diabetic nephropathy Chronic kidney disease (stage IV) BPH Cervical stenosis Gout - on chronic allopurinol Plan UC + Klebsiella pn. and GNR. Cont Zosyn day #4 . WBC 8.1. Cr improved to 3.6. Decrease rate of IVF to 75 ml/hr. Weight up 7 kg, fluid up nearly 6L. Respiratory status is stable. May need gentle diuresis as renal function improves. BGM elevated, increase supper NovoLOG to 12 U. Fasting sugar improved this morning (169). PT recommends going home with 24-hour care. DVT Prophylaxis: Lovenox Resuscitation Status: Full Code - Physician Narrative Physician: Raquel Ramirez MD Narrative: Date: 10/30/17 Time: 1839 I have independently evaluated and examined this patient. I reviewed the chart, the patient's history, and the MANAGER FIBER/PA's documented findings as above. We discussed and formulated the assessment and plan as above with additions as below: Mr. Padilla had no concerns when seen. He denied bladder spasms or abdominal pain and has had no fever. Blood pressures have been somewhat variable. NAD, alert Abdomen soft, obese, nontender Klebsiella pneumonia identified in urine in addition to second gram-negative devin -sensitivities pending for second organism. Clearly improved however CRP as climbing and procalcitonin remains elevated at 3.04. Await identification of second GNR; will discuss with Dr. Zarate tomorrow. Hospital Course Summary Disclaimer: The visit summary below is not to be considered part of the above Progress Note. Hospital Course: 10/27/17 Admit, IP Ceftriaxone and 1L NS given in ER. Labs reviewed. Repeat lactate ordered. Zosyn for presumed UTI at this point. Previous urine cultures reviewed showing sensitivity to Zosyn consistently. Will narrow atbx once urine culture is resulted. Pharm to renal dose Zosyn. Continue dapto for osteomyelitis. Accuchecks. Continue home insulin. Adjust insulin PRN. Continue IVF's at 100/hr for CHLOE - watch for fluid overload given his CHF and aortic stenosis. Hold home chlorthalidone given CHLOE. Nursing unable to obtain urine for specimen. Recommend bladder scan and change out the suprapubic catheter. Wound consult for his chronic foot ulcerations. Repeat CBC anc BMP in a.m. to follow leukocytosis and renal function. Check magnesium with repeat lactate. SCDs and Lovenox for VTE prophylaxis. Full code. Dr. العراقي-PCP. 10/28/17 Urine culture showed mixed bacterial lukasz >100,000cfu/ml. Have asked micro to please perform ID and sensitivities as the urine is the most likely cause of his sepsis. WBC remains elevated 18.6-->17.6. Repeat CBC in am. Continue Zosyn (Day2) and ongoing daptomycin for osteomyelitis. Pt is eating well. Wt up 4 kg since admission. DC IV fluids. Repeat BMP in am to follow creatinine. Is on renal dosing for atbx. 10/29/17 White count continues to improve. Creatinine worsening 3.2--3.5--4.0. Check urine sodium and creatinine. Start NS at 125cc/hr. Urine sodium 65, urine creatinine 65.7, fractional excretion sodium 2.85-may have component of ATN associated with presenting sepsis. Urine culture showed mixed bacterial lukasz >100,000cfu/ml. Have asked micro to please perform ID and sensitivities as the urine is the most likely cause of his sepsis. Continue Zosyn (Day 3) and ongoing daptomycin for osteomyelitis. 10/30/17 UC + Klebsiella pn. and GNR. Cont Zosyn day #4 . WBC 8.1. Cr improved to 3.6. Decrease rate of IVF to 75 ml/hr. Weight up 7 kg, fluid up nearly 6L. Respiratory status is stable. May need gentle diuresis as renal function improves. BGM elevated, increase supper NovoLOG to 12 U. Fasting sugar improved this morning (169). PT recommends going home with 24-hour care.
[2017-10-30] MEDS: INSULIN DETEMIR 100unit/ml INJECTION SQ SCH (20:58)
[2017-10-31] MEDS: PIPERACILLIN/TAZOBACTAM 2.25 GM in NS 100 ML IV SCH ×2 (02:39→08:19)
[2017-10-31] MEDS: AMLODIPINE 5 MG TABLET PO SCH (08:18)
[2017-10-31] MEDS: ALLOPURINOL 100 MG TABLET PO SCH (08:18)
[2017-10-31] MEDS: ASPIRIN 81 MG CHEWABLE TABLET PO SCH (08:18)
[2017-10-31] MEDS: SENNA + DOCUSATE TABLET PO SCH ×2 (08:18→20:38)
[2017-10-31] MEDS: CLOPIDOGREL 75 MG TABLET PO SCH (08:18)
[2017-10-31] MEDS: NS 1,000 ML IV SCH (08:18)
[2017-10-31] MEDS: INSULIN ASPART 100unit/ml INJECTION SQ SCH ×3 (08:19→17:57)
[2017-10-31] MEDS: ENOXAPARIN 30 MG/0.3 ML INJECTION SQ SCH (08:19)
[2017-10-31] MEDS: POLYETHYL GLYCOL 3350 17gm PACKET PO SCH (08:20)
[2017-10-31] MEDS: INSULIN ASPART 100unit/ml INJECTION SQ PRN ×2 (10:09→20:38)
[2017-10-31] MEDS ORDERED: FUROSEMIDE 40 MG/4 ML INJECTION IVP ONE (10:41)
--- NOTE | 2017-10-31 10:45 | Progress Note ---
- Date 10/31/17 Subjective: Patient seen this am eating breakfast. He reports he is ready to go home. He has no CP, SOA, N/V, f/c. Appetite is good. Objective Vital signs: Temperature 97.3 F 10/31/17 07:26 Pulse Rate 70 10/31/17 07:26 Respiratory Rate 16 10/31/17 07:26 Blood Pressure 149/80 H 10/31/17 07:26 Pulse Oximetry 94 10/31/17 07:26 Height/Weight/BMI: Height 1.85 m Weight 126.5 kg - Constitutional Present: no acute distress, well nourished, well developed - Routine HEENT Exam Head: Present: normocephalic, atraumatic - Routine Respiratory Exam Present: CTA bilaterally. Absent: wheezes - Routine Cardiovascular Exam Present: RRR, no murmur - Routine Abdominal Exam Present: soft, non distended, non tender - Routine Extremities Exam Present: edema (RLE -chronic for pt), normal capillary refill - Routine Skin Exam Present: dry, warm - Routine Neurological Exam Present: alert, oriented X3 - Routine Lymphatic Exam Lymphatic: Absent: adenopathy - Routine Psychiatric Exam Present: normal affect, cooperative Results - Labs CBC & Chem 7: 10/31/17 04:08 10/31/17 04:08 Microbiology Results: Microbiology 10/27/17 09:12 Peripheral/Iv Start Blood Culture - Preliminary No Growth After 4 Days 10/27/17 09:05 Peripheral/Iv Start Blood Culture - Preliminary No Growth After 4 Days 10/27/17 13:10 Urine, Cath Vasquez, Chronic Urine Culture - Final Klebsiella pneumoniae Alcaligenes species (faecalis) Providencia rettgeri Assessment and Plan (1) Sepsis Current visit: Yes Status: Acute Assessment and Plan: Assessment Severe sepsis (SIRS: leukocytosis, tachycardia. Lactate >2) UTI with klebsiella pneumoniae Acute encephalopathy CHLOE - creatinine 3.2 on admission, peaked at 4.0; possible ATN Osteomyelitis - 4th L toe - currently on Daptomycin. History of CVA CHF PAD - s/p stent RLE (Dr. Candelaria) Aortic stenosis Coronary artery disease Hypertension Diabetes type 2 (A1C 7.0 on 09/18/16) Diabetic nephropathy Chronic kidney disease (stage IV) BPH Cervical stenosis Gout - on chronic allopurinol Plan UC + Klebsiella, alcaligenes faecalis, providencia rettgeri - all sensitive to ceftriaxone. DC Zosyn (10/27-10/31) and start ceftriaxone. Will plan to convert to po Vantin on DC to complete 10 day course of atbx. Cr improved to 2.9 today. Wt up 6kg. Fluid balance up 5L. Hold IVF's and give Lasix 40mgx1. PT recommends going home with 24-hour care. CM will talk with son to determine if they will have coverage at home or if pt can go to IRU vs SNU. Resuscitation Status: Full Code - Physician Narrative Physician: Raquel Ramirez MD Narrative: Date: 10/31/17 Time: 2009 I have independently evaluated and examined this patient. I reviewed the chart, the patient's history, and the MANNEQUIN MOLD MAKER/PA's documented findings as above. We discussed and formulated the assessment and plan as above with additions as below: Mr. Padilla denied abdominal pain or dyspnea; his appetite is good and he advised me that he is going to rehabilitation tomorrow. This was subsequently confirmed with spoke with the rehabilitation liaison who indicated approval had just been received. NAD, alert, respirations nonlabored Abdomen soft, nontender, obese, bowel sounds present. Results of urine culture as above-all organisms sensitive to third-generation cephalosporins Creatinine improved today at 2.9, continue to monitor Stable to transfer to IRU continuing daptomycin for osteomyelitis-should have CPK checked, will order in a.m. Can complete antibiotics for UTI IV or by mouth if remains in an inpatient setting. Hospital Course Summary Disclaimer: The visit summary below is not to be considered part of the above Progress Note. Hospital Course: 10/27/17 Admit, IP Ceftriaxone and 1L NS given in ER. Labs reviewed. Repeat lactate ordered. Zosyn for presumed UTI at this point. Previous urine cultures reviewed showing sensitivity to Zosyn consistently. Will narrow atbx once urine culture is resulted. Pharm to renal dose Zosyn. Continue dapto for osteomyelitis. Accuchecks. Continue home insulin. Adjust insulin PRN. Continue IVF's at 100/hr for CHLOE - watch for fluid overload given his CHF and aortic stenosis. Hold home chlorthalidone given CHLOE. Nursing unable to obtain urine for specimen. Recommend bladder scan and change out the suprapubic catheter. Wound consult for his chronic foot ulcerations. Repeat CBC anc BMP in a.m. to follow leukocytosis and renal function. Check magnesium with repeat lactate. SCDs and Lovenox for VTE prophylaxis. Full code. Dr. العراقي-PCP. 10/28/17 Urine culture showed mixed bacterial lukasz >100,000cfu/ml. Have asked micro to please perform ID and sensitivities as the urine is the most likely cause of his sepsis. WBC remains elevated 18.6-->17.6. Repeat CBC in am. Continue Zosyn (Day2) and ongoing daptomycin for osteomyelitis. Pt is eating well. Wt up 4 kg since admission. DC IV fluids. Repeat BMP in am to follow creatinine. Is on renal dosing for atbx. 10/29/17 White count continues to improve. Creatinine worsening 3.2--3.5--4.0. Check urine sodium and creatinine. Start NS at 125cc/hr. Urine sodium 65, urine creatinine 65.7, fractional excretion sodium 2.85-may have component of ATN associated with presenting sepsis. Urine culture showed mixed bacterial lukasz >100,000cfu/ml. Have asked micro to please perform ID and sensitivities as the urine is the most likely cause of his sepsis. Continue Zosyn (Day 3) and ongoing daptomycin for osteomyelitis. 10/30/17 UC + Klebsiella pn. and GNR. Cont Zosyn day #4 . WBC 8.1. Cr improved to 3.6. Decrease rate of IVF to 75 ml/hr. Weight up 7 kg, fluid up nearly 6L. Respiratory status is stable. May need gentle diuresis as renal function improves. BGM elevated, increase supper NovoLOG to 12 U. Fasting sugar improved this morning (169). PT recommends going home with 24-hour care. 10/31/17 UC + Klebsiella, alcaligenes faecalis, providencia rettgeri - all sensitive to ceftriaxone. DC Zosyn (10/27-10/31) and start ceftriaxone. Will plan to convert to po Vantin on DC to complete 10 day course of atbx. Cr improved to 2.9 today. Wt up 6kg. Fluid balance up 5L. Hold IVF's and give Lasix 40mgx1. PT recommends going home with 24-hour care. CM will talk with son to determine if they will have coverage at home or if pt can go to IRU vs SNU.
[2017-10-31] MEDS ORDERED: CEFTRIAXONE 1 G in NS 100 ML IV SCH (14:00)
[2017-10-31] MEDS: NS IVP SCH (20:37)
[2017-10-31] MEDS: DAPTOMYCIN IVP SCH (20:37)
[2017-10-31] MEDS: INSULIN DETEMIR 100unit/ml INJECTION SQ SCH (20:37)
[2017-10-31] MEDS: SALINE FLUSH 10ml SYRINGE IVF PRN (20:38)
[2017-11-01 07:24] VITALS: BP 178/90; PULSE 68; RESP 12; TEMP 97.2; O2SAT 95
[2017-11-01] MEDS: INSULIN ASPART 100unit/ml INJECTION SQ SCH (08:37)
[2017-11-01] MEDS: POLYETHYL GLYCOL 3350 17gm PACKET PO SCH (08:37)
[2017-11-01] MEDS: ENOXAPARIN 30 MG/0.3 ML INJECTION SQ SCH (08:37)
[2017-11-01] MEDS: ALLOPURINOL 100 MG TABLET PO SCH (08:38)
[2017-11-01] MEDS: CLOPIDOGREL 75 MG TABLET PO SCH (08:38)
[2017-11-01] MEDS: ASPIRIN 81 MG CHEWABLE TABLET PO SCH (08:38)
[2017-11-01] MEDS: SENNA + DOCUSATE TABLET PO SCH (08:38)
[2017-11-01] MEDS: AMLODIPINE 5 MG TABLET PO SCH (08:38)
--- NOTE | 2017-11-01 09:29 | Discharge Summary ---
Discharge Information Date of admission: 10/27/17 11:32 Anticipated date of discharge: 11/01/17 Attending Physician: Jun Tse MD Primary care physician: Roel العراقي II, MD Consults: Wound care Discharge diagnosis Severe sepsis (SIRS: leukocytosis, tachycardia. Lactate >2) - resolved Associated conditions and complications UTI with klebsiella pneumoniae Acute encephalopathy CHLOE - creatinine 3.2 on admission, peaked at 4.0; possible ATN Osteomyelitis - 4th L toe - currently on Daptomycin. History of CVA CHF PAD - s/p stent RLE (Dr. Candelaria) Aortic stenosis Coronary artery disease Hypertension Diabetes type 2 (A1C 7.0 on 09/18/16) Diabetic nephropathy Chronic kidney disease (stage IV) BPH Cervical stenosis Gout - on chronic allopurinol Obesity with BMI 36 - Laboratory Labs: Admission labs 10/27/17 10/27/17 09:07 09:07 WBC 18.6 H RBC 5.51 Hgb 15.5 Hct 48.7 Plt Count 186 Sodium 144 Potassium 4.4 Chloride 106 Carbon Dioxide 25 BUN 48.0 H Creatinine 3.2 H Glucose 266 H Calcium 9.7 AST 21 ALT 24 Dismissal labs 11/01/17 11/01/17 04:35 04:35 WBC 6.0 RBC 4.63 Hgb 13.0 L Hct 40.7 L Plt Count 184 Sodium 143 Potassium 3.8 Chloride 104 D Carbon Dioxide 25 BUN 33.0 H Creatinine 2.9 H Glucose 97 Calcium 8.7 D Total Creatine Kinase 162 Laboratory Tests 10/29/17 10/30/17 04:24 04:05 Hemoglobin A1c 8.9 H Procalcitonin 3.04 H* Urinalysis 10/27/17 13:10 Ur Collection Type Urine, english chronic Urine Color Yellow Urine Clarity Cloudy Urine pH 6.5 Ur Specific Entriken 1.015 Urine Protein 3+ A Urine Glucose (UA) 3+ A Urine Ketones Negative Urine Occult Blood 3+ A Urine Nitrate Positive A Urine Bilirubin Negative Urine Urobilinogen 0.2 Ur Leukocyte Esterase 1+ A Urine RBC 1-3 Urine WBC 50-200 H Urine Bacteria 3+ H - Microbiology Microbiology 10/27/17 09:12 Peripheral/Iv Start Blood Culture - Final No Growth After 5 Days 10/27/17 09:05 Peripheral/Iv Start Blood Culture - Final No Growth After 5 Days 10/27/17 13:10 Urine, Cath English, Chronic Urine Culture - Final Klebsiella pneumoniae - pansensitive except to ampicillin Alcaligenes species (faecalis) - S to ceftriaxone, gent and tobramycin Providencia rettgeri - S to cephalosporins, cipro, gent, levofloxacin, tobramycin and Zosyn - Radiology Radiology: Date of Exam: 10/27/17 Indication: fell down flight of stairs PROCEDURE: CT head/brain wo con: FINDINGS: Mild atrophy. Small old right occipital lobe infarct. The ventricles are stable. There is no evidence of acute intracranial hemorrhage, midline displacement, or mass effect. There are scattered areas of low attenuation in the white matter which most likely represent changes of chronic microvascular ischemia. The CT attenuation of the brain parenchyma is otherwise normal within the cerebellum, brain stem, and cerebral hemispheres. The tympanic cavities and mastoid air cells are free of appreciable disease. There are no definite fractures of the skull base, calvarium, or visualized portion of the midface. IMPRESSION: No CT evidence of acute traumatic intracranial injury. Date of Exam: 10/27/17 INDICATION: fever PROCEDURE: CHEST 2-VIEWS UPRIGHT (PA & LAT) Findings: Patient is rotated towards the right. The lungs are stable in appearance without new focal airspace consolidation. There is no pleural effusion or pneumothorax. The heart size, pulmonary vascularity and mediastinal contours are unchanged. Prior CABG. Old left clavicular fracture. IMPRESSION: Stable appearance of the chest without acute cardiopulmonary disease. History of Present Illness HPI: Patient is a 72-year-old male who presents to ED with shaking chills and altered mental status which started this morning at 4 AM. Patient lives with his son and his son reports that last night when he gave his medications at 11 PM, patient was in his normal state of health. Patient's son does note that when he emptied his dad's catheter bag there was pus and" brown chunks" that isn 't typical for him. He states he previously had recurrent urinary tract infections, but since placement of the suprapubic catheter this has not been an issue. Patient does have dementia at baseline, but this morning was more confused. He is currently on outpatient daptomycin IV 700 mg every 48 hours for osteomyelitis of the left fourth toe. The patient is following with Dr. Fox through wound clinic. He most recently underwent debridement on for a Preciado grade 3 ulceration on the left lateral fifth metatarsal head, Preciado grade 3 ulcer located on the right distal second toe, and Preciado grade 3 ulcer on the left fourth dorsal toe. Patient is due to see Dr. Zarate in follow- up on 11/02/17. Patient had most recent dapto infusion yesterday. Son reports he was having a rash/redness around the site of the midline, so this was removed and a PICC line was placed further up on the L arm. Patient admitted to hospitalist service, IP status. Stay expected to exceed two midnights given pt's sepsis (elevated WBC, tachycardia - probably urinary source of infection) and comorbidities. Objective Vital signs: Temperature 97.2 F 11/01/17 07:23 Pulse Rate 68 11/01/17 07:23 Respiratory Rate 12 11/01/17 07:23 Blood Pressure 178/90 H 11/01/17 07:23 Pulse Oximetry 95 11/01/17 07:23 Height/Weight/BMI: Height 1.85 m Weight 125 kg - Constitutional Present: no acute distress, well nourished, well developed - Routine HEENT Exam Head: Present: normocephalic, atraumatic - Routine Respiratory Exam Present: CTA bilaterally. Absent: wheezes - Routine Cardiovascular Exam Present: RRR, no murmur - Routine Abdominal Exam Present: soft, non distended, non tender - Routine Extremities Exam Present: edema (chronic RLE edema), no edema (L), normal capillary refill Comments: wounds on R 2nd toe, L 4th toe and L 5th metatarsal head on plantar surface all show signs of healing - Routine Skin Exam Present: dry, warm - Routine Neurological Exam Present: alert, normal speech - Routine Lymphatic Exam Lymphatic: Absent: adenopathy - Routine Psychiatric Exam Present: normal affect, cooperative Hospital Course This is a general summary of the patient's hospital course. For more details refer to the complete medical record. Hospital course: 10/27/17 Admit, IP Ceftriaxone and 1L NS given in ER. Labs reviewed. Repeat lactate ordered. Zosyn for presumed UTI at this point. Previous urine cultures reviewed showing sensitivity to Zosyn consistently. Will narrow atbx once urine culture is resulted. Pharm to renal dose Zosyn. Continue dapto for osteomyelitis. Accuchecks. Continue home insulin. Adjust insulin PRN. Continue IVF's at 100/hr for CHLOE - watch for fluid overload given his CHF and aortic stenosis. Hold home chlorthalidone given CHLOE. Nursing unable to obtain urine for specimen. Recommend bladder scan and change out the suprapubic catheter. Wound consult for his chronic foot ulcerations. Repeat CBC anc BMP in a.m. to follow leukocytosis and renal function. Check magnesium with repeat lactate. SCDs and Lovenox for VTE prophylaxis. Full code. Dr. العراقي-PCP. 10/28/17 Urine culture showed mixed bacterial lukasz >100,000cfu/ml. Have asked micro to please perform ID and sensitivities as the urine is the most likely cause of his sepsis. WBC remains elevated 18.6-->17.6. Repeat CBC in am. Continue Zosyn (Day2) and ongoing daptomycin for osteomyelitis. Pt is eating well. Wt up 4 kg since admission. DC IV fluids. Repeat BMP in am to follow creatinine. Is on renal dosing for atbx. 10/29/17 White count continues to improve. Creatinine worsening 3.2--3.5--4.0. Check urine sodium and creatinine. Start NS at 125cc/hr. Urine sodium 65, urine creatinine 65.7, fractional excretion sodium 2.85-may have component of ATN associated with presenting sepsis. Urine culture showed mixed bacterial lukasz >100,000cfu/ml. Have asked micro to please perform ID and sensitivities as the urine is the most likely cause of his sepsis. Continue Zosyn (Day 3) and ongoing daptomycin for osteomyelitis. 10/30/17 UC + Klebsiella pn. and GNR. Cont Zosyn day #4 . WBC 8.1. Cr improved to 3.6. Decrease rate of IVF to 75 ml/hr. Weight up 7 kg, fluid up nearly 6L. Respiratory status is stable. May need gentle diuresis as renal function improves. BGM elevated, increase supper NovoLOG to 12 U. Fasting sugar improved this morning (169). PT recommends going home with 24-hour care. 10/31/17 UC + Klebsiella, alcaligenes faecalis, providencia rettgeri - all sensitive to ceftriaxone. DC Zosyn (10/27-10/31) and start ceftriaxone. Will plan to convert to po Vantin on DC to complete 10 day course of atbx. Cr improved to 2.9 today. Wt up 6kg. Fluid balance up 5L. Hold IVF's and give Lasix 40mgx1. PT recommends going home with 24-hour care. CM will talk with son to determine if they will have coverage at home or if pt can go to IRU vs SNU. 11/01/17 DC to rehab today. Pt had Zosyn 10/27-10/31, Rocephin one dose on 10/27 and 10/31. and Switch to Vantin which covers all 3 organisms grown out in UC. Continue through 11/05 to complete a 10 day course. His chlorthalidone remains on hold due to kidney function. Continue to follow renal function closely. Time spent with patient: discharge greater than 30 minutes Resuscitation Status: Full Code Discharge Plan - Discharge Disposition Discharge Date: 11/01/17 Disposition: 62 To [facility] *Condition: Stable Reason For Visit (Visit label in EMR): Sepsis - Discharge Medications Medication Comments: Medications listed below should reflect the patient's home medications, this may not include any new medication started during hospitalization, and may omit some home medicines that may have been held/continued during patient's stay. *Discharge Medications: Continue Multivitamin [One Daily Multivitamin] 1 tab PO DAILY Insulin Aspart [NovoLOG] 10 unit SQ 1200 Amlodipine [Norvasc] 5 mg PO DAILY Insulin Detemir [Levemir Flextouch] 40 unit SQ HS Allopurinol [Zyloprim] 100 mg PO DAILY Metoprolol Tartrate [Lopressor] 25 mg PO BID Clopidogrel Bisulfate [Clopidogrel] 75 mg PO DAILY Docusate Sodium [Stool Softener] 200 mg PO DAILY Chlorthalidone 12.5 - 25 mg PO DAILY Insulin Aspart [Novolog] 30 unit SQ AM Cyanocobalamin (Vitamin B-12) [B-12] 1,500 mcg PO DAILY Cholecalciferol (Vitamin D3) [Vitamin D3] 1,000 unit PO DAILY Aspirin Chewable [ASA] 81 mg PO DAILY - Discharge Packet/Instructions *Diet: Cardiac consistent carbohydrate diet, 2000 shahida *Activity: Per PT/OT *Pain Management/Treatment: Not applicable *Wound Care: Wound care clinic to continue dressing changes *Expected Signs/Symptoms: Continued strengthening *Notify Physician if: Not applicable *During Business Hours Contact: Your nurse in rehabilitation unit *After Business Hours Contact: Your nurse in rehabilitation unit *Pending Lab/Results: No Pending Lab - IRU/GEN Discharge/Transfer - Referrals/Follow Up *Referrals/Follow Up: Roel العراقي II, MD [Primary Care Provider] - (After rehabilitation stay) - Patient Handouts Patient Handouts: Urinary Tract Infection in Men (DC), Sepsis (GEN), Catheter- associated Urinary Tract Infection (DC) - Dismissal Complete Discharge Instructions are:: Complete Physician Narrative - Narrative Physician: Jnu Tse MD Attestation Narrative: Date: 11/01/17 Time: 925 I have independently interviewed and examined patient. Chart reviewed. Case discussed with my AP. Reviewed above note and concur. Doing well today. Not f/c. Breathing well; not having SOA, cough, or congestion. No chest pain. Denies ab pain, nausea, or vomiting. Bowel stable. Feels ready to start rehab and get stronger. Lungs: clear bilaterally CV: regular AB: soft nt/nd MSE: awake alert appropriate Plan: Medically stable for discharge to IRU. See orders for details. Will need outpatient F/U with Dr العراقي 1 week post discharge from IRU.
--- NOTE | 2017-11-01 09:39 | Wound Care Progress Note ---
Wound Center Progress Note: Pt seen today for wound follow up. Pt resting in chair, no complaints of pain. Pt will be transferring to rehab today. "I am ready to go and start that rehab. " Dressings to DM FU: L 4th dorsal toe, L lateral 5th met head, and R distal 2nd toe cleaned and re-dressed. Pt reports his L 4th dorsal toe ulcer is tender to palpation. R distal 2nd toe: wound bed is crusted, no drainage. Periwound: blanchable erythema. L 4th dorsal toe: wound bed has pink non-granulating tissue , no drainage. Periwound: blanchable erythema. L lateral 5th met head: red non- granulating tissue, scant slough, no drainage. Periwound: blanchable erythema. Wound tx plan: Apply saline moistened Sara to all wound beds, cover with Mepilex/tape, change q 3 days.
[2017-11-02] MEDS ORDERED: MULTI-VITAMIN PLAIN TABLET PO SCH (09:00)
[2017-11-02] MEDS ORDERED: CYANOCOBALAMIN (B-12) 500mcg TABLET PO SCH (09:00)
== END 2017-11-01 10:30 | DRG 871 ==
LOC: ED 08:33 → EDHOLD 11:32 → SUATTDRO 11:32 → SRG 11:45
PROVIDERS: ADMIT Internal Medicine; ATTEND Hospitalist

== ENCOUNTER 2017-11-01 10:30 | Inpatient (IN) ==
[2017-11-01] MEDS ORDERED: BISACODYL 10 MG SUPPOSITORY RECTALLY PRN (10:54)
[2017-11-01] MEDS ORDERED: LACTULOSE 20 GM/30 ML ORAL LIQUID PO PRN (10:54)
[2017-11-01] MEDS ORDERED: CEFPODOXIME 100 MG PO SCH (12:00)
[2017-11-01] MEDS: INSULIN ASPART 100unit/ml INJECTION SQ SCH ×2 (12:37→17:44)
--- NOTE | 2017-11-01 13:05 | IRU History & Physical Report ---
HPI IRU Date: Date: 11/01/17 Time: 1254 Chief complaint: weak when walking HPI: This is a 72 yo male who presents to IRU from [facility] acute care. He was admitted on 10/27/17 with shaking chills and altered mental status which started the morning of admission. He does have some baseline dementia but normally a lot better than when he came in. Patient has a suprapubic catheter that was put in a few months before by Dr. Renae. He was being treated in the wound clinic with daptomycin for osteomylitis in L 4th toe. He also underwent debridement of some ulcers on his feet. He was put in hospital with UTI which grew out Klebsiella pneumonia. Blood cultures were negative. He was diagnosed with severe sepsis with SIRS. He had leukocytosis, tachycardia, lactate > 2 and fever with acute encephalopathy. He also had acute kidney injury with Cr peaking at 4.0. He has gotten a lot better with WBC coming down and mental status getting more at baseline. Cr is still elevated. The hospitalist service had him on Zosyn and Rocephin and will change to Vantin and continue until 11/05 in IRU. Prior to this illness, patient was ambulating thoughout his home with a 4 wheeled walker. He was able to transfer from bed to recliner on occasion. He utilized a shower bench and grab bars for bathing. He also has a raised toilet seat. He does have difficulty wiping after a BM. He does have a chair that raises him up at home. He would like to return home to live with his son who works so will really benefit from rehabilitation. Will also need close monitoring for his medical conditions. 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 CHF. Aortic stenosis. Coronary artery disease. Hypertension. Diabetes type 2. Diabetic nephropathy. BPH. Cervical stenosis. Gout. Chronic kidney disease (stage IV). dementia. osteomyelitis L 4th toe Surgical History: Cystoscopy and SP tube placement; cystogram - Dr. Walters. Cholecystectomy. CABG - (coronary stent placed in setting of acute inferior [place] at [facility]). Knee surgery. Hand and foot. [employer]PA[employer]ER and stent of the right lower extremity by Dr. Mike Simon. Lumbar disc surgery Family History: father - of leukemia, mother - CAD Family History Updates: updated - Social History Smoking status: Never smoker second hand exposure: No Substance use type: does not use Alcohol intake: never Alcohol intake frequency: does not drink Housing: house Household members: children (lives with his son. His son provides full care of the patient.) Current occupational status: retired Current occupational exposures/hazards: Yes Does patient use chewing tobacco?: No Current residence: Apartment/Private Home (lives with son) Review of Systems - Constitutional Constitutional: Absent: chills - EENMT Eyes: Absent: blurry vision - Cardiovascular Cardiovascular: Absent: chest pain, palpitations - Respiratory Respiratory: Absent: dyspnea - Gastrointestinal Gastrointestinal: Absent: abdominal pain - Neurological Neurological: Absent: abnormal speech Medications Home Medications Medication Instructions Recorded Confirmed Type Aspirin Chewable [ASA] 81 mg PO DAILY 09/30/16 11/01/17 Rx Multivitamin [One Daily 1 tab PO DAILY 10/23/16 11/01/17 History Multivitamin] Amlodipine [Norvasc] 5 mg PO DAILY 10/29/16 11/01/17 History Insulin Aspart [NovoLOG] 10 unit SQ 1200 10/29/16 11/01/17 History Insulin Detemir [Levemir Flextouch] 40 unit SQ HS 01/17/17 11/01/17 History Allopurinol [Zyloprim] 100 mg PO DAILY 01/26/17 11/01/17 History Clopidogrel Bisulfate [Clopidogrel] 75 mg PO DAILY 06/30/17 11/01/17 History Docusate Sodium [Stool Softener] 200 mg PO DAILY 06/30/17 11/01/17 History Metoprolol Tartrate [Lopressor] 25 mg PO BID 06/30/17 11/01/17 History Chlorthalidone 12.5 - 25 mg PO DAILY 10/09/17 11/01/17 History Cholecalciferol (Vitamin D3) 1,000 unit PO DAILY 10/27/17 11/01/17 History [Vitamin D3] Cyanocobalamin (Vitamin B-12) 1,500 mcg PO DAILY 10/27/17 11/01/17 History [B-12] Insulin Aspart [Novolog] 30 unit SQ AM 10/27/17 11/01/17 History Allergies Allergy/AdvReac Type Severity Reaction Status Date / Time hydrocodone AdvReac Intermediate Verified 10/27/17 09:25 Results IRU - Labs Labs: Laboratory Results - last 24 hr 11/01/17 11:03 Glucometer 148 WBC was back to normal the day of admission. BUN 33.0 and Cr 2.9. Exam Vital Signs: Temperature 97.7 F 11/01/17 10:51 Pulse Rate 64 11/01/17 12:38 Respiratory Rate 18 11/01/17 12:38 Blood Pressure 135/70 11/01/17 10:51 Pulse Oximetry 95 11/01/17 12:38 - Constitutional Present: no acute distress - Routine HEENT Exam Head: Present: normocephalic, atraumatic - Routine Neck Exam Present: supple, full ROM. Absent: carotid bruit - Routine Respiratory Exam Present: CTA bilaterally - Routine Cardiovascular Exam Present: RRR, no murmur - Routine Abdominal Exam Present: soft, normoactive bowel sounds. Absent: tenderness - Routine Extremities Exam Comments: tr edema on RLE. Decreased strength 3-4/5 in bilat lower extremities. Upper extremities 5/5. - Routine Skin Exam Present: intact, erythema - Routine Neurological Exam Present: alert, oriented X3 IRU A/P (1) Sepsis Current visit: No Status: Resolved Patient will continue on Vantin while in IRU until 11/05 according to hospitalist service. (2) Urinary tract infection Problem details: Chronic colonization Current visit: No Status: Ruled-out (3) Acute renal failure Qualifiers: Acute renal failure type: unspecified Qualified Code(s): N17.9 - Acute kidney failure, unspecified Problem details: Dehydration Current visit: No Status: Resolved Will continue to monitor kidney function. (4) Metabolic encephalopathy Current visit: No Status: Resolved This seems to be resolved. (5) DM type 2 (diabetes mellitus, type 2) Qualifiers: Diabetes mellitus intermodal dispatcher insulin use: with intermodal dispatcher use Diabetes mellitus complication status: with kidney complications Diabetes mellitus complication detail: with chronic kidney disease Chronic kidney disease stage : stage 3 (moderate) Qualified Code(s): E11.22 - Type 2 diabetes mellitus with diabetic chronic kidney disease; N18.3 - Chronic kidney disease, stage 3 ( moderate); Z79.4 - roasterman (current) use of insulin Current visit: No Status: Chronic (6) CKD (chronic kidney disease) stage 4, GFR 15-29 ml/min Problem details: Stage 3-4 Current visit: No Status: Chronic (7) HTN (hypertension) Qualifiers: Hypertension type: essential hypertension Qualified Code(s): I10 - Essential (primary) hypertension Current visit: No Status: Chronic (8) Weakness generalized Current visit: No Status: Acute Will work with OT and PT to get back his strength as he really wants to return to his home with his son. He has 2 steps that he must get up to get into his house. He normally uses a walker so will continue with that. (9) Urinary retention Current visit: No Status: Chronic (10) Coronary artery disease Current visit: No Status: Chronic - Course Hospital Course: Michelle Morrison, DO: - Interventions to Obtain Goals Goals Progress/Modifications: Patient will participate in OT and PT to get stronger so that he can get back to his home.
--- NOTE | 2017-11-01 13:35 | IRU 24Hr Post Admit Eval ---
24 Hr Post Admission Physical - Relevant Changes Relevant Changes: No Reviewed: I have reviewed the patient's information and concur with the finding and results of the pre-admission screen. Certification: I certify the patient for rehabilitation. - Patient Condition (1) Sepsis Status: Resolved Code(s): A41.9 - Sepsis, unspecified organism Classification: IRF Tx That Should Address Diagnosis, Diagnosis Requiring Medical Follow Up (2) Urinary tract infection Status: Ruled-out Code(s): N39.0 - Urinary tract infection, site not specified Classification: Present on IRF Admission, IRF Tx That Should Address Diagnosis, Diagnosis Requiring Medical Follow Up (3) Acute renal failure Status: Resolved Qualifiers: Acute renal failure type: unspecified Qualified Code(s): N17.9 - Acute kidney failure, unspecified Code(s): N17.9 - Acute kidney failure, unspecified Classification: Diagnosis Requiring Medical Follow Up (4) Metabolic encephalopathy Status: Resolved Code(s): G93.41 - Metabolic encephalopathy (5) DM type 2 (diabetes mellitus, type 2) Status: Chronic Qualifiers: Diabetes mellitus group home insulin use: with group home use Diabetes mellitus complication status: with kidney complications Diabetes mellitus complication detail: with chronic kidney disease Chronic kidney disease stage : stage 3 (moderate) Qualified Code(s): E11.22 - Type 2 diabetes mellitus with diabetic chronic kidney disease; N18.3 - Chronic kidney disease, stage 3 ( moderate); Z79.4 - FDC (current) use of insulin Code(s): E11.9 - Type 2 diabetes mellitus without complications Classification: Present on IRF Admission, Diagnosis Requiring Medical Follow Up (6) CKD (chronic kidney disease) stage 4, GFR 15-29 ml/min Status: Chronic Code(s): N18.4 - Chronic kidney disease, stage 4 (severe) Classification: Present on IRF Admission, IRF Tx That Should Address Diagnosis, Diagnosis Requiring Medical Follow Up (7) HTN (hypertension) Status: Chronic Qualifiers: Hypertension type: essential hypertension Qualified Code(s): I10 - Essential (primary) hypertension Code(s): I10 - Essential (primary) hypertension Classification: Present on IRF Admission, Diagnosis Requiring Medical Follow Up (8) Weakness generalized Status: Acute Code(s): R53.1 - Weakness Classification: Present on IRF Admission, IRF Tx That Should Address Diagnosis, Diagnosis Requiring Medical Follow Up (9) Urinary retention Status: Chronic Code(s): R33.9 - Retention of urine, unspecified Classification: Present on IRF Admission, Diagnosis Requiring Medical Follow Up (10) Coronary artery disease Status: Chronic Code(s): I25.10 - Atherosclerotic heart disease of ute coronary artery without angina pectoris - Prior Functional Status Lives With: Other (son) Residence Type: Apartment/Private Home Assitive Devices: Four Wheeled Walker Prior Functional Status: Used assistive device, Need assist w/ home ADL - Current Functional Status Current Level of Function: Patient needs max assist with dressing upper and total assist with dressing lower and toileting. He is max assist with transfers, moderate assist with toilet transfers and total assist with walking. Uses rolling walker and can walk 40 feet. Comprehension is moderate independent. Failed Alternative Therapy: Arrived from Acute Care Patient Requirements: The patient requires oversight by rehabilitation physician to manage their rehabilitation treatment plan and multidisciplinary approach to care that can only be provided in an IRF and requires a multidisciplinary approach to care, provided by professional PTs, OTs, STs, dieticians, RTs, rehabilitation nurses and is not available in lesser levels of care. Limitations Req: Mobility Impairment, Cognitive Impairment Physical Therapy Minutes: 90 Occupational Therapy Minutes: 90 Therapy: The patient is to receive therapy at least 5 days a week. ROM Deficit: Right Lower Extremity, Left Lower Extremity ROM Comment: Has weakness in both legs. - Complications/Comorbidities Impact on Functional Outcomes: The patient's dementia, diabetes, chronic kidney disease and catheter will likely negatively impact their functional outcomes. - Plan to Avoid Complications Plan to Avoid Complications: The patient cannot receive this care in a lesser intensive setting such as Residential or Outpatient Therapy due to the patient requiring the following. The patient is medically complex with his multiple comorbidities including diabetes, dementia, CAD, CKD and PAD. They require a multidisciplinary approach with PT, OT and medical supervision.
[2017-11-01] MEDS: CEFPODOXIME 200mg TABLET PO SCH (13:36)
[2017-11-01] MEDS: INSULIN ASPART 100unit/ml INJECTION SQ PRN (21:49)
[2017-11-01] MEDS: SENNA + DOCUSATE TABLET PO SCH (21:50)
[2017-11-01] MEDS: INSULIN DETEMIR 100unit/ml INJECTION SQ SCH (21:52)
[2017-11-02] MEDS: CYANOCOBALAMIN (B-12) 500mcg TABLET PO SCH (08:36)
[2017-11-02] MEDS: AMLODIPINE 5 MG TABLET PO SCH (08:37)
[2017-11-02] MEDS: ALLOPURINOL 100 MG TABLET PO SCH (08:37)
[2017-11-02] MEDS: CLOPIDOGREL 75 MG TABLET PO SCH (08:37)
[2017-11-02] MEDS: MULTI-VITAMIN PLAIN TABLET PO SCH (08:37)
[2017-11-02] MEDS: ASPIRIN 81 MG CHEWABLE TABLET PO SCH (08:38)
[2017-11-02] MEDS: INSULIN ASPART 100unit/ml INJECTION SQ SCH ×3 (08:38→17:25)
[2017-11-02] MEDS: ENOXAPARIN 30 MG/0.3 ML INJECTION SQ SCH (08:38)
[2017-11-02] MEDS: SENNA + DOCUSATE TABLET PO SCH ×2 (08:39→20:19)
[2017-11-02] MEDS: POLYETHYL GLYCOL 3350 17gm PACKET PO SCH (08:39)
[2017-11-02] MEDS: DOCUSATE SODIUM 100 MG CAPSULE PO SCH (08:39)
[2017-11-02] MEDS: INSULIN ASPART 100unit/ml INJECTION SQ PRN ×3 (10:33→20:18)
[2017-11-02] MEDS: CEFPODOXIME 200mg TABLET PO SCH (12:22)
--- NOTE | 2017-11-02 12:57 | Consult Note ---
Consult Information - Data of Consult Consult date: 11/02/17 Requesting Physician: Colin Dang MD Primary Care Provider: Roel العراقي II, MD - Consult Narrative Reason for consult: Medical management History of present illness: Patient is a 72 yo who was admitted to the rehab unit yesterday following a stay on medical for sepsis secondary to UTI. While on medical, he was treated with Zosyn and Rocephin for his UTI. His UC was + for Klebsiella pneumoniae, Alcaligenes faecalis and Providencia rettgeri all sensitive to 3rd generation cephalosporins. He is on renal dosed Vantin to complete a 10 day course. He is also receiving Daptomycin through his PICC line through 11/[address] Zarate for his osteomyelitis of his L 4th toe. Patient was seen in the dining room today after therapy and he reports he is doing well. He reports he is weaker than he thought he was. He does have some SOA with therapy. Appetite is good. No CP, n,v,f,c. Past Medical History Medical History Updates: History of CVA. CHF. Aortic stenosis. Coronary artery disease. Hypertension. Diabetes type 2. Diabetic nephropathy. BPH. Cervical stenosis. Gout. Chronic kidney disease (stage IV). dementia. osteomyelitis L 4th toe Surgical History: Cystoscopy and SP tube placement; cystogram - Dr. Walters. Cholecystectomy. CABG - (coronary stent placed in setting of acute inferior [place] at [facility]). Knee surgery. Hand and foot. 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 Mike Simon. Lumbar disc surgery Family History: Father- of leukemia Mother- of coronary artery disease Family History: As Above - Social History Smoking status: Never smoker Substance use type: does not use Alcohol intake frequency: does not drink Household members: children (Lives with his son.) Current occupational status: retired Current residence: Apartment/Private Home Social history: PCP -Dr. 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 Review of Systems All systems PM: 10-point ROS was reviewed, no additional remarkable complaints except (SOA with exertion (likley d/t deconditioning)) Medications Home Medications Medication Instructions Recorded Confirmed Type Aspirin Chewable [ASA] 81 mg PO DAILY 09/30/16 11/01/17 Rx Multivitamin [One Daily 1 tab PO DAILY 10/23/16 11/01/17 History Multivitamin] Amlodipine [Norvasc] 5 mg PO DAILY 10/29/16 11/01/17 History Insulin Aspart [NovoLOG] 10 unit SQ 1200 10/29/16 11/01/17 History Insulin Detemir [Levemir Flextouch] 40 unit SQ HS 01/17/17 11/01/17 History Allopurinol [Zyloprim] 100 mg PO DAILY 01/26/17 11/01/17 History Clopidogrel Bisulfate [Clopidogrel] 75 mg PO DAILY 06/30/17 11/01/17 History Docusate Sodium [Stool Softener] 200 mg PO DAILY 06/30/17 11/01/17 History Metoprolol Tartrate [Lopressor] 25 mg PO BID 06/30/17 11/01/17 History Chlorthalidone 12.5 - 25 mg PO DAILY 10/09/17 11/01/17 History Cholecalciferol (Vitamin D3) 1,000 unit PO DAILY 10/27/17 11/01/17 History [Vitamin D3] Cyanocobalamin (Vitamin B-12) 1,500 mcg PO DAILY 10/27/17 11/01/17 History [B-12] Insulin Aspart [Novolog] 30 unit SQ AM 10/27/17 11/01/17 History Allergies Allergy/AdvReac Type Severity Reaction Status Date / Time hydrocodone AdvReac Intermediate Verified 10/27/17 09:25 Exam Vital Signs: Temperature 97.4 F 11/02/17 08:00 Pulse Rate 75 11/02/17 08:00 Respiratory Rate 18 11/02/17 08:00 Blood Pressure 126/74 11/02/17 08:00 Pulse Oximetry 95 11/02/17 08:00 Height/Weight/BMI: Height 1.85 m Weight 125.5 kg Body Mass Index 36.5 - Constitutional Present: no acute distress, well nourished, well developed - Routine HEENT Exam Head: Present: normocephalic, atraumatic Eye: Present: EOMI, PERRL ENT: Present: mucous membranes moist, oropharynx clear - Routine Neck Exam Present: supple. Absent: lymphadenopathy - Routine Respiratory Exam Present: CTA bilaterally. Absent: wheezes - Routine Cardiovascular Exam Present: RRR, murmur - Routine Abdominal Exam Present: soft, normoactive bowel sounds. Absent: tenderness, distended - Routine Extremities Exam Present: edema (R chronically swollen, L -none), normal capillary refill - Routine Skin Exam Present: dry, warm - Routine Neurological Exam Present: alert, oriented X3, CN II-XII intact - Routine Psychiatric Exam Present: normal affect, cooperative Results - Labs CBC & Chem 7: 11/02/17 05:00 11/02/17 05:00 Assessment and Plan Assessment and Plan: Assessment Recent hospitalization for severe sepsis (SIRS: leukocytosis, tachycardia. Source: suspect urinary - UA not yet collected on admission. Lactate >2) Recent acute encephalopathy secondary to UTI UTI with klebsiella pneumoniae - currently on Vantin Resolving CHLOE - creatinine 3.2 (on admission to medical) peaked at 4.0; possible ATN Chronic kidney disease (stage IV) Osteomyelitis L 4th toe History of CVA CHF PAD - s/p stent RLE (Dr. Candelaria) Aortic stenosis Coronary artery disease Hypertension Diabetes type 2 (A1C 7.0 on 09/18/16) Diabetic nephropathy BPH - pt has suprapubic catheter due to recurrent UTI Cervical stenosis Gout - on chronic allopurinol Obesity with BMI 36 Plan Agree with admission to IRU for further strengthening and improvement in functional abilities. Continue Vantin for UTI through 11/05. Continue daptomycin through 11/09. See Dr. Zarate at wound clinic when done with rehab. Follow renal function. Home chlorthalidone is still on hold. Follow BS's- will adjust insulin as needed. Vitals stable. SCD's for DVT ppx Care to return to Dr العراقي on dismissal. Hospitalist team will follow pt throughout his stay. Thank you for the consult. DVT Prophylaxis: SCD's Resuscitation Status: Full Code - Physician Narrative Physician: Jun Tse MD Narrative: Date: 11/02/17 Time: 1648 Have independently interviewed and examined pt. Chart reviewed. Case discussed with my PA. Above care plan developed with my supervision; agree with above. Admitted to IRU for restorative therapy following prolonged hospitalization. Overall, feels is doing well. Tolerating therapy-making gains. Breathing well- not having SOA or congestion. No pain with breathing. No chest pressure or discomfort. Eating well. Bowels stable. No ab pain. No f/c. Lungs: clear bilaterally CV: regular with murmur AB: soft nt/nd MSE: awake alert appropriate Plan: Agree with admission of patient to IRU to maximize functional status. Encourage participation with therapy. Continue with antibiotics as outlined on acute. Will follow along medically during his stay on IRU. Medically stable for IRU floor activities. Hospital Course Summary Disclaimer: The visit summary below is not to be considered part of the above Progress Note. Hospital Course: 11/02/17 Agree with admission to IRU for further strengthening and improvement in functional abilities. Continue Vantin for UTI through 11/05. Continue daptomycin through 11/09. See Dr. Zarate at wound clinic when done with rehab. Follow renal function. Home chlorthalidone is still on hold. Follow BS's - will adjust insulin as needed. Vitals stable. SCD's for DVT ppx Care to return to Dr العراقي on dismissal. Hospitalist team will follow pt throughout his stay. Thank you for the consult.
[2017-11-02] MEDS: DAPTOMYCIN IVP SCH (20:18)
[2017-11-02] MEDS: NS IVP SCH (20:18)
[2017-11-02] MEDS: INSULIN DETEMIR 100unit/ml INJECTION SQ SCH (20:19)
[2017-11-03] MEDS: MULTI-VITAMIN PLAIN TABLET PO SCH (08:22)
[2017-11-03] MEDS: ALLOPURINOL 100 MG TABLET PO SCH (08:22)
[2017-11-03] MEDS: ENOXAPARIN 30 MG/0.3 ML INJECTION SQ SCH (08:22)
[2017-11-03] MEDS: INSULIN ASPART 100unit/ml INJECTION SQ SCH ×3 (08:22→17:42)
[2017-11-03] MEDS: DOCUSATE SODIUM 100 MG CAPSULE PO SCH (08:23)
[2017-11-03] MEDS: CYANOCOBALAMIN (B-12) 500mcg TABLET PO SCH (08:24)
[2017-11-03] MEDS: CLOPIDOGREL 75 MG TABLET PO SCH (08:24)
[2017-11-03] MEDS: ASPIRIN 81 MG CHEWABLE TABLET PO SCH (08:24)
[2017-11-03] MEDS: AMLODIPINE 5 MG TABLET PO SCH (08:24)
--- NOTE | 2017-11-03 11:02 | IRU Progress Note ---
- Subjective/Serverity of Illness Date: 11/03/17 Mr. Padilla was interviewed and examined in his room on inpatient rehabilitation. To briefly recap, he was admitted to the acute [facility] hospital on 10/27/2017 because of shaking chills. This was felt to be secondary to a urinary tract infection with Klebsiella and other organisms. He was on outpatient daptomycin for a left fourth toe osteomyelitis. Patient was changed to Zosyn and ultimately transitioned to Vantin for antibiotics. He did experience acute kidney injury with creatinine up to 3.6 while on acute. It is now down to 2.8. He was admitted to acute inpatient rehabilitation on 11/01/2017. The patient does have history of diabetes mellitus. His blood sugars have been reasonably well controlled at present. He does have hypertension. The patient lives and is on home with his son. His son does provide some additional help with regard to ADLs it sounds like. At the present time, for occupational therapy he is transferring with moderate assistance. He is able to ambulate with 1 person assist at contact-guard assist level 163 feet with a front-wheeled walker. He is ambulating with somewhat of a forward or crouched over position. For occupational therapy he is standby assist for upper body dressing and requires minimum assistance for lower body dressing. He has remained afebrile and is improving with regard to his UTI. Medical issues we are actively managing and monitoring are as follows: 1. Recent urinary tract infection with severe sepsis 2. Acute kidney injury with creatinine 3.6 initially and now down to 2.8. 3. Diabetes was type II 4. Benign essential hypertension 5. Generalized weakness Exam Vital Signs: Temperature 97.7 F 11/03/17 07:52 Pulse Rate 58 L 11/03/17 07:52 Respiratory Rate 18 11/03/17 07:52 Blood Pressure 147/79 H 11/03/17 07:52 Pulse Oximetry 96 11/03/17 07:52 Height/Weight/BMI: Height 1.85 m Weight 123.5 kg Body Mass Index 36.5 - Constitutional Present: no acute distress, well nourished, well developed, obese Comments: Patient comes across a bit angrily at times. - Routine HEENT Exam Eye: Present: EOMI ENT: Present: mucous membranes moist - Routine Respiratory Exam Present: CTA bilaterally. Absent: wheezes - Routine Cardiovascular Exam Present: RRR, S1, S2. Absent: murmur - Routine Abdominal Exam Present: soft, normoactive bowel sounds, non distended. Absent: tenderness - Routine Extremities Exam Present: no edema, normal capillary refill - Routine Skin Exam Present: dry, warm - Routine Neurological Exam Present: alert, CN II-XII intact I did not specifically ask him about orientation questions. - Routine Psychiatric Exam Present: normal affect, anxious. Absent: good insight, good judgment IRU A/P (1) Weakness generalized Current visit: Yes Status: Acute The patient has developed significant generalized weakness since his recent UTI with sepsis. He is improving with regard to functional capability with both OT and PT. (2) CKD (chronic kidney disease) stage 4, GFR 15-29 ml/min Problem details: Stage 3-4 Current visit: Yes Status: Chronic His creatinine has improved from 3.6 down to 2.8. His estimated GFR continues to be around 22, consistent with stage IV chronic kidney disease. 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 (4) HTN (hypertension) Qualifiers: Hypertension type: essential hypertension Qualified Code(s): I10 - Essential (primary) hypertension Current visit: No Status: Chronic DVT Prophylaxis: SCD's Resuscitation Status: Full Code - Course Hospital Course: Michelle Morrison, DO: 11/03/17 11:12 Patient is progressing with therapy for both OT and PT. Remains on Vantin for UTI. Creatinine improved at 2.8. Sugars are looking okay. - Interventions to Obtain Goals PT Treatment Plan: Balance/Proprioception, Functional Activities, Gait Training , Patient/Family Education, Therapeutic Exercise OT Treatment Plan: ADL (Basic Care), Balance Training, Pt./Family Education, Ther. Exercise for ADL Goals Progress/Modifications: This patient is somewhat medically complex in view of his chronic kidney disease with acute kidney injury. In addition he has a urinary tract infection and generalized weakness. He has apparently some underlying dementia which makes educational efforts challenging. He is relatively cooperative with therapy and seems to making progress. His blood sugars are reviewed and are stable. We will continue working with him and review his case on a frequent basis. Currently he seems to be settling down from his infection and does not have evidence of fever etc.
--- NOTE | 2017-11-03 11:17 | IRU Plan of Care ---
U Overall Plan of Care - Date Date: 11/03/17 - Patient Impairments (1) Weakness generalized Code(s): R53.1 - Weakness Status: Acute Classification: Present on IRF Admission, IRF Tx That Should Address Diagnosis, Diagnosis Requiring Medical Follow Up (2) CKD (chronic kidney disease) stage 4, GFR 15-29 ml/min Code(s): N18.4 - Chronic kidney disease, stage 4 (severe) Status: Chronic Classification: Present on IRF Admission, IRF Tx That Should Address Diagnosis, Diagnosis Requiring Medical Follow Up (3) DM type 2 (diabetes mellitus, type 2) Qualifiers: Diabetes mellitus filler leaf cutter long insulin use: with skilled nursing use Diabetes mellitus complication status: with kidney complications Diabetes mellitus complication detail: with chronic kidney disease Chronic kidney disease stage : stage 3 (moderate) Qualified Code(s): E11.22 - Type 2 diabetes mellitus with diabetic chronic kidney disease; N18.3 - Chronic kidney disease, stage 3 ( moderate); Z79.4 - intermediate card tender (current) use of insulin Code(s): E11.9 - Type 2 diabetes mellitus without complications Status: Chronic Classification: Present on IRF Admission, Diagnosis Requiring Medical Follow Up (4) HTN (hypertension) Qualifiers: Hypertension type: essential hypertension Qualified Code(s): I10 - Essential (primary) hypertension Code(s): I10 - Essential (primary) hypertension Status: Chronic Classification: Present on IRF Admission, Diagnosis Requiring Medical Follow Up - Relevant Changes Relevant Changes: No Reviewed: I have reviewed the patient's information and concur with the finding and results of the pre-admission screen. Certification: I certify the patient for rehabilitation. - Medical Prognosis Medical Prognosis: Good Vital Signs: Last Vital Signs Temp 97.7 F 11/03/17 07:52 Pulse 58 L 11/03/17 07:52 Resp 18 11/03/17 07:52 BP 147/79 H 11/03/17 07:52 Pulse Ox 96 11/03/17 07:52 - Anticipated Interventions Anticipated Interventions: The patient requires inpatient IRF care for PT, OT, and/or ST for residuals remaining from UTI with sepsis resulting in muscular weakness and strength deficits. An individualized overall plan of care has been developed after careful review of the patient's preadmission screening, post admission physician evaluation and assessments of all therapy disciplines and/or other pertinent clinicians involved in treating the patient. This indicates medical necessity and rehabilitation necessity have been established through a thorough review of all available medical information. - Current Functional Status Failed Alternative Therapy: Arrived from Acute Care Patient Requires: The patient requires oversight by rehabilitation physician to manage their rehabilitation treatment plan and multidisciplinary approach to care that can only be provided in an IRF and requires a multidisciplinary approach to care, provided by professional PTs, OTs, STs, rehabilitation nurses, and may require STs, dieticians, and RTS. This is not available in lesser levels of care. Physical Therapy Minutes: 90 Occupational Therapy Minutes: 90 Therapy: The patient is to receive therapy at least 5 days a week. - Anticipated LOS/Outcomes Anticipated Functional Outcome: It is anticipated the patient will be able to return to his home to live with his son who provides assistance with IADLs. It is anticipated he will be able to return home at modified independent level of functioning with use of front- wheeled walker and that he will be free of infection and stable from a medical standpoint. Anticipated Length of Stay (days): 5 Anticipated DC Destination: Home, Self Care, Home Health Service Home Safety Plan: The patient will be provided with the development of a Home Safety Plan for return to a home or home-like environment and and to ensure safety post discharge. - Plan to Avoid Complications Barriers to Attaining Goals: Weakness, Endurance, Comprehension Plan to Avoid Complications: The patient cannot receive this care in a lesser intensive setting such as [facility] or Outpatient Therapy due to the patient requiring the following : This patient requires close monitoring of his blood sugars as well as monitoring of any evidence of recurrence of his urinary tract infection. He requires a multidisciplinary approach with PT and OT. Medication doses need to be monitored and adjusted by pharmacy with regard to his chronic kidney disease with acute kidney injury. This cannot be provided at a lower level of care. He requires medical supervision in view of all this.
[2017-11-03] MEDS: SENNA + DOCUSATE TABLET PO SCH ×2 (11:31→22:12)
[2017-11-03] MEDS: POLYETHYL GLYCOL 3350 17gm PACKET PO SCH (11:31)
[2017-11-03] MEDS: CEFPODOXIME 200mg TABLET PO SCH (12:37)
[2017-11-03 16:03] VITALS: BMI 35.9
[2017-11-03] MEDS: INSULIN DETEMIR 100unit/ml INJECTION SQ SCH (22:12)
[2017-11-04] MEDS: ENOXAPARIN 30 MG/0.3 ML INJECTION SQ SCH (08:43)
[2017-11-04] MEDS: SENNA + DOCUSATE TABLET PO SCH ×2 (08:43→21:00)
[2017-11-04] MEDS: CYANOCOBALAMIN (B-12) 500mcg TABLET PO SCH (08:44)
[2017-11-04] MEDS: CLOPIDOGREL 75 MG TABLET PO SCH (08:44)
[2017-11-04] MEDS: INSULIN ASPART 100unit/ml INJECTION SQ SCH ×3 (08:44→18:07)
[2017-11-04] MEDS: ALLOPURINOL 100 MG TABLET PO SCH (08:45)
[2017-11-04] MEDS: DOCUSATE SODIUM 100 MG CAPSULE PO SCH (08:45)
[2017-11-04] MEDS: POLYETHYL GLYCOL 3350 17gm PACKET PO SCH (08:45)
[2017-11-04] MEDS: AMLODIPINE 5 MG TABLET PO SCH (08:45)
[2017-11-04] MEDS: ASPIRIN 81 MG CHEWABLE TABLET PO SCH (08:45)
[2017-11-04] MEDS: MULTI-VITAMIN PLAIN TABLET PO SCH (08:45)
--- NOTE | 2017-11-04 10:13 | IRU Progress Note ---
- Subjective/Serverity of Illness Date: 11/04/17 Milan was assessed and rehabilitation gymnasium. He is using the NuStep device and doing well. He is able to ambulate with standby assistance. Tends to walk on his tiptoes quite a bit. Further therapy indicated. He is currently wearing a regular drainage Vasquez bag. We will switch to a leg bag. Remains on Vantin through tomorrow at which time it will be discontinued. He remains afebrile. He does have a chronic indwelling suprapubic catheter. Creatinine is slightly up at 2.9. However improved from initial value. He does have apparently chronic kidney disease with superimposed acute kidney injury although I do not have confirmation of this with regard to his baseline creatinine. Exam Vital Signs: Temperature 97.7 F 11/04/17 07:44 Pulse Rate 60 11/04/17 07:44 Respiratory Rate 18 11/04/17 07:44 Blood Pressure 154/86 H 11/04/17 07:44 Pulse Oximetry 97 11/04/17 07:44 Height/Weight/BMI: Height 1.85 m Weight 123.5 kg Body Mass Index 35.9 - Constitutional Present: no acute distress, well nourished, well developed, obese - Routine HEENT Exam Eye: Present: EOMI ENT: Present: mucous membranes moist, dentition normal - Routine Respiratory Exam Present: CTA bilaterally. Absent: wheezes - Routine Cardiovascular Exam Present: RRR. Absent: murmur - Routine Abdominal Exam Present: soft, normoactive bowel sounds, non distended. Absent: tenderness - Routine Extremities Exam Present: normal capillary refill - Routine Skin Exam Present: dry, warm - Routine Neurological Exam Present: alert, oriented X3, CN II-XII intact Milan is oriented to month, year, location. - Routine Psychiatric Exam Present: normal affect Results IRU - Labs Labs: Have reviewed chart data. IRU A/P (1) Weakness generalized Current visit: Yes Status: Acute Continues to progress with therapy. He is able to ambulate with standby assistance. (2) CKD (chronic kidney disease) stage 4, GFR 15-29 ml/min Problem details: Stage 3-4 Current visit: Yes Status: Chronic (3) DM type 2 (diabetes mellitus, type 2) Qualifiers: Diabetes mellitus detention insulin use: with detention use Diabetes mellitus complication status: with kidney complications Diabetes mellitus complication detail: with chronic kidney disease Chronic kidney disease stage : stage 3 (moderate) Qualified Code(s): E11.22 - Type 2 diabetes mellitus with diabetic chronic kidney disease; N18.3 - Chronic kidney disease, stage 3 ( moderate); Z79.4 - half-way (current) use of insulin Current visit: No Status: Chronic Blood sugars are reviewed and overall are stable. (4) HTN (hypertension) Qualifiers: Hypertension type: essential hypertension Qualified Code(s): I10 - Essential (primary) hypertension Current visit: No Status: Chronic DVT Prophylaxis: SCD's Resuscitation Status: Full Code - Course Hospital Course: Michelle Morrison, DO: 11/03/17 11:12 Patient is progressing with therapy for both OT and PT. Remains on Vantin for UTI. Creatinine improved at 2.8. Sugars are looking okay. 11/04/17 10:12 Continues to progress with therapy. Remains afebrile. Creatinine up at 2.9. Blood sugars are doing well. - Interventions to Obtain Goals PT Treatment Plan: Balance/Proprioception, Functional Activities, Gait Training , Patient/Family Education, Therapeutic Exercise OT Treatment Plan: ADL (Basic Care), Balance Training, Pt./Family Education, Ther. Exercise for ADL
[2017-11-04] MEDS: CEFPODOXIME 200mg TABLET PO SCH (12:20)
--- NOTE | 2017-11-04 14:52 | Wound Care Progress Note ---
Wound Center Progress Note: Pt seen for wound followup/dressing change. Pt not in room at this time, doing PT. Spoke with pt's nurse, Gracia DE JESUS, she reports she changed the dressing on the L 5th met head earlier today due to it becoming loose. Discussed tx plan, phoebe/mepilex, with her; she will change the L 4th dorsal toe and R 2nd distal toe dressings once the pt returns from PT.
[2017-11-04] MEDS: INSULIN DETEMIR 100unit/ml INJECTION SQ SCH (20:59)
[2017-11-04] MEDS: DAPTOMYCIN IVP SCH (22:21)
[2017-11-04] MEDS: NS IVP SCH (22:21)
[2017-11-05] MEDS: INSULIN ASPART 100unit/ml INJECTION SQ SCH ×3 (09:23→18:45)
[2017-11-05] MEDS: AMLODIPINE 5 MG TABLET PO SCH (09:24)
[2017-11-05] MEDS: DOCUSATE SODIUM 100 MG CAPSULE PO SCH (09:24)
[2017-11-05] MEDS: SENNA + DOCUSATE TABLET PO SCH ×2 (09:24→21:21)
[2017-11-05] MEDS: CYANOCOBALAMIN (B-12) 500mcg TABLET PO SCH (09:24)
[2017-11-05] MEDS: CLOPIDOGREL 75 MG TABLET PO SCH (09:24)
[2017-11-05] MEDS: ASPIRIN 81 MG CHEWABLE TABLET PO SCH (09:25)
[2017-11-05] MEDS: MULTI-VITAMIN PLAIN TABLET PO SCH (09:25)
[2017-11-05] MEDS: ALLOPURINOL 100 MG TABLET PO SCH (09:25)
[2017-11-05] MEDS: ENOXAPARIN 30 MG/0.3 ML INJECTION SQ SCH (09:25)
[2017-11-05] MEDS: POLYETHYL GLYCOL 3350 17gm PACKET PO SCH (09:25)
[2017-11-05] MEDS ORDERED: RENAL DOSING - PHARMACY CONSULT MC ONE (09:55)
--- NOTE | 2017-11-05 11:31 | Pharmacy Consult- Renal Dosing ---
Pharamcy Consul-Renal Dosing - Laboratory Information 11/02/17 11/04/17 05:00 04:06 BUN 32.0 H 41.0 H Creatinine 2.8 H 2.9 H
[2017-11-05] MEDS ORDERED: AMLODIPINE 5 MG TABLET PO ONE (11:44)
[2017-11-05] MEDS: CEFPODOXIME 200mg TABLET PO SCH (12:19)
[2017-11-05] MEDS: INSULIN ASPART 100unit/ml INJECTION SQ PRN (15:09)
[2017-11-05] MEDS: TRAMADOL 50 MG TABLET PO PRN (18:43)
[2017-11-05] MEDS: INSULIN DETEMIR 100unit/ml INJECTION SQ SCH (21:19)
[2017-11-06] MEDS: AMLODIPINE 10 MG TABLET PO SCH (08:03)
[2017-11-06] MEDS: TRAMADOL 50 MG TABLET PO PRN ×3 (08:03→20:51)
[2017-11-06] MEDS: POLYETHYL GLYCOL 3350 17gm PACKET PO SCH (10:24)
[2017-11-06] MEDS: DOCUSATE SODIUM 100 MG CAPSULE PO SCH (10:24)
[2017-11-06] MEDS: INSULIN ASPART 100unit/ml INJECTION SQ SCH ×3 (10:24→17:55)
[2017-11-06] MEDS: ENOXAPARIN 30 MG/0.3 ML INJECTION SQ SCH (10:24)
[2017-11-06] MEDS: CYANOCOBALAMIN (B-12) 500mcg TABLET PO SCH (10:25)
[2017-11-06] MEDS: CLOPIDOGREL 75 MG TABLET PO SCH (10:25)
[2017-11-06] MEDS: MULTI-VITAMIN PLAIN TABLET PO SCH (10:25)
[2017-11-06] MEDS: ASPIRIN 81 MG CHEWABLE TABLET PO SCH (10:26)
[2017-11-06] MEDS: ALLOPURINOL 100 MG TABLET PO SCH (10:26)
[2017-11-06] MEDS: SENNA + DOCUSATE TABLET PO SCH ×2 (10:30→20:36)
[2017-11-06] MEDS: INSULIN ASPART 100unit/ml INJECTION SQ PRN ×3 (12:34→20:37)
--- NOTE | 2017-11-06 13:12 | Ultrasound Report ---
Indication: kidney stones US renal BI: Comparison: 08/23/2017 renal ultrasound Technique: Real-time and color flow imaging provided Findings: Both kidneys are within normal limits in size. The right kidney measures 12.2 x 5.5 x 5.2 cm. Left kidney measures 12.6 x 4.7 x 5.6 cm. Neither kidney showed significant obstructive changes although on the left side there is just mild prominence of the collecting structures. Patient demonstrates one questionable echogenic focus in the pelvis on the left side but is just too small to characterize and did not show obvious shadowing. Neither ureter was visualized. The bladder was decompressed with a Vasquez catheter. Impression: 1. No obvious shadowing stones visualized although, left collecting structures just slightly more prominent than the right. No marked obstructive uropathy is identified. 2. Neither ureteral jet was seen as the bladder is decompressed with a Vasquez catheter. 3. Kidneys both seem fairly symmetric in size and echogenicity. .
--- NOTE | 2017-11-06 14:01 | Progress Note ---
- Date 11/06/17 Subjective: Milan is seen today while resting in bed, watching TV. He complains of left low back pain without radiation that is worse with movement. No abdominal pain, nausea or vomiting. He reports a history of kidney stones. Renal ultrasound was obtained and was unremarkable with no stones noted. On exam, he is point tender to the paraspinous region along L3-L5. No saddle anesthesia. He denies any other concerns or complaints. He reports he has been working hard in therapy. Labs revealed slight improvement in his SCr at 2.7. UA revealed 5-10 WBC with trace bacteria. He remains afebrile with a stable WBC. Occasional bradycardia with variable blood pressure. Blood sugars stable. Objective Vital signs: Temperature 97.9 F 11/06/17 07:17 Pulse Rate 54 L 11/06/17 10:30 Respiratory Rate 18 11/06/17 07:17 Blood Pressure 144/75 H 11/06/17 10:30 Pulse Oximetry 94 11/06/17 07:17 Height/Weight/BMI: Height 6 ft 1 in Weight 269 lb 10.005 oz Body Mass Index 35.9 Comments: Resting in bed, watching TV. - Constitutional Present: no acute distress, well nourished, well developed, obese, cooperative - Routine HEENT Exam Head: Present: normocephalic, atraumatic Eye: Present: PERRL. Absent: conjunctival icterus - Routine Respiratory Exam Present: CTA bilaterally. Absent: respiratory distress, wheezes - Routine Cardiovascular Exam Present: RRR - Routine Abdominal Exam Present: soft, normoactive bowel sounds, non distended, non tender - Routine Exam Comments: Vasquez catheter in place - Routine Extremities Exam Present: edema (trace), pulses intact - Routine Back/Spine/Pelvis Exam Back/Spine: Present: paraspinal tenderness (left, L3-L5), pain with flexion, pain with rotation. Absent: CVA tenderness, vertebral tenderness, erythema, warmth - Routine Musculoskeletal Exam Musculoskeletal: Present: no clubbing or cyanosis - Routine Skin Exam Present: intact, dry, warm Comments: Afebrile. - Routine Neurological Exam Present: alert, hearing grossly intact, normal speech - Routine Lymphatic Exam Lymphatic: Absent: lymphedema - Routine Psychiatric Exam Present: cooperative Results - Labs CBC & Chem 7: 11/06/17 04:19 07/29/18 04:19 - Impressions Date of Exam: 11/05/17 Type of Exam(s): US renal BI Reason for Exam(s): kidney stones Findings: Both kidneys are within normal limits in size. The right kidney measures 12.2 x 5.5 x 5.2 cm. Left kidney measures 12.6 x 4.7 x 5.6 cm. Neither kidney showed significant obstructive changes although on the left side there is just mild prominence of the collecting structures. Patient demonstrates one questionable echogenic focus in the pelvis on the left side but is just too small to characterize and did not show obvious shadowing. Neither ureter was visualized. The bladder was decompressed with a Vasquez catheter. Impression: 1. No obvious shadowing stones visualized although, left collecting structures just slightly more prominent than the right. No marked obstructive uropathy is identified. 2. Neither ureteral jet was seen as the bladder is decompressed with a Vasquez catheter. 3. Kidneys both seem fairly symmetric in size and echogenicity. Assessment and Plan (1) CKD (chronic kidney disease) stage 4, GFR 15-29 ml/min Problem details: Stage 3-4 Current visit: Yes Status: Chronic (2) Weakness generalized Current visit: Yes Status: Acute Assessment and Plan: Assessment Recent hospitalization for severe sepsis (SIRS: leukocytosis, tachycardia. Source: suspect urinary - UA not yet collected on admission. Lactate >2) Recent acute encephalopathy secondary to UTI UTI with klebsiella pneumoniae - currently on Vantin Resolving CHLOE - creatinine 3.2 (on admission to medical) peaked at 4.0; possible ATN Chronic kidney disease (stage IV) Osteomyelitis L 4th toe History of CVA CHF PAD - s/p stent RLE (Dr. Candelaria) Aortic stenosis Coronary artery disease Hypertension Diabetes type 2 (A1C 7.0 on 09/18/16) Diabetic nephropathy BPH - pt has suprapubic catheter due to recurrent UTI Cervical stenosis Gout - on chronic allopurinol Obesity with BMI 36 Plan Patient is making slow gains in therapy. Continue to encourage participation. Pain medications and care plan per Dr. Dang. Patient complained of left lower back pain with point tenderness along paraspinous region of L3-L5. Recent UTI treated with Vantin - completed on . Afebrile with stable WBC. Renal ultrasound obtained and unremarkable. Suspect musculoskeletal process secondary to therapy. Monitor closely. Continue daptomycin through 11/09. See Dr. Zarate at wound clinic when done with rehab. SCr trending down (Scr 2.7 today). Continue to monitor closely. Home chlorthalidone is still on hold. Blood pressure has been consistent elevated. Norvasc increased to 10mg daily on 11/05/17. Continue to monitor closely as patient may need additional treatment adjustments. Blood sugars stable. Continue to monitor. DVT Prophylaxis: SCD's Resuscitation Status: Full Code - Time spent with patient Time with patient PN: 25 minutes - Physician Narrative Physician: Jun Tse MD Narrative: Date: 11/06/17 Time: 7621 Hospital Course Summary Disclaimer: The visit summary below is not to be considered part of the above Progress Note. Hospital Course: 11/02/17 Agree with admission to IRU for further strengthening and improvement in functional abilities. Continue Vantin for UTI through 11/05. Continue daptomycin through 11/09. See Dr. Zarate at wound clinic when done with rehab. Follow renal function. Home chlorthalidone is still on hold. Follow BS's - will adjust insulin as needed. Vitals stable. SCD's for DVT ppx Care to return to Dr العراقي on dismissal. Hospitalist team will follow pt throughout his stay. Thank you for the consult. 11/06/17 Patient is making slow gains in therapy. Continue to encourage participation. Pain medications and care plan per Dr. Dang. Patient complained of left lower back pain with point tenderness along paraspinous region of L3-L5. Recent UTI treated with Vantin - completed on . Afebrile with stable WBC. Renal ultrasound obtained and unremarkable. Suspect musculoskeletal process secondary to therapy. Monitor closely. Continue daptomycin through 11/09. See Dr. Zarate at wound clinic when done with rehab. SCr trending down (Scr 2.7 today). Continue to monitor closely. Home chlorthalidone is still on hold. Blood pressure has been consistent elevated. Norvasc increased to 10mg daily on 11/05/17. Continue to monitor closely as patient may need additional treatment adjustments. Blood sugars stable. Continue to monitor.
[2017-11-06] MEDS: INSULIN DETEMIR 100unit/ml INJECTION SQ SCH (20:36)
[2017-11-06] MEDS: SALINE FLUSH 10ml SYRINGE IV PRN (22:18)
[2017-11-06] MEDS: DAPTOMYCIN IVP SCH (22:19)
[2017-11-06] MEDS: NS IVP SCH (22:19)
[2017-11-07] MEDS: INSULIN ASPART 100unit/ml INJECTION SQ SCH ×3 (08:15→17:22)
[2017-11-07] MEDS: POLYETHYL GLYCOL 3350 17gm PACKET PO SCH (08:16)
[2017-11-07] MEDS: AMLODIPINE 10 MG TABLET PO SCH (08:17)
[2017-11-07] MEDS: SENNA + DOCUSATE TABLET PO SCH ×2 (08:17→20:31)
[2017-11-07] MEDS: CYANOCOBALAMIN (B-12) 500mcg TABLET PO SCH (08:17)
[2017-11-07] MEDS: ALLOPURINOL 100 MG TABLET PO SCH (08:18)
[2017-11-07] MEDS: MULTI-VITAMIN PLAIN TABLET PO SCH (08:18)
[2017-11-07] MEDS: CLOPIDOGREL 75 MG TABLET PO SCH (08:18)
[2017-11-07] MEDS: ASPIRIN 81 MG CHEWABLE TABLET PO SCH (08:24)
[2017-11-07] MEDS: DOCUSATE SODIUM 100 MG CAPSULE PO SCH (08:25)
[2017-11-07] MEDS: ENOXAPARIN 30 MG/0.3 ML INJECTION SQ SCH (09:11)
[2017-11-07] MEDS: SALINE FLUSH 10ml SYRINGE IV PRN ×2 (09:12→20:43)
--- NOTE | 2017-11-07 10:45 | IRU Progress Note ---
- Subjective/Serverity of Illness Date: 11/07/17 Milan was reassessed in his room on inpatient rehabilitation. He had been doing fairly well until the weekend at which time he developed some left flank pain. He follows though this could be related to previously known kidney stones. However assessment was negative. On urinalysis he only had 1-3 red cells and renal sonogram was unremarkable. In addition he was tender in the left flank on palpation. At the present time the flank pain is attributed to musculoskeletal etiologies. However, he has not done as well with therapy in view of this. Specifically his strength appears to be doing fine but his balance is poor. Soft tissue work has been performed by therapy and his back pain is better. However balance continues to be an issue. He is able to transfer with standby assistance. He remains afebrile. He is on daptomycin for a left toe osteomyelitis. We will check with the hospitalists to see if they want to have Dr. Zarate see him or not. He otherwise seems to be doing well and his appetite is good. Exam Vital Signs: Temperature 97.7 F 11/07/17 08:00 Pulse Rate 62 11/07/17 08:00 Respiratory Rate 16 11/07/17 08:00 Blood Pressure 138/71 11/07/17 08:00 Pulse Oximetry 95 11/07/17 08:00 Height/Weight/BMI: Height 1.85 m Weight 122.3 kg Body Mass Index 35.9 - Constitutional Present: well nourished, well developed, cooperative - Routine HEENT Exam Eye: Present: EOMI ENT: Present: mucous membranes moist, dentition normal - Routine Respiratory Exam Present: CTA bilaterally. Absent: wheezes - Routine Cardiovascular Exam Present: RRR. Absent: murmur - Routine Abdominal Exam Present: soft, normoactive bowel sounds, non distended. Absent: tenderness - Routine Extremities Exam Present: normal capillary refill - Routine Skin Exam Present: dry, warm - Routine Neurological Exam Present: alert, oriented X3, CN II-XII intact - Routine Psychiatric Exam Present: normal affect Results IRU - Labs Labs: I reviewed the renal ultrasound as well as the lab work and other providers notes. IRU A/P (1) Weakness generalized Current visit: Yes Status: Acute Continues to have some generalized weakness. His balance is not as good. Working with therapy in this regard. (2) CKD (chronic kidney disease) stage 4, GFR 15-29 ml/min Problem details: Stage 3-4 Current visit: Yes Status: Chronic Creatinine somewhat improved at 2.7. Uncertain what baseline is for him. (3) DM type 2 (diabetes mellitus, type 2) Qualifiers: Diabetes mellitus manager intermediate insulin use: with assisted use Diabetes mellitus complication status: with kidney complications Diabetes mellitus complication detail: with chronic kidney disease Chronic kidney disease stage : stage 3 (moderate) Qualified Code(s): E11.22 - Type 2 diabetes mellitus with diabetic chronic kidney disease; N18.3 - Chronic kidney disease, stage 3 ( moderate); Z79.4 - emt intermediate (current) use of insulin Current visit: No Status: Chronic His blood sugars are reviewed and are doing great. (4) HTN (hypertension) Qualifiers: Hypertension type: essential hypertension Qualified Code(s): I10 - Essential (primary) hypertension Current visit: No Status: Chronic Blood pressures are variable but for the most part reasonably well controlled. DVT Prophylaxis: SCD's Resuscitation Status: Full Code - Course Hospital Course: Michelle Morrison, DO: 11/03/17 11:12 Patient is progressing with therapy for both OT and PT. Remains on Vantin for UTI. Creatinine improved at 2.8. Sugars are looking okay. 11/04/17 10:12 Continues to progress with therapy. Remains afebrile. Creatinine up at 2.9. Blood sugars are doing well. 11/07/17 10:44 Not doing quite as well with therapy. Balance is reduced. Remains afebrile. Creatinine improved. - Interventions to Obtain Goals PT Treatment Plan: Balance/Proprioception, Functional Activities, Gait Training , Patient/Family Education, Therapeutic Exercise OT Treatment Plan: ADL (Basic Care), Balance Training, Pt./Family Education, Ther. Exercise for ADL Goals Progress/Modifications: Milan developed some left flank pain over the weekend which appears to be musculoskeletal in nature based on negative UA and negative renal sonogram. In addition he was tender to palpate. He states the pain is doing a bit better. However his ability to transfer and his balance is not as good today as it was last week. Therapy continuing to work with patient. We will assess to see if there is anything medical that might be related to this. In addition I will discuss with the hospitalists the issue of whether to have Dr. Zarate to see him regarding how long to continue the antibiotic on his left toe.
[2017-11-07] MEDS: TRAMADOL 50 MG TABLET PO PRN ×2 (12:34→17:22)
--- NOTE | 2017-11-07 13:42 | IRU Team Meeting ---
IRU Team Meeting - Nursing Bladder Assistive Devices Utilized:: Catheter Bladder Management Level of Assist: Total Assistance Bowel Assistive Devices Utilized:: Medication Bowel Management Level of Assist: Modified Independent Bowel Frequency of Accidents: No accidents Vital Signs: Vital Signs - 24 hr 11/06/17 15:41 11/06/17 19:20 11/06/17 20:51 Temperature 97.7 F 98.1 F Pulse Rate 61 58 L Respiratory Rate 18 14 20 Blood Pressure 117/59 152/71 H Pulse Oximetry 95 96 11/07/17 08:00 11/07/17 12:34 Temperature 97.7 F Pulse Rate 62 Respiratory Rate 16 16 Blood Pressure 138/71 Pulse Oximetry 95 Current Medications: Allopurinol (Zyloprim) 100 mg PO DAILY [facility] Last Admin: 11/07/17 08:18 Dose: 100 mg Amlodipine Besylate (Norvasc) 10 mg PO DAILY [facility] Last Admin: 11/07/17 08:17 Dose: 10 mg Aspirin (Asa) 81 mg PO DAILY [facility] Last Admin: 11/07/17 08:24 Dose: 81 mg Bisacodyl (Dulcolax) 10 mg RECTALLY DAILY PRN PRN Reason: Constipation Cholecalciferol (Vit. D-3) 1,000 unit PO DAILY [facility] Last Admin: 11/07/17 08:25 Dose: 1,000 unit Clopidogrel Bisulfate (Plavix) 75 mg PO DAILY [facility] Last Admin: 11/07/17 08:18 Dose: 75 mg Cyanocobalamin (Vit. B-12) 1,500 mcg PO DAILY [facility] Last Admin: 11/07/17 08:17 Dose: 1,500 mcg Docusate Sodium (Colace) 200 mg PO DAILY [facility] Last Admin: 11/07/17 08:25 Dose: 200 mg Enoxaparin Sodium (Lovenox) 30 mg SQ DAILY [facility] Last Admin: 11/07/17 09:11 Dose: 30 mg Daptomycin 700 mg/ Sodium (Chloride) 14 mls @ 300 mls/hr IVP Q48H [facility] Last Admin: 11/06/17 22:19 Dose: 300 mls/hr Insulin Aspart (Novolog) 3 - 12 unit SQ SS PRN; Protocol PRN Reason: Hyperglycemia Last Admin: 11/06/17 20:37 Dose: 3 unit Insulin Aspart (Novolog) 12 unit SQ 1730 [facility] Last Admin: 11/06/17 17:55 Dose: 12 unit Insulin Aspart (Novolog) 10 unit SQ 1200 [facility] Last Admin: 11/07/17 12:33 Dose: 10 unit Insulin Aspart (Novolog) 30 unit SQ WB [facility] Last Admin: 11/07/17 08:15 Dose: 30 unit Insulin Detemir (Levemir) 45 unit SQ HS [facility] Last Admin: 11/06/17 20:36 Dose: 45 unit Lactulose (Lactulose) 20 gm PO BID PRN PRN Reason: Constipation Last Admin: 11/04/17 15:00 Dose: 20 gm Metoprolol Tartrate (Lopressor) 25 mg PO BIDWM [facility] Last Admin: 11/07/17 08:18 Dose: 25 mg Multivitamins (Theragran) 1 tab PO DAILY [facility] Last Admin: 11/07/17 08:18 Dose: 1 tab Polyethylene Glycol (Miralax) 17 gm PO DAILY [facility] Last Admin: 11/07/17 08:16 Dose: 17 gm Senna/Docusate Sodium (Senna Plus Tablet) 2 tab PO BID [facility] Last Admin: 11/07/17 08:17 Dose: 2 tab Sodium Chloride (Iv Flush) 10 - 80 ml IV PRN PRN PRN Reason: Flushing Last Admin: 11/07/17 09:12 Dose: 20 ml Tramadol HCl (Ultram) 50 mg PO Q4HR PRN PRN Reason: pain Last Admin: 11/07/17 12:34 Dose: 50 mg Current Medical Issues: Chronic indwelling suprapubic catheter, recent UTI, back pain and neck pain, diabetes mellitus type 2, benign essential hypertension, history of left toe osteomyelitis currently on daptomycin. Comments: I certify that I personally led the interdisciplinary team meeting and agree with comments, barriers and goals indicated. Team meeting was held in the patient's room with the patient and the following family members present: patient's son Mr. Padilla developed worsening left flank pain over the weekend. Evaluation indicated this was likely paraspinal muscle spasm and pain. He is improved after soft tissue release and heating pad and pain medication. However he has continued to struggle with balance and strength issues. His appetite is good. He has had no further evidence of urinary tract infection. His blood sugars are doing well. - Dietary Instruction for family will be provided by the dietitian with regard to his consistent carbohydrate diet. - Physical Therapy Bed, Chair, Wheelchair Transfer Assist: Moderate Assistance, 1 Person Assist Ambulation Ability: Minimal Assistance, 1 Person Assist Ambulation Distance: 163 Wheelchair Propulsion Ability: Stand By Assist/Supervision, Household Exception , 1 Person Assist Wheelchair Propulsion Distance: 106 Stair Climbing Ability: Patient Unsafe/Unable Number of Steps Climbed: 12 Car Transfer Ability: Maximal Assistance, 1 Person Assist Comments: Patient demonstrates some degree of inconsistency with the levels of assistance required for transfers. He demonstrates poor retention of education. He does have neck and back pain which limited activity tolerance. Reduced balance noted. - Occupational Therapy Eating Ability: Modified Independent Grooming Ability: Stand By Assist/Supervision Bathing Ability: Moderate Assistance Upper Body Dressing Ability: Stand By Assist/Supervision Lower Body Dressing Ability: Minimal Assistance Tub Transfer Assist: Minimal Assistance Toileting Assist: Maximal Assistance Toilet Transfer Assist: Maximal Assistance Comments: He is inconsistent with sit to stand. He does not engage to stand up every time. - Goals Physical Therapy Goals: 11/07/17. 1) Walk 150 feet with stand by assist by therapist with front wheeled walker. 2) Perform all transfers consistently with stand by assist by therapist Occupational Therapy Goals: OT goals 11/07/17: 1. Complete lower body dress at minimal assistance to return to prior level. 2. Consistency with sit/stand and all functional transfers. 3. Increase activity tolerance during self care tasks. - Barriers to Discharge Barriers to Attaining Goals: Pain Control (to address this, myofascial release and heating pad as well as pain medication is provided.), Other (patient is inconsistent with sit to stand and functional transfers. He does not carry over educational information. To address this, verbal cues and encouragement is provided as well as repetition.) - Care Plan Anticipated Length of Stay (days): 5 Anticipated DC Destination: Home, Self Care, Home Health Service I have led this team conference and agree with the plan. Interventions/Goals: Patient has become somewhat inconsistent with his progress. Some days he does well on other days he does not. He was encouraged today to work hard with therapy every day and with every therapy session in order to allow him to return home safely. We anticipate a safe transition to his home environment with home health in about 5 days. If he improves dramatically between now and then we will continue working with him. In addition, we did describe the possibility of skilled care as an alternative if he is not able to safely return to his home.
[2017-11-07] MEDS: INSULIN DETEMIR 100unit/ml INJECTION SQ SCH (20:38)
[2017-11-08] MEDS: INSULIN ASPART 100unit/ml INJECTION SQ SCH ×3 (09:06→17:22)
[2017-11-08] MEDS: CYANOCOBALAMIN (B-12) 500mcg TABLET PO SCH (09:07)
[2017-11-08] MEDS: ENOXAPARIN 30 MG/0.3 ML INJECTION SQ SCH (09:07)
[2017-11-08] MEDS: CLOPIDOGREL 75 MG TABLET PO SCH (09:08)
[2017-11-08] MEDS: ALLOPURINOL 100 MG TABLET PO SCH (09:10)
[2017-11-08] MEDS: MULTI-VITAMIN PLAIN TABLET PO SCH (09:10)
[2017-11-08] MEDS: POLYETHYL GLYCOL 3350 17gm PACKET PO SCH (09:10)
[2017-11-08] MEDS: SENNA + DOCUSATE TABLET PO SCH ×2 (09:19→21:21)
[2017-11-08] MEDS: DOCUSATE SODIUM 100 MG CAPSULE PO SCH (09:19)
[2017-11-08] MEDS: ASPIRIN 81 MG CHEWABLE TABLET PO SCH (09:19)
[2017-11-08] MEDS: AMLODIPINE 10 MG TABLET PO SCH (09:33)
--- NOTE | 2017-11-08 11:26 | IRU Progress Note ---
- Subjective/Serverity of Illness Date: 11/08/17 Milan was reassessed in the gymnasium area of acute inpatient rehabilitation. He is ambulating better. He was able to walk from his room to the gymnasium area with a front-wheeled walker with one hand only. His balance is improved. From an occupational therapy standpoint he is able to bathe standby assistance. Upper body dressing standby assistance and lower body dressing is with minimum assistance. His creatinine is up a bit at 3.0. In addition, he has a couple of new blisters on the lateral aspect of the right foot. These apparently were new as of last night. He remains on daptomycin. Dr. Zarate has been consulted and I think is in the hospital tomorrow. He denies any nausea or vomiting. He denies any chest pain or shortness of breath. Seems to be fairly cooperative with therapy. Exam Vital Signs: Temperature 97.7 F 11/08/17 07:16 Pulse Rate 60 11/08/17 07:16 Respiratory Rate 20 11/08/17 07:16 Blood Pressure 154/71 H 11/08/17 07:16 Pulse Oximetry 96 11/08/17 07:16 Height/Weight/BMI: Height 1.85 m Weight 122.3 kg Body Mass Index 35.9 - Constitutional Present: no acute distress, well nourished, well developed, obese, cooperative - Routine HEENT Exam Eye: Present: EOMI ENT: Present: mucous membranes moist, dentition normal - Routine Respiratory Exam Present: CTA bilaterally. Absent: wheezes - Routine Cardiovascular Exam Present: RRR, S1, S2. Absent: murmur - Routine Abdominal Exam Present: soft, normoactive bowel sounds, non distended. Absent: tenderness - Routine Extremities Exam Present: no edema, normal capillary refill Comments: The right second toe distally has what appears to be a chronic scab. The right foot has 2 small blisters laterally. These appear to be new as of yesterday evening. Etiology not clear. No surrounding erythema. Wound care has been consulted. - Routine Skin Exam Present: dry, warm - Routine Neurological Exam Present: alert, oriented X3, CN II-XII intact - Routine Psychiatric Exam Present: normal affect Results IRU - Labs Labs: Reviewed chart data and other providers notes. IRU A/P (1) Weakness generalized Current visit: Yes Status: Acute Milan's balance appears to be improved. He was able to ambulate with a walker from his room to the gymnasium area which is an improvement. (2) CKD (chronic kidney disease) stage 4, GFR 15-29 ml/min Problem details: Stage 3-4 Current visit: Yes Status: Chronic Creatinine is back up at 3.0. 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 Dietitian visiting with his son today. (4) HTN (hypertension) Qualifiers: Hypertension type: essential hypertension Qualified Code(s): I10 - Essential (primary) hypertension Current visit: No Status: Chronic DVT Prophylaxis: SCD's Resuscitation Status: Full Code - Course Hospital Course: Michelle Morrison, DO: 11/03/17 11:12 Patient is progressing with therapy for both OT and PT. Remains on Vantin for UTI. Creatinine improved at 2.8. Sugars are looking okay. 11/04/17 10:12 Continues to progress with therapy. Remains afebrile. Creatinine up at 2.9. Blood sugars are doing well. 11/07/17 10:44 Not doing quite as well with therapy. Balance is reduced. Remains afebrile. Creatinine improved. 11/08/17 11:26 Creatinine back up with 3.0. Cooperative with therapy. Balance improved. Ambulating better. New blisters right lateral foot with wound care consulted. - Interventions to Obtain Goals PT Treatment Plan: Balance/Proprioception, Functional Activities, Gait Training , Patient/Family Education, Therapeutic Exercise OT Treatment Plan: ADL (Basic Care), Balance Training, Pt./Family Education, Ther. Exercise for ADL Goals Progress/Modifications: Milan's creatinine has increased back to 3.0. We will monitor carefully. In addition, he has a couple blisters on the right side of his foot. Etiology is unclear. No evidence of surrounding erythema. These remain intact. Wound therapy is consulted in this regard. He is able to ambulate better and his balance appears to be improved. He reports an adequate appetite. Denies chest pain or shortness of breath.
--- NOTE | 2017-11-08 15:45 | Wound Care Progress Note ---
Wound Management - Patient Status Premedicated Prior to Dressing Change: No - Wound Left Toe - 4th Digit Wound Type: Diabetic Foot Ulcer Wound Present on Admission?: No Length: 0.6 Width: 0.8 Depth: 0.1 Wound Bed Appearance: Pale, [place] Wound Appearance: [place] Tunneling: No Undermining: No Drainage Description: Sanguineous Drainage Amount: Scant Drainage Odor: No Odor Dressing Status: Changed (Primary Iodosorb) Secondary Dressing: Foam Dressing (Iodosorb as a primary drsg and mepilex to cover) Dressing Change Date: 11/08/17 Dressing Change Time: 15:47 Dressing Change Patient Tolerance: Tolerated Well Left Foot Wound Type: Diabetic Foot Ulcer (5th plantar Met head) Wound Present on Admission?: Yes Length: 0.5 Width: 0.8 Depth: 0.5 Wound Bed Appearance: Beefy Red, [place] Wound Appearance: [place] (calous) Tunneling: No Undermining: No Drainage Description: Sanguineous Drainage Amount: Scant Drainage Odor: No Odor Dressing Status: Changed Irrigant Solution: Medicated Ointment (Iodosorb) Secondary Dressing: Mepilex Dressing Change Date: 11/08/17 Dressing Change Time: 15:50 Dressing Change Patient Tolerance: Tolerated Well (Iodosorb primary drsg/ mepilex to cover.)
[2017-11-08] MEDS ORDERED: GLUCOSE ORAL GEL 40% 37.5gm PO PRN (16:31)
[2017-11-08] MEDS: NS IVP SCH (20:09)
[2017-11-08] MEDS: DAPTOMYCIN IVP SCH (20:09)
[2017-11-08] MEDS: SALINE FLUSH 10ml SYRINGE IV PRN (20:09)
[2017-11-08] MEDS: INSULIN ASPART 100unit/ml INJECTION SQ PRN (21:21)
[2017-11-08] MEDS: INSULIN DETEMIR 100unit/ml INJECTION SQ SCH (21:21)
[2017-11-09] MEDS: INSULIN ASPART 100unit/ml INJECTION SQ SCH ×3 (08:24→17:31)
[2017-11-09] MEDS: ASPIRIN 81 MG CHEWABLE TABLET PO SCH (08:25)
[2017-11-09] MEDS: CYANOCOBALAMIN (B-12) 500mcg TABLET PO SCH (08:25)
[2017-11-09] MEDS: ALLOPURINOL 100 MG TABLET PO SCH (08:25)
[2017-11-09] MEDS: AMLODIPINE 10 MG TABLET PO SCH (08:25)
[2017-11-09] MEDS: CLOPIDOGREL 75 MG TABLET PO SCH (08:26)
[2017-11-09] MEDS: SENNA + DOCUSATE TABLET PO SCH ×2 (08:26→21:07)
[2017-11-09] MEDS: DOCUSATE SODIUM 100 MG CAPSULE PO SCH (08:26)
[2017-11-09] MEDS: ENOXAPARIN 30 MG/0.3 ML INJECTION SQ SCH (08:27)
[2017-11-09] MEDS: POLYETHYL GLYCOL 3350 17gm PACKET PO SCH (08:27)
[2017-11-09] MEDS: MULTI-VITAMIN PLAIN TABLET PO SCH (08:27)
--- NOTE | 2017-11-09 09:18 | Infectious Disease Consult ---
Infectious Disease Consult Date of Consultation: 11/09/17 Requesting Physician: Colin Dang Reason for Consultation: antibiotic recs History of Present Illness: Mr. Padilla is a 72 y/o man known to me from the wound clinic. He is on Daptomycin 700mg IV q48 for osteomyelitis of the L 4th toe. Six weeks of treatment is scheduled to complete today. He was admitted here on 10/27/17 with shaking chills and altered mental status, which was acute. His son had noted that his urine was brown in his catheter bag prior to admission. He was found to have a UTI with K. pneumoniae. Blood cultures were negative. This was treated initially with IV antibiotics, then changed to Vantin to complete a 10 day course, and this ended 11/05. He was transferred to IRU for rehab. He's been noted to have some new blisters on his right foot. I was asked to see him to help with his antibiotics. Medications Home Medications Medication Instructions Recorded Confirmed Type Aspirin Chewable [ASA] 81 mg PO DAILY 09/30/16 11/01/17 Rx Multivitamin [One Daily 1 tab PO DAILY 10/23/16 11/01/17 History Multivitamin] Amlodipine [Norvasc] 5 mg PO DAILY 10/29/16 11/01/17 History Insulin Aspart [NovoLOG] 10 unit SQ 1200 10/29/16 11/01/17 History Insulin Detemir [Levemir Flextouch] 40 unit SQ HS 01/17/17 11/01/17 History Allopurinol [Zyloprim] 100 mg PO DAILY 01/26/17 11/01/17 History Clopidogrel Bisulfate [Clopidogrel] 75 mg PO DAILY 06/30/17 11/01/17 History Docusate Sodium [Stool Softener] 200 mg PO DAILY 06/30/17 11/01/17 History Metoprolol Tartrate [Lopressor] 25 mg PO BID 06/30/17 11/01/17 History Chlorthalidone 12.5 - 25 mg PO DAILY 10/09/17 11/01/17 History Cholecalciferol (Vitamin D3) 1,000 unit PO DAILY 10/27/17 11/01/17 History [Vitamin D3] Cyanocobalamin (Vitamin B-12) 1,500 mcg PO DAILY 10/27/17 11/01/17 History [B-12] Insulin Aspart [Novolog] 30 unit SQ AM 10/27/17 11/01/17 History Allergies Allergy/AdvReac Type Severity Reaction Status Date / Time hydrocodone AdvReac Intermediate Verified 10/27/17 09:25 PFSH Patient Stated Medical History Cerebrovascular Accident Yes: loss memory Hearing Loss Yes Cardiac Arrhythmia Yes Congestive Heart Failure Yes Coronary Artery Disease Yes Heart Murmur Yes Hypertension Yes Myocardial Infarction Yes: s/p CABG x 3 Valvular Heart Disease Yes Pulmonary Edema Yes Sleep Apnea No Other Respiratory Yes: sirs 06/2016 Diabetes Mellitus Type 1 Yes Diabetes Mellitus Type 2 Yes Constipation Yes Hx Benign Prostatic Yes Hyperplasia Hx Incontinence pt states "i can't tell you" Hx Renal Disease Yes Hx Urinary Tract Infection Yes Other Yes: 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 CHF. Aortic stenosis. Coronary artery disease. Hypertension. Diabetes type 2. Diabetic nephropathy. BPH. Cervical stenosis. Gout. Chronic kidney disease (stage IV). dementia. osteomyelitis L 4th toe Surgical History: Cystoscopy and SP tube placement; cystogram - Dr. Walters. Cholecystectomy. CABG - (coronary stent placed in setting of acute inferior WI at [facility]). Knee surgery. Hand and foot. 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 Mike Simon. Lumbar disc surgery Family History Updates: reviewed and noncontributory - Social History Smoking status: Never smoker second hand exposure: No Substance use type: does not use Alcohol intake: never Alcohol intake frequency: does not drink Housing: house Household members: children (Lives with his son.) Current occupational status: retired Current occupational exposures/hazards: Yes Does patient use chewing tobacco?: No Current residence: Apartment/Private Home Review of Systems All systems PM: 10-point ROS was reviewed, no additional remarkable complaints except - Constitutional Constitutional: Absent: chills, fever(s) - EENMT Eyes: Absent: change in vision - Cardiovascular Cardiovascular: Absent: chest pain - Integumentary/Breasts Integumentary: Present: other (blisters R foot) Exam Vital Signs: Temperature 98.0 F 11/09/17 07:39 Pulse Rate 63 11/09/17 07:39 Respiratory Rate 20 11/09/17 07:39 Blood Pressure 160/72 H 11/09/17 07:39 Pulse Oximetry 95 11/09/17 07:39 Height/Weight/BMI: Height 1.85 m Weight 122.7 kg Body Mass Index 35.9 - Constitutional Present: no acute distress, well nourished, well developed, obese - Routine HEENT Exam Head: Present: normocephalic, atraumatic Eye: Present: EOMI, PERRL ENT: Present: mucous membranes moist - Routine Neck Exam Present: supple - Routine Respiratory Exam Present: CTA bilaterally - Routine Cardiovascular Exam Present: RRR - Routine Abdominal Exam Present: soft, normoactive bowel sounds, non distended, non tender - Routine Exam Comments: suprapubic catheter in place with clear urine - Routine Extremities Exam Present: edema (1+ R foot). Absent: cyanosis, clubbing - Routine Back/Spine/Pelvis Exam Back/Spine: Present: full ROM - Routine Skin Exam Absent: rash Comments: L 4th toe looks improved, but still has some edema and erythema He has a wound L 5th MT head that appears unchanged to me He has a small discoloration at tip of R 2nd toe that looks ischemic He has some blisters on R lateral foot and a superficial wound there. - Routine Neurological Exam Present: alert, CN II-XII intact, normal speech. Absent: motor deficit - Routine Psychiatric Exam Present: normal affect Results - Labs CBC & Chem 7: 11/06/17 04:19 11/09/17 05:31 Impression: Sepsis secondary to catheter-associated UTI. Urine culture with predominantly K. pneumoniae, s/p treatment with Zosyn, then Vantin, completed 11/05. R foot edema, with new blisters noted. L 4th toe diabetic ulcer with osteomyelitis. Wound cultures with S. epi and Group B Strep. MRI 09/13/17 showing changes consistent with osteo L 4th toe. Diabetic foot wounds R 2nd toe and L lateral 5th MT head. DM II, IR, with peripheral neuropathy PAD s/p stent RLE CKD, followed by Dr. Qi Healy, most recent creatinine 2.8 CAD s/p CABG Recurrent UTIs, s/p Chronic suprapubic english catheter Nephrolithiasis Recommendation: Recommend continuing the Daptomycin 700mg IV q48 hours for another 2 weeks, through 11/23/17. His L 4th toe looks improved, but is still swollen and mildly erythematous. He needs to elevate his R foot due to the edema, and he needs continued wound care for the blisters on his R foot. I wrote orders for outpatient Daptomycin in case he is discharged soon. I won't be able to return until Tuesday.
--- NOTE | 2017-11-09 15:47 | Wound Care Progress Note ---
Wound Center Progress Note: Pt seen for wound care followup. Pt resting in bed watching TV, no complaints of pain. Pt has new wounds to R lateral foot. R lateral proximal foot: intact serous bulla. R lateral distal foot: intact blood blister with depressed center , measuring 1.5 (L) x 1.2 (W). R 5th met head: skin not intact, wound bed has red non-granulating tissue, no drainage, measuring 1.5 (L) x 1.3 (W). Periwound : macerated, with sloughing skin, excess skin removed. R 2nd toe: toe nail fungus, erythema, no drainage. L 5th met head, L 4th dorsal toe appear unchanged , slight edema, erythema, slow to delfina. L medial ankle: has a dressing. Wound tx plan: Bullae covered with mepilex. R 5th met head: Saline moistened Sara/Mepilex, change q 3 days. L 4th dorsal toe/L lateral 5th met head, R distal 2nd toe: Iodosorb/Mepilex, change q 3 days. Elevate bilateral lower legs.
[2017-11-09] MEDS: INSULIN DETEMIR 100unit/ml INJECTION SQ SCH (21:07)
[2017-11-09] MEDS: INSULIN ASPART 100unit/ml INJECTION SQ PRN (21:08)
[2017-11-09] MEDS: SALINE FLUSH 10ml SYRINGE IV PRN (21:09)
[2017-11-10] MEDS: AMLODIPINE 10 MG TABLET PO SCH (08:28)
[2017-11-10] MEDS: CYANOCOBALAMIN (B-12) 500mcg TABLET PO SCH (08:28)
[2017-11-10] MEDS: ALLOPURINOL 100 MG TABLET PO SCH (08:28)
[2017-11-10] MEDS: SENNA + DOCUSATE TABLET PO SCH ×2 (08:29→21:21)
[2017-11-10] MEDS: POLYETHYL GLYCOL 3350 17gm PACKET PO SCH (08:30)
[2017-11-10] MEDS: ENOXAPARIN 30 MG/0.3 ML INJECTION SQ SCH (08:30)
[2017-11-10] MEDS: ASPIRIN 81 MG CHEWABLE TABLET PO SCH (08:30)
[2017-11-10] MEDS: INSULIN ASPART 100unit/ml INJECTION SQ SCH ×3 (08:30→17:52)
[2017-11-10] MEDS: DOCUSATE SODIUM 100 MG CAPSULE PO SCH (08:30)
[2017-11-10] MEDS: MULTI-VITAMIN PLAIN TABLET PO SCH (08:30)
[2017-11-10] MEDS: CLOPIDOGREL 75 MG TABLET PO SCH (08:30)
--- NOTE | 2017-11-10 16:13 | IRU Progress Note ---
- Subjective/Serverity of Illness Date: 11/10/17 Milan was assessed on inpatient rehabilitation. He states he would like to get home as soon as possible. He states he does feel comfortable doing that. I visited with the therapist who indicates that his balance and strength is improving. He has been seen by Dr. Fransisca Zarate from infectious disease. She recommends another 2 weeks of the daptomycin every other day. From a therapy standpoint he is ambulating over 200 feet with standby assistance. He is using a 4 wheeled walker. Suprapubic catheter remains in place. He has declined a leg bag and uses a regular Vasquez collection bag. He has not had any fever. He denies any chest pain or shortness of breath. Review of lab indicates that his creatinine is climbing a bit up to 3.2. Exam Vital Signs: Temperature 97.8 F 11/10/17 15:40 Pulse Rate 64 11/10/17 15:40 Respiratory Rate 20 11/10/17 15:40 Blood Pressure 121/67 11/10/17 15:40 Pulse Oximetry 94 11/10/17 15:40 Height/Weight/BMI: Height 1.85 m Weight 123.4 kg Body Mass Index 35.9 - Constitutional Present: no acute distress, well nourished, well developed, obese, cooperative - Routine HEENT Exam Eye: Present: EOMI ENT: Present: mucous membranes moist, dentition normal - Routine Respiratory Exam Present: CTA bilaterally. Absent: wheezes - Routine Cardiovascular Exam Present: RRR, S1, S2. Absent: murmur - Routine Abdominal Exam Present: soft, normoactive bowel sounds, non distended. Absent: tenderness - Routine Extremities Exam Present: no edema, normal capillary refill Comments: Today I did not remove his dressing. Wound care has monitored and is managing the blisters on the right foot. - Routine Skin Exam Present: dry, warm - Routine Neurological Exam Present: alert, oriented X3, CN II-XII intact - Routine Psychiatric Exam Present: normal affect Results IRU - Labs Labs: Have reviewed Dr. Zarate notes as well as wound care notes. Have reviewed chart data. Creatinine up a bit. IRU A/P (1) Weakness generalized Current visit: Yes Status: Acute Milan's strength and endurance are improving. His balance is improved. It is anticipated that he will be able to make a safe transition to his home environment tomorrow. (2) CKD (chronic kidney disease) stage 4, GFR 15-29 ml/min Problem details: Stage 3-4 Current visit: Yes Status: Chronic Creatinine is increasing up to 3.2. Management per hospitalists. (3) DM type 2 (diabetes mellitus, type 2) Qualifiers: Diabetes mellitus nursing home insulin use: with middle or intermediate school principal use Diabetes mellitus complication status: with kidney complications Diabetes mellitus complication detail: with chronic kidney disease Chronic kidney disease stage : stage 3 (moderate) Qualified Code(s): E11.22 - Type 2 diabetes mellitus with diabetic chronic kidney disease; N18.3 - Chronic kidney disease, stage 3 ( moderate); Z79.4 - group home (current) use of insulin Current visit: No Status: Chronic Milan blood sugars are reviewed and are quite good. (4) HTN (hypertension) Qualifiers: Hypertension type: essential hypertension Qualified Code(s): I10 - Essential (primary) hypertension Current visit: No Status: Chronic DVT Prophylaxis: SCD's Resuscitation Status: Full Code - Course Hospital Course: Michelle Morrison, DO: 11/03/17 11:12 Patient is progressing with therapy for both OT and PT. Remains on Vantin for UTI. Creatinine improved at 2.8. Sugars are looking okay. 11/04/17 10:12 Continues to progress with therapy. Remains afebrile. Creatinine up at 2.9. Blood sugars are doing well. 11/07/17 10:44 Not doing quite as well with therapy. Balance is reduced. Remains afebrile. Creatinine improved. 11/08/17 11:26 Creatinine back up with 3.0. Cooperative with therapy. Balance improved. Ambulating better. New blisters right lateral foot with wound care consulted. 11/10/17 16:14 Blood sugars are doing well. He is improved from a functional standpoint. His serum creatinine is climbing a bit. Continue daptomycin every other day. - Interventions to Obtain Goals PT Treatment Plan: Balance/Proprioception, Functional Activities, Gait Training , Patient/Family Education, Therapeutic Exercise OT Treatment Plan: ADL (Basic Care), Balance Training, Pt./Family Education, Ther. Exercise for ADL
--- NOTE | 2017-11-10 16:33 | Progress Note ---
- Date 11/10/17 Subjective: Patient seen resting in his bed this afternoon. He states he is feeling well. Plans to go home tomorrow. No CP, SOA, n/v/f/c. Objective Vital signs: Temperature 97.8 F 11/10/17 15:40 Pulse Rate 64 11/10/17 15:40 Respiratory Rate 20 11/10/17 15:40 Blood Pressure 121/67 11/10/17 15:40 Pulse Oximetry 94 11/10/17 15:40 Height/Weight/BMI: Height 1.85 m Weight 123.4 kg Body Mass Index 35.9 - Constitutional Present: no acute distress, well nourished, well developed - Routine HEENT Exam Head: Present: normocephalic, atraumatic - Routine Respiratory Exam Present: CTA bilaterally. Absent: wheezes - Routine Cardiovascular Exam Present: RRR, no murmur - Routine Abdominal Exam Present: soft, non distended, non tender - Routine Extremities Exam Present: no edema, normal capillary refill - Routine Skin Exam Present: dry, warm - Routine Neurological Exam Present: alert, oriented X3 - Routine Lymphatic Exam Lymphatic: Absent: adenopathy - Routine Psychiatric Exam Present: normal affect, cooperative Results - Labs CBC & Chem 7: 11/06/17 04:19 11/10/17 04:03 Assessment and Plan Assessment and Plan: Assessment Recent hospitalization for severe sepsis (SIRS: leukocytosis, tachycardia. Source: suspect urinary - UA not yet collected on admission. Lactate >2) Recent acute encephalopathy secondary to UTI UTI with klebsiella pneumoniae - currently on Vantin Resolving CHLOE - creatinine 3.2 (on admission to medical) peaked at 4.0; possible ATN Chronic kidney disease (stage IV) Osteomyelitis L 4th toe History of CVA CHF PAD - s/p stent RLE (Dr. Candelaria) Aortic stenosis Coronary artery disease Hypertension Diabetes type 2 (A1C 7.0 on 09/18/16) Diabetic nephropathy BPH - pt has suprapubic catheter due to recurrent UTI Cervical stenosis Gout - on chronic allopurinol Obesity with BMI 36 Plan Continue daptomycin through 11/[address] Zarate. She has already written orders for OP daptomycin for after discharge. Home chlorthalidone is still on hold. Will plan to DC this since he hasn't needed it during his hospital and rehab stay. Norvasc increased to 10mg daily on 11/05/17. Blood sugars stable. Continue to monitor. 11/10/2017-8 PM-I examined the patient independently. I reviewed this chart, the patient history, and the BUSINESS LINE MANAGER's/PA's documented findings as above. We discussed and formulated the assessment and plan as above with the additions below.-Dr. Rea The patient was seen this evening in his room. He was sitting up in a recliner with his legs elevated. He states he's feeling well and has no complaints. His suprapubic catheter is functioning normally. He denies any leaking. He denies pain anywhere. He denies any shortness of breath. On exam he is alert and in no acute distress. Chest is clear to auscultation. Cardiovascular reveals a regular rate and rhythm. Abdomen is soft and nontender. Extremities reveal no edema. Impression and plan Increasing creatinine-the patient will be given 1 L of fluids at 100 ML's per hour overnight and recheck basic metabolic profile tomorrow. We'll try to discuss with the patient's set decorator tomorrow as well. Continue Norvasc for hypertension. Continue off of chlorthalidone for now. Blood pressure is well controlled, but no hypotension. Continue to avoid nephrotoxins DVT Prophylaxis: SCD's Resuscitation Status: Full Code - Physician Narrative Narrative: Date: 11/10/17 Time: 1629 Hospital Course Summary Disclaimer: The visit summary below is not to be considered part of the above Progress Note. Hospital Course: 11/02/17 Agree with admission to IRU for further strengthening and improvement in functional abilities. Continue Vantin for UTI through 11/05. Continue daptomycin through 11/09. See Dr. Zarate at wound clinic when done with rehab. Follow renal function. Home chlorthalidone is still on hold. Follow BS's - will adjust insulin as needed. Vitals stable. SCD's for DVT ppx Care to return to Dr العراقي on dismissal. Hospitalist team will follow pt throughout his stay. Thank you for the consult. 11/06/17 Patient is making slow gains in therapy. Continue to encourage participation. Pain medications and care plan per Dr. Dang. Patient complained of left lower back pain with point tenderness along paraspinous region of L3-L5. Recent UTI treated with Vantin - completed on . Afebrile with stable WBC. Renal ultrasound obtained and unremarkable. Suspect musculoskeletal process secondary to therapy. Monitor closely. Continue daptomycin through 11/09. See Dr. Zarate at wound clinic when done with rehab. SCr trending down (Scr 2.7 today). Continue to monitor closely. Home chlorthalidone is still on hold. Blood pressure has been consistent elevated. Norvasc increased to 10mg daily on 11/05/17. Continue to monitor closely as patient may need additional treatment adjustments. Blood sugars stable. Continue to monitor. 11/10/17 Continue daptomycin through 11/[address] Zarate. She has already written orders for OP daptomycin for after discharge. Home chlorthalidone is still on hold. Will plan to DC this since he hasn't needed it during his hospital and rehab stay. Norvasc increased to 10mg daily on 11/05/17. Blood sugars stable. Continue to monitor. Addendum entered and electronically signed by ESTHER Webb 11/10/17 16:46 : Will give NS at 100cc/hr x 1 L and repeat labs in am to follow his renal function. (Elevated Cr and BUN.)
[2017-11-10] MEDS ORDERED: NS 1,000 ML IV SCH (16:45)
[2017-11-10] MEDS ORDERED: TRAMADOL 50 MG TABLET PO PRN (16:49)
[2017-11-10 20:14] VITALS: O2SAT 97
[2017-11-10] MEDS: INSULIN DETEMIR 100unit/ml INJECTION SQ SCH (21:21)
[2017-11-10] MEDS: DAPTOMYCIN IVP SCH (22:08)
[2017-11-10] MEDS: NS IVP SCH (22:08)
[2017-11-11 08:08] VITALS: BP 171/90; PULSE 62; RESP 22; TEMP 97.9
[2017-11-11] MEDS: AMLODIPINE 10 MG TABLET PO SCH (08:51)
[2017-11-11] MEDS: ALLOPURINOL 100 MG TABLET PO SCH (08:51)
[2017-11-11] MEDS: ENOXAPARIN 30 MG/0.3 ML INJECTION SQ SCH (08:52)
[2017-11-11] MEDS: MULTI-VITAMIN PLAIN TABLET PO SCH (08:52)
[2017-11-11] MEDS: CLOPIDOGREL 75 MG TABLET PO SCH (08:52)
[2017-11-11] MEDS: CYANOCOBALAMIN (B-12) 500mcg TABLET PO SCH (08:52)
[2017-11-11] MEDS: SENNA + DOCUSATE TABLET PO SCH (08:56)
[2017-11-11] MEDS: ASPIRIN 81 MG CHEWABLE TABLET PO SCH (08:57)
[2017-11-11] MEDS: POLYETHYL GLYCOL 3350 17gm PACKET PO SCH (08:57)
[2017-11-11] MEDS: INSULIN ASPART 100unit/ml INJECTION SQ SCH ×2 (08:57→12:26)
[2017-11-11] MEDS: DOCUSATE SODIUM 100 MG CAPSULE PO SCH (08:57)
--- NOTE | 2017-11-11 14:36 | IRU Progress Note ---
- Subjective/Serverity of Illness Date: 11/11/17 Milan was seen several times this morning prior to his dismissal. He is doing well with therapy. Wounds on feet noted. He has 3 blisters on the right lateral aspect of the right foot. This is been addressed by wound team as well as by Dr. Fransisca Zarate. He will remain on daptomycin every other day. He will be followed up by home health. He denies any chest pain or shortness of breath. He denies any nausea or vomiting. He states that he does feel as though he is stable to return to his home environment at present. Arrangements have been made for follow-up for the daptomycin in the outpatient area. Exam Vital Signs: Temperature 97.9 F 11/11/17 08:00 Pulse Rate 62 11/11/17 08:00 Respiratory Rate 22 11/11/17 08:00 Blood Pressure 171/90 H 11/11/17 08:00 Pulse Oximetry 97 11/11/17 08:00 Height/Weight/BMI: Height 1.85 m Weight 123.4 kg Body Mass Index 35.9 - Constitutional Present: no acute distress, well nourished, well developed, obese - Routine HEENT Exam Eye: Present: EOMI ENT: Present: mucous membranes moist, oropharynx clear - Routine Respiratory Exam Present: CTA bilaterally. Absent: wheezes - Routine Cardiovascular Exam Present: RRR, S1. Absent: murmur - Routine Abdominal Exam Present: soft, normoactive bowel sounds, non distended. Absent: tenderness - Routine Extremities Exam Present: normal capillary refill Comments: Since the wounds have been recently dressed today, I did not remove the dressing. I did inspect his feet however recently and he has been followed by wound care. - Routine Skin Exam Present: dry, warm - Routine Neurological Exam Present: alert, oriented X3, CN II-XII intact - Routine Psychiatric Exam Present: normal affect IRU A/P (1) Weakness generalized Current visit: Yes Status: Acute Patient has improved from a functional basis. He is stable to return home with home health assistance. (2) CKD (chronic kidney disease) stage 4, GFR 15-29 ml/min Problem details: Stage 3-4 Current visit: Yes Status: Chronic Creatinine has remained stable at around 3.2. That was repeated today. This will need to be followed up as an outpatient. 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 (4) HTN (hypertension) Qualifiers: Hypertension type: essential hypertension Qualified Code(s): I10 - Essential (primary) hypertension Current visit: No Status: Chronic Milan's blood pressures are variable but for the most part reasonably well controlled. DVT Prophylaxis: SCD's Resuscitation Status: Full Code - Course Hospital Course: Michelle Morrison, DO: 11/03/17 11:12 Patient is progressing with therapy for both OT and PT. Remains on Vantin for UTI. Creatinine improved at 2.8. Sugars are looking okay. 11/04/17 10:12 Continues to progress with therapy. Remains afebrile. Creatinine up at 2.9. Blood sugars are doing well. 11/07/17 10:44 Not doing quite as well with therapy. Balance is reduced. Remains afebrile. Creatinine improved. 11/08/17 11:26 Creatinine back up with 3.0. Cooperative with therapy. Balance improved. Ambulating better. New blisters right lateral foot with wound care consulted. 11/10/17 16:14 Blood sugars are doing well. He is improved from a functional standpoint. His serum creatinine is climbing a bit. Continue daptomycin every other day. 11/11/17 14:36 Patient is stable for transfer to his home environment with home health assistance. - Interventions to Obtain Goals PT Treatment Plan: Balance/Proprioception, Functional Activities, Gait Training , Patient/Family Education, Therapeutic Exercise OT Treatment Plan: ADL (Basic Care), Balance Training, Pt./Family Education, Ther. Exercise for ADL Goals Progress/Modifications: Specific instructions with regard to wound care are sent to the home health agency via fax. Questions were addressed. He will follow-up with Dr. العراقي.
--- NOTE | 2017-11-11 14:59 | Letter to Referring Physician ---
Dear Dr. العراقي, This is a brief note to bring you up-to-date on the status of Milan Padilla and his stay on the acute inpatient rehabilitation unit at [facility]. As you are likely aware, this patient was admitted to [facility] on 10/27/17 with chills and confusion. He was found to have a urinary tract infection with Klebsiella pneumoniae and was septic. He was treated with antibiotics and recovered from this. His creatinine did reach a maximum of 4.0 on acute care and then drifted downward. The patient was stabilized while on the acute level and admitted to inpatient rehabilitation unit at [facility] on November 01, 2017. While on inpatient rehabilitation, this patient was seen by occupational therapy and physical therapy and improved overall in his functional ability. We also monitored and managed the patient's creatinine and other medical issues including wounds on his feet while on Acute Rehab. The patient was followed by the wound care team. He did have development of some blisters on the right lateral foot of unclear etiology. He was also seen by Dr. Dora Zarate with infectious disease and she recommended continuing the daptomycin every 48 hours for the time being. This is arranged as an outpatient. Please see a copy of the history and physical examination as well as discharge summary faxed separately for further details. His dismissal insulin dose included Levemir 45 units at at bedtime daily and NovoLog 10 units with lunch and 12 units with evening meal. Other than the daptomycin he is on no other antibiotics. His creatinine on rehabilitation ranged from 2.8-3.2 and is 3.2 at the time of dismissal. His hemoglobin is 13 and his white count 5300. His blood sugars ranged between 128 - 168 toward the latter portion of his stay. Home health will be following him as well and they will manage his wound care on his feet. Specific directions were faxed to the home health service with regard to wound management. I did not give him any pain medications at the time of dismissal as he was not having discomfort. Thank you for allowing us to be involved in this nice patient's care. Please contact me directly should you have any questions regarding their stay on the inpatient rehabilitation unit. Sincerely, Colin Dang M.D.
--- NOTE | 2017-11-11 15:57 | Discharge Summary ---
Discharge Information Date of admission: 11/01/17 10:30 Anticipated date of discharge: 11/11/17 Attending Physician: Colin Dang MD Primary care physician: Roel العراقي II, MD Consults: 11/01/17 10:54 Wound Vein Clinic Consult [CONS] Routine Reason for consultation: f-u chronic wounds 11/01/17 13:27 Physician Consult [CONS] Routine Consulting Provider: Jun Tse Reason For Exam: medical management Ordering Provider has Notified Investment Professional: No 11/07/17 10:53 Physician Consult [CONS] Routine Consulting Provider: Fransisca Zarate Reason For Exam: follow up osteomyelitis of left toe Ordering Provider has Notified Investment Professional: No - Discharge Diagnosis (1) Weakness generalized Status: Acute (2) CKD (chronic kidney disease) stage 4, GFR 15-29 ml/min Status: Chronic (3) DM type 2 (diabetes mellitus, type 2) Status: Chronic (4) HTN (hypertension) Status: Chronic 1. Generalized weakness 2. Chronic kidney disease stage IV with acute kidney injury (final creatinine 3.2) 3. Diabetes mellitus type 2 on long-term insulin with chronic kidney disease complications 4. Benign essential hypertension 5. Foot blisters of unclear etiology 6. Osteomyelitis left fourth toe, present prior to admission - Laboratory Labs: 11/11/17 04:43 11/11/17 04:43 History of Present Illness HPI: Mr. Padilla was initially admitted to the [facility] on 10/27/2017 with shaking chills and confusion starting on the morning of admission. He has a chronic indwelling suprapubic catheter. He was diagnosed with a UTI with Klebsiella pneumonia and also had severe sepsis. He had leukocytosis, tachycardia, elevated lactate and fever with acute encephalopathy. He had acute kidney injury with his creatinine peaking at 4.0. He was treated with Zosyn and Rocephin and was transitioned to oral Vantin through 10/28/2017. The patient sustained multiple functional deficits and was transferred to acute inpatient rehabilitation for further therapy. Hospital Course This is a general summary of the patient's hospital course. For more details refer to the complete medical record. The patient was admitted to acute inpatient rehabilitation on 11/01/2017. He was followed by the hospitalist service as well as by Dr. Dang. His blood sugars initially were elevated but subsequently came down into the 128 -160 range. His insulin was adjusted. His creatinine ranged between 2.8 and 3.2 on acute inpatient rehabilitation. His final creatinine was 3.2. His hemoglobin toward the end of the hospitalization was 13 and his white count 5300. His final insulin dose included Levemir 45 units daily and NovoLog 10 units at lunch and 12 units with the evening meal. Patient did develop some blisters on the lateral aspect of his right foot. He was seen by Dr. Fransisca Zarate, infectious disease for a previously noted osteoma myelitis of the left fourth toe. In addition he was followed by the wound care team. It is possible that his lesions are related to lower extremity vascular insufficiency but further evaluation at this time was not attempted. The following levels of functional competence are to be considered preliminary information. The reader is encouraged to refer to actual therapy notes and reports for specific details. The patient was followed by physical therapy while on acute inpatient rehabilitation. At the conclusion of his stay, the following functional competencies were identified: He was able to transfer with moderate assistance. He was able to ambulate 183 feet with a front-wheeled walker with only contact guard assistance. He was able to climb 8 steps with maximum assistance of 1 person. The patient was followed by occupational therapy while on acute inpatient rehabilitation. At the conclusion of his stay, the following functional competencies were identified: He was able to bathe with contact-guard assistance. Upper body dressing was with standby assistance and lower body dressing was with minimum assistance. No pain medications were provided at the time of dismissal as he was doing fine in this regard. Home health was consulted and we specifically faxed them directions on wound management for the lower extremities as recommended by the wound team. He will continue daptomycin every other day per recreation of Dr. Fransisca Zarate. Follow-up of his creatinine as well as blood sugars and foot lesions is recommended. Hospital course: 11/02/17 Agree with admission to IRU for further strengthening and improvement in functional abilities. Continue Vantin for UTI through 11/05. Continue daptomycin through 11/09. See Dr. Zarate at wound clinic when done with rehab. Follow renal function. Home chlorthalidone is still on hold. Follow BS's - will adjust insulin as needed. Vitals stable. SCD's for DVT ppx Care to return to Dr العراقي on dismissal. Hospitalist team will follow pt throughout his stay. Thank you for the consult. 11/06/17 Patient is making slow gains in therapy. Continue to encourage participation. Pain medications and care plan per Dr. Dang. Patient complained of left lower back pain with point tenderness along paraspinous region of L3-L5. Recent UTI treated with Vantin - completed on . Afebrile with stable WBC. Renal ultrasound obtained and unremarkable. Suspect musculoskeletal process secondary to therapy. Monitor closely. Continue daptomycin through 11/09. See Dr. Zarate at wound clinic when done with rehab. SCr trending down (Scr 2.7 today). Continue to monitor closely. Home chlorthalidone is still on hold. Blood pressure has been consistent elevated. Norvasc increased to 10mg daily on 11/05/17. Continue to monitor closely as patient may need additional treatment adjustments. Blood sugars stable. Continue to monitor. 11/10/17 Continue daptomycin through 11/[address] Zarate. She has already written orders for OP daptomycin for after discharge. Home chlorthalidone is still on hold. Will plan to DC this since he hasn't needed it during his hospital and rehab stay. Norvasc increased to 10mg daily on 11/05/17. Blood sugars stable. Continue to monitor. Time spent with patient: greater than 35 minutes Resuscitation Status: Full Code Discharge Plan - Med Rec/Dispo Referrals/Follow Up: Roel العراقي II, MD [Primary Care Provider] - (Dr. Oliverio العراقي on 11/23/17 at 10:45 am for Hosp. follow-up. Please reschedule pt earlier next week with Dul[facility] Maria to f-u renal function per Dr. Healy.) Fransisca Zarate MD [Physician] - (f/u in Wound Clinic on 11/23/17) Prescriptions: New Insulin Detemir [Levemir] 45 unit SQ HS vial Insulin Aspart [NovoLOG] 12 unit SQ 1730 vial DAPTOmycin [Cubicin] 700 mg IVP Q48H vial PEG 3350 17gm PACKET [Miralax] 17 gm PO DAILY packet Amlodipine [Norvasc] 10 mg PO DAILY #30 tab Continue Multivitamin [One Daily Multivitamin] 1 tab PO DAILY Insulin Aspart [NovoLOG] 10 unit SQ 1200 Allopurinol [Zyloprim] 100 mg PO DAILY Metoprolol Tartrate [Lopressor] 25 mg PO BID Clopidogrel Bisulfate [Clopidogrel] 75 mg PO DAILY Docusate Sodium [Stool Softener] 200 mg PO DAILY Insulin Aspart [Novolog] 30 unit SQ AM Cyanocobalamin (Vitamin B-12) [B-12] 1,500 mcg PO DAILY Cholecalciferol (Vitamin D3) [Vitamin D3] 1,000 unit PO DAILY Aspirin Chewable [ASA] 81 mg PO DAILY Discontinued Amlodipine [Norvasc] 5 mg PO DAILY Insulin Detemir [Levemir Flextouch] 40 unit SQ HS Chlorthalidone 12.5 - 25 mg PO DAILY - Disposition [facility] Service - Dismissal Complete Discharge Instructions are:: Complete
--- NOTE | 2017-11-12 13:53 | Right on Track Program ---
Right on Track Program Date of Discharge: 11/11/17 Home Medications: Home Medications Medication Instructions Recorded Confirmed Multivitamin [One Daily 1 tab PO DAILY 10/23/16 11/01/17 Multivitamin] Insulin Aspart [NovoLOG] 10 unit SQ 1200 10/29/16 11/01/17 Allopurinol [Zyloprim] 100 mg PO DAILY 01/26/17 11/01/17 Clopidogrel Bisulfate [Clopidogrel] 75 mg PO DAILY 06/30/17 11/01/17 Docusate Sodium [Stool Softener] 200 mg PO DAILY 06/30/17 11/01/17 Metoprolol Tartrate [Lopressor] 25 mg PO BID 06/30/17 11/01/17 Cholecalciferol (Vitamin D3) 1,000 unit PO DAILY 10/27/17 11/01/17 [Vitamin D3] Cyanocobalamin (Vitamin B-12) 1,500 mcg PO DAILY 10/27/17 11/01/17 [B-12] Insulin Aspart [Novolog] 30 unit SQ AM 10/27/17 11/01/17 Previous Rx's Medication Instructions Recorded Aspirin Chewable [ASA] 81 mg PO DAILY 09/30/16 Amlodipine [Norvasc] 10 mg PO DAILY #30 tab 11/11/17 DAPTOmycin [Cubicin] 700 mg IVP Q48H vial 11/11/17 Insulin Aspart [NovoLOG] 12 unit SQ 1730 vial 11/11/17 Insulin Detemir [Levemir] 45 unit SQ HS vial 11/11/17 PEG 3350 17gm PACKET [Miralax] 17 gm PO DAILY packet 11/11/17 - Right on Track Program Phone call Date: 11/12/17 Right on Track Program: 24 Hour Follow-Up Discharge Summary Received: Yes Care Plan Received: Yes Referral: Home Health Comments: I left a message with Milan Gordon inquiring about his father, and whether or not he had questions or concerns on his discharge instructions/medications or follow ups appointments. I left my contact information for return call. Recommendations For Follow-up: No return call; no further conversation. No home visit was scheduled. F/U with PCP.
== END 2017-11-11 14:15 | disposition home health service (06) | DRG 945 ==
PROVIDERS: ADMIT Family Medicine; ATTEND Internal Medicine